=== PATIENT | male | born 1960 | race African-American/Black ===

== ENCOUNTER 2016-10-11 10:04 | Inpatient (IN) | payer OTHER ==
[2016-10-11 10:56] VITALS: BMI 22.9
--- NOTE | 2016-10-11 14:03 | HP ---
CIWA Score - CIWA Score Nausea/Vomitin-Int. Nausea w/Dry Heave (AND CONSTIPATION) Muscle Tremors: 4-Moderate,w/Arms Extend Anxiety: 4-Mod. Anxious/Guarded Agitation: 4-Moderately Restless Paroxysmal Sweats: 1-Minimal Palms Moist Orientation: 0-Oriented Tacttile Disturbances: 1-Very Mild Itch/Numbness Auditory Disturbances: 0-None Visual Disturbances: 0-None Headache: 2-Mild CIWA-Ar Total Score: 20 Admission ROS S - HPI Chief Complaint: DETOX TX FOR ALCOHOL DEPENDENCE Allergies/Adverse Reactions: Allergies Allergy/AdvReac Type Severity Reaction Status Date / Time Fish Containing Products Allergy Hives Verified 10/11/16 12:27 Penicillins Allergy Hives Verified 10/11/16 12:27 History of Present Illness: 56 Y/O AA/MALE WITH A HX OF ALCOHOL DEPENDENCE SEEKING DETOX TX. PT WAS DISCHARGED FROM [facility] THIS MORNING AND REFERRED HERE FOR DETOX. PT STATES WENT TO THE ER FOR C/O CHEST PAIN AND ALCOHOL INTOXICATION. PT WAS HYDRATED WITH 0.9%NACL AND GIVEN DOSE OF LIBRIUM WELL LAB WORKUP PER D /C PAPERS. ALET O X 3. DENIES C/O CHEST PAIN AT THIS MOMENT. NAD. Exam Limitations: No Limitations - Ebola screening Have you traveled outside of the country in the last 21 days: No Have you had contact with anyone from an Ebola affected area: No Have you been sick,other than usual withdrawal symptoms: No - Review of Systems Constitutional: Chills, Night Sweats, Changes in sleep (TRAZODONE FOR INSOMNIA IN THE PAST), Unintentional Wgt. Loss EENT: reports: Blurred Vision (USES GLASSES), Dental Problems (MISSING TOOTH) Respiratory: reports: No Symptoms reported Cardiac: reports: Lightheadedness GI: reports: Constipated, Nausea, Poor Fluid Intake : reports: Frequency Musculoskeletal: reports: No Symptoms Reported Integumentary: reports: No Symptoms Reported Neuro: reports: Headache, Numbness (TOES), Tremors, Unsteady Gait, Dizziness Endocrine: reports: No Symptoms Reported Hematology: reports: Anemia (ON FEOSOL) Psychiatric: reports: Orientated x3, Anxious Other Systems: Reviewed and Negative Patient History - Patient Medical History Hx Anemia: No Hx Asthma: No Hx Chronic Obstructive Pulmonary Disease (COPD): No Hx Cancer: No Hx Cardiac Disorders: No Hx Congestive Heart Failure: No Hx Hypertension: Yes (ON MED) Hx Hypercholesterolemia: No Hx Pacemaker: No HX Cerebrovascular Accident: No Hx Seizures: No Hx Dementia: No Hx Diabetes: No Hx Gastrointestinal Disorders: No Hx Liver Disease: No Hx Genitourinary Disorders: No Hx Sexually Transmitted Disorders: No Hx Renal Disease (ESRD): No Hx Thyroid Disease: No Hx Human Immunodeficiency Virus (HIV): No (negative hx) Hx Hepatitis C: No Hx Depression: No Hx Suicide Attempt: No (DENIES) Hx Bipolar Disorder: No Hx Schizophrenia: No - Patient Surgical History Past Surgical History: Yes Hx Neurologic Surgery: No Hx Cataract Extraction: No Hx Cardiac Surgery: No Hx Lung Surgery: No Hx Breast Surgery: No Hx Breast Biopsy: No Hx Abdominal Surgery: No Hx Appendectomy: No Hx Cholecystectomy: No Hx Genitourinary Surgery: No Hx Section: No Hx Orthopedic Surgery: Yes (RT.KNEE ARTHROSCOPIC) Anesthesia Reaction: No - PPD History Previous Implant?: Yes Documented Results: Negative w/o proof Implanted On Prior [facility] Admission?: Yes Date: 07/30/13 PPD to be Administered?: Yes - Reproductive History Patient is a Female of Child Bearing Age (11 -55 yrs old): No (MALE) - Smoking Cessation Smoking history: Current some day smoker Have you smoked in the past 12 months: Yes Aproximately how many cigarettes per day: 5 Hx Chewing Tobacco Use: No Initiated information on smoking cessation: Yes 'Breaking Loose' booklet given: 10/11/16 - Substance & Tx. History Hx Alcohol Use: Yes (VODKA) Hx Substance Use: Yes (COCAINE) Substance Use Type: Alcohol, Cocaine Hx Substance Use Treatment: Yes ([facility]-DETOX) - Substances Abused Crack Route: Smoking Frequency: 1-2 times per week Amount used: $400-500 Age of first use: 30 Date of Last Use: 10/10/16 Alcohol-vodka Route: Oral Frequency: Daily Amount used: 3 pts. Age of first use: 14 Date of Last Use: 10/11/16 Family Disease History - Family Disease History Family History: Denies Admission Physical Exam BHS - Vital Signs Vital Signs: Vital Signs - 24 hr 10/11/16 10:53 Temperature 97 F L Pulse Rate 88 Respiratory 20 Rate Blood Pressure 140/106 - Physical General Appearance: Yes: Moderate Distress, Irritable, Anxious HEENTM: Yes: EOMI, Normocephalic, CLAUDINE, Pharynx Normal Respiratory: Yes: Chest Non-Tender, Lungs Clear, Normal Breath Sounds, No Respiratory Distress Neck: Yes: Supple, Trachea in good position Breast: Yes: Breast Exam Deferred Cardiology: Yes: Regular Rhythm, Regular Rate, S1, S2 Abdominal: Yes: Normal Bowel Sounds, Non Tender, Flat, Soft Genitourinary: Yes: Within Normal Limits, Other (N/C) Back: Yes: Within Normal Limits Musculoskeletal: Yes: full range of Motion, Gait Steady Extremities: Yes: Normal Range of Motion, Non-Tender Neurological: Yes: electrotyper II-XII NML intact, Fully Oriented, Alert Integumentary: Yes: Dry, Warm Lymphatic: Yes: Within Normal Limits - Diagnostic (1) Hypertension Current Visit: Yes Status: Chronic Qualifiers: Hypertension type: essential hypertension Qualified Code(s): I10 - Essential (primary) hypertension (2) Nicotine dependence Current Visit: Yes Status: Acute Qualifiers: Nicotine product type: cigarettes Substance use status: in withdrawal Qualified Code(s): F17.213 - Nicotine dependence, cigarettes, with withdrawal (3) Alcohol dependence with uncomplicated withdrawal Current Visit: Yes Status: Acute (4) Cocaine dependence, uncomplicated Current Visit: Yes Status: Acute (5) History of insomnia Current Visit: Yes Status: Chronic Cleared for Admission [facility] - Detox or Rehab [facility] Level of Care: Medically Managed Detox Regimen/Protocol: Librium [facility] Breath Alcohol Content Breath Alcohol Content: 0 Urine Drug Screen - Results Drug Screen Negative: No Urine Drug Screen Results: MACARIO-Cocaine
[2016-10-11] MEDS ORDERED: NICOTINE POLACRILEX 2 MG GUM BUC PRN (14:22)
[2016-10-11] MEDS ORDERED: guaiFENesin/D-METHORPHAN HB 10 ML UNIT-DOSE CUPS PO PRN (14:22)
[2016-10-11] MEDS ORDERED: ACETAMINOPHEN 325 MG TABLET (FP) PO PRN (14:22)
[2016-10-11] MEDS ORDERED: chlordiazePOXIDE HCL 25 MG CAPSULE PO PRN (14:22)
[2016-10-11] MEDS ORDERED: MAG HYDROX/AL HYDROX/SIMETH 30 ML UNIT-DOSE CUP PO PRN (14:22)
[2016-10-11] MEDS ORDERED: MAGNESIUM CITRATE 300 ML BOTTLE PO PRN (14:22)
[2016-10-11] MEDS ORDERED: MENTHOL/PHENOL 1 EACH UD MM PRN (14:22)
[2016-10-11] MEDS ORDERED: P-EPHED 60MG/TRIPROLIDI 2.5MG TABLET PO PRN (14:22)
[2016-10-11] MEDS ORDERED: IBUPROFEN 400 MG TABLET (FP) PO PRN (14:22)
[2016-10-11] MEDS ORDERED: MAGNESIUM HYDROX 2400MG/30ML ORAL SUSPENSION 30 ML CUP PO PRN (14:22)
[2016-10-11] MEDS ORDERED: LOPERAMIDE HCL 2 MG CAPSULE PO PRN (14:22)
[2016-10-11] MEDS ORDERED: chlordiazePOXIDE HCL 25 MG CAPSULE PO ONE (14:44)
[2016-10-11] MEDS: NICOTINE 14 MG/24 HOURS TOPICAL PATCH TD SCH (15:08)
[2016-10-11] MEDS: chlordiazePOXIDE HCL 25 MG CAPSULE PO SCH ×2 (17:13→22:21)
[2016-10-11] MEDS: hydrOXYzine PAMOATE 25 MG CAPSULE (FP) PO PRN (18:36)
[2016-10-11 18:42] LABS: URINE APPEARANCE CLEAR; URINE BILIRUBIN NEGATIVE (NEGATIVE); URINE BLOOD NEGATIVE (NEGATIVE); URINE COLOR AMBER; URINE GLUCOSE (UA) NEGATIVE (NEGATIVE); URINE KETONE TRACE (NEGATIVE); URINE LEUK ESTERASE NEGATIVE (NEGATIVE); URINE NITRITE NEGATIVE (NEGATIVE); URINE UROBILINOGEN 4.0 E.U/dl E.U./dl (0.2-1.0)
[2016-10-11 18:43] LABS: URINE PROTEIN 1+ (NEGATIVE)
[2016-10-11 19:28] LABS: CALCIUM OXALATE CRYSTALS FEW /hpf (NONE SEEN); URINE MUCUS MANY; URINE RBC 8 /hpf (0-3); URINE WBC 2 /hpf (3-5)
[2016-10-11 21:55] LABS: HIV 1 & 2 AB NEGATIVE; HIV 1 AGp24 NEGATIVE
[2016-10-11] MEDS: THIAMINE HCL 100 MG TABLET (FP) PO SCH (22:21)
[2016-10-11] MEDS: diphenhydrAMINE HCL 50 MG CAPSULE PO PRN (22:21)
[2016-10-12] MEDS: diphenhydrAMINE HCL 50 MG CAPSULE PO PRN (01:02)
[2016-10-12] MEDS: chlordiazePOXIDE HCL 25 MG CAPSULE PO SCH ×4 (06:01→22:16)
[2016-10-12 10:21] LABS: MCH 32.1 pg (25.7-33.7); MCHC 33.5 g/dl (32.0-35.9); MEAN CELL VOLUME 95.8 fl (80-96); MEAN PLT VOLUME 8.5 fl (7.5-11.1); PLATELET COUNT 269 K/MM3 (134-434); RDW 15.3 % (11.9-15.9); WHITE BLOOD COUNT 2.9 K/mm3 (4.0-10.0)
[2016-10-12 10:23] LABS: ALBUMIN 4.1 g/dl (3.4-5.0); ALK PHOS 63 U/L (45-117); ANION GAP 6 (8-16); BILIRUBIN,TOTAL 1.4 mg/dL (0.2-1.0); CALCIUM 9.4 mg/dL (8.5-10.1); CO2 32 mmol/L (21-32); COCKROFT - GAULT 70.55; CREATININE 1.2 mg/dL (0.7-1.3); GLUCOSE,RANDOM 89 mg/dL (74-106); SGOT/AST 54 U/L (15-37); SGPT/ALT 35 U/L (12-78); TOT PROT 7.4 g/dl (6.4-8.2)
[2016-10-12] MEDS: PRENATAL VITAMINS W/ FOLIC ACID TABLET (FP) PO SCH (10:29)
[2016-10-12] MEDS: NICOTINE 14 MG/24 HOURS TOPICAL PATCH TD SCH (10:31)
--- NOTE | 2016-10-12 11:59 | EKG ---
Test Reason : Blood Pressure : / mmHG Vent. Rate : 072 BPM Atrial Rate : 072 BPM P-R Int : 182 ms QRS Dur : 090 ms QT Int : 394 ms P-R-T Axes : 014 069 054 degrees QTc Int : 431 ms NORMAL SINUS RHYTHM MINIMAL VOLTAGE CRITERIA FOR LVH, MAY BE NORMAL VARIANT BORDERLINE ECG NO PREVIOUS ECGS AVAILABLE Confirmed by ROSMERY BIRTO MD ([id number]) on 10/12/2016 11:58:55 AM Referred By: Confirmed By:ROSMERY BRITO MD
--- NOTE | 2016-10-12 13:10 | CONSULT ---
[facility] Psychiatric Consult - Data Date of interview: 10/12/16 Admission source: [facility] Identifying data: Readmission to [facility] for this 56 y/o AA male seeking detox treatment for alcohol and cocaine dependence.Patient is ,a father for two,domiciled,unemployed and supported on Public Assistance. Substance Abuse History: - Smoking Cessation. Smoking history: Current some day smoker. Have you smoked in the past 12 months: Yes. Aproximately how many cigarettes per day: 5. Hx Chewing Tobacco Use: No. Initiated information on smoking cessation: Yes. 'Breaking Loose' booklet given: 10/11/16. - Substance & Tx. History. Hx Alcohol Use: Yes (VODKA). Hx Substance Use: Yes (COCAINE). Substance Use Type: Alcohol, Cocaine. Hx Substance Use Treatment: Yes ([facility]- DETOX). - Substances Abused. Crack. Route: Smoking. Frequency: 1-2 times per week. Amount used: $400-500. Age of first use: 30. Date of Last Use: . Alcohol-vodka. Route: Oral. Frequency: Daily. Amount used: 3 pts. Age of first use: 14. Date of Last Use: 10/11/16. Confirmed by patient. Medical History: Hypertension,hypercholesterolemia,anemia and a history of arthroscopic surgery (right knee). Psychiatric History: Patient admits to history of psychiatric hospitalizations.Discharged for [place] last month (August 2016).Diagmnosed with Bipolar Disorder and maintained on a regimen of risperdal 1 mg po bid + trazodone 50 mg/hs.Confirmed by review of recent pharmacy claims of 09/01/16 @ Darryl Iraheta from provider Angel Steiner.Mr Stallworth gets his outpatient psychiatric services at the [facility] program located in [facility].No reported history of suicide attempts. Physical/Sexual Abuse/Trauma History: Patient denies. Additional Comment: Urine Drug Screen Results: MACARIO-Cocaine.Noted. Mental Status Exam - Mental Status Exam Alert and Oriented to: Time, Place, Person Cognitive Function: Good Patient Appearance: Well Groomed Mood: Hopeful, Euthymic Affect: Appropriate, Normal Range Patient Behavior: Fatigued, Appropriate, Cooperative Speech Pattern: Clear, Appropriate Voice Loudness: Normal Thought Process: Goal Oriented Thought Disorder: Not Present Hallucinations: Denies Suicidal Ideation: Denies Homicidal Ideation: Denies Insight/Judgement: Poor Sleep: Poorly, Difficulty falling asleep Appetite: Good Muscle strength/Tone: Normal Gait/Station: Normal Psychiatric Findings - Problem List ([place] 1, 2,3) (1) Alcohol dependence with uncomplicated withdrawal Current Visit: Yes Status: Acute (2) Cocaine dependence, uncomplicated Current Visit: Yes Status: Acute (3) Nicotine dependence Current Visit: Yes Status: Acute Qualifiers: Nicotine product type: cigarettes Substance use status: in withdrawal Qualified Code(s): F17.213 - Nicotine dependence, cigarettes, with withdrawal (4) Substance induced mood disorder Current Visit: Yes Status: Acute (5) Bipolar disorder Current Visit: Yes Status: Chronic (6) History of insomnia Current Visit: Yes Status: Chronic (7) Hypertension Current Visit: Yes Status: Chronic Qualifiers: Hypertension type: essential hypertension Qualified Code(s): I10 - Essential (primary) hypertension - Initial Treatment Plan Initial Treatment Plan: Psychoeducation.Detoxification.Medications : risperdal 1 mg po bid + trazodone 50 mg po hs.Side effects/benefits discussed with the patient.Made aware,in particular,of potential for dystonias,dyskinesias, akathisia,akinesia,endocrine complications (sexual impotence,galactorrhea, gynecomastia),cardiac adverse events that can occur with the use of risperdal / priapism from use of trazodone.Patient endorses a history of good tolerability/ efficacious response to this combination.He agrees with this plan of care.Observation.
[2016-10-12] MEDS: risperiDONE 1 MG TABLET (FP) PO SCH ×2 (14:24→22:16)
--- NOTE | 2016-10-12 14:46 | PN ---
[facility] CIWA - CIWA Score Nausea/Vomitin-No Nausea/No Vomiting Muscle Tremors: 4-Moderate,w/Arms Extend Anxiety: 3 Agitation: 3 Paroxysmal Sweats: 3 Orientation: 0-Oriented Tacttile Disturbances: 0-None Auditory Disturbances: 0-None Visual Disturbances: 0-None Headache: 0-None Present CIWA-Ar Total Score: 13 S Progress Note (SOAP) Subjective: Anxiety,tremors,sweating,interrupted sleep,restless Objective: 10/12/16 14:46 Vital Signs - 8 hr 10/12/16 10/12/16 09:33 13:24 Temperature 98.0 F Pulse Rate 85 94 H Respiratory 18 20 Rate Blood Pressure 125/88 125/88 Laboratory Tests 10/11/16 10/11/16 10/12/16 10:00 14:00 06:00 WBC 2.9 L RBC 4.17 Hgb 13.4 Hct 39.9 MCV 95.8 MCHC 33.5 RDW 15.3 D Plt Count 269 MPV 8.5 Sodium Potassium Chloride Carbon Dioxide Anion Gap BUN Creatinine Creat Clearance w eGFR Random Glucose Calcium Total Bilirubin AST ALT Alkaline Phosphatase Total Protein Albumin Urine Color Ade Urine Appearance Clear Urine pH 5.0 Ur Specific [place] 1.020 Urine Protein 1+ H Urine Glucose (UA) Negative Urine Ketones Trace H Urine Blood Negative Urine Nitrite Negative Urine Bilirubin Negative Urine Urobilinogen 4.0 e.u/dl Ur Leukocyte Esterase Negative Urine RBC 8 Urine WBC 2 Ur Epithelial Cells Rare Calcium Oxalate Crystal Few Urine Mucus Many RPR Titer HIV 1&2 Antibody Screen Negative HIV P24 Antigen Negative 10/12/16 10/12/16 06:00 06:00 WBC RBC Hgb Hct MCV MCHC RDW Plt Count MPV Sodium 139 Potassium 4.2 Chloride 101 Carbon Dioxide 32 Anion Gap 6 L BUN 18 D Creatinine 1.2 Creat Clearance w eGFR > 60 Random Glucose 89 Calcium 9.4 Total Bilirubin 1.4 H D AST 54 H ALT 35 Alkaline Phosphatase 63 D Total Protein 7.4 Albumin 4.1 Urine Color Urine Appearance Urine pH Ur Specific [place] Urine Protein Urine Glucose (UA) Urine Ketones Urine Blood Urine Nitrite Urine Bilirubin Urine Urobilinogen Ur Leukocyte Esterase Urine RBC Urine WBC Ur Epithelial Cells Calcium Oxalate Crystal Urine Mucus RPR Titer Nonreactive HIV 1&2 Antibody Screen HIV P24 Antigen labs noted Assessment: 10/12/16 14:47 Withdrawal sx. Plan: Continue detox
[2016-10-12] MEDS: hydrOXYzine PAMOATE 25 MG CAPSULE (FP) PO PRN (17:43)
[2016-10-12] MEDS: THIAMINE HCL 100 MG TABLET (FP) PO SCH (22:16)
[2016-10-12] MEDS: traZODone HCL 50 MG TABLET (FP) PO SCH (22:16)
[2016-10-13] MEDS: chlordiazePOXIDE HCL 25 MG CAPSULE PO SCH ×2 (07:19→10:12)
[2016-10-13] MEDS: hydrOXYzine PAMOATE 25 MG CAPSULE (FP) PO PRN ×2 (09:12→17:29)
[2016-10-13] MEDS: PRENATAL VITAMINS W/ FOLIC ACID TABLET (FP) PO SCH (10:11)
[2016-10-13] MEDS: NICOTINE 14 MG/24 HOURS TOPICAL PATCH TD SCH (10:12)
[2016-10-13] MEDS: risperiDONE 1 MG TABLET (FP) PO SCH ×2 (10:12→21:47)
--- NOTE | 2016-10-13 11:02 | PN ---
[facility] CIWA - CIWA Score Nausea/Vomitin-No Nausea/No Vomiting Muscle Tremors: 3 Anxiety: 2 Agitation: 2 Paroxysmal Sweats: 3 Orientation: 0-Oriented Tacttile Disturbances: 0-None Auditory Disturbances: 0-None Visual Disturbances: 0-None Headache: 0-None Present CIWA-Ar Total Score: 10 S Progress Note (SOAP) Subjective: Sweating,anxiety,tremors,interrupted sleep,restless. Objective: 10/13/16 11:01 Vital Signs - 8 hr 10/13/16 10/13/16 03:54 09:14 Pulse Rate 92 H Respiratory 18 20 Rate Blood Pressure 120/83 Laboratory Last Values WBC 2.9 K/mm3 (4.0-10.0) L 10/12/16 06:00 RBC 4.17 M/mm3 (4.00-5.60) 10/12/16 06:00 Hgb 13.4 GM/dL (11.7-16.9) 10/12/16 06:00 Hct 39.9 % (35.4-49) 10/12/16 06:00 MCV 95.8 fl (80-96) 10/12/16 06:00 MCHC 33.5 g/dl (32.0-35.9) 10/12/16 06:00 RDW 15.3 % (11.9-15.9) D 10/12/16 06:00 Plt Count 269 K/MM3 (134-434) 10/12/16 06:00 MPV 8.5 fl (7.5-11.1) 10/12/16 06:00 Sodium 139 mmol/L (136-145) 10/12/16 06:00 Potassium 4.2 mmol/L (3.5-5.1) 10/12/16 06:00 Chloride 101 mmol/L (98-107) 10/12/16 06:00 Carbon Dioxide 32 mmol/L (21-32) 10/12/16 06:00 Anion Gap 6 (8-16) L 10/12/16 06:00 BUN 18 mg/dL (7-18) D 10/12/16 06:00 Creatinine 1.2 mg/dL (0.7-1.3) 10/12/16 06:00 Creat Clearance w eGFR > 60 (>60) 10/12/16 06:00 Random Glucose 89 mg/dL (74-106) 10/12/16 06:00 Calcium 9.4 mg/dL (8.5-10.1) 10/12/16 06:00 Total Bilirubin 1.4 mg/dL (0.2-1.0) H D 10/12/16 06:00 AST 54 U/L (15-37) H 10/12/16 06:00 ALT 35 U/L (12-78) 10/12/16 06:00 Alkaline Phosphatase 63 U/L (45-117) D 10/12/16 06:00 Total Protein 7.4 g/dl (6.4-8.2) 10/12/16 06:00 Albumin 4.1 g/dl (3.4-5.0) 10/12/16 06:00 Urine Color Ade 10/11/16 14:00 Urine Appearance Clear 10/11/16 14:00 Urine pH 5.0 (5.0-8.0) 10/11/16 14:00 Ur Specific [place] 1.020 (1.005-1.025) 10/11/16 14:00 Urine Protein 1+ (NEGATIVE) H 10/11/16 14:00 Urine Glucose (UA) Negative (NEGATIVE) 10/11/16 14:00 Urine Ketones Trace (NEGATIVE) H 10/11/16 14:00 Urine Blood Negative (NEGATIVE) 10/11/16 14:00 Urine Nitrite Negative (NEGATIVE) 10/11/16 14:00 Urine Bilirubin Negative (NEGATIVE) 10/11/16 14:00 Urine Urobilinogen 4.0 e.u/dl E.U./dl (0.2-1.0) 10/11/16 14:00 Ur Leukocyte Esterase Negative (NEGATIVE) 10/11/16 14:00 Urine RBC 8 /hpf (0-3) 10/11/16 14:00 Urine WBC 2 /hpf (3-5) 10/11/16 14:00 Ur Epithelial Cells Rare /hpf (FEW) 10/11/16 14:00 Calcium Oxalate Crystal Few /hpf (NONE SEEN) 10/11/16 14:00 Urine Mucus Many 10/11/16 14:00 RPR Titer Nonreactive (NONREACTIVE) 10/12/16 06:00 HIV 1&2 Antibody Screen Negative 10/11/16 10:00 HIV P24 Antigen Negative 10/11/16 10:00 labs noted Assessment: 10/13/16 11:01 Withdrawal sx. Plan: Continue detox
[2016-10-13] MEDS: chlordiazePOXIDE 5 MG CAPSULE PO SCH ×3 (17:26→22:00)
[2016-10-13] MEDS: traZODone HCL 50 MG TABLET (FP) PO SCH (21:47)
[2016-10-13] MEDS: THIAMINE HCL 100 MG TABLET (FP) PO SCH (21:47)
[2016-10-14] MEDS: chlordiazePOXIDE 5 MG CAPSULE PO SCH (06:06)
[2016-10-14 06:39] VITALS: BP 120/84; PULSE 95; TEMP 97.3
--- NOTE | 2016-10-14 11:42 | DS ---
[facility] Detox Discharge Summary Admission Date: 10/11/16 Discharge Date: 10/14/16 - History Present History: Alcohol Dependence, Cocaine Dependence Additional Comments: ADVISED PATIENT TO FOLLOW-UP WITH [facility] FOR GENERAL MEDICAL ASSESSMENT. Pertinent Past History: HTN, Bipolar Disorder, Insomnia. - Physical Exam Results Vital Signs: Vital Signs Temperature 97.3 F L 10/14/16 06:38 Pulse Rate 95 H 10/14/16 06:38 Respiratory Rate 18 10/14/16 06:38 Blood Pressure 120/84 10/14/16 06:38 O2 Sat by Pulse Oximetry (%) Pertinent Admission Physical Exam Findings: WITHDRAWAL SYMPTOMS. Laboratory Tests 10/11/16 10/11/16 10/12/16 10:00 14:00 06:00 WBC 2.9 L RBC 4.17 Hgb 13.4 Hct 39.9 MCV 95.8 MCHC 33.5 RDW 15.3 D Plt Count 269 MPV 8.5 Sodium Potassium Chloride Carbon Dioxide Anion Gap BUN Creatinine Creat Clearance w eGFR Random Glucose Calcium Total Bilirubin AST ALT Alkaline Phosphatase Total Protein Albumin Urine Color Ade Urine Appearance Clear Urine pH 5.0 Ur Specific [place] 1.020 Urine Protein 1+ H Urine Glucose (UA) Negative Urine Ketones Trace H Urine Blood Negative Urine Nitrite Negative Urine Bilirubin Negative Urine Urobilinogen 4.0 e.u/dl Ur Leukocyte Esterase Negative Urine RBC 8 Urine WBC 2 Ur Epithelial Cells Rare Calcium Oxalate Crystal Few Urine Mucus Many RPR Titer HIV 1&2 Antibody Screen Negative HIV P24 Antigen Negative 10/12/16 10/12/16 06:00 06:00 WBC RBC Hgb Hct MCV MCHC RDW Plt Count MPV Sodium 139 Potassium 4.2 Chloride 101 Carbon Dioxide 32 Anion Gap 6 L BUN 18 D Creatinine 1.2 Creat Clearance w eGFR > 60 Random Glucose 89 Calcium 9.4 Total Bilirubin 1.4 H D AST 54 H ALT 35 Alkaline Phosphatase 63 D Total Protein 7.4 Albumin 4.1 Urine Color Urine Appearance Urine pH Ur Specific [place] Urine Protein Urine Glucose (UA) Urine Ketones Urine Blood Urine Nitrite Urine Bilirubin Urine Urobilinogen Ur Leukocyte Esterase Urine RBC Urine WBC Ur Epithelial Cells Calcium Oxalate Crystal Urine Mucus RPR Titer Nonreactive HIV 1&2 Antibody Screen HIV P24 Antigen LABS NOTED. - Treatment Hospital Course: Detoxed Safely - Medication Discharge Medications: Ambulatory Orders Trazodone HCl [Desyrel -] 50 mg PO HS 10/11/16 Risperidone [Risperdal] 1 mg PO BID #60 ml 10/12/16 Trazodone HCl [Desyrel -] 50 mg PO HS #30 tablet 10/12/16 - Diagnosis (1) Alcohol dependence with uncomplicated withdrawal Current Visit: Yes Status: Acute (2) Cocaine dependence, uncomplicated Current Visit: Yes Status: Acute (3) Nicotine dependence Current Visit: Yes Status: Chronic Qualifiers: Nicotine product type: cigarettes Substance use status: in withdrawal Qualified Code(s): F17.213 - Nicotine dependence, cigarettes, with withdrawal (4) Substance induced mood disorder Current Visit: Yes Status: Acute (5) Bipolar disorder Current Visit: Yes Status: Chronic Qualifiers: Active/Remission status: remission status unspecified Qualified Code (s): F31.9 - Bipolar disorder, unspecified (6) History of insomnia Current Visit: Yes Status: Chronic (7) Hypertension Current Visit: Yes Status: Chronic Qualifiers: Hypertension type: essential hypertension Qualified Code(s): I10 - Essential (primary) hypertension - AMA Did Patient Leave Against Medical Advice: Yes (PT HAD MEDICAL APPOINTMENT ELSEWHERE AND WAS UNABLE TO RE-SCHEDULE.)
[2016-10-14] MEDS ORDERED: chlordiazePOXIDE HCL 10 MG CAPSULE PO SCH (17:00)
== END 2016-10-14 09:29 | disposition left against medical advice (07) | DRG 770 ==
LOC: YASAS 10:04 → Y3N 13:18
PROVIDERS: ADMIT Internal Medicine; ATTEND Internal Medicine
PROC: HZ2ZZZZ Detoxification Services for Substance Abuse Treatment (ICD-10-PCS; principal; 2016-10-14)
DX: F10.230 Alcohol dependence with withdrawal, uncomplicated (principal); F14.20 Cocaine dependence, uncomplicated; F17.213 Nicotine dependence, cigarettes, with withdrawal; F19.24 Other psychoactive substance dependence with psychoactive substance-induced mood disorder; F31.9 Bipolar disorder, unspecified; G47.00 Insomnia, unspecified; I10 Essential (primary) hypertension
CPT/HCPCS: 36415; 80053; 81003; 81015; 85027; 86593; 87389; 93005; 93010; J2794

== ENCOUNTER 2018-03-21 10:51 | Inpatient (IN) | payer OTHER ==
[2018-03-21 13:11] VITALS: BMI 25.8
--- NOTE | 2018-03-21 14:37 | HP ---
CIWA Score - Admission Criteria OASAS Guidelines: Admission for Medically Managed Detox: Requires at least one of the followin. CIWA greater than 12 2. Seizures within the past 24 hours 3. Delirium tremens within the past 24 hours 4. Hallucinations within the past 24 hours 5. Acute intervention needed for co occurring medical disorder 6. Acute intervention needed for co occurring psychiatric disorder 7. Severe withdrawal that cannot be handled at a lower level of care (continued vomiting, continued diarrhea, abnormal vital signs) requiring intravenous medication and/or fluids 8. Admission ROS BHS - HPI Chief Complaint: i need help to come to rehab from alcohol and cocaine Allergies/Adverse Reactions: Allergies Allergy/AdvReac Type Severity Reaction Status Date / Time Fish Containing Products Allergy Hives Verified 03/21/18 13:59 Penicillins Allergy Hives Verified 03/21/18 13:59 History of Present Illness: this 57 years old male iwth alcohol and cocaine dependence,completed detox in [facility] from 03/17/18 to 03/21/18 history of hypertension ,no med anxiety and depression on trazadone 100 mgs at night nicotine dependence longest period of sobriety 6 months Exam Limitations: No Limitations - Ebola screening Have you traveled outside of the country in the last 21 days: No Have you had contact with anyone from an Ebola affected area: No Have you been sick,other than usual withdrawal symptoms: No Do you have a fever: No - Review of Systems Constitutional: No Symptoms Reported EENT: reports: No Symptoms Reported Respiratory: reports: No Symptoms reported Cardiac: reports: No Symptoms Reported GI: reports: No Symptoms Reported : reports: No Symptoms Reported Musculoskeletal: reports: No Symptoms Reported Integumentary: reports: No Symptoms Reported Neuro: reports: No Symptoms reported Endocrine: reports: No Symptoms Reported Hematology: reports: No Symptoms Reported Psychiatric: reports: No Sypmtoms Reported, Judgement Intact, Mood/Affect Appropiate, Anxious, Depressed (insomnia) Other Systems: Reviewed and Negative Patient History - Patient Medical History Hx Anemia: No Hx Asthma: No Hx Chronic Obstructive Pulmonary Disease (COPD): No Hx Cancer: No Hx Cardiac Disorders: No Hx Congestive Heart Failure: No Hx Hypertension: Yes (no medication) Hx Hypercholesterolemia: No Hx Pacemaker: No HX Cerebrovascular Accident: No Hx Seizures: No Hx Dementia: No Hx Diabetes: No Hx Gastrointestinal Disorders: No Hx Liver Disease: No Hx Genitourinary Disorders: No Hx Sexually Transmitted Disorders: No Hx Renal Disease (ESRD): No Hx Thyroid Disease: No Hx Human Immunodeficiency Virus (HIV): No (negative hx 12/30 negative) Hx Hepatitis C: No Hx Depression: Yes (anxiety) Hx Suicide Attempt: No Hx Bipolar Disorder: No Hx Schizophrenia: Yes (schizoaffective disorder) Other Medical History: no suicidal,no homicidal - Patient Surgical History Past Surgical History: Yes Hx Neurologic Surgery: No Hx Cataract Extraction: No Hx Cardiac Surgery: No Hx Lung Surgery: No Hx Breast Surgery: No Hx Breast Biopsy: No Hx Abdominal Surgery: No Hx Appendectomy: No Hx Cholecystectomy: No Hx Genitourinary Surgery: No Hx Section: No Hx Orthopedic Surgery: Yes (torn ligament, right knee in 1985) Anesthesia Reaction: No - PPD History Previous Implant?: Yes Documented Results: Negative w/o proof Implanted On Prior R Admission?: Yes Date: 10/13/16 Results: 0 mm PPD to be Administered?: Yes - Smoking Cessation Smoking history: Current some day smoker Have you smoked in the past 12 months: Yes Aproximately how many cigarettes per day: 5 Hx Chewing Tobacco Use: No Initiated information on smoking cessation: Yes 'Breaking Loose' booklet given: 03/21/18 - Substance & Tx. History Hx Alcohol Use: Yes Hx Substance Use: No Substance Use Type: Alcohol Hx Substance Use Treatment: Yes ([facility] 03/17/18 to 03/21/18) - Substances Abused Alcohol-vodka Route: Oral Frequency: Daily Amount used: 3 pts. Age of first use: 14 Date of Last Use: 03/21/18 Family Disease History - Family Disease History Family History: Denies Admission Physical Exam S - Vital Signs Vital Signs: Vital Signs - 24 hr 03/21/18 13:09 Temperature 96.1 F L Pulse Rate 97 H Respiratory 18 Rate Blood Pressure 140/85 - Physical General Appearance: Yes: Within Normal Limits HEENTM: Yes: Within Normal Limits, Normal ENT Inspection, CLAUDINE, Pharynx Normal Respiratory: Yes: Within Normal Limits, Lungs Clear, Normal Breath Sounds Neck: Yes: Within Normal Limits, Trachea in good position, Thyroid enlarged Breast: Yes: Within Normal Limits Cardiology: Yes: Within Normal Limits, Regular Rhythm, Regular Rate, S1, S2 Abdominal: Yes: Within Normal Limits, Normal Bowel Sounds, Non Tender, Flat, Soft Genitourinary: Yes: Within Normal Limits Back: Yes: Within Normal Limits Musculoskeletal: Yes: Within Normal Limits Extremities: Yes: Within Normal Limits, Normal Range of Motion, Other (s/p surgery of right knee) Neurological: Yes: ob gyn II-XII NML intact, Fully Oriented, Alert, Motor Strength 5/5 Integumentary: Yes: Within Normal Limits Lymphatic: Yes: Within Normal Limits - Diagnostic (1) Alcohol dependence Current Visit: Yes Status: Chronic (2) Bipolar disorder Current Visit: No Status: Chronic Qualifiers: Active/Remission status: remission status unspecified Qualified Code(s): F31.9 - Bipolar disorder, unspecified (3) History of insomnia Current Visit: Yes Status: Acute (4) Hypertension Current Visit: No Status: Chronic Qualifiers: Hypertension type: essential hypertension Qualified Code(s): I10 - Essential (primary) hypertension (5) Nicotine dependence Current Visit: Yes Status: Chronic Qualifiers: Nicotine product type: cigarettes Substance use status: in withdrawal Qualified Code(s): F17.213 - Nicotine dependence, cigarettes, with withdrawal Cleared for Admission [facility] - Detox or Rehab Claeared for Rehab Admission: Yes [facility] Breath Alcohol Content Breath Alcohol Content: 0.008 Urine Drug Screen - Results Drug Screen Negative: No Urine Drug Screen Results: BZO-Benzodiazepines Inpatient Rehab Admission - Initial Determination Are CD services needed?: Yes Free of communicable disease: Yes Not in need of hospitalization: Yes - Rehab Admission Criteria Previous failed treatment: Yes Poor recovery environment: Yes Comorbidities: Yes Lacks judgement: No Patient is meeting Inpatient Rehab admission criteria:: Yes
[2018-03-21] MEDS ORDERED: MENTHOL/PHENOL 1 EACH UD MM PRN (14:43)
[2018-03-21] MEDS ORDERED: guaiFENesin/D-METHORPHAN HB 10 ML UNIT-DOSE CUPS PO PRN (14:43)
[2018-03-21] MEDS ORDERED: MAG HYDROX/AL HYDROX/SIMETH 30 ML UNIT-DOSE CUP PO PRN (14:43)
[2018-03-21] MEDS ORDERED: MAGNESIUM CITRATE 300 ML BOTTLE PO PRN (14:43)
[2018-03-21] MEDS ORDERED: P-EPHED 60MG/TRIPROLIDI 2.5MG TABLET PO PRN (14:43)
[2018-03-21] MEDS ORDERED: LOPERAMIDE HCL 2 MG CAPSULE PO PRN (14:43)
[2018-03-21] MEDS ORDERED: MAGNESIUM HYDROX 2400MG/30ML ORAL SUSPENSION 30 ML CUP PO PRN (14:43)
[2018-03-21] MEDS ORDERED: ACETAMINOPHEN 325 MG TABLET (FP) PO PRN (14:43)
[2018-03-21 17:03] LABS: URINE APPEARANCE CLEAR; URINE BILIRUBIN NEGATIVE (<2.0 mg/dL); URINE COLOR YELLOW; URINE GLUCOSE (UA) NEGATIVE (NEGATIVE); URINE KETONE NEGATIVE (NEGATIVE); URINE LEUK ESTERASE NEGATIVE (NEGATIVE); URINE NITRITE NEGATIVE (NEGATIVE); URINE PROTEIN NEGATIVE (NEGATIVE)
--- NOTE | 2018-03-21 17:34 | CONSULT ---
[facility] Psychiatric Consult - Data Date of interview: 03/21/18 Admission source: [facility]
[2018-03-21] MEDS: hydrOXYzine PAMOATE 50 MG CAPSULE (FP) PO PRN (17:50)
--- NOTE | 2018-03-21 17:51 | HP ---
Psychiatrist Admission - Data Date of interview: 03/21/18 Admission source: [facility]. Referred by [facility] program. Identifying data: Readmission to [facility] for this 57 y/o AA male, referred by [facility] where he had completed detoxification, entering rehabilitation treatment at [address] to address alcohol and cocaine dependence co-morbid with Schizoaffective Disorder. Patient is , a father of one, domiciled, unemployed and supported on welfare. Medical History: Consistent with hypertension,hypercholesterolemia,anemia and a history of arthroscopic surgery (right knee). Psychiatric History: Patient admits to history of multiple psychiatric hospitalizations (mostly at [facility]). Diagnosed with Schizoaffective Disorder. Patient has been followed for the past three years at the [facility] mental health clinic in [facility] (missed his appointment with therapist last week). Maintenance medications consist of risperdal 1 mg po bid + trazodone 50 mg/hs + depakote 500 mg/day + cogentin 1 mg/day (confirmed by pharmacy claims of 03/08/18 at [facility]). Mr Stallworth denies history of suicide attempts. Physical/Sexual Abuse/Trauma History: Patient denies. Additional Comment: Discussed with the patient in this interview. Mr Stallworth confirms current [facility] report on his addictions. See details : Smoking history: Current some day smoker. Have you smoked in the past 12 months: Yes. Aproximately how many cigarettes per day: 5. Hx Chewing Tobacco Use: No. Initiated information on smoking cessation: Yes. 'Breaking Loose' booklet given : 03/21/18. - Substance & Tx. History. Hx Alcohol Use: Yes. Hx Substance Use : No. Substance Use Type: Alcohol. Hx Substance Use Treatment: Yes ([facility] to 03/21/18). - Substances Abused. Alcohol-vodka. Route: Oral. Frequency: Daily. Amount used: 3 pts. Age of first use: 14. Date of Last Use : 03/21/18. Urine Drug Screen Results: BZO-Benzodiazepines. Noted. Vital Signs: Vital Signs - 24 hr 03/21/18 13:09 Temperature 96.1 F L Pulse Rate 97 H Respiratory 18 Rate Blood Pressure 140/85 Allergies/Adverse Reactions: Allergies Allergy/AdvReac Type Severity Reaction Status Date / Time Fish Containing Products Allergy Hives Verified 03/21/18 13:59 Penicillins Allergy Hives Verified 03/21/18 13:59 - Substance Abuse/Tx History Hx Alcohol Use: Yes Hx Substance Use: Yes (alcohol + cocaine + nicotine) Substance Use Type: Alcohol (consumes 3 pints of vodka daily ; onset of ETOH abuse : age 14. Longest period of abstinence : eight months. Recent relapse. ), Cocaine (started using cocaine at age 35. Spends around 200 dollars a day.) Hx Substance Use Treatment: Yes Mental Status Exam - Mental Status Exam Alert and Oriented to: Time, Place, Person Cognitive Function: Good Patient Appearance: Well Groomed Mood: Hopeful, Euthymic Affect: Appropriate, Normal Range Patient Behavior: Appropriate, Cooperative Speech Pattern: Clear Voice Loudness: Normal Thought Process: Intact, Goal Oriented Thought Disorder: Not Present Hallucinations: Denies Suicidal Ideation: Denies Homicidal Ideation: Denies Insight/Judgement: Fair Sleep: Poorly, Difficulty falling asleep Appetite: Good Muscle strength/Tone: Normal Gait/Station: Normal Psychiatric Findings - Problem List ([place] 1, 2,3) (1) Schizoaffective disorder Current Visit: Yes Status: Chronic (2) Alcohol dependence Current Visit: Yes Status: Chronic (3) Cocaine dependence, uncomplicated Current Visit: Yes Status: Chronic (4) Nicotine dependence Current Visit: Yes Status: Chronic Qualifiers: Nicotine product type: cigarettes Substance use status: in withdrawal Qualified Code(s): F17.213 - Nicotine dependence, cigarettes, with withdrawal (5) Insomnia Current Visit: Yes Status: Acute - Initial Treatment Plan Initial Treatment Plan: Psychoeducation. Sleep hygiene. Psychotherapy ( supportive, cognitive, group). AA meetings recommended. Patient is made aware of the FDA-approved formulations for relapse prevention and he is strongly encouraged to consider naltrexone or acamprosate in his recovery. Made aware of the benefits of keeping a therapeutic alliance with his O[facility] care providers ( [facility]). Medications are verified and resumed as follows : risperdal 1 mg po bid + cogentin 0.5 mg po bid + trazodone 50 mg po hs + depakote 250 mg po bid. Side effects/benefits of EACH drug of this regimen are reviewed with the patient. This includes the risk of AIMS (abnormal involuntary movements), dystonias, akathisia, tardive dyskinesia, neuroleptic malignant syndrome, anticholinergic effects, endocrine issues (galactorrhea, gynecomastia, sexual impotence), liver dysfunction, blood dyscrasias and priapism. Mr Stallworth insists on getting back on these medications, endorsing good tolerability + syndromic control. Agrees to follow this plan of care. Observation. Valproic acid level will be monitored periodically during hospital course. Observation.
[2018-03-21] MEDS: traZODone HCL 50 MG TABLET (FP) PO SCH (22:04)
[2018-03-21] MEDS: risperiDONE 1 MG TABLET (FP) PO SCH (22:04)
[2018-03-21] MEDS: THIAMINE HCL 100 MG TABLET (FP) PO SCH (22:04)
[2018-03-21] MEDS: DIVALPROEX SODIUM 250 MG TABLET E.C. PO SCH (22:04)
[2018-03-21] MEDS: BENZTROPINE MESYLATE 1 MG TABLET (FP) PO SCH (22:05)
[2018-03-22] MEDS: hydrOXYzine PAMOATE 50 MG CAPSULE (FP) PO PRN ×4 (06:19→21:47)
[2018-03-22] MEDS: DIVALPROEX SODIUM 250 MG TABLET E.C. PO SCH ×2 (10:12→21:47)
[2018-03-22] MEDS: risperiDONE 1 MG TABLET (FP) PO SCH ×2 (10:12→21:47)
[2018-03-22] MEDS: PRENATAL VITAMINS W/ FOLIC ACID TABLET (FP) PO SCH (10:12)
[2018-03-22] MEDS: BENZTROPINE MESYLATE 1 MG TABLET (FP) PO SCH ×2 (10:12→21:48)
--- NOTE | 2018-03-22 11:13 | EKG ---
Test Reason : Blood Pressure : / mmHG Vent. Rate : 077 BPM Atrial Rate : 077 BPM P-R Int : 192 ms QRS Dur : 090 ms QT Int : 374 ms P-R-T Axes : 016 050 036 degrees QTc Int : 423 ms NORMAL SINUS RHYTHM NORMAL ECG WHEN COMPARED WITH ECG OF 11-OCT-2016 14:11, NO SIGNIFICANT CHANGE WAS FOUND Confirmed by CARLOS WONG MD ([id number]) on 03/22/2018 11:13:17 AM Referred By: Confirmed By:CARLOS WONG MD
[2018-03-22 14:31] LABS: HEMATOCRIT 33.8 % (35.4-49); HEMOGLOBIN 11.5 GM/dL (11.7-16.9); MCH 33.3 pg (25.7-33.7); MCHC 34.1 g/dl (32.0-35.9); MEAN CELL VOLUME 97.8 fl (80-96); MEAN PLT VOLUME 8.6 fl (7.5-11.1); PLATELET COUNT 243 K/MM3 (134-434); RBC 3.46 M/mm3 (4.00-5.60); RDW 14.8 % (11.9-15.9); WHITE BLOOD COUNT 3.2 K/mm3 (4.0-10.0)
[2018-03-22 15:06] LABS: ALBUMIN 3.6 g/dl (3.4-5.0); ALK PHOS 44 U/L (45-117); ANION GAP 9 MMOL/L (8-16); BILIRUBIN,TOTAL 0.6 mg/dL (0.2-1); BLOOD UREA NITROGEN 12 mg/dL (7-18); CALCIUM 8.8 mg/dL (8.5-10.1); CHLORIDE 104 mmol/L (98-107); CO2 27 mmol/L (21-32); GLUCOSE,RANDOM 111 mg/dL (74-106); POTASSIUM 4.1 mmol/L (3.5-5.1); SGOT/AST 62 U/L (15-37); SGPT/ALT 67 U/L (13-61); SODIUM 140 mmol/L (136-145); TOT PROT 6.4 g/dl (6.4-8.2)
[2018-03-22] MEDS: IBUPROFEN 400 MG TABLET (FP) PO PRN (19:21)
[2018-03-22] MEDS: traZODone HCL 50 MG TABLET (FP) PO SCH (21:47)
[2018-03-22] MEDS: THIAMINE HCL 100 MG TABLET (FP) PO SCH (21:47)
[2018-03-23] MEDS: PRENATAL VITAMINS W/ FOLIC ACID TABLET (FP) PO SCH (09:57)
[2018-03-23] MEDS: risperiDONE 1 MG TABLET (FP) PO SCH ×2 (09:58→21:56)
[2018-03-23] MEDS: hydrOXYzine PAMOATE 50 MG CAPSULE (FP) PO PRN ×3 (09:58→18:08)
[2018-03-23] MEDS: DIVALPROEX SODIUM 250 MG TABLET E.C. PO SCH ×2 (09:58→21:56)
[2018-03-23] MEDS: BENZTROPINE MESYLATE 1 MG TABLET (FP) PO SCH ×2 (10:44→21:57)
[2018-03-23] MEDS: THIAMINE HCL 100 MG TABLET (FP) PO SCH (21:56)
[2018-03-23] MEDS: traZODone HCL 50 MG TABLET (FP) PO SCH (21:56)
[2018-03-24] MEDS: hydrOXYzine PAMOATE 50 MG CAPSULE (FP) PO PRN ×4 (04:26→21:56)
[2018-03-24] MEDS: BENZTROPINE MESYLATE 1 MG TABLET (FP) PO SCH ×2 (10:17→21:57)
[2018-03-24] MEDS: PRENATAL VITAMINS W/ FOLIC ACID TABLET (FP) PO SCH (10:17)
[2018-03-24] MEDS: risperiDONE 1 MG TABLET (FP) PO SCH ×2 (10:17→21:56)
[2018-03-24] MEDS: DIVALPROEX SODIUM 250 MG TABLET E.C. PO SCH ×2 (10:17→21:56)
[2018-03-24] MEDS: traZODone HCL 50 MG TABLET (FP) PO SCH (21:56)
[2018-03-24] MEDS: THIAMINE HCL 100 MG TABLET (FP) PO SCH (21:56)
[2018-03-24] MEDS: METHYL SALICYLATE/MENTHOL OINT 30 GM TUBE TP SCH (23:47)
[2018-03-25] MEDS ORDERED: METHYL SALICYLATE/MENTHOL OINT 30 GM TUBE TP SCH (10:00)
[2018-03-25] MEDS: risperiDONE 1 MG TABLET (FP) PO SCH ×2 (10:01→22:01)
[2018-03-25] MEDS: PRENATAL VITAMINS W/ FOLIC ACID TABLET (FP) PO SCH (10:02)
[2018-03-25] MEDS ORDERED: PT OWN MED DRAWER 7, Y5N ONE ×2 (10:04→22:01)
[2018-03-25] MEDS: BENZTROPINE MESYLATE 1 MG TABLET (FP) PO SCH ×2 (10:07→22:02)
[2018-03-25] MEDS: METHYL SALICYLATE/MENTHOL OINT 30 GM TUBE TP SCH ×2 (10:07→22:01)
[2018-03-25] MEDS: DIVALPROEX SODIUM 250 MG TABLET E.C. PO SCH ×2 (10:07→22:02)
[2018-03-25] MEDS: IBUPROFEN 400 MG TABLET (FP) PO PRN (10:58)
[2018-03-25] MEDS: hydrOXYzine PAMOATE 50 MG CAPSULE (FP) PO PRN (19:04)
[2018-03-25] MEDS: THIAMINE HCL 100 MG TABLET (FP) PO SCH (22:01)
[2018-03-25] MEDS: traZODone HCL 50 MG TABLET (FP) PO SCH (22:01)
[2018-03-26] MEDS: hydrOXYzine PAMOATE 50 MG CAPSULE (FP) PO PRN ×4 (06:32→21:19)
[2018-03-26] MEDS: PRENATAL VITAMINS W/ FOLIC ACID TABLET (FP) PO SCH (10:17)
[2018-03-26] MEDS: risperiDONE 1 MG TABLET (FP) PO SCH ×2 (10:17→21:19)
[2018-03-26] MEDS: BENZTROPINE MESYLATE 1 MG TABLET (FP) PO SCH ×2 (10:18→21:19)
[2018-03-26] MEDS: METHYL SALICYLATE/MENTHOL OINT 30 GM TUBE TP SCH ×2 (10:19→21:20)
[2018-03-26] MEDS: DIVALPROEX SODIUM 250 MG TABLET E.C. PO SCH ×2 (11:08→21:19)
[2018-03-26] MEDS: traZODone HCL 50 MG TABLET (FP) PO SCH (21:18)
[2018-03-26] MEDS: THIAMINE HCL 100 MG TABLET (FP) PO SCH (21:18)
[2018-03-27] MEDS: DIVALPROEX SODIUM 250 MG TABLET E.C. PO SCH ×2 (09:52→21:51)
[2018-03-27] MEDS: METHYL SALICYLATE/MENTHOL OINT 30 GM TUBE TP SCH ×2 (09:52→21:50)
[2018-03-27] MEDS: BENZTROPINE MESYLATE 1 MG TABLET (FP) PO SCH ×2 (09:52→21:53)
[2018-03-27] MEDS: risperiDONE 1 MG TABLET (FP) PO SCH ×2 (09:52→21:51)
[2018-03-27] MEDS: PRENATAL VITAMINS W/ FOLIC ACID TABLET (FP) PO SCH (09:52)
[2018-03-27] MEDS: hydrOXYzine PAMOATE 50 MG CAPSULE (FP) PO PRN ×3 (09:54→21:51)
[2018-03-27] MEDS: traZODone HCL 50 MG TABLET (FP) PO SCH (21:51)
[2018-03-27] MEDS: MELATONIN 5 MG TABLETS PO PRN (21:52)
[2018-03-27] MEDS: THIAMINE HCL 100 MG TABLET (FP) PO SCH (21:53)
[2018-03-28] MEDS: hydrOXYzine PAMOATE 50 MG CAPSULE (FP) PO PRN ×3 (06:27→14:18)
[2018-03-28] MEDS: risperiDONE 1 MG TABLET (FP) PO SCH ×2 (09:49→21:49)
[2018-03-28] MEDS: PRENATAL VITAMINS W/ FOLIC ACID TABLET (FP) PO SCH (09:49)
[2018-03-28] MEDS: BENZTROPINE MESYLATE 1 MG TABLET (FP) PO SCH ×2 (09:49→21:49)
[2018-03-28] MEDS: DIVALPROEX SODIUM 250 MG TABLET E.C. PO SCH ×2 (09:49→21:49)
[2018-03-28] MEDS: METHYL SALICYLATE/MENTHOL OINT 30 GM TUBE TP SCH ×2 (10:34→22:21)
[2018-03-28] MEDS: traZODone HCL 50 MG TABLET (FP) PO SCH (21:49)
[2018-03-28] MEDS: THIAMINE HCL 100 MG TABLET (FP) PO SCH (21:49)
[2018-03-28] MEDS: MELATONIN 5 MG TABLETS PO PRN (21:50)
[2018-03-29] MEDS: hydrOXYzine PAMOATE 50 MG CAPSULE (FP) PO PRN ×5 (05:59→22:45)
[2018-03-29] MEDS: risperiDONE 1 MG TABLET (FP) PO SCH ×2 (10:25→21:33)
[2018-03-29] MEDS: BENZTROPINE MESYLATE 1 MG TABLET (FP) PO SCH ×2 (10:25→21:33)
[2018-03-29] MEDS: DIVALPROEX SODIUM 250 MG TABLET E.C. PO SCH ×2 (10:25→21:33)
[2018-03-29] MEDS: PRENATAL VITAMINS W/ FOLIC ACID TABLET (FP) PO SCH (10:25)
[2018-03-29] MEDS: METHYL SALICYLATE/MENTHOL OINT 30 GM TUBE TP SCH ×2 (10:26→21:33)
[2018-03-29] MEDS: THIAMINE HCL 100 MG TABLET (FP) PO SCH (21:33)
[2018-03-29] MEDS: traZODone HCL 50 MG TABLET (FP) PO SCH (21:33)
[2018-03-29] MEDS: MELATONIN 5 MG TABLETS PO PRN (21:34)
[2018-03-30] MEDS: hydrOXYzine PAMOATE 50 MG CAPSULE (FP) PO PRN ×3 (07:34→20:36)
[2018-03-30] MEDS: DIVALPROEX SODIUM 250 MG TABLET E.C. PO SCH ×2 (09:51→22:11)
[2018-03-30] MEDS: risperiDONE 1 MG TABLET (FP) PO SCH ×2 (09:51→22:11)
[2018-03-30] MEDS: PRENATAL VITAMINS W/ FOLIC ACID TABLET (FP) PO SCH (09:52)
[2018-03-30] MEDS: BENZTROPINE MESYLATE 1 MG TABLET (FP) PO SCH ×2 (09:52→22:11)
[2018-03-30] MEDS: METHYL SALICYLATE/MENTHOL OINT 30 GM TUBE TP SCH ×2 (10:30→22:12)
--- NOTE | 2018-03-30 13:00 | PN ---
[facility] Progress Note Note: Patient requests to resume Naltrexone 50 mg po daily as he was prescribed by his treating psychiatrist. According to pharmacy claim, script for Naltrxone 50 mg #30 filled on 03/08/18 at [facility] pharmacy. Medication will be ordered for patient
[2018-03-30] MEDS: NALTREXONE HCL 50 MG TABLET PO SCH (13:45)
[2018-03-30] MEDS: traZODone HCL 50 MG TABLET (FP) PO SCH (22:10)
[2018-03-30] MEDS: THIAMINE HCL 100 MG TABLET (FP) PO SCH (22:10)
[2018-03-30] MEDS: MELATONIN 5 MG TABLETS PO PRN (22:10)
[2018-03-31] MEDS: hydrOXYzine PAMOATE 50 MG CAPSULE (FP) PO PRN ×4 (02:36→22:31)
[2018-03-31] MEDS: NALTREXONE HCL 50 MG TABLET PO SCH (09:54)
[2018-03-31] MEDS: DIVALPROEX SODIUM 250 MG TABLET E.C. PO SCH ×2 (09:54→23:30)
[2018-03-31] MEDS: PRENATAL VITAMINS W/ FOLIC ACID TABLET (FP) PO SCH (09:54)
[2018-03-31] MEDS: BENZTROPINE MESYLATE 1 MG TABLET (FP) PO SCH ×2 (09:54→22:29)
[2018-03-31] MEDS: risperiDONE 1 MG TABLET (FP) PO SCH ×2 (09:54→22:29)
[2018-03-31] MEDS: METHYL SALICYLATE/MENTHOL OINT 30 GM TUBE TP SCH ×2 (09:54→22:27)
[2018-03-31] MEDS: MELATONIN 5 MG TABLETS PO PRN (22:29)
[2018-03-31] MEDS: THIAMINE HCL 100 MG TABLET (FP) PO SCH (22:29)
[2018-03-31] MEDS: traZODone HCL 50 MG TABLET (FP) PO SCH (22:29)
[2018-04-01] MEDS: hydrOXYzine PAMOATE 50 MG CAPSULE (FP) PO PRN ×4 (07:02→21:20)
[2018-04-01] MEDS: BENZTROPINE MESYLATE 1 MG TABLET (FP) PO SCH ×2 (09:50→21:17)
[2018-04-01] MEDS: NALTREXONE HCL 50 MG TABLET PO SCH (09:50)
[2018-04-01] MEDS: DIVALPROEX SODIUM 250 MG TABLET E.C. PO SCH ×2 (09:50→21:20)
[2018-04-01] MEDS: risperiDONE 1 MG TABLET (FP) PO SCH ×2 (09:50→21:17)
[2018-04-01] MEDS: PRENATAL VITAMINS W/ FOLIC ACID TABLET (FP) PO SCH (09:50)
[2018-04-01] MEDS: METHYL SALICYLATE/MENTHOL OINT 30 GM TUBE TP SCH ×2 (09:51→22:26)
[2018-04-01] MEDS: THIAMINE HCL 100 MG TABLET (FP) PO SCH (21:17)
[2018-04-01] MEDS: MELATONIN 5 MG TABLETS PO PRN (21:17)
[2018-04-01] MEDS: traZODone HCL 50 MG TABLET (FP) PO SCH (21:17)
[2018-04-02] MEDS: hydrOXYzine PAMOATE 50 MG CAPSULE (FP) PO PRN ×3 (03:29→14:07)
[2018-04-02 06:46] VITALS: TEMP 97.5
--- NOTE | 2018-04-02 08:33 | PN ---
S Progress Note Note: Patient complains of difficulty to sleep despite taking Trazadone 50 mg at bedtime. He requests that Trazadone dosage be increased to 100 mg. Trazadone 100 mg po HS is ordered
[2018-04-02] MEDS ORDERED: PT OWN MED DRAWER 7, Y5N ONE (08:47)
[2018-04-02] MEDS: PRENATAL VITAMINS W/ FOLIC ACID TABLET (FP) PO SCH (10:00)
[2018-04-02] MEDS: risperiDONE 1 MG TABLET (FP) PO SCH ×2 (10:00→22:34)
[2018-04-02] MEDS: NALTREXONE HCL 50 MG TABLET PO SCH (10:00)
[2018-04-02] MEDS: METHYL SALICYLATE/MENTHOL OINT 30 GM TUBE TP SCH ×2 (10:01→22:32)
[2018-04-02] MEDS: DIVALPROEX SODIUM 250 MG TABLET E.C. PO SCH ×2 (10:01→22:32)
[2018-04-02] MEDS: BENZTROPINE MESYLATE 1 MG TABLET (FP) PO SCH ×2 (10:01→22:32)
--- NOTE | 2018-04-02 14:48 | PN ---
Psychiatric Progress Note Vital Signs: Vital Signs Period Temp Pulse Resp BP Sys/Qureshi Pulse Ox Last 24 Hr 97.5 F 70 18-20 121/86 Date of Session: 04/02/18 Chief Complaint:: DischargeNote HPI: Patient addressing Alcohol and Cocaine Dependence comorbid with Nicotine Dependence , Schizoaffective Disorder and Substance-Induce Sleep Disoder Current Medications: Active Medications Generic Name Dose Route Start Last Admin Trade Name Freq PRN Reason Stop Dose Admin Acetaminophen 650 mg 03/21/18 14:43 04/02/18 07:03 Tylenol - PO 650 mg Q4H PRN Administration FEVER Al Hydroxide/Mg Hydroxide 30 ml 03/21/18 14:43 Mylanta Oral Suspension - PO Q6H PRN DYSPEPSIA Benztropine Mesylate 0.5 mg 03/21/18 22:00 04/02/18 10:01 Cogentin - PO Not Given BID CHRISTIAN Divalproex Sodium 250 mg 03/21/18 22:00 04/02/18 10:01 Depakote - PO 250 mg BID CHRISTIAN Administration Eucalyptus/Menthol/Phenol/Sorbitol 1 each 03/21/18 14:43 Cepastat Lozenge - MM Q4H PRN SORE THROAT Guaifenesin 10 ml 03/21/18 14:43 Robitussin Dm - PO Q6H PRN COUGH Hydroxyzine Pamoate 50 mg 03/21/18 14:43 04/02/18 14:07 Vistaril - PO 50 mg Q4H PRN Administration AGITATION Ibuprofen 400 mg 03/21/18 14:43 03/25/18 10:58 Motrin - PO 400 mg Q6H PRN Administration Pain level 4-6 Influenza Virus Vaccine Quadrival 60 mcg 04/02/18 15:00 Flulaval Quad [id number] IM 04/02/18 15:01 .ONCE ONE Loperamide HCl 4 mg 03/21/18 14:43 Imodium - PO Q6H PRN DIARRHEA Magnesium Citrate 300 ml 03/21/18 14:43 Citroma - PO Q48H PRN CONSTIPATION Magnesium Hydroxide 30 ml 03/21/18 14:43 Milk Of Magnesia - PO DAILY PRN CONSTIPATION Melatonin 5 mg 03/21/18 22:00 04/01/18 21:17 Melatonin PO 5 mg HS PRN Administration INSOMNIA Methyl Salicylate 1 applic 03/24/18 23:00 04/02/18 10:01 Jorge-Mendez - TP Not Given BID CHRISTIAN Naltrexone HCl 50 mg 03/30/18 13:00 04/02/18 10:00 Revia - PO 50 mg DAILY CHRISTIAN Administration Multivit/Folic Acid/Iron 1 tab 03/22/18 10:00 04/02/18 10:00 Vitamins (Sjr) - PO 1 tab DAILY CHRISTIAN Administration Pseudoephedrine/Triprolidine 1 combo 03/21/18 14:43 Actifed - PO TID PRN NASAL CONGESTION Risperidone 1 mg 03/21/18 22:00 04/02/18 10:00 Risperdal - PO 1 mg BID CHRISTIAN Administration Thiamine HCl 100 mg 03/21/18 22:00 04/01/18 21:17 Vitamin B1 - PO 100 mg HS CHRISTIAN Administration Trazodone HCl 100 mg 04/02/18 22:00 Desyrel - PO HS CHRISTIAN Current Side Effect: No Lab tests ordered: Yes Lab tests reviewed: Yes Provider note:: Patient will complete this program on 04/03/18. Felecia met his treatment goals and will continue to address his issues in outpatient at [facility] at [address] [place] [address]. Told residential mortgage underwriter nayeli from his psrticipation in this program, he has learned self cofidence. He responded well to Cogentin 0.5 mg po BID, Depakote 250 mg po BID and Trazadone 100 mg po HS. Scrits for 30 days supply of medications will be electronically transmitted to [facility] at [address] [place] [address]. He is stable for discharge on 04/03/18 Total face to face time:: 35 Mental Status Exam - Mental Status Exam Alert and Oriented to: Time, Place, Person Cognitive Function: Fair Patient Appearance: Well Groomed Mood: Hopeful, Euthymic Affect: Appropriate Patient Behavior: Cooperative Speech Pattern: Clear Voice Loudness: Normal Thought Process: Intact, Goal Oriented Thought Disorder: Not Present Hallucinations: Denies Suicidal Ideation: Denies Homicidal Ideation: Denies Insight/Judgement: Fair Sleep: Fair Appetite: Good Muscle strength/Tone: Normal Gait/Station: Normal Psychiatric Treatment Plan - Problem List (1) Alcohol dependence Current Visit: Yes (2) Cocaine dependence Current Visit: Yes (3) Nicotine dependence Current Visit: Yes Qualifiers: Nicotine product type: cigarettes Substance use status: in withdrawal Qualified Code(s): F17.213 - Nicotine dependence, cigarettes, with withdrawal (4) Schizoaffective disorder Current Visit: Yes (5) Substance induced mood disorder Current Visit: No Initial treatment plan: Patient will be discharged tomorrow and referred to [facility] for outpatient treatment
[2018-04-02] MEDS ORDERED: FLU VACCINE QUAD 60 MCG/0.5 ML (MDV 18-19) IM ONE (20:30)
[2018-04-02] MEDS ORDERED: traZODone HCL 100 MG TABLET (FP) PO SCH (22:00)
[2018-04-02] MEDS: THIAMINE HCL 100 MG TABLET (FP) PO SCH (22:33)
[2018-04-03 06:59] VITALS: BP 119/77; PULSE 77
[2018-04-03] MEDS ORDERED: PT OWN MED DRAWER 7, Y5N ONE (09:02)
[2018-04-03] MEDS: NALTREXONE HCL 50 MG TABLET PO SCH (09:03)
[2018-04-03] MEDS: risperiDONE 1 MG TABLET (FP) PO SCH (09:03)
[2018-04-03] MEDS: PRENATAL VITAMINS W/ FOLIC ACID TABLET (FP) PO SCH (09:03)
[2018-04-03] MEDS: BENZTROPINE MESYLATE 1 MG TABLET (FP) PO SCH (09:03)
[2018-04-03] MEDS: METHYL SALICYLATE/MENTHOL OINT 30 GM TUBE TP SCH (09:03)
[2018-04-03] MEDS: DIVALPROEX SODIUM 250 MG TABLET E.C. PO SCH (09:03)
== END 2018-04-03 09:00 | disposition home or self-care (01) | DRG 772 ==
LOC: YASAS 10:51 → Y3W 14:59
PROVIDERS: ADMIT Psychiatry & Neurology Psychiatry; ATTEND Psychiatry & Neurology Psychiatry
PROC: HZ42ZZZ Group Counseling for Substance Abuse Treatment, Cognitive-Behavioral (ICD-10-PCS; principal; 2018-03-21)
DX: F10.20 Alcohol dependence, uncomplicated (principal); F14.20 Cocaine dependence, uncomplicated; F17.213 Nicotine dependence, cigarettes, with withdrawal; F25.9 Schizoaffective disorder, unspecified; F31.9 Bipolar disorder, unspecified; F19.24 Other psychoactive substance dependence with psychoactive substance-induced mood disorder; G47.00 Insomnia, unspecified; I10 Essential (primary) hypertension; Z86.2 Personal history of diseases of the blood and blood-forming organs and certain disorders involving the immune mechanism; E78.00 Pure hypercholesterolemia, unspecified; Z88.0 Allergy status to penicillin; Z91.013 Allergy to seafood
CPT/HCPCS: 36415; 80053; 80164; 81003; 85027; 86593; 90688; 93005; 93010; G0008; J2794

== ENCOUNTER 2018-07-05 08:32 | Inpatient (IN) | payer OTHER ==
[2018-07-05 09:20] VITALS: BMI 23.2
--- NOTE | 2018-07-05 09:39 | HP ---
CIWA Score Nausea/Vomitin Muscle Tremors: 3 Anxiety: 2 Agitation: 2 Paroxysmal Sweats: 1-Minimal Palms Moist Orientation: 0-Oriented Tacttile Disturbances: 1-Very Mild Itch/Numbness Auditory Disturbances: 1-Very Mild Visual Disturbances: 0-None Headache: 2-Mild CIWA-Ar Total Score: 14 - Admission Criteria OASAS Guidelines: Admission for Medically Managed Detox: Requires at least one of the followin. CIWA greater than 12 2. Seizures within the past 24 hours 3. Delirium tremens within the past 24 hours 4. Hallucinations within the past 24 hours 5. Acute intervention needed for co occurring medical disorder 6. Acute intervention needed for co occurring psychiatric disorder 7. Severe withdrawal that cannot be handled at a lower level of care (continued vomiting, continued diarrhea, abnormal vital signs) requiring intravenous medication and/or fluids 8. Patient presents the following: CIWA greater than 12 Admission Criteria Met: Admission criteria met Admission ROS S - HPI Chief Complaint: i need help to stop drinking alcohol and cocaine Allergies/Adverse Reactions: Allergies Allergy/AdvReac Type Severity Reaction Status Date / Time Fish Containing Products Allergy Hives Verified 07/05/18 09:58 Penicillins Allergy Hives Verified 07/05/18 09:58 History of Present Illness: this 58 years old male with alcohol and cocaine dependence,seeking detox, withdrawal symptom,multiple admissions in the past but keep relapsing,last treatment [facility] 03/21/18 to 04/03/18 nicotine dependence 5 cigarette/day weight loss syncope alcohol related anxiety,depression,insomnia seen by psychiatrist before,on trazadone running out of medication plan for rehab after detox Exam Limitations: No Limitations - Ebola screening Have you traveled outside of the country in the last 21 days: No Have you had contact with anyone from an Ebola affected area: No Have you been sick,other than usual withdrawal symptoms: No Do you have a fever: No - Review of Systems Constitutional: Loss of Appetite, Malaise, Night Sweats, Changes in sleep, Weakness, Unintentional Wgt. Loss EENT: reports: Nose Congestion Cardiac: reports: No Symptoms Reported GI: reports: Diarrhea, Nausea, Vomiting, Abdominal cramping : reports: No Symptoms Reported Musculoskeletal: reports: Back Pain, Joint Pain, Muscle Pain Neuro: reports: Headache, Tremors Endocrine: reports: No Symptoms Reported Hematology: reports: No Symptoms Reported Psychiatric: reports: No Sypmtoms Reported, Judgement Intact, Mood/Affect Appropiate, Orientated x3, Anxious, Depressed, other (insomnia) Other Systems: Reviewed and Negative Patient History - Patient Medical History Hx Anemia: No Hx Asthma: No Hx Chronic Obstructive Pulmonary Disease (COPD): No Hx Cancer: No Hx Cardiac Disorders: No Hx Congestive Heart Failure: No Hx Hypertension: No Hx Hypercholesterolemia: No Hx Pacemaker: No HX Cerebrovascular Accident: No Hx Seizures: No Hx Dementia: No Hx Diabetes: No Hx Gastrointestinal Disorders: No Hx Liver Disease: No Hx Genitourinary Disorders: No Hx Sexually Transmitted Disorders: No Hx Renal Disease (ESRD): No Hx Thyroid Disease: No Hx Human Immunodeficiency Virus (HIV): No (negative hx 12/30 negative) Hx Hepatitis C: No Hx Depression: Yes (anxiety) Hx Suicide Attempt: No Hx Bipolar Disorder: No Hx Schizophrenia: Yes (schizoaffective disorder) Other Medical History: no suicidal,no homicidal - Patient Surgical History Past Surgical History: Yes Hx Neurologic Surgery: No Hx Cataract Extraction: No Hx Cardiac Surgery: No Hx Lung Surgery: No Hx Breast Surgery: No Hx Breast Biopsy: No Hx Abdominal Surgery: No Hx Appendectomy: No Hx Cholecystectomy: No Hx Genitourinary Surgery: No Hx Section: No Hx Orthopedic Surgery: Yes (torn ligament, right knee in 1985) Anesthesia Reaction: No - PPD History Previous Implant?: Yes Documented Results: Negative w/proof Implanted On Prior [facility] Admission?: Yes Date: 03/23/18 Results: 0 mm PPD to be Administered?: No - Smoking Cessation Smoking history: Current some day smoker Have you smoked in the past 12 months: Yes Aproximately how many cigarettes per day: 5 Hx Chewing Tobacco Use: No Initiated information on smoking cessation: Yes 'Breaking Loose' booklet given: 07/05/18 - Substance & Tx. History Hx Alcohol Use: Yes Hx Substance Use: Yes Substance Use Type: Alcohol, Cocaine Hx Substance Use Treatment: Yes ([facility] 03/21/18 to 04/03/18) - Substances Abused Alcohol Route: Oral Frequency: Daily Amount used: 3pints of vodka/6 of 16 ozs of beer Age of first use: 14 Date of Last Use: 07/05/18 Cocaine Route: Smoking Frequency: 3-6 times per week Amount used: 300$ Age of first use: 26 Date of Last Use: 07/05/18 Family Disease History - Family Disease History Family History: Denies Admission Physical Exam [facility] - Vital Signs Vital Signs: Vital Signs - 24 hr 07/05/18 09:17 Temperature 96.8 F L Pulse Rate 84 Respiratory 20 Rate Blood Pressure 109/56 L - Physical General Appearance: Yes: Moderate Distress, Tremorous, Irritable, Sweating, Anxious HEENTM: Yes: Normal ENT Inspection, CLAUDINE, Pharynx Normal Respiratory: Yes: Lungs Clear, Normal Breath Sounds, No Respiratory Distress Neck: Yes: Within Normal Limits, Supple, Trachea in good position Breast: Yes: Within Normal Limits Cardiology: Yes: Within Normal Limits, Regular Rhythm, Regular Rate, S1, S2 Abdominal: Yes: Within Normal Limits, Normal Bowel Sounds, Non Tender, Soft, Organomegaly Genitourinary: Yes: Within Normal Limits Back: Yes: Muscle Spasm Extremities: Yes: Normal Range of Motion, Tremors Neurological: Yes: Within Normal Limits, drill sergeant II-XII NML intact, Fully Oriented, Alert, Motor Strength 5/5 Integumentary: Yes: Dry Lymphatic: Yes: Within Normal Limits - Diagnostic (1) Alcohol dependence with uncomplicated withdrawal Current Visit: Yes Status: Acute (2) Cocaine dependence Current Visit: Yes Status: Chronic (3) Nicotine dependence Current Visit: No Status: Chronic Qualifiers: Nicotine product type: cigarettes Substance use status: in withdrawal Qualified Code(s): F17.213 - Nicotine dependence, cigarettes, with withdrawal (4) Schizoaffective disorder Current Visit: Yes Status: Chronic (5) Syncope Current Visit: Yes Status: Acute (6) Dehydration Current Visit: Yes Status: Acute (7) Weight loss Current Visit: Yes Status: Acute Cleared for Admission [facility] - Detox or Rehab [facility] Level of Care: Medically Managed Detox Regimen/Protocol: Librium [facility] Breath Alcohol Content Breath Alcohol Content: 0.088 Urine Drug Screen - Results Drug Screen Negative: No Urine Drug Screen Results: MACARIO-Cocaine, BZO-Benzodiazepines Inpatient Rehab Admission - Rehab Decision to Admit Inpatient rehab admission?: No
[2018-07-05] MEDS ORDERED: MAG HYDROX/AL HYDROX/SIMETH 30 ML UNIT-DOSE CUP PO PRN (09:47)
[2018-07-05] MEDS ORDERED: chlordiazePOXIDE HCL 25 MG CAPSULE PO PRN (09:47)
[2018-07-05] MEDS ORDERED: MAGNESIUM CITRATE 300 ML BOTTLE PO PRN (09:47)
[2018-07-05] MEDS ORDERED: MAGNESIUM HYDROX 2400MG/30ML ORAL SUSPENSION 30 ML CUP PO PRN (09:47)
[2018-07-05] MEDS ORDERED: IBUPROFEN 400 MG TABLET (FP) PO PRN (09:47)
[2018-07-05] MEDS ORDERED: guaiFENesin/D-METHORPHAN HB 10 ML UNIT-DOSE CUPS PO PRN (09:47)
[2018-07-05] MEDS ORDERED: P-EPHED 60MG/TRIPROLIDI 2.5MG TABLET PO PRN (09:47)
[2018-07-05] MEDS ORDERED: MENTHOL/PHENOL 1 EACH UD MM PRN (09:47)
[2018-07-05] MEDS: ACETAMINOPHEN 325 MG TABLET (FP) PO PRN (11:32)
[2018-07-05] MEDS: chlordiazePOXIDE HCL 25 MG CAPSULE PO SCH ×3 (11:33→22:10)
[2018-07-05] MEDS: PRENATAL VITAMINS W/ FOLIC ACID TABLET (FP) PO SCH (11:33)
--- NOTE | 2018-07-05 12:12 | CONSULT ---
[facility] Psychiatric Consult - Data Date of interview: 07/05/18 Admission source: [facility] Identifying data: Patient is a 58 year old single male, father of one, unemployed (denies receiving financial assistance), and is currently homeless. This is one of multiple admissions for patient. Patient admitted to for alcohol and cocaine dependence co-morbid schizoaffective disorder. Substance Abuse History: Smoking Cessation. Smoking history: Current some day smoker. Have you smoked in the past 12 months: Yes. Aproximately how many cigarettes per day: 5. Hx Chewing Tobacco Use: No. Initiated information on smoking cessation: Yes. 'Breaking Loose' booklet given: 07/05/18. - Substance & Tx. History. Hx Alcohol Use: Yes. Hx Substance Use: Yes. Substance Use Type : Alcohol, Cocaine. Hx Substance [facility]: [facility] - Substances Abused. Alcohol. Route: Oral. Frequency: Daily. Amount used: 3pints of vodka/6 of 16 ozs of beer. Age of first use: 14. Date of Last Use: 07/05/18. Cocaine. Route: Smoking. Frequency: 3-6 times per week. Amount used: 300$. Age of first use: 26. Date of Last Use: 07/05/18 Medical History: torn ligament, right knee in 1985 Psychiatric History: Patient reports h/o multiple psychiatric hospitalizations, most recently at [facility] in 2018. He reports additional psychiatric hospitalizations at [facility]. Diagnosis of schizoaffective disorder. Outpatient psychiatric care is provided at [facility]. States he is prescribed trazodone 100mg and depakote 500mg. Patient reports suboptimal adherence to medications. Previous notes reviewed and noted that patient was seen by Dr. Mantilla in 2017. While in rehab, patient was prescribed Risperdal 1mg BID + Cogentin 0.5mg + Depakote 250mg BID+ Trazodone 100mg HS. Patient denies psychotic symptoms. As per pharmacy claims a prescription of seroquel 100mg was electronically sent to patient's pharmacy one month ago. Patient prefers trazodone instead of seroquel Patient agreeable in restarting medications received in rehab in March 2018. At present, patient reports feeling lethargic. Physical/Sexual Abuse/Trauma History: denies. Mental Status Exam - Mental Status Exam Alert and Oriented to: Time, Place, Person Cognitive Function: Fair Patient Appearance: Disheveled Mood: Withdrawn Affect: Mood Congruent Patient Behavior: Fatigued Speech Pattern: Delayed Voice Loudness: Moderately Soft/Quiet Thought Process: Goal Oriented Thought Disorder: Not Present Hallucinations: Denies Suicidal Ideation: Denies Homicidal Ideation: Denies Insight/Judgement: Poor Sleep: Poorly Appetite: Fair Muscle strength/Tone: Normal Gait/Station: Normal Psychiatric Findings - Problem List ([place] 1, 2,3) (1) Alcohol dependence with uncomplicated withdrawal Current Visit: Yes Status: Acute (2) Cocaine dependence Current Visit: Yes Status: Chronic (3) Schizoaffective disorder Current Visit: Yes Status: Chronic (4) Nicotine dependence Current Visit: No Status: Chronic Qualifiers: Nicotine product type: cigarettes Substance use status: in withdrawal Qualified Code(s): F17.213 - Nicotine dependence, cigarettes, with withdrawal - Initial Treatment Plan Initial Treatment Plan: Psychoeducation provided. Detoxification in progress. Will order Risperdal 1mg BID + Cogentin 0.5mg BID + Trazodone 50mg HS. Depakote will not be ordered as patient reports noncompliance to depakote. Benefits and side effects discussed. Verbal consent given.
[2018-07-05] MEDS: hydrOXYzine PAMOATE 50 MG CAPSULE (FP) PO PRN (15:51)
[2018-07-05 17:21] LABS: URINE APPEARANCE CLEAR; URINE BILIRUBIN NEGATIVE (<2.0 mg/dL); URINE COLOR LTYELLOW; URINE GLUCOSE (UA) NEGATIVE (NEGATIVE); URINE KETONE NEGATIVE (NEGATIVE); URINE LEUK ESTERASE NEGATIVE (NEGATIVE); URINE NITRITE NEGATIVE (NEGATIVE); URINE PROTEIN NEGATIVE (NEGATIVE); URINE UROBILINOGEN NEGATIVE mg/dL (0.2-1.0)
[2018-07-05] MEDS ORDERED: MELATONIN 5 MG TABLETS PO PRN (22:00)
[2018-07-05] MEDS: THIAMINE HCL 100 MG TABLET (FP) PO SCH (22:09)
[2018-07-05] MEDS: traZODone HCL 100 MG TABLET (FP) PO SCH (22:09)
[2018-07-05] MEDS: BENZTROPINE MESYLATE 1 MG TABLET (FP) PO SCH (22:09)
[2018-07-05] MEDS: risperiDONE 1 MG TABLET (FP) PO SCH (22:10)
[2018-07-06] MEDS: chlordiazePOXIDE HCL 25 MG CAPSULE PO SCH ×4 (05:26→22:29)
[2018-07-06 10:22] LABS: ALBUMIN 3.3 g/dl (3.4-5.0); ALK PHOS 46 U/L (45-117); ANION GAP 5 MMOL/L (8-16); BILIRUBIN,TOTAL 0.5 mg/dL (0.2-1); BLOOD UREA NITROGEN 26 mg/dL (7-18); CALCIUM 8.6 mg/dL (8.5-10.1); CHLORIDE 107 mmol/L (98-107); CO2 27 mmol/L (21-32); GLUCOSE,RANDOM 91 mg/dL (74-106); POTASSIUM 4.3 mmol/L (3.5-5.1); SGOT/AST 20 U/L (15-37); SGPT/ALT 20 U/L (13-61); SODIUM 139 mmol/L (136-145)
[2018-07-06] MEDS: risperiDONE 1 MG TABLET (FP) PO SCH ×2 (10:25→21:22)
[2018-07-06] MEDS: PRENATAL VITAMINS W/ FOLIC ACID TABLET (FP) PO SCH (10:25)
[2018-07-06] MEDS: BENZTROPINE MESYLATE 1 MG TABLET (FP) PO SCH ×2 (10:25→21:22)
[2018-07-06 11:07] LABS: HEMATOCRIT 34.9 % (35.4-49); HEMOGLOBIN 12.1 GM/dL (11.7-16.9); MCHC 34.7 g/dl (32.0-35.9); MEAN CELL VOLUME 97.9 fl (80-96); MEAN PLT VOLUME 8.3 fl (7.5-11.1); PLATELET COUNT 261 K/MM3 (134-434); RBC 3.56 M/mm3 (4.00-5.60); RDW 14.2 % (11.9-15.9)
[2018-07-06 11:12] LABS: WHITE BLOOD COUNT 1.8 K/mm3 (4.0-10.0)
[2018-07-06] MEDS: hydrOXYzine PAMOATE 50 MG CAPSULE (FP) PO PRN (13:59)
--- NOTE | 2018-07-06 17:35 | PN ---
[facility] CIWA - CIWA Score Nausea/Vomitin-No Nausea/No Vomiting Muscle Tremors: 2 Anxiety: 2 Agitation: 0-Normal Activity Paroxysmal Sweats: 3 Orientation: 0-Oriented Tacttile Disturbances: 1-Very Mild Itch/Numbness Auditory Disturbances: 0-None Visual Disturbances: 2-Mild Sensitivity Headache: 0-None Present CIWA-Ar Total Score: 10 BHS Progress Note (SOAP) Subjective: Tremors, Anxious, Sweating. Objective: PATIENT A & O X 3, OBSERVED AMBULATING ON UNIT. IN NO ACUTE DISTRESS. 07/06/18 17:32 Vital Signs Temperature 97.4 F L 07/06/18 14:28 Pulse Rate 70 07/06/18 14:28 Respiratory Rate 18 07/06/18 14:28 Blood Pressure 115/70 07/06/18 14:28 O2 Sat by Pulse Oximetry (%) Laboratory Tests 07/05/18 07/05/18 07/06/18 06:30 13:30 06:00 WBC 1.8 L* RBC 3.56 L Hgb 12.1 Hct 34.9 L MCV 97.9 H MCH 34.0 H MCHC 34.7 RDW 14.2 Plt Count 261 MPV 8.3 Sodium Potassium Chloride Carbon Dioxide Anion Gap BUN Creatinine Creat Clearance w eGFR Random Glucose Calcium Total Bilirubin AST ALT Alkaline Phosphatase Total Protein Albumin Urine Color Ltyellow Urine Appearance Clear Urine pH 5.0 Ur Specific [place] 1.010 Urine Protein Negative Urine Glucose (UA) Negative Urine Ketones Negative Urine Blood Negative Urine Nitrite Negative Urine Bilirubin Negative Urine Urobilinogen Negative Ur Leukocyte Esterase Negative RPR Titer HIV 1&2 Antibody Screen Negative HIV P24 Antigen Negative 07/06/18 07/06/18 06:30 06:30 WBC RBC Hgb Hct MCV MCH MCHC RDW Plt Count MPV Sodium 139 Potassium 4.3 Chloride 107 Carbon Dioxide 27 Anion Gap 5 L BUN 26 H Creatinine 1.0 Creat Clearance w eGFR > 60 Random Glucose 91 Calcium 8.6 Total Bilirubin 0.5 AST 20 ALT 20 Alkaline Phosphatase 46 Total Protein 6.0 L Albumin 3.3 L Urine Color Urine Appearance Urine pH Ur Specific [place] Urine Protein Urine Glucose (UA) Urine Ketones Urine Blood Urine Nitrite Urine Bilirubin Urine Urobilinogen Ur Leukocyte Esterase RPR Titer Nonreactive HIV 1&2 Antibody Screen HIV P24 Antigen LABS NOTED. PATIENT HAS HAD LOW WBC LEVELS ON PREVIOUS ADMISSIONS. PATIENT REPORTS HISTORY OF LOW WBC COUNT. PATIENT DENIES ANY KNOWN HISTORY OF HEMATOLOGIC OR IMMUNOLOGICAL DISORDER. 07/06/18 17:33 Assessment: 07/06/18 17:33 WITHDRAWAL SYMPTOMS. ANEMIA. LEUKOPENIA. 07/06/18 17:33 Plan: CONTINUE DETOX. INCREASE DAILY PO FLUID INTAKE.
[2018-07-06] MEDS: traZODone HCL 100 MG TABLET (FP) PO SCH (21:22)
[2018-07-06] MEDS: THIAMINE HCL 100 MG TABLET (FP) PO SCH (21:22)
[2018-07-07] MEDS: chlordiazePOXIDE HCL 25 MG CAPSULE PO SCH (04:07)
[2018-07-07] MEDS: hydrOXYzine PAMOATE 50 MG CAPSULE (FP) PO PRN ×2 (07:31→16:21)
[2018-07-07] MEDS: risperiDONE 1 MG TABLET (FP) PO SCH ×2 (09:09→22:01)
[2018-07-07] MEDS: PRENATAL VITAMINS W/ FOLIC ACID TABLET (FP) PO SCH (09:10)
[2018-07-07] MEDS: BENZTROPINE MESYLATE 1 MG TABLET (FP) PO SCH ×2 (09:10→22:01)
[2018-07-07] MEDS: chlordiazePOXIDE 5 MG CAPSULE PO SCH ×3 (10:01→22:01)
--- NOTE | 2018-07-07 17:55 | PN ---
[facility] CIWA - CIWA Score Nausea/Vomitin-No Nausea/No Vomiting Muscle Tremors: 2 Anxiety: 4-Mod. Anxious/Guarded Agitation: 5 Paroxysmal Sweats: 2 Orientation: 0-Oriented Tacttile Disturbances: 0-None Auditory Disturbances: 0-None Visual Disturbances: 0-None Headache: 0-None Present CIWA-Ar Total Score: 13 S Progress Note (SOAP) Subjective: anxious sweats Objective: 07/07/18 17:55 A & O x 3 Ambulating steadily on unit Restless Vital Signs Temperature 97.5 F L 07/07/18 17:21 Pulse Rate 92 H 07/07/18 17:21 Respiratory Rate 18 07/07/18 17:21 Blood Pressure 126/88 07/07/18 17:21 O2 Sat by Pulse Oximetry (%) Laboratory Last Values WBC 1.8 K/mm3 (4.0-10.0) L* 07/06/18 06:00 RBC 3.56 M/mm3 (4.00-5.60) L 07/06/18 06:00 Hgb 12.1 GM/dL (11.7-16.9) 07/06/18 06:00 Hct 34.9 % (35.4-49) L 07/06/18 06:00 MCV 97.9 fl (80-96) H 07/06/18 06:00 MCH 34.0 pg (25.7-33.7) H 07/06/18 06:00 MCHC 34.7 g/dl (32.0-35.9) 07/06/18 06:00 RDW 14.2 % (11.9-15.9) 07/06/18 06:00 Plt Count 261 K/MM3 (134-434) 07/06/18 06:00 MPV 8.3 fl (7.5-11.1) 07/06/18 06:00 Sodium 139 mmol/L (136-145) 07/06/18 06:30 Potassium 4.3 mmol/L (3.5-5.1) 07/06/18 06:30 Chloride 107 mmol/L (98-107) 07/06/18 06:30 Carbon Dioxide 27 mmol/L (21-32) 07/06/18 06:30 Anion Gap 5 MMOL/L (8-16) L 07/06/18 06:30 BUN 26 mg/dL (7-18) H 07/06/18 06:30 Creatinine 1.0 mg/dL (0.55-1.3) 07/06/18 06:30 Creat Clearance w eGFR > 60 (>60) 07/06/18 06:30 Random Glucose 91 mg/dL (74-106) 07/06/18 06:30 Calcium 8.6 mg/dL (8.5-10.1) 07/06/18 06:30 Total Bilirubin 0.5 mg/dL (0.2-1) 07/06/18 06:30 AST 20 U/L (15-37) 07/06/18 06:30 ALT 20 U/L (13-61) 07/06/18 06:30 Alkaline Phosphatase 46 U/L (45-117) 07/06/18 06:30 Total Protein 6.0 g/dl (6.4-8.2) L 07/06/18 06:30 Albumin 3.3 g/dl (3.4-5.0) L 07/06/18 06:30 Urine Color Ltyellow 07/05/18 13:30 Urine Appearance Clear 07/05/18 13:30 Urine pH 5.0 (5.0-8.0) 07/05/18 13:30 Ur Specific [place] 1.010 (1.010-1.035) 07/05/18 13:30 Urine Protein Negative (NEGATIVE) 07/05/18 13:30 Urine Glucose (UA) Negative (NEGATIVE) 07/05/18 13:30 Urine Ketones Negative (NEGATIVE) 07/05/18 13:30 Urine Blood Negative (NEGATIVE) 07/05/18 13:30 Urine Nitrite Negative (NEGATIVE) 07/05/18 13:30 Urine Bilirubin Negative (<2.0 mg/dL) 07/05/18 13:30 Urine Urobilinogen Negative mg/dL (0.2-1.0) 07/05/18 13:30 Ur Leukocyte Esterase Negative (NEGATIVE) 07/05/18 13:30 RPR Titer Nonreactive (NONREACTIVE) 07/06/18 06:30 HIV 1&2 Antibody Screen Negative 07/05/18 06:30 HIV P24 Antigen Negative 07/05/18 06:30 states he has always had a low WBC count from being "half black, half [place]. Nothing is wrong with me, I have no infection anywhere" Assessment: 07/07/18 17:57 withdrawal sx Plan: continue detox
[2018-07-07] MEDS: THIAMINE HCL 100 MG TABLET (FP) PO SCH (22:01)
[2018-07-07] MEDS: traZODone HCL 100 MG TABLET (FP) PO SCH (22:01)
[2018-07-08] MEDS: chlordiazePOXIDE 5 MG CAPSULE PO SCH (05:33)
[2018-07-08] MEDS: LOPERAMIDE HCL 2 MG CAPSULE PO PRN (05:41)
[2018-07-08] MEDS ORDERED: INSULIN SLIDING SCALE (NOVOLOG) 1 VIAL SQ ONE (07:14)
[2018-07-08] MEDS: hydrOXYzine PAMOATE 50 MG CAPSULE (FP) PO PRN ×2 (08:39→20:37)
[2018-07-08] MEDS: PRENATAL VITAMINS W/ FOLIC ACID TABLET (FP) PO SCH (10:26)
[2018-07-08] MEDS: BENZTROPINE MESYLATE 1 MG TABLET (FP) PO SCH ×2 (10:26→22:18)
[2018-07-08] MEDS: risperiDONE 1 MG TABLET (FP) PO SCH ×2 (10:26→22:19)
[2018-07-08] MEDS: chlordiazePOXIDE HCL 10 MG CAPSULE PO SCH ×3 (10:28→22:19)
--- NOTE | 2018-07-08 11:14 | PN ---
[facility] CIWA - CIWA Score Nausea/Vomitin-No Nausea/No Vomiting Muscle Tremors: 2 Anxiety: 1-Mildly Anxious Agitation: 1-Slight > Activity Paroxysmal Sweats: 1-Minimal Palms Moist Orientation: 1-Uncertain about Date Tacttile Disturbances: 0-None Auditory Disturbances: 0-None Visual Disturbances: 0-None Headache: 1-Very Mild CIWA-Ar Total Score: 7 S Progress Note (SOAP) Subjective: feeling better less tremor mild sweating Objective: 07/08/18 11:19 Vital Signs Temperature 98.4 F 07/08/18 09:22 Pulse Rate 97 H 07/08/18 09:22 Respiratory Rate 16 07/08/18 09:22 Blood Pressure 103/67 07/08/18 09:22 O2 Sat by Pulse Oximetry (%) Laboratory Last Values WBC 1.8 K/mm3 (4.0-10.0) L* 07/06/18 06:00 RBC 3.56 M/mm3 (4.00-5.60) L 07/06/18 06:00 Hgb 12.1 GM/dL (11.7-16.9) 07/06/18 06:00 Hct 34.9 % (35.4-49) L 07/06/18 06:00 MCV 97.9 fl (80-96) H 07/06/18 06:00 MCH 34.0 pg (25.7-33.7) H 07/06/18 06:00 MCHC 34.7 g/dl (32.0-35.9) 07/06/18 06:00 RDW 14.2 % (11.9-15.9) 07/06/18 06:00 Plt Count 261 K/MM3 (134-434) 07/06/18 06:00 MPV 8.3 fl (7.5-11.1) 07/06/18 06:00 Sodium 139 mmol/L (136-145) 07/06/18 06:30 Potassium 4.3 mmol/L (3.5-5.1) 07/06/18 06:30 Chloride 107 mmol/L (98-107) 07/06/18 06:30 Carbon Dioxide 27 mmol/L (21-32) 07/06/18 06:30 Anion Gap 5 MMOL/L (8-16) L 07/06/18 06:30 BUN 26 mg/dL (7-18) H 07/06/18 06:30 Creatinine 1.0 mg/dL (0.55-1.3) 07/06/18 06:30 Creat Clearance w eGFR > 60 (>60) 07/06/18 06:30 Random Glucose 91 mg/dL (74-106) 07/06/18 06:30 Calcium 8.6 mg/dL (8.5-10.1) 07/06/18 06:30 Total Bilirubin 0.5 mg/dL (0.2-1) 07/06/18 06:30 AST 20 U/L (15-37) 07/06/18 06:30 ALT 20 U/L (13-61) 07/06/18 06:30 Alkaline Phosphatase 46 U/L (45-117) 07/06/18 06:30 Total Protein 6.0 g/dl (6.4-8.2) L 07/06/18 06:30 Albumin 3.3 g/dl (3.4-5.0) L 07/06/18 06:30 Urine Color Ltyellow 07/05/18 13:30 Urine Appearance Clear 07/05/18 13:30 Urine pH 5.0 (5.0-8.0) 07/05/18 13:30 Ur Specific [place] 1.010 (1.010-1.035) 07/05/18 13:30 Urine Protein Negative (NEGATIVE) 07/05/18 13:30 Urine Glucose (UA) Negative (NEGATIVE) 07/05/18 13:30 Urine Ketones Negative (NEGATIVE) 07/05/18 13:30 Urine Blood Negative (NEGATIVE) 07/05/18 13:30 Urine Nitrite Negative (NEGATIVE) 07/05/18 13:30 Urine Bilirubin Negative (<2.0 mg/dL) 07/05/18 13:30 Urine Urobilinogen Negative mg/dL (0.2-1.0) 07/05/18 13:30 Ur Leukocyte Esterase Negative (NEGATIVE) 07/05/18 13:30 RPR Titer Nonreactive (NONREACTIVE) 07/06/18 06:30 HIV 1&2 Antibody Screen Negative 07/05/18 06:30 HIV P24 Antigen Negative 07/05/18 06:30 lab noted 07/08/18 11:21 patient has long history of low wbc patient agrees to follow up with his primary care provider discuss alcohol related biophysiological insults Assessment: 07/08/18 11:20 mild alcohol withdrawal sx 07/08/18 11:22 Plan: continue detox
[2018-07-08] MEDS: THIAMINE HCL 100 MG TABLET (FP) PO SCH (22:19)
[2018-07-08] MEDS: traZODone HCL 100 MG TABLET (FP) PO SCH (22:19)
[2018-07-09] MEDS: hydrOXYzine PAMOATE 50 MG CAPSULE (FP) PO PRN ×3 (00:18→10:31)
[2018-07-09] MEDS: LOPERAMIDE HCL 2 MG CAPSULE PO PRN (01:59)
[2018-07-09] MEDS: ACETAMINOPHEN 325 MG TABLET (FP) PO PRN ×2 (03:31→10:32)
[2018-07-09] MEDS ORDERED: DIPHENOXYLATE 2.5/ATROPINE.025 1 COMBO TABLET PO ONE (04:07)
[2018-07-09] MEDS: chlordiazePOXIDE HCL 10 MG CAPSULE PO SCH (06:58)
--- NOTE | 2018-07-09 08:30 | DS ---
[facility] Detox Discharge Summary Admission Date: 07/05/18 Discharge Date: 07/09/18 - History Present History: Alcohol Dependence Additional Comments: 58 years old male admitted on 07/05/18 for alcohol withdrawal stabilization completed detox regimen aftercare [facility] Pertinent Past History: patient agrees to bring in lab report to primary care provider for low wbc as well as hypertension list of medication in wallet bring-in bottles of medication and medication list to aftercare appointments update medication list when change of medication important of medication adherence - Physical Exam Results Vital Signs: Vital Signs Temperature 98.3 F 07/09/18 06:27 Pulse Rate 86 07/09/18 06:27 Respiratory Rate 18 07/09/18 06:27 Blood Pressure 112/68 07/09/18 06:27 O2 Sat by Pulse Oximetry (%) Pertinent Admission Physical Exam Findings: alcohol withdrawal sx Laboratory Last Values WBC 1.8 K/mm3 (4.0-10.0) L* 07/06/18 06:00 RBC 3.56 M/mm3 (4.00-5.60) L 07/06/18 06:00 Hgb 12.1 GM/dL (11.7-16.9) 07/06/18 06:00 Hct 34.9 % (35.4-49) L 07/06/18 06:00 MCV 97.9 fl (80-96) H 07/06/18 06:00 MCH 34.0 pg (25.7-33.7) H 07/06/18 06:00 MCHC 34.7 g/dl (32.0-35.9) 07/06/18 06:00 RDW 14.2 % (11.9-15.9) 07/06/18 06:00 Plt Count 261 K/MM3 (134-434) 07/06/18 06:00 MPV 8.3 fl (7.5-11.1) 07/06/18 06:00 Sodium 139 mmol/L (136-145) 07/06/18 06:30 Potassium 4.3 mmol/L (3.5-5.1) 07/06/18 06:30 Chloride 107 mmol/L (98-107) 07/06/18 06:30 Carbon Dioxide 27 mmol/L (21-32) 07/06/18 06:30 Anion Gap 5 MMOL/L (8-16) L 07/06/18 06:30 BUN 26 mg/dL (7-18) H 07/06/18 06:30 Creatinine 1.0 mg/dL (0.55-1.3) 07/06/18 06:30 Creat Clearance w eGFR > 60 (>60) 07/06/18 06:30 Random Glucose 91 mg/dL (74-106) 07/06/18 06:30 Calcium 8.6 mg/dL (8.5-10.1) 07/06/18 06:30 Total Bilirubin 0.5 mg/dL (0.2-1) 07/06/18 06:30 AST 20 U/L (15-37) 07/06/18 06:30 ALT 20 U/L (13-61) 07/06/18 06:30 Alkaline Phosphatase 46 U/L (45-117) 07/06/18 06:30 Total Protein 6.0 g/dl (6.4-8.2) L 07/06/18 06:30 Albumin 3.3 g/dl (3.4-5.0) L 07/06/18 06:30 Urine Color Ltyellow 07/05/18 13:30 Urine Appearance Clear 07/05/18 13:30 Urine pH 5.0 (5.0-8.0) 07/05/18 13:30 Ur Specific [place] 1.010 (1.010-1.035) 07/05/18 13:30 Urine Protein Negative (NEGATIVE) 07/05/18 13:30 Urine Glucose (UA) Negative (NEGATIVE) 07/05/18 13:30 Urine Ketones Negative (NEGATIVE) 07/05/18 13:30 Urine Blood Negative (NEGATIVE) 07/05/18 13:30 Urine Nitrite Negative (NEGATIVE) 07/05/18 13:30 Urine Bilirubin Negative (<2.0 mg/dL) 07/05/18 13:30 Urine Urobilinogen Negative mg/dL (0.2-1.0) 07/05/18 13:30 Ur Leukocyte Esterase Negative (NEGATIVE) 07/05/18 13:30 RPR Titer Nonreactive (NONREACTIVE) 07/06/18 06:30 HIV 1&2 Antibody Screen Negative 07/05/18 06:30 HIV P24 Antigen Negative 07/05/18 06:30 lab noted - Treatment Hospital Course: Detox Protocol Followed, Detoxed Safely, Responded well, Discharged Condition Good, Rehab Referral Accepted Patient has Accepted a Rehab Referral to: [facility] - Medication Discharge Medications: Ambulatory Orders Benztropine Mesylate [Cogentin -] 0.5 mg PO BID #60 tablet 04/02/18 Divalproex [Depakote -] 250 mg PO BID #60 tablet.ec 04/02/18 traZODone HCL [Desyrel -] 100 mg PO HS #30 tablet 04/02/18 - Diagnosis (1) Leukopenia Current Visit: Yes Status: Chronic Qualifiers: Leukopenia type: unspecified Qualified Code(s): D72.819 - Decreased white blood cell count, unspecified (2) Nicotine dependence Current Visit: Yes Status: Acute Qualifiers: Nicotine product type: cigarettes Substance use status: in withdrawal Qualified Code(s): F17.213 - Nicotine dependence, cigarettes, with withdrawal (3) Hypertension Current Visit: Yes Status: Chronic Qualifiers: Hypertension type: essential hypertension Qualified Code(s): I10 - Essential (primary) hypertension (4) Alcohol dependence with uncomplicated withdrawal Current Visit: Yes Status: Acute (5) Substance induced mood disorder Current Visit: Yes Status: Suspected (6) Weight loss Current Visit: Yes Status: Acute - AMA Did Patient Leave Against Medical Advice: No
[2018-07-09] MEDS: risperiDONE 1 MG TABLET (FP) PO SCH (10:29)
[2018-07-09] MEDS: BENZTROPINE MESYLATE 1 MG TABLET (FP) PO SCH (10:29)
[2018-07-09] MEDS: PRENATAL VITAMINS W/ FOLIC ACID TABLET (FP) PO SCH (10:29)
[2018-07-09 13:18] VITALS: BP 87/50; PULSE 59; TEMP 97.8
== END 2018-07-09 14:02 | disposition other institution (70) | DRG 774 ==
LOC: YASAS 08:32 → Y3N 10:01
PROVIDERS: ADMIT Surgery; ATTEND Surgery
PROC: HZ2ZZZZ Detoxification Services for Substance Abuse Treatment (ICD-10-PCS; principal; 2018-07-05)
DX: F10.230 Alcohol dependence with withdrawal, uncomplicated (principal); F14.20 Cocaine dependence, uncomplicated; F17.213 Nicotine dependence, cigarettes, with withdrawal; F25.9 Schizoaffective disorder, unspecified; F19.24 Other psychoactive substance dependence with psychoactive substance-induced mood disorder; E86.0 Dehydration; R55 Syncope and collapse; R63.4 Abnormal weight loss; Z68.23 Body mass index [BMI] 23.0-23.9, adult; Z88.0 Allergy status to penicillin; Z91.013 Allergy to seafood
CPT/HCPCS: 36415; 80053; 81003; 85027; 86593; 87389; J2794

== ENCOUNTER 2018-07-09 14:41 | Inpatient (IN) | payer OTHER ==
--- NOTE | 2018-07-09 13:09 | HP ---
[facility] Re[facility] Assess/Revision - Admission History Admitted to Rehab from: [facility] Date of Admission to Rehab: 07/09/18 - Findings Detox History & Physical reviewed: Yes Concur with findings: Yes Comments/Additional Findings: transferred from detox to rehab admission as per protocol Inpatient Rehab Admission - Rehab Decision to Admit Inpatient rehab admission?: Yes - Initial Determination Are CD services needed?: Yes Free of communicable disease: Yes Not in need of hospitalization: Yes - Rehab Admission Criteria Previous failed treatment: Yes Poor recovery environment: Yes Comorbidities: Yes Lacks judgement: No Patient is meeting Inpatient Rehab admission criteria:: Yes
[~2018-07-09 14:41] MED LIST: ACETAMINOPHEN 325 MG TABLET (FP) PO PRN; MAGNESIUM CITRATE 300 ML BOTTLE PO PRN; MAGNESIUM HYDROX 2400MG/30ML ORAL SUSPENSION 30 ML CUP PO PRN; MENTHOL/PHENOL 1 EACH UD MM PRN; NICOTINE 14 MG/24 HOURS TOPICAL PATCH TD PRN; NICOTINE POLACRILEX 2 MG GUM BUC PRN; guaiFENesin/D-METHORPHAN HB 10 ML UNIT-DOSE CUPS PO PRN
--- NOTE | 2018-07-09 16:07 | CONSULT ---
[facility] Psychiatric Consult - Data Date of interview: 07/09/18 Admission source: [address] [place] [address] detox Identifying data: this is one of the multiple admissions to [address] [place] [address] inpatient rehabilitation for this 58 yeqrs old AA male ,father of of 19 yo son, resides alone,supported by PA. Substance Abuse History: reports drinking since [age] years old,heavy drinker since served [place]uzooka time since 2007,cocaine/cracj since 22 years old,spending $ 300 daily. Longest abstinence about 11 months,relapsed in Feb 2018. Medical History: Significant for HTN,Chronic atrhritis,anemia. Psychiatric History: Long and extensive psychiatric history with multiple psychiatric hospitalizations .he was dxd with bipolar disorder,then with Schizoaffective disorder.Reports one suicidal attempt at 14 years old(cut his stomach).patient reports poor compliance with psychiatric OPD care. stopped to see his psychiatrist at [facility] about 2-3 months ago.Patient restarted his medications ( risperdal 1 mg po bid,Cogentin 0,5 mg po bid and Trazodone 50 mg po hs)while bieng in detox on [address] [place] [address] last week and is willing to continue it in rehabilitation treatment.Patient is also reports that Sinequan was helping him with depression,insomnia. Physical/Sexual Abuse/Trauma History: patient denies. Mental Status Exam - Mental Status Exam Alert and Oriented to: Time, Place, Person Cognitive Function: Grossly Intact Patient Appearance: Well Groomed Mood: Sad, Anxious Affect: Mood Congruent, Labile Patient Behavior: Cooperative Speech Pattern: Clear Voice Loudness: Normal Thought Process: Goal Oriented Thought Disorder: Being Controlled Hallucinations: Denies Suicidal Ideation: Denies Homicidal Ideation: Denies Insight/Judgement: Fair Sleep: Difficulty falling asleep Appetite: Good Muscle strength/Tone: Normal Gait/Station: Normal Psychiatric Findings - Problem List ([place] 1, 2,3) (1) Alcohol dependence with uncomplicated withdrawal Current Visit: Yes Status: Chronic (2) Anemia Current Visit: Yes Status: Chronic (3) Nicotine dependence Current Visit: Yes Status: Chronic Qualifiers: (4) Chronic arthritis Current Visit: Yes Status: Chronic (5) Cocaine dependence Current Visit: Yes Status: Chronic (6) Hypertension Current Visit: Yes Status: Resolved Qualifiers: (7) Leukopenia Current Visit: Yes Status: Chronic Qualifiers: (8) Schizoaffective disorder Current Visit: Yes Status: Chronic - Initial Treatment Plan Initial Treatment Plan: Continue Risperdal 1 MG PO BID,COGENTIN 0,5 MG PO DAILY AND tRAZODONE 50 MG PO HS.sTART Sinequan 50 mg po hs.
[2018-07-09] MEDS: hydrOXYzine PAMOATE 50 MG CAPSULE (FP) PO PRN (16:30)
[2018-07-09] MEDS: DOXEPIN HCL 50 MG CAPSULE PO SCH (21:54)
[2018-07-09] MEDS: risperiDONE 1 MG TABLET (FP) PO SCH (21:54)
[2018-07-09] MEDS: THIAMINE HCL 100 MG TABLET (FP) PO SCH (21:54)
[2018-07-09] MEDS: traZODone HCL 50 MG TABLET (FP) PO SCH (21:55)
[2018-07-09] MEDS ORDERED: MELATONIN 5 MG TABLETS PO PRN (22:00)
[2018-07-10] MEDS: hydrOXYzine PAMOATE 50 MG CAPSULE (FP) PO PRN ×3 (03:19→21:32)
[2018-07-10] MEDS: LOPERAMIDE HCL 2 MG CAPSULE PO PRN ×3 (06:40→21:46)
[2018-07-10] MEDS: PRENATAL VITAMINS W/ FOLIC ACID TABLET (FP) PO SCH (10:19)
[2018-07-10] MEDS: risperiDONE 1 MG TABLET (FP) PO SCH ×2 (10:20→21:31)
[2018-07-10] MEDS: BENZTROPINE MESYLATE 0.5 MG TABLET (FP) PO SCH (10:20)
--- NOTE | 2018-07-10 12:11 | PN ---
[facility] Progress Note Note: PT IS AN ADMIT TO REHAB FROM [address] [place] [address] WHO REPORTS FREQUENT BM(ABOUT MORE THAN 10 TIMES WHILE DETOXING PER PT)"DIARRHEA". PT RECEIVED IMODIUM THIS MORNING BUT STATES HE HAS NOT HAD ANY SINCE IMODIUM AT CLOSE TO 7:00 A.M. REPORTS HIS REGULAR TREND IS ONCE A DAY. PT HAS BEEN INSTRUCTED TO INFORM STAFF IF HE CONTINUES TO HAVE FREQUENT LOOSE BM. PT ALSO REQUESTING FOR HIV SCREENING. Vital Signs - 24 hr 07/10/18 07/10/18 07/10/18 00:30 03:30 06:47 Temperature 97.5 F L Pulse Rate 96 H Respiratory 18 18 18 Rate Blood Pressure 99/59 L NAD PLAN:FOLLOW UP WITH PT'S SYMPTOMS GIVE LOMOTIL IF NOT GETTING BETTER WITH IMODIUM. INCREASE PO FLUIDS/TEA WITH NO MILK. ORDER HIV SCREENING FOR A.M BLOOD DRAW.
[2018-07-10] MEDS: THIAMINE HCL 100 MG TABLET (FP) PO SCH (21:31)
[2018-07-10] MEDS: traZODone HCL 50 MG TABLET (FP) PO SCH (21:31)
[2018-07-10] MEDS: DOXEPIN HCL 50 MG CAPSULE PO SCH (21:33)
[2018-07-11] MEDS: hydrOXYzine PAMOATE 50 MG CAPSULE (FP) PO PRN ×2 (03:07→08:45)
[2018-07-11] MEDS: MAG HYDROX/AL HYDROX/SIMETH 30 ML UNIT-DOSE CUP PO PRN ×2 (03:08→08:44)
[2018-07-11] MEDS: PRENATAL VITAMINS W/ FOLIC ACID TABLET (FP) PO SCH (10:06)
[2018-07-11] MEDS: risperiDONE 1 MG TABLET (FP) PO SCH ×2 (10:06→21:32)
[2018-07-11] MEDS: BENZTROPINE MESYLATE 0.5 MG TABLET (FP) PO SCH (10:07)
--- NOTE | 2018-07-11 10:14 | PN ---
[facility] Progress Note Note: NURSE REPORTS PT C/O "STOMACH UPSET" NOT RELIEVED WITH MYLANTA LAST NIGHT. SAW PT THIS MORNING WHO REPORTS THE MYLANTA IS EFFECTIVE AND DENIES HX ACID REFLUX OR PPI. REPORTS DIARRHEA RESOLVING. PT ALSO C/O NASAL CONGESTION AND LEFT WRIST PAIN FROM "TORN LIGAMENT A COUPLE YEARS AGO" . DENIES COUGHING. Vital Signs - 24 hr 07/11/18 07/11/18 07/11/18 00:30 03:30 06:49 Temperature 97.3 F L Pulse Rate 77 Respiratory 18 18 17 Rate Blood Pressure 116/85 ABDOMEN SOFT, NT LEFT WRIST LIMITED ROM NO SWELLING OR REDNESS DYSPEPSIA NASAL CONGESTION HX LEFT WRIST TRUAMA PLAN:CONTINUE MYLANTA DIRECTED. ANALGESIC BALM APPLY BID TO AFFECT WRIST ACTIFED PRN FAREED BANDAGE APPLY TO LEFT WRIST.
[2018-07-11] MEDS: P-EPHED 60MG/TRIPROLIDI 2.5MG TABLET PO PRN (10:27)
[2018-07-11] MEDS: METHYL SALICYLATE/MENTHOL OINT 30 GM TUBE TP SCH ×2 (14:15→21:32)
[2018-07-11] MEDS: DOXEPIN HCL 50 MG CAPSULE PO SCH (21:32)
[2018-07-11] MEDS: traZODone HCL 50 MG TABLET (FP) PO SCH (21:32)
[2018-07-11] MEDS: THIAMINE HCL 100 MG TABLET (FP) PO SCH (21:32)
[2018-07-12] MEDS: hydrOXYzine PAMOATE 50 MG CAPSULE (FP) PO PRN ×5 (04:19→21:30)
[2018-07-12] MEDS: METHYL SALICYLATE/MENTHOL OINT 30 GM TUBE TP SCH ×2 (09:40→21:30)
[2018-07-12] MEDS: PRENATAL VITAMINS W/ FOLIC ACID TABLET (FP) PO SCH (09:41)
[2018-07-12] MEDS: BENZTROPINE MESYLATE 0.5 MG TABLET (FP) PO SCH (09:41)
[2018-07-12] MEDS: risperiDONE 1 MG TABLET (FP) PO SCH ×2 (09:41→21:29)
[2018-07-12] MEDS: MAG HYDROX/AL HYDROX/SIMETH 30 ML UNIT-DOSE CUP PO PRN (17:58)
[2018-07-12] MEDS: DOXEPIN HCL 50 MG CAPSULE PO SCH (21:29)
[2018-07-12] MEDS: THIAMINE HCL 100 MG TABLET (FP) PO SCH (21:29)
[2018-07-12] MEDS: traZODone HCL 50 MG TABLET (FP) PO SCH (21:29)
[2018-07-13] MEDS: hydrOXYzine PAMOATE 50 MG CAPSULE (FP) PO PRN ×3 (04:02→18:52)
[2018-07-13] MEDS: P-EPHED 60MG/TRIPROLIDI 2.5MG TABLET PO PRN (06:49)
[2018-07-13] MEDS: PRENATAL VITAMINS W/ FOLIC ACID TABLET (FP) PO SCH (09:44)
[2018-07-13] MEDS: risperiDONE 1 MG TABLET (FP) PO SCH ×2 (09:44→21:39)
[2018-07-13] MEDS ORDERED: COLLOIDAL OATMEAL 1 BAR EACH TP PRN (10:26)
[2018-07-13] MEDS: BENZTROPINE MESYLATE 0.5 MG TABLET (FP) PO SCH (10:47)
[2018-07-13] MEDS: METHYL SALICYLATE/MENTHOL OINT 30 GM TUBE TP SCH ×2 (10:47→21:39)
[2018-07-13] MEDS: DOXEPIN HCL 50 MG CAPSULE PO SCH (21:39)
[2018-07-13] MEDS: THIAMINE HCL 100 MG TABLET (FP) PO SCH (21:39)
[2018-07-13] MEDS: traZODone HCL 50 MG TABLET (FP) PO SCH (21:39)
[2018-07-14] MEDS: MAG HYDROX/AL HYDROX/SIMETH 30 ML UNIT-DOSE CUP PO PRN (03:21)
[2018-07-14] MEDS: hydrOXYzine PAMOATE 50 MG CAPSULE (FP) PO PRN ×4 (03:21→21:28)
[2018-07-14] MEDS: IBUPROFEN 400 MG TABLET (FP) PO PRN ×2 (06:25→17:38)
[2018-07-14] MEDS: METHYL SALICYLATE/MENTHOL OINT 30 GM TUBE TP SCH ×2 (10:06→21:28)
[2018-07-14] MEDS: PRENATAL VITAMINS W/ FOLIC ACID TABLET (FP) PO SCH (10:06)
[2018-07-14] MEDS: risperiDONE 1 MG TABLET (FP) PO SCH ×2 (10:07→21:28)
[2018-07-14] MEDS: P-EPHED 60MG/TRIPROLIDI 2.5MG TABLET PO PRN (10:08)
[2018-07-14] MEDS: BENZTROPINE MESYLATE 0.5 MG TABLET (FP) PO SCH (11:59)
--- NOTE | 2018-07-14 16:01 | PN ---
[facility] Progress Note Note: Psychiatry Attending's on-call note :
[2018-07-14] MEDS: traZODone HCL 100 MG TABLET (FP) PO SCH (21:28)
[2018-07-14] MEDS: THIAMINE HCL 100 MG TABLET (FP) PO SCH (21:28)
[2018-07-15 06:53] VITALS: TEMP 98
[2018-07-15] MEDS: BENZTROPINE MESYLATE 0.5 MG TABLET (FP) PO SCH (09:48)
[2018-07-15] MEDS: risperiDONE 1 MG TABLET (FP) PO SCH ×2 (09:48→21:26)
[2018-07-15] MEDS: PRENATAL VITAMINS W/ FOLIC ACID TABLET (FP) PO SCH (09:48)
[2018-07-15] MEDS: hydrOXYzine PAMOATE 50 MG CAPSULE (FP) PO PRN ×3 (09:49→21:26)
[2018-07-15] MEDS: METHYL SALICYLATE/MENTHOL OINT 30 GM TUBE TP SCH ×2 (09:50→21:27)
[2018-07-15] MEDS: traZODone HCL 100 MG TABLET (FP) PO SCH (21:26)
[2018-07-15] MEDS: THIAMINE HCL 100 MG TABLET (FP) PO SCH (21:26)
[2018-07-16] MEDS: hydrOXYzine PAMOATE 50 MG CAPSULE (FP) PO PRN ×2 (01:51→06:33)
[2018-07-16 07:07] VITALS: BP 107/74; PULSE 87
[2018-07-16] MEDS: PRENATAL VITAMINS W/ FOLIC ACID TABLET (FP) PO SCH (09:13)
[2018-07-16] MEDS: risperiDONE 1 MG TABLET (FP) PO SCH (09:13)
[2018-07-16] MEDS: METHYL SALICYLATE/MENTHOL OINT 30 GM TUBE TP SCH (09:14)
[2018-07-16] MEDS: BENZTROPINE MESYLATE 0.5 MG TABLET (FP) PO SCH (09:14)
--- NOTE | 2018-07-16 09:37 | PN ---
[facility] Progress Note Note: Patient is discharged today. Script for 30 days supply of medications(Risperdal , Cogentin, Trazadone) are electronically transmitted to [facility] at [address] [place] [id number]
--- NOTE | 2018-07-16 10:57 | PN ---
[facility] Progress Note Note: PT COMPLETED REHAB AND DISCHARGED TODAY. PT MET WITH HIS COUNSELOR AND WAS REFERRED TO [facility] FOR [facility]ITIVE [facility]ANGE ON [address] [place] [address]. PT STATES HE HAS PRIMARY CARE/PCP WITH [place], [place] FOR MEDICAL MANAGEMENT(DOES NOT REMEMBER 'S NAME). ALERT O X 3. PT DENIES S/H/I. Home Medications Medication Instructions Recorded Benztropine Mesylate [Cogentin -] 0.5 mg PO BID #60 tablet 04/02/18 Divalproex [Depakote -] 250 mg PO BID #60 tablet.ec 04/02/18 traZODone HCL [Desyrel -] 100 mg PO HS #30 tablet 04/02/18 Benztropine Mesylate [Cogentin -] 0.5 mg PO DAILY #30 tablet 07/16/18 Risperidone [Risperdal -] 1 mg PO BID #60 tablet 07/16/18 traZODone HCL [Desyrel -] 100 mg PO HS #30 tablet 07/16/18 Vital Signs (72 hours) 07/14/18 07/14/18 07/14/18 00:30 03:30 06:49 Temperature 97.8 F Pulse Rate 89 Respiratory 18 18 18 Rate Blood Pressure 140/96 07/15/18 07/15/18 07/15/18 00:30 03:30 06:52 Temperature 98.0 F Pulse Rate 84 Respiratory 18 18 18 Rate Blood Pressure 122/91 07/16/18 07/16/18 00:30 07:06 Temperature 98.0 F Pulse Rate 87 Respiratory 18 18 Rate Blood Pressure 107/74 NAD MEDICALLY STABLE PLAN:DISCUSSED WITH PT TO FOLLOW UP WITH PCP ABOVE WITHIN 1-2 WEEKS AFTER DISCHARGE FOR MEDICAL MANAGEMENT. FOLLOW UP FOR CD AFTERCARE RECOMMENDED ABOVE ON 07/23/18 @09:00 A.M.
== END 2018-07-16 09:15 | disposition home or self-care (01) | DRG 772 ==
LOC: YASAS 14:41 → Y5N 14:42
PROVIDERS: ADMIT Neuromusculoskeletal Medicine & OMM; ATTEND Neuromusculoskeletal Medicine & OMM
PROC: HZ42ZZZ Group Counseling for Substance Abuse Treatment, Cognitive-Behavioral (ICD-10-PCS; principal; 2018-07-09)
DX: F10.20 Alcohol dependence, uncomplicated (principal); F14.20 Cocaine dependence, uncomplicated; F17.210 Nicotine dependence, cigarettes, uncomplicated; F25.9 Schizoaffective disorder, unspecified; I10 Essential (primary) hypertension; D64.9 Anemia, unspecified; D72.819 Decreased white blood cell count, unspecified; Z91.5 Personal history of self-harm
CPT/HCPCS: J2794

== ENCOUNTER 2018-09-29 10:27 | Inpatient (IN) | payer OTHER ==
--- NOTE | 2018-09-29 12:21 | HP ---
CIWA Score Nausea/Vomitin Muscle Tremors: 3 Anxiety: 3 Agitation: 3 Paroxysmal Sweats: 3 Orientation: 0-Oriented Tacttile Disturbances: 0-None Auditory Disturbances: 0-None Visual Disturbances: 0-None Headache: 1-Very Mild CIWA-Ar Total Score: 16 - Admission Criteria OAS Guidelines: Admission for Medically Managed Detox: Requires at least one of the followin. CIWA greater than 12 2. Seizures within the past 24 hours 3. Delirium tremens within the past 24 hours 4. Hallucinations within the past 24 hours 5. Acute intervention needed for co occurring medical disorder 6. Acute intervention needed for co occurring psychiatric disorder 7. Severe withdrawal that cannot be handled at a lower level of care (continued vomiting, continued diarrhea, abnormal vital signs) requiring intravenous medication and/or fluids 8. Patient presents the following: CIWA greater than 12 Admission Criteria Met: Admission criteria met Admission ROS [facility] Chief Complaint: "I need detox" Allergies/Adverse Reactions: Allergies Allergy/AdvReac Type Severity Reaction Status Date / Time Fish Containing Products Allergy Hives Verified 07/09/18 15:09 Penicillins Allergy Hives Verified 07/09/18 15:09 History of Present Illness: 58 y/o male requesting alcohol detox. He was last here in June. Denies alcohol induced seizures or blackouts. Denies S.I/H.I now or in the past. Denies any medical nor psychiatric hx. - Ebola screening Have you traveled outside of the country in the last 21 days: No (N) Have you had contact with anyone from an Ebola affected area: No Do you have a fever: No - Review of Systems Constitutional: Loss of Appetite, Changes in sleep EENT: reports: No Symptoms Reported Respiratory: reports: No Symptoms reported Cardiac: reports: No Symptoms Reported GI: reports: Nausea : reports: No Symptoms Reported Musculoskeletal: reports: No Symptoms Reported Integumentary: reports: No Symptoms Reported Neuro: reports: No Symptoms reported Endocrine: reports: No Symptoms Reported Hematology: reports: No Symptoms Reported Psychiatric: reports: No Sypmtoms Reported Other Systems: Reviewed and Negative Patient History - Patient Medical History Hx Anemia: No Hx Asthma: No Hx Chronic Obstructive Pulmonary Disease (COPD): No Hx Cancer: No Hx Cardiac Disorders: No Hx Congestive Heart Failure: No Hx Hypertension: No Hx Hypercholesterolemia: No Hx Pacemaker: No HX Cerebrovascular Accident: No Hx Seizures: No Hx Dementia: No Hx Diabetes: No Hx Gastrointestinal Disorders: No Hx Liver Disease: No Hx Genitourinary Disorders: No Hx Sexually Transmitted Disorders: No Hx Renal Disease (ESRD): No Hx Thyroid Disease: No Hx Human Immunodeficiency Virus (HIV): No (negative hx 12/30 negative) Hx Hepatitis C: No Hx Depression: No Hx Suicide Attempt: No Hx Bipolar Disorder: No Hx Schizophrenia: Yes - Patient Surgical History Past Surgical History: Yes Hx Neurologic Surgery: No Hx Cataract Extraction: No Hx Cardiac Surgery: No Hx Lung Surgery: No Hx Breast Surgery: No Hx Breast Biopsy: No Hx Abdominal Surgery: No Hx Appendectomy: No Hx Cholecystectomy: No Hx Genitourinary Surgery: No Hx Section: No Hx Orthopedic Surgery: Yes (torn ligament, right knee in 1985) Anesthesia Reaction: No - PPD History Previous Implant?: Yes Documented Results: Negative w/proof Implanted On Prior [facility] Admission?: Yes Date: 03/23/18 Results: 0 mm PPD to be Administered?: No - Reproductive History Patient is a Female of Child Bearing Age (11 -55 yrs old): No - Smoking Cessation Smoking history: Current some day smoker Have you smoked in the past 12 months: Yes Aproximately how many cigarettes per day: 5 Hx Chewing Tobacco Use: No Initiated information on smoking cessation: Yes 'Breaking Loose' booklet given: 09/29/18 - Substance & Tx. History Hx Alcohol Use: Yes Hx Substance Use: Yes Substance Use Type: Alcohol, Cocaine Hx Substance Use Treatment: Yes - Substances abused Alcohol Substance route: Oral Frequency: Daily Amount used: 3 pints /daily Age of first use: 15 Date of last use: 09/29/18 Cocaine Substance route: Smoking Frequency: 3-6 times per week Amount used: 350$ worth weekly Age of first use: 26 Date of last use: 09/29/18 Family Disease History - Family Disease History Family History: Unremarkable Admission Physical Exam [facility] - Vital Signs Vital Signs: Vital Signs - 24 hr 09/29/18 11:24 Temperature 97.7 F Pulse Rate 98 H Respiratory 18 Rate Blood Pressure 111/65 - Physical General Appearance: Yes: Mild Distress HEENTM: Yes: Within Normal Limits Respiratory: Yes: Chest Non-Tender, Lungs Clear, Normal Breath Sounds Neck: Yes: No masses,lesions,Nodules, Trachea in good position Breast: Yes: Breast Exam Deferred Cardiology: Yes: Regular Rhythm, Regular Rate, S1, S2 Abdominal: Yes: Normal Bowel Sounds, Non Tender, Soft Genitourinary: Yes: Within Normal Limits Back: Yes: Normal Inspection Musculoskeletal: Yes: full range of Motion, Gait Steady Extremities: Yes: Normal Capillary Refill, Normal Inspection, Normal Range of Motion Neurological: Yes: Within Normal Limits, Fully Oriented, Alert, Motor Strength 5 /5 Integumentary: Yes: Within Normal Limits, Dry Lymphatic: Yes: Within Normal Limits - Diagnostic (1) Alcohol dependence with uncomplicated withdrawal Current Visit: Yes Status: Acute (2) Nicotine dependence Current Visit: Yes Status: Chronic Qualifiers: (3) Cocaine dependence, uncomplicated Current Visit: Yes Status: Chronic (4) History of insomnia Current Visit: No Status: Acute Cleared for Admission [facility] - Detox or Rehab [facility] Level of Care: Medically Managed Detox Regimen/Protocol: Librium Breathalyzer - Breathalyzer Breathalyzer: 0.066 Urine Drug Screen - Test Device Lot number: [id number] Expiration date: 06/14/20 - Control Is test valid?: Yes - Results Drug screen NEGATIVE: No Urine drug screen results: MACARIO-Cocaine Inpatient Rehab Admission - Rehab Decision to Admit Inpatient rehab admission?: No
[2018-09-29] MEDS ORDERED: MAGNESIUM CITRATE 300 ML BOTTLE PO PRN (12:29)
[2018-09-29] MEDS ORDERED: MAGNESIUM HYDROX 2400MG/30ML ORAL SUSPENSION 30 ML CUP PO PRN (12:29)
[2018-09-29] MEDS ORDERED: BISMUTH SUBSALICYLATE 524 MG/30 ML UD PO PRN (12:29)
[2018-09-29] MEDS ORDERED: MENTHOL/PHENOL 1 EACH UD MM PRN (12:29)
[2018-09-29] MEDS ORDERED: METHOCARBAMOL 500 MG TABLET PO PRN (12:29)
[2018-09-29] MEDS ORDERED: MELATONIN 5 MG TABLETS PO PRN (12:29)
[2018-09-29] MEDS ORDERED: ACETAMINOPHEN 325 MG TABLET (FP) PO PRN ×2 (12:29)
[2018-09-29] MEDS: chlordiazePOXIDE HCL 25 MG CAPSULE PO SCH ×2 (13:21→22:53)
[2018-09-29] MEDS: chlordiazePOXIDE HCL 10 MG CAPSULE PO PRN (17:40)
[2018-09-29] MEDS: hydrOXYzine PAMOATE 25 MG CAPSULE (FP) PO PRN (17:40)
[2018-09-29] MEDS: THIAMINE HCL 100 MG TABLET (FP) PO SCH (22:53)
[2018-09-29] MEDS: traZODone HCL 50 MG TABLET (FP) PO PRN (22:54)
[2018-09-30] MEDS: chlordiazePOXIDE HCL 25 MG CAPSULE PO SCH (06:38)
[2018-09-30] MEDS: PRENATAL VITAMINS W/ FOLIC ACID TABLET (FP) PO SCH (10:08)
[2018-09-30] MEDS: hydrOXYzine PAMOATE 25 MG CAPSULE (FP) PO PRN ×2 (10:08→19:33)
--- NOTE | 2018-09-30 10:22 | PN ---
[facility] CIWA - CIWA Score Nausea/Vomitin-Mild Nausea/No Vomiting Muscle Tremors: 3 Anxiety: 2 Agitation: 1-Slight > Activity Paroxysmal Sweats: 1-Minimal Palms Moist Orientation: 2-Disoriented Date<2 days Tacttile Disturbances: 1-Very Mild Itch/Numbness (left hand) Auditory Disturbances: 0-None Visual Disturbances: 0-None Headache: 1-Very Mild CIWA-Ar Total Score: 12 [facility] Progress Note (SOAP) Subjective: left hand numbness x "years" due to trauma right knee surgery 1996 joints pain from old trauma encourage trail of tylenal or motrin Objective: 09/30/18 10:21 Vital Signs Temperature 96.9 F L 09/30/18 09:16 Pulse Rate 75 09/30/18 09:16 Respiratory Rate 18 09/30/18 09:16 Blood Pressure 103/59 L 09/30/18 09:16 O2 Sat by Pulse Oximetry (%) 09/30/18 10:21 lab pending Assessment: 09/30/18 10:22 alcohol withdrawal sx Plan: continue detox
[2018-09-30 10:23] LABS: HEMATOCRIT 36.8 % (35.4-49); HEMOGLOBIN 12.3 GM/dL (11.7-16.9); MCH 32.2 pg (25.7-33.7); MCHC 33.3 g/dl (32.0-35.9); MEAN CELL VOLUME 96.6 fl (80-96); PLATELET COUNT 307 K/MM3 (134-434); RBC 3.81 M/mm3 (4.00-5.60); RDW 14.2 % (11.9-15.9); WHITE BLOOD COUNT 2.6 K/mm3 (4.0-10.0)
[2018-09-30] MEDS: IBUPROFEN 400 MG TABLET (FP) PO PRN (10:23)
[2018-09-30 10:29] LABS: ALBUMIN 3.4 g/dl (3.4-5.0); BILIRUBIN,TOTAL 0.7 mg/dL (0.2-1); CALCIUM 8.8 mg/dL (8.5-10.1); TOT PROT 6.3 g/dl (6.4-8.2)
[2018-09-30] MEDS: METHYL SALICYLATE/MENTHOL OINT 30 GM TUBE TP SCH ×2 (11:12→22:49)
[2018-09-30] MEDS: chlordiazePOXIDE 5 MG CAPSULE PO SCH ×2 (13:25→22:20)
[2018-09-30] MEDS: chlordiazePOXIDE HCL 10 MG CAPSULE PO PRN (19:33)
[2018-09-30] MEDS: THIAMINE HCL 100 MG TABLET (FP) PO SCH (22:20)
[2018-09-30] MEDS: traZODone HCL 50 MG TABLET (FP) PO PRN (22:21)
[2018-10-01] MEDS ORDERED: guaiFENesin 200 MG/10 ML 10 ML UNIT-DOSE CUPS PO PRN (00:57)
[2018-10-01] MEDS: chlordiazePOXIDE 5 MG CAPSULE PO SCH (05:26)
[2018-10-01] MEDS: PRENATAL VITAMINS W/ FOLIC ACID TABLET (FP) PO SCH (10:18)
[2018-10-01] MEDS: METHYL SALICYLATE/MENTHOL OINT 30 GM TUBE TP SCH ×2 (10:18→22:33)
[2018-10-01] MEDS: IBUPROFEN 400 MG TABLET (FP) PO PRN (10:19)
--- NOTE | 2018-10-01 11:03 | PN ---
[facility] CIWA - CIWA Score Nausea/Vomitin-Mild Nausea/No Vomiting Muscle Tremors: 3 Anxiety: 2 Agitation: 2 Paroxysmal Sweats: 1-Minimal Palms Moist Orientation: 1-Uncertain about Date Tacttile Disturbances: 0-None Auditory Disturbances: 0-None Visual Disturbances: 0-None Headache: 1-Very Mild CIWA-Ar Total Score: 11 [facility] Progress Note (SOAP) Subjective: tremor tired hesitate talking about aftercare with staff Objective: 10/01/18 11:02 Vital Signs Temperature 97.0 F L 10/01/18 09:11 Pulse Rate 81 10/01/18 09:11 Respiratory Rate 18 10/01/18 09:11 Blood Pressure 125/80 10/01/18 09:11 O2 Sat by Pulse Oximetry (%) Laboratory Last Values WBC 2.6 K/mm3 (4.0-10.0) L 09/30/18 07:50 RBC 3.81 M/mm3 (4.00-5.60) L 09/30/18 07:50 Hgb 12.3 GM/dL (11.7-16.9) 09/30/18 07:50 Hct 36.8 % (35.4-49) 09/30/18 07:50 MCV 96.6 fl (80-96) H 09/30/18 07:50 MCH 32.2 pg (25.7-33.7) 09/30/18 07:50 MCHC 33.3 g/dl (32.0-35.9) 09/30/18 07:50 RDW 14.2 % (11.9-15.9) 09/30/18 07:50 Plt Count 307 K/MM3 (134-434) 09/30/18 07:50 MPV 8.0 fl (7.5-11.1) 09/30/18 07:50 Sodium 138 mmol/L (136-145) 09/30/18 07:50 Potassium 4.0 mmol/L (3.5-5.1) 09/30/18 07:50 Chloride 104 mmol/L (98-107) 09/30/18 07:50 Carbon Dioxide 28 mmol/L (21-32) 09/30/18 07:50 Anion Gap 5 MMOL/L (8-16) L 09/30/18 07:50 BUN 24 mg/dL (7-18) H 09/30/18 07:50 Creatinine 1.0 mg/dL (0.55-1.3) 09/30/18 07:50 Est GFR (CKD-EPI)AfAm 95.73 09/30/18 07:50 Est GFR (CKD-EPI)NonAf 82.60 09/30/18 07:50 Random Glucose 123 mg/dL (74-106) H 09/30/18 07:50 Calcium 8.8 mg/dL (8.5-10.1) 09/30/18 07:50 Total Bilirubin 0.7 mg/dL (0.2-1) 09/30/18 07:50 AST 30 U/L (15-37) 09/30/18 07:50 ALT 28 U/L (13-61) 09/30/18 07:50 Alkaline Phosphatase 58 U/L (45-117) 09/30/18 07:50 Total Protein 6.3 g/dl (6.4-8.2) L 09/30/18 07:50 Albumin 3.4 g/dl (3.4-5.0) 09/30/18 07:50 RPR Titer Nonreactive (NONREACTIVE) 09/30/18 07:50 lab noted patient has long history of low wbc follow up with hemotologist in the community encourage the patient bring in lab report to follow up appointmebt 10/01/18 11:04 Assessment: 10/01/18 11:05 alcohol withdrawal sx Plan: continue detox
[2018-10-01] MEDS: chlordiazePOXIDE HCL 10 MG CAPSULE PO SCH ×2 (12:20→22:33)
[2018-10-01] MEDS: hydrOXYzine PAMOATE 25 MG CAPSULE (FP) PO PRN (12:21)
[2018-10-01] MEDS ORDERED: chlordiazePOXIDE HCL 10 MG CAPSULE PO PRN (13:00)
[2018-10-01] MEDS: THIAMINE HCL 100 MG TABLET (FP) PO SCH (21:45)
[2018-10-01] MEDS: traZODone HCL 50 MG TABLET (FP) PO PRN (21:46)
[2018-10-02] MEDS: MAG HYDROX/AL HYDROX/SIMETH 30 ML UNIT-DOSE CUP PO PRN ×2 (03:26→16:21)
--- NOTE | 2018-10-02 04:21 | PN ---
S Progress Note Note: Patient vomited x 1 Vital Signs Temperature 98.9 F 10/01/18 22:06 Pulse Rate 90 10/01/18 22:06 Respiratory Rate 18 10/02/18 00:30 Blood Pressure 148/95 10/01/18 22:06 O2 Sat by Pulse Oximetry (%) Action: Tigan 300mg IM ordered
[2018-10-02] MEDS ORDERED: TRIMETHOBENZAMIDE HCL 300 MG CAPSULE PO ONE ×2 (05:28→05:45)
[2018-10-02] MEDS: chlordiazePOXIDE HCL 10 MG CAPSULE PO SCH ×2 (06:23→13:56)
[2018-10-02] MEDS ORDERED: LOPERAMIDE HCL 2 MG CAPSULE PO PRN (09:51)
[2018-10-02] MEDS: PRENATAL VITAMINS W/ FOLIC ACID TABLET (FP) PO SCH (10:32)
[2018-10-02] MEDS: METHYL SALICYLATE/MENTHOL OINT 30 GM TUBE TP SCH ×2 (10:33→22:38)
--- NOTE | 2018-10-02 14:01 | PN ---
S CIWA - CIWA Score Nausea/Vomitin-Mild Nausea/No Vomiting Muscle Tremors: 2 Anxiety: 2 Agitation: 2 Paroxysmal Sweats: 1-Minimal Palms Moist Orientation: 0-Oriented Tacttile Disturbances: 0-None Auditory Disturbances: 0-None Visual Disturbances: 0-None Headache: 0-None Present CIWA-Ar Total Score: 8 [facility] Progress Note (SOAP) Subjective: no vomiting today tolerate food and fluid well today mild tremor discuss alcohol related gi insult Objective: 10/02/18 14:03 Vital Signs Temperature 99.3 F 10/02/18 09:23 Pulse Rate 20 L 10/02/18 09:23 Respiratory Rate 102 H 10/02/18 09:23 Blood Pressure 111/77 10/02/18 09:23 O2 Sat by Pulse Oximetry (%) Laboratory Last Values WBC 2.6 K/mm3 (4.0-10.0) L 09/30/18 07:50 RBC 3.81 M/mm3 (4.00-5.60) L 09/30/18 07:50 Hgb 12.3 GM/dL (11.7-16.9) 09/30/18 07:50 Hct 36.8 % (35.4-49) 09/30/18 07:50 MCV 96.6 fl (80-96) H 09/30/18 07:50 MCH 32.2 pg (25.7-33.7) 09/30/18 07:50 MCHC 33.3 g/dl (32.0-35.9) 09/30/18 07:50 RDW 14.2 % (11.9-15.9) 09/30/18 07:50 Plt Count 307 K/MM3 (134-434) 09/30/18 07:50 MPV 8.0 fl (7.5-11.1) 09/30/18 07:50 Sodium 138 mmol/L (136-145) 09/30/18 07:50 Potassium 4.0 mmol/L (3.5-5.1) 09/30/18 07:50 Chloride 104 mmol/L (98-107) 09/30/18 07:50 Carbon Dioxide 28 mmol/L (21-32) 09/30/18 07:50 Anion Gap 5 MMOL/L (8-16) L 09/30/18 07:50 BUN 24 mg/dL (7-18) H 09/30/18 07:50 Creatinine 1.0 mg/dL (0.55-1.3) 09/30/18 07:50 Est GFR (CKD-EPI)AfAm 95.73 09/30/18 07:50 Est GFR (CKD-EPI)NonAf 82.60 09/30/18 07:50 Random Glucose 123 mg/dL (74-106) H 09/30/18 07:50 Calcium 8.8 mg/dL (8.5-10.1) 09/30/18 07:50 Total Bilirubin 0.7 mg/dL (0.2-1) 09/30/18 07:50 AST 30 U/L (15-37) 09/30/18 07:50 ALT 28 U/L (13-61) 09/30/18 07:50 Alkaline Phosphatase 58 U/L (45-117) 09/30/18 07:50 Total Protein 6.3 g/dl (6.4-8.2) L 09/30/18 07:50 Albumin 3.4 g/dl (3.4-5.0) 09/30/18 07:50 RPR Titer Nonreactive (NONREACTIVE) 09/30/18 07:50 lab noted low wbc patient will follow up with primary care provider in the [facility] service 10/02/18 14:04 Assessment: 10/02/18 14:04 alcohol withdrawal sx Plan: continue detox
[2018-10-02] MEDS ORDERED: BISMUTH SUBSALICYLATE 262 MG/15 ML BTL PO PRN (14:54)
[2018-10-02] MEDS: THIAMINE HCL 100 MG TABLET (FP) PO SCH (22:38)
[2018-10-02] MEDS: traZODone HCL 50 MG TABLET (FP) PO PRN (23:18)
[2018-10-03] MEDS: chlordiazePOXIDE HCL 10 MG CAPSULE PO SCH ×2 (07:29→10:02)
[2018-10-03 09:21] VITALS: BP 101/62; PULSE 92; TEMP 97.7
[2018-10-03] MEDS: PRENATAL VITAMINS W/ FOLIC ACID TABLET (FP) PO SCH (10:00)
[2018-10-03] MEDS: METHYL SALICYLATE/MENTHOL OINT 30 GM TUBE TP SCH (10:02)
--- NOTE | 2018-10-03 13:17 | DS ---
[facility] Detox Discharge Summary Admission Date: 09/29/18 Discharge Date: 10/03/18 - History Present History: Alcohol Dependence Additional Comments: 58 years old male admitted on 09/29/18 for alcohol withdrawal stabilization completed detox regimen aftercare community self help support meeting Pertinent Past History: bring in medication list and lab report to follow up appointment - Physical Exam Results Vital Signs: Vital Signs Temperature 97.7 F 10/03/18 09:20 Pulse Rate 92 H 10/03/18 09:20 Respiratory Rate 20 10/03/18 09:20 Blood Pressure 101/62 10/03/18 09:20 O2 Sat by Pulse Oximetry (%) Pertinent Admission Physical Exam Findings: alcohol withdrawal sx Laboratory Last Values WBC 2.6 K/mm3 (4.0-10.0) L 09/30/18 07:50 RBC 3.81 M/mm3 (4.00-5.60) L 09/30/18 07:50 Hgb 12.3 GM/dL (11.7-16.9) 09/30/18 07:50 Hct 36.8 % (35.4-49) 09/30/18 07:50 MCV 96.6 fl (80-96) H 09/30/18 07:50 MCH 32.2 pg (25.7-33.7) 09/30/18 07:50 MCHC 33.3 g/dl (32.0-35.9) 09/30/18 07:50 RDW 14.2 % (11.9-15.9) 09/30/18 07:50 Plt Count 307 K/MM3 (134-434) 09/30/18 07:50 MPV 8.0 fl (7.5-11.1) 09/30/18 07:50 Sodium 138 mmol/L (136-145) 09/30/18 07:50 Potassium 4.0 mmol/L (3.5-5.1) 09/30/18 07:50 Chloride 104 mmol/L (98-107) 09/30/18 07:50 Carbon Dioxide 28 mmol/L (21-32) 09/30/18 07:50 Anion Gap 5 MMOL/L (8-16) L 09/30/18 07:50 BUN 24 mg/dL (7-18) H 09/30/18 07:50 Creatinine 1.0 mg/dL (0.55-1.3) 09/30/18 07:50 Est GFR (CKD-EPI)AfAm 95.73 09/30/18 07:50 Est GFR (CKD-EPI)NonAf 82.60 09/30/18 07:50 Random Glucose 123 mg/dL (74-106) H 09/30/18 07:50 Calcium 8.8 mg/dL (8.5-10.1) 09/30/18 07:50 Total Bilirubin 0.7 mg/dL (0.2-1) 09/30/18 07:50 AST 30 U/L (15-37) 09/30/18 07:50 ALT 28 U/L (13-61) 09/30/18 07:50 Alkaline Phosphatase 58 U/L (45-117) 09/30/18 07:50 Total Protein 6.3 g/dl (6.4-8.2) L 09/30/18 07:50 Albumin 3.4 g/dl (3.4-5.0) 09/30/18 07:50 RPR Titer Nonreactive (NONREACTIVE) 09/30/18 07:50 lab noted low wbc - Treatment Hospital Course: Detox Protocol Followed, Detoxed Safely, Responded well, Discharged Condition Good, Rehab Referral Accepted Patient has Accepted a Rehab Referral to: community self help support - Medication Discharge Medications: Ambulatory Orders Divalproex [Depakote -] 250 mg PO BID #60 tablet.ec 04/02/18 Benztropine Mesylate [Cogentin -] 0.5 mg PO DAILY #30 tablet 07/16/18 traZODone HCL [Desyrel -] 100 mg PO HS #30 tablet 07/16/18 Risperidone [Risperdal -] 1 mg PO DAILY 09/29/18 - Diagnosis (1) Leukopenia Status: Chronic Qualifiers: Leukopenia type: unspecified (2) Nicotine dependence Status: Acute Qualifiers: Nicotine product type: cigarettes Substance use status: in withdrawal Qualified Code(s): F17.213 - Nicotine dependence, cigarettes, with withdrawal (3) Hypertension Status: Chronic Qualifiers: Hypertension type: essential hypertension (4) Alcohol dependence with uncomplicated withdrawal Status: Acute (5) Substance induced mood disorder Status: Suspected (6) Weight loss Status: Acute - AMA Did Patient Leave Against Medical Advice: No
== END 2018-10-03 12:00 | disposition home or self-care (01) | DRG 774 ==
LOC: YASAS 10:27 → Y3N 12:16
PROVIDERS: ADMIT Surgery; ATTEND Surgery
PROC: HZ2ZZZZ Detoxification Services for Substance Abuse Treatment (ICD-10-PCS; principal; 2018-09-29)
DX: F10.230 Alcohol dependence with withdrawal, uncomplicated (principal); F14.20 Cocaine dependence, uncomplicated; F17.213 Nicotine dependence, cigarettes, with withdrawal; F19.24 Other psychoactive substance dependence with psychoactive substance-induced mood disorder; G47.00 Insomnia, unspecified; I10 Essential (primary) hypertension; D72.819 Decreased white blood cell count, unspecified; R63.4 Abnormal weight loss; Z68.23 Body mass index [BMI] 23.0-23.9, adult; Z88.0 Allergy status to penicillin; Z91.013 Allergy to seafood
CPT/HCPCS: 36415; 80053; 85027; 86593

== ENCOUNTER 2018-11-01 12:30 | Inpatient (IN) | payer OTHER ==
[2018-11-01 16:49] VITALS: BMI 22.4
--- NOTE | 2018-11-01 20:32 | HP ---
CIWA Score Nausea/Vomitin Muscle Tremors: 1-None Visible, but [place] Anxiety: 4-Mod. Anxious/Guarded Agitation: 4-Moderately Restless Paroxysmal Sweats: 3 Orientation: 2-Disoriented Date<2 days Tacttile Disturbances: 0-None Auditory Disturbances: 2-Mild Harshness/Frighten Visual Disturbances: 0-None Headache: 3-Moderate CIWA-Ar Total Score: 21 - Admission Criteria OASAS Guidelines: Admission for Medically Managed Detox: Requires at least one of the followin. CIWA greater than 12 2. Seizures within the past 24 hours 3. Delirium tremens within the past 24 hours 4. Hallucinations within the past 24 hours 5. Acute intervention needed for co occurring medical disorder 6. Acute intervention needed for co occurring psychiatric disorder 7. Severe withdrawal that cannot be handled at a lower level of care (continued vomiting, continued diarrhea, abnormal vital signs) requiring intravenous medication and/or fluids 8. Patient presents the following: CIWA greater than 12 Admission Criteria Met: Admission criteria met Admission ROS [facility] - [facility] Chief Complaint: C/O WITHDRAWAL SX'S Allergies/Adverse Reactions: Allergies Allergy/AdvReac Type Severity Reaction Status Date / Time Fish Containing Products Allergy Hives Verified 11/01/18 16:43 Penicillins Allergy Hives Verified 11/01/18 16:43 History of Present Illness: 58 Y.O. MALE WITH ALCOHOLISM AND COCAINE DEPENDENCE HERE FOR DETOX. CLIENT IS SELF REFERRED HE IS KNOWN TO THIS PROGRAM. LAST ADMIT 1 MONTH AGO. CLIENT REPORTS RELAPSING IMMEDIATELY AFTER DC. HE REPORTS DRINKING DAILY. LAST DRINK THIS MORNING DUE TO WITHDRAWAL SX'. PRESNET NOW WITH C/O WITHDRAWAL. CIWA 21. REPORTS LONGEST CLEAN TIME 8 MONTHS. RELAPSING 01/2018. DENIES HX/O SZ D/O + BLACKOUTS. DENIES SI/HI/AVH, DT'S. DOMICILED, UNEMPLOYED, DENIES LEGALS. Exam Limitations: No Limitations - Ebola screening Have you traveled outside of the country in the last 21 days: No (N) Have you had contact with anyone from an Ebola affected area: No Do you have a fever: No - Review of Systems Constitutional: Chills, Loss of Appetite, Malaise, Night Sweats, Changes in sleep, Unintentional Wgt. Loss EENT: reports: No Symptoms Reported Respiratory: reports: No Symptoms reported Cardiac: reports: No Symptoms Reported GI: reports: Nausea, Poor Fluid Intake, Vomiting : reports: No Symptoms Reported Musculoskeletal: reports: Back Pain Integumentary: reports: No Symptoms Reported Neuro: reports: Headache, Tremors Endocrine: reports: No Symptoms Reported Hematology: reports: No Symptoms Reported Psychiatric: reports: Orientated x3, Agitated, Anxious Other Systems: Reviewed and Negative Patient History - Patient Medical History Hx Anemia: No Hx Asthma: No Hx Chronic Obstructive Pulmonary Disease (COPD): No Hx Cancer: No Hx Cardiac Disorders: No Hx Congestive Heart Failure: No Hx Hypertension: No Hx Hypercholesterolemia: No Hx Pacemaker: No HX Cerebrovascular Accident: No Hx Seizures: No Hx Dementia: No Hx Diabetes: No Hx Gastrointestinal Disorders: No Hx Liver Disease: No Hx Genitourinary Disorders: No Hx Sexually Transmitted Disorders: No Hx Renal Disease (ESRD): No Hx Thyroid Disease: No Hx Human Immunodeficiency Virus (HIV): No Hx Hepatitis C: No Hx Depression: No Hx Suicide Attempt: No Hx Bipolar Disorder: No Hx Schizophrenia: Yes (ON MEDS) - Patient Surgical History Past Surgical History: Yes Hx Neurologic Surgery: No Hx Cataract Extraction: No Hx Cardiac Surgery: No Hx Lung Surgery: No Hx Breast Surgery: No Hx Breast Biopsy: No Hx Abdominal Surgery: No Hx Appendectomy: No Hx Cholecystectomy: No Hx Genitourinary Surgery: No Hx Section: No Hx Orthopedic Surgery: Yes (torn ligament, right knee in 1985) Anesthesia Reaction: No - PPD History Previous Implant?: Yes Documented Results: Positive w/o proof Implanted On Prior [facility] Admission?: Yes Date: 03/23/18 Results: 0 mm PPD to be Administered?: No - Smoking Cessation Smoking history: Current some day smoker Have you smoked in the past 12 months: Yes Aproximately how many cigarettes per day: 2 Cigars Per Day: 0 Hx Chewing Tobacco Use: No Initiated information on smoking cessation: Yes 'Breaking Loose' booklet given: 11/01/18 - Substance & Tx. History Hx Alcohol Use: Yes Hx Substance Use: Yes Substance Use Type: Alcohol, Cocaine Hx Substance Use Treatment: Yes ([facility]) - Substances abused Alcohol Substance route: Oral Frequency: Daily Amount used: 3 pints /daily Age of first use: 15 Date of last use: 11/01/18 Cocaine Substance route: Smoking Frequency: 3-6 times per week Amount used: 350$ weekly Age of first use: 26 Date of last use: 11/01/18 Family Disease History - Family Disease History Family History: Denies Admission Physical Exam [facility] - Vital Signs Vital Signs: Vital Signs - 24 hr 11/01/18 16:45 Temperature 97.8 F Pulse Rate 76 Respiratory 18 Rate Blood Pressure 127/87 - Physical General Appearance: Yes: Moderate Distress, Tremorous (FELT), Irritable, Anxious HEENTM: Yes: EOMI, Normocephalic, CLAUDINE, Pharynx Normal, Other (MISSING TEETH) Respiratory: Yes: Chest Non-Tender, Lungs Clear, Normal Breath Sounds, No Respiratory Distress, No Accessory Muscle Use Neck: Yes: No masses,lesions,Nodules, Supple, Trachea in good position Breast: Yes: Breast Exam Deferred Cardiology: Yes: Regular Rhythm, Regular Rate, S1, S2 Abdominal: Yes: Non Tender, Flat, Soft, Increased Bowel Sounds Genitourinary: Yes: Within Normal Limits Back: Yes: Normal Inspection Musculoskeletal: Yes: full range of Motion, Gait Steady Extremities: Yes: Normal Capillary Refill, Non-Tender, Tremors Neurological: Yes: Fully Oriented, Alert, Motor Strength 5/5 Integumentary: Yes: Dry, Warm Lymphatic: Yes: Within Normal Limits - Diagnostic (1) At risk for dehydration due to poor fluid intake Current Visit: Yes Status: Acute (2) Alcohol dependence with uncomplicated withdrawal Current Visit: Yes Status: Acute (3) Nicotine dependence Current Visit: Yes Status: Chronic Qualifiers: Nicotine product type: cigarettes Substance use status: uncomplicated Qualified Code(s): F17.210 - Nicotine dependence, cigarettes, uncomplicated (4) Cocaine dependence, uncomplicated Current Visit: Yes Status: Acute (5) Substance induced mood disorder Current Visit: Yes Status: Suspected Cleared for Admission [facility] - Detox or Rehab [facility] Level of Care: Medically Managed Detox Regimen/Protocol: Librium Claeared for Rehab Admission: No Breathalyzer - Breathalyzer Breathalyzer: 0 Urine Drug Screen - Test Device Lot number: [id number] Expiration date: 01/13/20 - Control Is test valid?: Yes - Results Drug screen NEGATIVE: No Urine drug screen results: MACARIO-Cocaine, BZO-Benzodiazepines Inpatient Rehab Admission - Rehab Decision to Admit Inpatient rehab admission?: No
[2018-11-01] MEDS ORDERED: guaiFENesin 200 MG/10 ML 10 ML UNIT-DOSE CUPS PO PRN (20:36)
[2018-11-01] MEDS ORDERED: ACETAMINOPHEN 325 MG TABLET (FP) PO PRN ×2 (20:36)
[2018-11-01] MEDS ORDERED: ONDANSETRON *ODT* 4 MG TABLET SL PRN (20:36)
[2018-11-01] MEDS ORDERED: P-EPHED 60MG/TRIPROLIDI 2.5MG TABLET PO PRN (20:36)
[2018-11-01] MEDS ORDERED: MELATONIN 5 MG TABLETS PO PRN (20:36)
[2018-11-01] MEDS ORDERED: MENTHOL/PHENOL 1 EACH UD MM PRN (20:36)
[2018-11-01] MEDS ORDERED: METHOCARBAMOL 500 MG TABLET PO PRN (20:36)
[2018-11-01] MEDS ORDERED: MAG HYDROX/AL HYDROX/SIMETH 30 ML UNIT-DOSE CUP PO PRN (20:36)
[2018-11-01] MEDS ORDERED: DICYCLOMINE HCL 10 MG CAPSULE PO PRN (20:36)
[2018-11-01] MEDS ORDERED: NICOTINE POLACRILEX 2 MG GUM BUC PRN (20:36)
[2018-11-01] MEDS ORDERED: BISMUTH SUBSALICYLATE 524 MG/30 ML UD PO PRN (20:36)
[2018-11-01] MEDS ORDERED: MAGNESIUM CITRATE 300 ML BOTTLE PO PRN (20:36)
[2018-11-01] MEDS ORDERED: MAGNESIUM HYDROX 2400MG/30ML ORAL SUSPENSION 30 ML CUP PO PRN (20:36)
[2018-11-01] MEDS ORDERED: chlordiazePOXIDE HCL 25 MG CAPSULE PO PRN (20:36)
[2018-11-01] MEDS: chlordiazePOXIDE HCL 25 MG CAPSULE PO SCH (22:03)
[2018-11-01] MEDS: THIAMINE HCL 100 MG TABLET (FP) PO SCH (22:03)
[2018-11-02 05:50] LABS: EPI CELLS 1.5 /HPF (0-5/HPF); HYALINE CASTS 5 /lpf (0-8); PH,URINE 5.5 (5.0-8.0); URINE APPEARANCE TURBID; URINE BACTERIA 4.1 /hpf (NEGATIVE); URINE BILIRUBIN 1+ (NEGATIVE); URINE COLOR DK YELLOW; URINE GLUCOSE (UA) NEGATIVE (NEGATIVE); URINE KETONE TRACE (NEGATIVE); URINE LEUK ESTERASE TRACE (NEGATIVE); URINE NITRITE NEGATIVE (NEGATIVE); URINE PROTEIN NEGATIVE (NEGATIVE); URINE RBC 4 /hpf (0-4); URINE WBC 2 /hpf (0-5)
[2018-11-02] MEDS: chlordiazePOXIDE HCL 25 MG CAPSULE PO SCH ×4 (05:52→22:01)
--- NOTE | 2018-11-02 10:49 | CONSULT ---
[facility] Psychiatric Consult - Data Date of interview: 11/02/18 Admission source: [facility] Identifying data: This is one of multiple admissions to [facility] for this 58 y/ o AA male, self-referred for detoxification (alcohol, cocaine). Patient is , a father of one, domiciled, unemployed and supported on welfare. Substance Abuse History: Confirmed by patient in this interview. Details in current [facility] report as follows : Smoking history: Current some day smoker. Have you smoked in the past 12 months: Yes. Aproximately how many cigarettes per day : 2. Cigars Per Day: 0. Hx Chewing Tobacco Use: No. Initiated information on smoking cessation: Yes. 'Breaking Loose' booklet given: 11/01/18. - Substance & Tx. History. Hx Alcohol Use: Yes. Hx Substance Use: Yes. Substance Use Type : Alcohol, Cocaine. Hx Substance Use Treatment: Yes ([facility]). - Substances abused. Alcohol. Substance route: Oral. Frequency: Daily. Amount used: 3 pints /daily. Age of first use: 15. Date of last use: 11/01/18. Cocaine. Substance route: Smoking. Frequency: 3-6 times per week. Amount used: 350$ weekly. Age of first use: 26. Date of last use: 11/01/18 Medical History: Consistent with hypertension, hypercholesterolemia, anemia and a history of arthroscopic surgery (right knee). Psychiatric History: Patient admits to history of multiple psychiatric hospitalizations ([facility], [facility], [facility]). Diagnosed with Schizoaffective Disorder. Mr Stallworth is currently followed at [facility] in [facility]. Patient is prescribed risperdal 1 mg/daily + trazodone 100 mg/hs + depakote 500 mg/day + cogentin 1 mg/day (confirmed by pharmacy claims of 08/17/18 + 09/21/18 at [facility]). Patient denies history of suicide attempts. Physical/Sexual Abuse/Trauma History: Patient denies. Additional Comment: Urine drug screen results: MACARIO-Cocaine, BZO- Benzodiazepines. Noted. Mental Status Exam - Mental Status Exam Alert and Oriented to: Time, Place, Person Cognitive Function: Good Patient Appearance: Well Groomed Mood: Withdrawn Affect: Appropriate, Normal Range Patient Behavior: Fatigued, Appropriate, Cooperative Speech Pattern: Clear, Appropriate Voice Loudness: Normal Thought Process: Intact, Goal Oriented Thought Disorder: Not Present Hallucinations: Denies Suicidal Ideation: Denies Homicidal Ideation: Denies Insight/Judgement: Poor Sleep: Poorly, Difficulty falling asleep Appetite: Good Muscle strength/Tone: Normal Gait/Station: Normal Psychiatric Findings - Problem List ([place] 1, 2,3) (1) Alcohol dependence with uncomplicated withdrawal Status: Acute (2) Cocaine dependence, uncomplicated Status: Chronic (3) Nicotine dependence Status: Chronic Qualifiers: Nicotine product type: cigarettes Substance use status: uncomplicated Qualified Code(s): F17.210 - Nicotine dependence, cigarettes, uncomplicated (4) Substance induced mood disorder Status: Chronic (5) Schizoaffective disorder Status: Chronic (6) Insomnia Status: Chronic - Initial Treatment Plan Initial Treatment Plan: Psychoeducation. Detoxification. Sleep hygiene. Groups. AA meetings. Medications resumed as : risperdal 1 mg po daily + trazodone 100 mg po hs + cogentin 0.5 mg po daily. Side effects/benefits of each drug are discussed with patient. Made aware of risk of dystonias, dyskinesias, akathisia , sexual impotence, galactorrhea, gynecomastia, , priapism, anticholinergic issues (dry mouth, constipation, blurred vision, urinary hesitancy), blood dyscrasias, liver dysfunction and cardiovascular adverse events. Patient verbalizes his understanding of information. Mr Stallworth wants to get back on this regimen. Verbal consent given to MD. Valproic acid level requested. Observation.
[2018-11-02] MEDS: NICOTINE 14 MG/24 HOURS TOPICAL PATCH TD SCH (11:00)
[2018-11-02] MEDS: PRENATAL VITAMINS W/ FOLIC ACID TABLET (FP) PO SCH (11:00)
[2018-11-02 11:41] LABS: HEMATOCRIT 36.3 % (35.4-49); HEMOGLOBIN 12.2 GM/dL (11.7-16.9); MCH 32.3 pg (25.7-33.7); MCHC 33.6 g/dl (32.0-35.9); MEAN CELL VOLUME 96.3 fl (80-96); MEAN PLT VOLUME 8.4 fl (7.5-11.1); PLATELET COUNT 298 K/MM3 (134-434); RBC 3.77 M/mm3 (4.00-5.60); RDW 14.6 % (11.9-15.9); WHITE BLOOD COUNT 2.7 K/mm3 (4.0-10.0)
[2018-11-02 12:20] LABS: ALBUMIN 3.2 g/dl (3.4-5.0); BILIRUBIN,TOTAL 0.5 mg/dL (0.2-1); BLOOD UREA NITROGEN 16.6 mg/dL (7-18); CALCIUM 8.2 mg/dL (8.5-10.1); CREATININE 0.9 mg/dL (0.55-1.3); POTASSIUM 4.2 mmol/L (3.5-5.1); TOT PROT 5.9 g/dl (6.4-8.2)
--- NOTE | 2018-11-02 12:20 | PN ---
S CIWA - CIWA Score Nausea/Vomitin Muscle Tremors: None Anxiety: 3 Agitation: 0-Normal Activity Paroxysmal Sweats: 3 Orientation: 0-Oriented Tacttile Disturbances: 2-Mild Itch/Numbness/Burn Auditory Disturbances: 0-None Visual Disturbances: 3-Moderate Sensitivity Headache: 0-None Present CIWA-Ar Total Score: 13 BHS Progress Note (SOAP) Subjective: Anxious, Nausea, Sweating, Interrupted Sleep. Objective: PATIENT A & O X 3. IN NO ACUTE DISTRESS. 11/02/18 12:19 Vital Signs Temperature 97.8 F 11/02/18 11:03 Pulse Rate 83 11/02/18 11:03 Respiratory Rate 18 11/02/18 11:03 Blood Pressure 129/96 11/02/18 11:03 O2 Sat by Pulse Oximetry (%) Laboratory Tests 11/02/18 11/02/18 04:00 07:00 WBC 2.7 L RBC 3.77 L Hgb 12.2 Hct 36.3 MCV 96.3 H MCH 32.3 MCHC 33.6 RDW 14.6 Plt Count 298 MPV 8.4 Urine Color Dk yellow Urine Appearance Turbid Urine pH 5.5 Ur Specific [place] 1.026 Urine Protein Negative Urine Glucose (UA) Negative Urine Ketones Trace H Urine Blood Negative Urine Nitrite Negative Urine Bilirubin 1+ H Urine Urobilinogen 1.0 Ur Leukocyte Esterase Trace Urine WBC (Auto) 2 Urine RBC (Auto) 4 Urine Casts (Auto) 5 U Epithel Cells (Auto) 1.5 Urine Bacteria (Auto) 4.1 LABS NOTED. PATIENT HAS HAD LOW WBC LEVELS ON PREVIOUS ADMISSIONS. ADMISSION CMP AND RPR RESULTS PENDING. 11/02/18 12:20 Assessment: 11/02/18 12:19 WITHDRAWAL SYMPTOMS. Plan: CONTINUE DETOX.
[2018-11-02] MEDS: METHYL SALICYLATE/MENTHOL OINT 30 GM TUBE TP SCH ×2 (14:49→21:07)
[2018-11-02] MEDS: hydrOXYzine PAMOATE 25 MG CAPSULE (FP) PO PRN (18:31)
[2018-11-02] MEDS: DIVALPROEX SODIUM 250 MG TABLET E.C. PO SCH (21:06)
[2018-11-02] MEDS: traZODone HCL 100 MG TABLET (FP) PO SCH (21:06)
[2018-11-02] MEDS: THIAMINE HCL 100 MG TABLET (FP) PO SCH (21:06)
[2018-11-03] MEDS: chlordiazePOXIDE HCL 25 MG CAPSULE PO SCH ×3 (06:40→17:24)
[2018-11-03] MEDS: METHYL SALICYLATE/MENTHOL OINT 30 GM TUBE TP SCH ×2 (10:11→22:59)
[2018-11-03] MEDS: BENZTROPINE MESYLATE 1 MG TABLET (FP) PO SCH (10:12)
[2018-11-03] MEDS: PRENATAL VITAMINS W/ FOLIC ACID TABLET (FP) PO SCH (10:12)
[2018-11-03] MEDS: DIVALPROEX SODIUM 250 MG TABLET E.C. PO SCH ×2 (10:12→23:00)
[2018-11-03] MEDS: risperiDONE 1 MG TABLET (FP) PO SCH (10:13)
[2018-11-03] MEDS: NICOTINE 14 MG/24 HOURS TOPICAL PATCH TD SCH (10:13)
--- NOTE | 2018-11-03 10:53 | PN ---
S CIWA - CIWA Score Nausea/Vomitin-No Nausea/No Vomiting Muscle Tremors: None Anxiety: 2 Agitation: 2 Paroxysmal Sweats: 3 Orientation: 0-Oriented Tacttile Disturbances: 0-None Auditory Disturbances: 0-None Visual Disturbances: 0-None Headache: 2-Mild CIWA-Ar Total Score: 9 S Progress Note (SOAP) Subjective: c/o anxiety, headache, and sweats. Objective: 11/03/18 10:52 Vital Signs 11/03/18 11/03/18 11/03/18 03:30 06:43 09:55 Temperature 98 F 98.5 F Pulse Rate 85 77 Respiratory 18 18 20 Rate Blood Pressure 121/76 116/83 Lab Results WBC 2.7 K/mm3 (4.0-10.0) L 11/02/18 07:00 RBC 3.77 M/mm3 (4.00-5.60) L 11/02/18 07:00 Hgb 12.2 GM/dL (11.7-16.9) 11/02/18 07:00 Hct 36.3 % (35.4-49) 11/02/18 07:00 MCV 96.3 fl (80-96) H 11/02/18 07:00 MCHC 33.6 g/dl (32.0-35.9) 11/02/18 07:00 RDW 14.6 % (11.9-15.9) 11/02/18 07:00 Plt Count 298 K/MM3 (134-434) 11/02/18 07:00 Sodium 143 mmol/L (136-145) 11/02/18 07:00 Potassium 4.2 mmol/L (3.5-5.1) 11/02/18 07:00 Chloride 110 mmol/L (98-107) H 11/02/18 07:00 Carbon Dioxide 27 mmol/L (21-32) 11/02/18 07:00 Anion Gap 6 MMOL/L (8-16) L 11/02/18 07:00 BUN 16.6 mg/dL (7-18) 11/02/18 07:00 Creatinine 0.9 mg/dL (0.55-1.3) 11/02/18 07:00 Random Glucose 93 mg/dL (74-106) 11/02/18 07:00 Calcium 8.2 mg/dL (8.5-10.1) L 11/02/18 07:00 Labs noted. Assessment: 11/03/18 10:52 AOX3, in no acute distress. Full rom, ambulates in the unit. withdrawal signs Plan: continue detox.
[2018-11-03] MEDS: IBUPROFEN 400 MG TABLET (FP) PO PRN (11:27)
[2018-11-03] MEDS: hydrOXYzine PAMOATE 25 MG CAPSULE (FP) PO PRN (11:27)
[2018-11-03] MEDS ORDERED: chlordiazePOXIDE HCL 10 MG CAPSULE PO PRN (23:00)
[2018-11-03] MEDS: THIAMINE HCL 100 MG TABLET (FP) PO SCH (23:00)
[2018-11-03] MEDS: chlordiazePOXIDE HCL 10 MG CAPSULE PO SCH (23:00)
[2018-11-03] MEDS: traZODone HCL 100 MG TABLET (FP) PO SCH (23:00)
[2018-11-04] MEDS: chlordiazePOXIDE HCL 10 MG CAPSULE PO SCH ×4 (06:05→22:48)
[2018-11-04] MEDS: PRENATAL VITAMINS W/ FOLIC ACID TABLET (FP) PO SCH (10:29)
[2018-11-04] MEDS: risperiDONE 1 MG TABLET (FP) PO SCH (10:30)
[2018-11-04] MEDS: DIVALPROEX SODIUM 250 MG TABLET E.C. PO SCH ×2 (10:30→22:48)
[2018-11-04] MEDS: METHYL SALICYLATE/MENTHOL OINT 30 GM TUBE TP SCH ×2 (10:30→22:49)
[2018-11-04] MEDS: BENZTROPINE MESYLATE 1 MG TABLET (FP) PO SCH (10:30)
[2018-11-04] MEDS: NICOTINE 14 MG/24 HOURS TOPICAL PATCH TD SCH (10:30)
--- NOTE | 2018-11-04 14:35 | PN ---
S CIWA - CIWA Score Nausea/Vomitin Muscle Tremors: 3 Anxiety: 2 Agitation: 0-Normal Activity Paroxysmal Sweats: No Perspiration Orientation: 1-Uncertain about Date Tacttile Disturbances: 0-None Auditory Disturbances: 0-None Visual Disturbances: 1-Very Mild Sensitivity Headache: 0-None Present CIWA-Ar Total Score: 9 BHS Progress Note (SOAP) Subjective: MALAISE, POOR SLEEP,SWEATING Objective: 11/04/18 14:36 Vital Signs - 24 hr 11/03/18 11/03/18 11/04/18 18:00 22:32 00:30 Temperature 97.3 F L 97.1 F L Pulse Rate 92 H 98 H Respiratory 18 18 18 Rate Blood Pressure 124/91 128/90 11/04/18 11/04/18 11/04/18 03:30 06:41 09:28 Temperature 97 F L 96.4 F L Pulse Rate 73 81 Respiratory 18 20 18 Rate Blood Pressure 141/84 137/96 11/04/18 13:41 Temperature 97.5 F L Pulse Rate 92 H Respiratory 18 Rate Blood Pressure 132/90 Laboratory Tests 11/02/18 11/02/18 11/02/18 04:00 07:00 07:00 WBC 2.7 L RBC 3.77 L Hgb 12.2 Hct 36.3 MCV 96.3 H MCH 32.3 MCHC 33.6 RDW 14.6 Plt Count 298 MPV 8.4 Sodium 143 Potassium 4.2 Chloride 110 H Carbon Dioxide 27 Anion Gap 6 L BUN 16.6 Creatinine 0.9 Est GFR (CKD-EPI)AfAm 108.73 Est GFR (CKD-EPI)NonAf 93.82 Random Glucose 93 Calcium 8.2 L Total Bilirubin 0.5 AST 23 ALT 21 Alkaline Phosphatase 53 Total Protein 5.9 L Albumin 3.2 L Urine Color Dk yellow Urine Appearance Turbid Urine pH 5.5 Ur Specific [place] 1.026 Urine Protein Negative Urine Glucose (UA) Negative Urine Ketones Trace H Urine Blood Negative Urine Nitrite Negative Urine Bilirubin 1+ H Urine Urobilinogen 1.0 Ur Leukocyte Esterase Trace Urine WBC (Auto) 2 Urine RBC (Auto) 4 Urine Casts (Auto) 5 U Epithel Cells (Auto) 1.5 Urine Bacteria (Auto) 4.1 RPR Titer 11/02/18 07:00 WBC RBC Hgb Hct MCV MCH MCHC RDW Plt Count MPV Sodium Potassium Chloride Carbon Dioxide Anion Gap BUN Creatinine Est GFR (CKD-EPI)AfAm Est GFR (CKD-EPI)NonAf Random Glucose Calcium Total Bilirubin AST ALT Alkaline Phosphatase Total Protein Albumin Urine Color Urine Appearance Urine pH Ur Specific [place] Urine Protein Urine Glucose (UA) Urine Ketones Urine Blood Urine Nitrite Urine Bilirubin Urine Urobilinogen Ur Leukocyte Esterase Urine WBC (Auto) Urine RBC (Auto) Urine Casts (Auto) U Epithel Cells (Auto) Urine Bacteria (Auto) RPR Titer Nonreactive ALERT AMBULATING ORIENTED Assessment: 11/04/18 14:38 ONGOING WITHDRAWAL Plan: CONTINUE DETOX PROTOCOL
[2018-11-04] MEDS: hydrOXYzine PAMOATE 25 MG CAPSULE (FP) PO PRN (17:41)
[2018-11-04 22:45] VITALS: TEMP 97
[2018-11-04] MEDS: THIAMINE HCL 100 MG TABLET (FP) PO SCH (22:48)
[2018-11-04] MEDS: traZODone HCL 100 MG TABLET (FP) PO SCH (22:48)
[2018-11-05] MEDS: IBUPROFEN 400 MG TABLET (FP) PO PRN (04:44)
[2018-11-05 09:21] VITALS: BP 119/85; PULSE 76
[2018-11-05] MEDS: risperiDONE 1 MG TABLET (FP) PO SCH (10:46)
[2018-11-05] MEDS: chlordiazePOXIDE HCL 10 MG CAPSULE PO SCH (10:46)
[2018-11-05] MEDS: BENZTROPINE MESYLATE 1 MG TABLET (FP) PO SCH (10:46)
[2018-11-05] MEDS: DIVALPROEX SODIUM 250 MG TABLET E.C. PO SCH (10:47)
[2018-11-05] MEDS: PRENATAL VITAMINS W/ FOLIC ACID TABLET (FP) PO SCH (10:47)
[2018-11-05] MEDS: NICOTINE 14 MG/24 HOURS TOPICAL PATCH TD SCH (10:48)
[2018-11-05] MEDS: METHYL SALICYLATE/MENTHOL OINT 30 GM TUBE TP SCH (10:48)
[2018-11-05] MEDS: hydrOXYzine PAMOATE 25 MG CAPSULE (FP) PO PRN (10:49)
--- NOTE | 2018-11-05 13:30 | PN ---
[facility] Progress Note Note: Psychiatry A Attending,s note : Scripts sent electronically to [facility]. For : risperdal 1 mg po daily tab # 30 cogentin 0.5 mg po daily tab # 30 trazodone 100 mg po hs tab # 30 Mr Stallworth is discharged today to [facility].
--- NOTE | 2018-11-05 23:26 | DS ---
[facility] Detox Discharge Summary Admission Date: 11/01/18 Discharge Date: 11/05/18 - History Present History: Alcohol Dependence, Cocaine Dependence Additional Comments: PATIENT GOING TO [facility] ([place], [place]) FOR AFTERCARE. PATIENT WAS DISCHARGED FROM DETOX UNIT IN STABLE MEDICAL CONDITION. Pertinent Past History: History Of Schizoaffective Disorder, Nicotine Dependence, Insomnia, Leukopenia. - Physical Exam Results Vital Signs: Vital Signs Temperature 97.0 F L 11/04/18 22:00 Pulse Rate 76 11/05/18 09:20 Respiratory Rate 18 11/05/18 09:20 Blood Pressure 119/85 11/05/18 09:20 O2 Sat by Pulse Oximetry (%) Pertinent Admission Physical Exam Findings: WITHDRAWAL SYMPTOMS. Laboratory Tests 11/02/18 11/02/18 11/02/18 04:00 07:00 07:00 WBC 2.7 L RBC 3.77 L Hgb 12.2 Hct 36.3 MCV 96.3 H MCH 32.3 MCHC 33.6 RDW 14.6 Plt Count 298 MPV 8.4 Sodium 143 Potassium 4.2 Chloride 110 H Carbon Dioxide 27 Anion Gap 6 L BUN 16.6 Creatinine 0.9 Est GFR (CKD-EPI)AfAm 108.73 Est GFR (CKD-EPI)NonAf 93.82 Random Glucose 93 Calcium 8.2 L Total Bilirubin 0.5 AST 23 ALT 21 Alkaline Phosphatase 53 Total Protein 5.9 L Albumin 3.2 L Urine Color Dk yellow Urine Appearance Turbid Urine pH 5.5 Ur Specific [place] 1.026 Urine Protein Negative Urine Glucose (UA) Negative Urine Ketones Trace H Urine Blood Negative Urine Nitrite Negative Urine Bilirubin 1+ H Urine Urobilinogen 1.0 Ur Leukocyte Esterase Trace Urine WBC (Auto) 2 Urine RBC (Auto) 4 Urine Casts (Auto) 5 U Epithel Cells (Auto) 1.5 Urine Bacteria (Auto) 4.1 RPR Titer 11/02/18 07:00 WBC RBC Hgb Hct MCV MCH MCHC RDW Plt Count MPV Sodium Potassium Chloride Carbon Dioxide Anion Gap BUN Creatinine Est GFR (CKD-EPI)AfAm Est GFR (CKD-EPI)NonAf Random Glucose Calcium Total Bilirubin AST ALT Alkaline Phosphatase Total Protein Albumin Urine Color Urine Appearance Urine pH Ur Specific [place] Urine Protein Urine Glucose (UA) Urine Ketones Urine Blood Urine Nitrite Urine Bilirubin Urine Urobilinogen Ur Leukocyte Esterase Urine WBC (Auto) Urine RBC (Auto) Urine Casts (Auto) U Epithel Cells (Auto) Urine Bacteria (Auto) RPR Titer Nonreactive LABS NOTED. - Treatment Hospital Course: Detox Protocol Followed, Detoxed Safely, Responded well, Discharged Condition Good, Rehab Referral Accepted Patient has Accepted a Rehab Referral to: [facility] ([place], [place]). - Medication Discharge Medications: Ambulatory Orders Divalproex [Depakote -] 250 mg PO BID #60 tablet.ec 04/02/18 Benztropine Mesylate [Cogentin -] 0.5 mg PO DAILY #30 tablet 07/16/18 traZODone HCL [Desyrel -] 100 mg PO HS #30 tablet 07/16/18 Risperidone [Risperdal -] 1 mg PO DAILY 09/29/18 Benztropine Mesylate [Cogentin -] 0.5 mg PO DAILY #30 tablet 11/05/18 Risperidone [Risperdal] 1 mg PO DAILY #30 tablet 11/05/18 traZODone HCL [Trazodone HCl] 100 mg PO HS #30 tablet 11/05/18 - Diagnosis (1) Alcohol dependence with uncomplicated withdrawal Status: Acute (2) At risk for dehydration due to poor fluid intake Status: Acute (3) Cocaine dependence, uncomplicated Status: Chronic (4) Nicotine dependence Status: Chronic Qualifiers: Nicotine product type: cigarettes Substance use status: uncomplicated Qualified Code(s): F17.210 - Nicotine dependence, cigarettes, uncomplicated (5) Substance induced mood disorder Status: Chronic (6) Insomnia Status: Chronic Qualifiers: Insomnia type: unspecified Qualified Code(s): G47.00 - Insomnia, unspecified (7) Schizoaffective disorder Status: Chronic Qualifiers: Schizoaffective disorder type: unspecified Qualified Code(s): F25.9 - Schizoaffective disorder, unspecified (8) Leukopenia Status: Chronic Qualifiers: Leukopenia type: unspecified Qualified Code(s): D72.819 - Decreased white blood cell count, unspecified - AMA Did Patient Leave Against Medical Advice: No
== END 2018-11-05 12:51 | disposition other institution (70) | DRG 774 ==
LOC: YASAS 12:30 → Y3N 21:22
PROVIDERS: ADMIT Surgery; ATTEND Surgery
PROC: HZ2ZZZZ Detoxification Services for Substance Abuse Treatment (ICD-10-PCS; principal; 2018-11-01)
DX: F10.230 Alcohol dependence with withdrawal, uncomplicated (principal); F14.20 Cocaine dependence, uncomplicated; F17.210 Nicotine dependence, cigarettes, uncomplicated; F19.24 Other psychoactive substance dependence with psychoactive substance-induced mood disorder; F25.9 Schizoaffective disorder, unspecified; D72.819 Decreased white blood cell count, unspecified; G47.00 Insomnia, unspecified; Z91.89 Other specified personal risk factors, not elsewhere classified; Z88.0 Allergy status to penicillin; Z91.013 Allergy to seafood
CPT/HCPCS: 36415; 80053; 81003; 85027; 86593; J2794

== ENCOUNTER 2019-02-17 18:15 | Inpatient (IN) | payer OTHER ==
[2019-02-17] MEDS ORDERED: SODIUM CHLORIDE 1,905 ML IV ONE (19:12)
[2019-02-17] MEDS ORDERED: ACETAMINOPHEN 1000 MG/100 ML VIAL (NON FORMULARY) IVPB ONE (19:14)
--- NOTE | 2019-02-17 19:14 | PDOC ---
History of Present Illness - General Chief Complaint: SIRS, Suspected/Possible Stated Complaint: FEVER Time Seen by Provider: 02/17/19 19:11 History Source: Patient Exam Limitations: No Limitations - History of Present Illness Initial Comments: Pt is a 58 yo M, with PMH of polysubstance abuse (alcohol, nicotine, cocaine), HTN, leukopenia, pneumonia (hospitalized but not intubated), and schizoaffective disorder, who is presenting via EMS from [facility] detox ( admitted for detox) with complaints of productive cough, dry nasal congestion, SOB, and fever x1 week. Pt states the cough is productive of green/yellow sputum. Pt states last drink and cocaine use was earlier today. Pt denies any headache, neck stiffness, vision changes, syncope, chest pain, palpitations, nausea/vomiting, abdominal pain, urinary symptoms, diarrhea/constipation, or leg swelling. Allergies: NKDA PCP: unknown to pt ("someone in the city") Social: Pt smokes 1/4 ppd. 4-5 pints/alcohol per day, "dabbles in cocaine". Pt denies any recent travel or sick contacts. Pt lives by himself in an apartment Surgical: R knee surgeries Family: no relevant history. 02/17/19 19:39 02/17/19 19:52 Past History - Travel Traveled outside of the country in the last 30 days: No Close contact w/someone who was outside of country & ill: No - Past Medical History Allergies/Adverse Reactions: Allergies Allergy/AdvReac Type Severity Reaction Status Date / Time Fish Containing Products Allergy Hives Verified 11/01/18 16:43 Penicillins Allergy Hives Verified 11/01/18 16:43 Home Medications: Ambulatory Orders Risperidone [Risperdal -] 1 mg PO DAILY 09/29/18 Benztropine Mesylate [Cogentin -] 0.5 mg PO DAILY #30 tablet 11/05/18 traZODone HCL [Trazodone HCl] 100 mg PO HS #30 tablet 11/05/18 Anemia: No Asthma: No Cancer: No Cardiac Disorders: No CVA: No COPD: No CHF: No Dementia: No Diabetes: No GI Disorders: No Disorders: No HTN: No Hypercholesterolemia: No Kidney Stones: No Liver Disease: No Seizures: No Thyroid Disease: No - Surgical History Abdominal Surgery: No Appendectomy: No Cardiac Surgery: No Cholecystectomy: No Lung Surgery: No Neurologic Surgery: No Orthopedic Surgery: Yes (torn ligament, right knee in 1985) - Reproductive History Testicular Surgery: No - Psycho Social/Smoking Cessation Hx Smoking History: Never smoked Have you smoked in the past 12 months: No Number of Cigarettes Smoked Daily: 2 Cigars Per Day: 0 Information on smoking cessation initiated: No 'Breaking Loose' booklet given: 02/17/19 Hx Alcohol Use: No Drug/Substance Use Hx: No Substance Use Type: Alcohol, Cocaine Hx Substance Use Treatment: Yes (detox, rehab) Respiratory Specific PMHX - Complaint Specific PMHX Angina: No Bronchitis: No Pneumonia: Yes Pulmonary Embolus: No TB (Tuberculosis): No Review of Systems - Review of Systems Able to Perform ROS?: Yes Is the patient limited Urdu proficient: No Constitutional: Yes: Fever, Weight Stable. No: Chills, Diaphoresis, Loss of Appetite, Malaise, Night Sweats, Weakness HEENTM: Yes: See HPI, Nose Congestion. No: Recent change in vision, Ear Pain, Throat Pain, Throat Swelling, Difficulty Swallowing Respiratory: Yes: Cough, Shortness of Breath, SOB with Exertion, SOB at Rest, Productive cough. No: Orthopnea, Wheezing, Hemoptysis Cardiac (ROS): No: Chest Pain, Edema, Irregular Heart Rate, Lightheadedness, Palpitations, Syncope, Chest Tightness ABD/GI: No: Constipated, Diarrhea, Nausea, Poor Appetite, Poor Fluid Intake, Vomiting : No: Burning, Dysuria, Frequency, Flank Pain, Hematuria, Pain, Urgency Musculoskeletal: No: Back Pain, Joint Pain, Muscle Weakness, Neck Pain Integumentary: No: Rash Neurological: No: Headache, Numbness, Weakness, Unsteady Gait, Dizziness Psychiatric: No: Sleep Pattern Change, Change in Appetite Endocrine: No: Increased Urine, Change in Weight Hematologic/Lymphatic: Yes: See HPI (leukopenia). No: Anemia, Blood Clots, Easy Bleeding All Other Systems: Reviewed and Negative *Physical Exam - Vital Signs Last Vital Signs Temp Pulse Resp BP Pulse Ox 101.6 F H 99 H 18 124/81 92 L 02/17/19 18:15 02/17/19 18:15 02/17/19 18:15 02/17/19 18:15 02/17/19 18:39 - Physical Exam Comments: Febrile, tachycardic, hypoxic (improved to 97-98% on RA). Pt in NAD, but appears ill. Normal body habitus. Pt alert and oriented x3. 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 No midline spinal tenderness, step-offs, or crepitus. No neck stiffness or withdrawal from light source. Head normocephalic, atraumatic. Eyes PERRLA, EOMI. Oropharynx without erythema or exudates, no LAD b/l. Dry nasal congestion b/l with no sinus TTP. Hearing intact. Clear heart sounds, S1/S2, no JVD, b/l pedal edema, or heart murmur. Coarse breath sounds b/l bases, with no wheezes or accessory muscle use. No abdominal or CVA tenderness to palpation, no rebound, no guarding. Abdomen soft, non-distended, and with normoactive bowel sounds. Skin without jaundice or rash. 02/17/19 19:57 02/17/19 20:00 ED Treatment Course - LABORATORY CBC & Chemistry Diagram: 02/17/19 19:34 02/17/19 19:34 - RADIOLOGY Radiology Studies Ordered: Category Date Time Status CHEST X-RAY PORTABLE* [RAD] Stat Radiology 02/17/19 19:12 Ordered Medical Decision Making - Medical Decision Making Pt was seen at bedside, also will be seen by attending Dr. Simpson. Pt presenting with complaints of fever, cough, SOB x1 week. Pt with b/l coarse breath sounds at bases, hypoxia improved with NC O2. Likely infectious, will evaluate for pneumonia (aspiration vs atypical), vs effusion. Pt with no surgery, travel, hemoptysis, and improved with NC O2; less likely PE. Pt with no tremors or fasciculation at this time, will evaluate for withdrawal symptoms. Will evaluate with septic w/u, chest x-ray, cardiac profile. Provided 1 g ceftriaxone and 500 mg IV azithromycin, sepsis fluids, IV tylenol for improvement of fever, hydration and abx coverage. Will continue to reassess pt and monitor for symptomatic improvement. WBC: 7.6 (greatly increased from baseline of 1-2) Lactic 2.0, Trop <.02 Pt states nausea occurring -- provided 25 mg IV benadryl 02/17/19 21:36 ECG: NSR, prolonged QT (HR 98, MN 184, QRS 88, QTc 485). No TWIs or significant ST segment changes. No prior ECG for comparison. Will avoid additional QT prolonging medications. CMP WNL Influenza negative Pt has not provided urine for UA sample yet, urinal at bedside. Chest x-ray showed infiltrate at b/l bases, concern for b/l pneumonia. Pt admitted to hospitalist team (Dr Guerrero) for IV abx as pneumonia appears multi-lobar. Pt complains of withdrawal symptoms, providing 25 mg librium. Pt hemodynamically stable and has tolerated PO intake in ED. Discharge - Discharge Information Problems reviewed: Yes Clinical Impression/Diagnosis: Pneumonia Qualifiers: Pneumonia type: due to unspecified organism Laterality: bilateral Lung location : lower lobe of lung Qualified Code(s): J18.1 - Lobar pneumonia, unspecified organism Leukopenia Qualifiers: Leukopenia type: unspecified Qualified Code(s): D72.819 - Decreased white blood cell count, unspecified Fever Qualifiers: Fever type: unspecified Qualified Code(s): R50.9 - Fever, unspecified Condition: Stable - Admission Yes - Follow up/Referral - Patient Discharge Instructions - Post Discharge Activity
[2019-02-17] MEDS ORDERED: ACETAMINOPHEN INJECTION 100 ML IVPB ONE (19:19)
[2019-02-17 19:42] LABS: BASO % 0.7 % (0-2.0); EOS % 0.4 % (0-4.5); HEMATOCRIT 35.6 % (35.4-49); HEMOGLOBIN 11.9 GM/dL (11.7-16.9); LYMPH % 10.6 % (8-40); MCH 31.7 pg (25.7-33.7); MCHC 33.5 g/dl (32.0-35.9); MEAN CELL VOLUME 94.7 fl (80-96); MEAN PLT VOLUME 7.1 fl (7.5-11.1); NEUT % 78.3 % (42.8-82.8); PLATELET COUNT 357 K/MM3 (134-434); RBC 3.76 M/mm3 (4.00-5.60); WHITE BLOOD COUNT 7.6 K/mm3 (4.0-10.0)
[2019-02-17 19:43] LABS: VENOUS PC02 37.5 mmHg (38-52); VENOUS PH 7.45 (7.31-7.41); VENOUS PO2 62.7 mmHg (28-48)
[2019-02-17] MEDS ORDERED: CEFTRIAXONE 1,000 MG in DEXTROSE 5%-WATER - 50 ML IVPB ONE (19:48)
[2019-02-17] MEDS ORDERED: AZITHROMYCIN IVPB 500 MG in DEXTROSE 5%-WATER - 250 ML IVPB ONE (19:49)
[2019-02-17 19:50] LABS: INR 1.08 (0.83-1.09); PROTHROMBIN TIME (PATIENT) 12.8 SEC (9.7-13.0)
[2019-02-17] MEDS ORDERED: CEFTRIAXONE 1 GM/50 ML BAG ONE (19:58)
[2019-02-17] MEDS ORDERED: AZITHROMYCIN IVPB 500 MG/250 ML BAG IVPB ONE ×2 (19:58→19:59)
--- NOTE | 2019-02-17 20:40 | PDOC ---
Attending Attestation - Resident Resident Name: MiaChela - ED Attending Attestation I have performed the following: I have examined & evaluated the patient, The case was reviewed & discussed with the resident, I agree w/resident's findings & plan - HPI HPI: 02/17/19 20:38 Pt comes with fever; he has had neutropenia in the past; unclear whu. He is currently a resident at [facility] detox - Physicial Exam PE: 02/17/19 20:39 coarse breaths bilat fever O2 sat 92% Abd soft NT ND - Medical Decision Making 02/17/19 20:39 bilat pneumonia He will be admitted ID consult and hematology consult requested. 02/17/19 20:52 Pt is febrile; we will treat with toradol as well. He is also nauseous Heart Score/ECG Review - ECG Intrepretation Rhythm: Regular Rhythm - Clarkrange Clarkrange: Normal - P and NC Delta Wave(s) Present: No WPW: No - QRS Increased Voltage: Precordial Leads - ST and T Early Repolarization: No Non Specific ST-T Wave changes: No Comment:: 02/17/19 21:01 rate 98 - ECG Impressions Normal ECG: Yes Non-specific ST Elevation: No Ischemic Changes: No Bradycardia: No
[2019-02-17] MEDS ORDERED: KETOROLAC TROMETHAMINE 30 MG/1 ML VIAL IVPUSH ONE (20:47)
[2019-02-17] MEDS ORDERED: KETOROLAC TROMETHAMINE 30 MG/1 ML VIAL ONE (21:00)
[2019-02-17 21:19] LABS: ALBUMIN 3.5 g/dl (3.4-5.0); ALK PHOS 69 U/L (45-117); ANION GAP 10 MMOL/L (8-16); BILIRUBIN,TOTAL 0.5 mg/dL (0.2-1); BLOOD UREA NITROGEN 8.2 mg/dL (7-18); CALCIUM 8.1 mg/dL (8.5-10.1); CHLORIDE 101 mmol/L (98-107); CO2 26 mmol/L (21-32); CREATININE 0.9 mg/dL (0.55-1.3); GLUCOSE,RANDOM 98 mg/dL (74-106); POTASSIUM 3.5 mmol/L (3.5-5.1); SGOT/AST 42 U/L (15-37); SGPT/ALT 27 U/L (13-61); SODIUM 137 mmol/L (136-145); TOT PROT 6.6 g/dl (6.4-8.2)
[2019-02-17] MEDS ORDERED: chlordiazePOXIDE HCL 25 MG CAPSULE PO ONE (21:36)
[2019-02-17] MEDS ORDERED: chlordiazePOXIDE HCL 25 MG CAPSULE ONE (21:40)
--- NOTE | 2019-02-17 21:45 | HP ---
CHIEF COMPLAINT: PCP: unknown HISTORY OF PRESENT ILLNESS: 58 y/o/m with PMHx of HTN, schizoaffective disorder, bipolar disorder, polysubstance abuse (cocaine, alcohol, tobacco) sent here from [facility] for elevated temp. Patient states he has had a productive cough for the last 2 days with green sputum, no blood. He complains of a mild headache and nausea. He states he has been sweating more than usual for him. He denies any fevers at home. He denies any chest pain, SOB, abd pain, vomiting, diarrhea, changes in vision. Patient was a poor historian as he did not want to answer questions again after already speaking with ED providers. As per ED patient stated that he has a history of leukopenia that has never been worked up and past pneumonias with no prior intubations. ER course was notable for: (1) Patient given ceftriaxone and azithromycin (2) EKG with prolonged QT at 485 (3) CXR with b/l infiltrates at bases - ED read Recent Travel: none PAST MEDICAL HISTORY: HTN, schizoaffective disorder, bipolar disorder, leukopenia, pneumonia PAST SURGICAL HISTORY: R knee surgery Social History: Smokin/4 pack of cigarettes daily Alcohol: 4-5 pints daily Drugs: cocaine - about 4 times a week, uses it by inhaling. denies IV use ever Allergies Fish Containing Products Allergy (Verified 11/01/18 16:43) Hives Penicillins Allergy (Verified 11/01/18 16:43) Hives HOME MEDICATIONS: Home Medications Medication Instructions Recorded Risperidone [Risperdal -] 1 mg PO DAILY 09/29/18 Benztropine Mesylate [Cogentin -] 0.5 mg PO DAILY #30 tablet 11/05/18 traZODone HCL [Trazodone HCl] 100 mg PO HS #30 tablet 11/05/18 REVIEW OF SYSTEMS Constitutional: denies weakness, fever HEENT: denies sore throat, vision changes Cardio: denies chest pain, lightheadedness, palpitations Resp: productive cough. denies SOB, wheezing GI: nausea. denies abd pain, vomiting, diarrhea, constipation MSK: denies back pain, joint pain SKIN: denies rashes Neuro: denies seizures, incontinence, loss of consciousness, numbness, tingling Psych: agitated PHYSICAL EXAMINATION Vital Signs - 24 hr 02/17/19 02/17/19 02/17/19 18:15 18:39 19:16 Temperature 101.6 F H 101.9 F H Pulse Rate 99 H Pulse Rate [ Apical] Respiratory 18 Rate Blood Pressure 124/81 Blood Pressure [Right Arm] O2 Sat by Pulse 100 92 L Oximetry (%) 02/17/19 20:57 Temperature 101.8 F H Pulse Rate Pulse Rate [ 98 H Apical] Respiratory 20 Rate Blood Pressure Blood Pressure 126/71 [Right Arm] O2 Sat by Pulse 100 Oximetry (%) CIWA score 4 - mild agitation, nausea, tremor only felt, no seen GENERAL: Awake, alert, and fully oriented, in no acute distress. HEAD: NC/AT EYES: EOMI, normal conjunctiva EARS, NOSE, THROAT: dry mucous membranes, dry congested nasal mucosa NECK: supple, no cervical lymphadenopathy, no pain with flexion of neck LUNGS: Breath sounds equal, clear to auscultation bilaterally. No wheezes, and no crackles. No accessory muscle use. HEART: systolic murmur located by tricuspid valve. regular rate and rhythm, S1 S2 normal ABDOMEN: increased bowel sounds. Soft, nontender, not distended, no guarding, no rebound, no masses. MUSCULOSKELETAL: Normal range of motion at all joints. No bony deformities or tenderness. No CVA tenderness. UPPER EXTREMITIES: 2+ pulses, warm, well-perfused. No cyanosis. No clubbing. No peripheral edema. LOWER EXTREMITIES: 2+ pulses, warm, well-perfused. No peripheral edema. NEUROLOGICAL: Normal speech. 5/5 strength upper and lower extremities PSYCHIATRIC: Agitated, uncooperative SKIN: Warm, dry, normal turgor, no rashes or lesions noted, normal capillary refill. Laboratory Results - last 24 hr 02/17/19 02/17/19 02/17/19 19:31 19:34 19:34 WBC 7.6 RBC 3.76 L Hgb 11.9 Hct 35.6 MCV 94.7 MCH 31.7 MCHC 33.5 RDW 14.0 Plt Count 357 MPV 7.1 L D Absolute Neuts (auto) 5.9 Neutrophils % 78.3 Lymphocytes % 10.6 Monocytes % 10.0 Eosinophils % 0.4 Basophils % 0.7 Nucleated RBC % 0 PT with INR INR VBG pH POC VBG pCO2 POC VBG pO2 VBG HCO3 VBG O2 Sat (Gucci) VBG Base Excess Sodium 137 Potassium 3.5 Chloride 101 Carbon Dioxide 26 Anion Gap 10 BUN 8.2 Creatinine 0.9 Est GFR (CKD-EPI)AfAm 108.73 Est GFR (CKD-EPI)NonAf 93.82 Random Glucose 98 Lactic Acid 2.0 Calcium 8.1 L Total Bilirubin 0.5 AST 42 H ALT 27 Alkaline Phosphatase 69 Troponin I < 0.02 Total Protein 6.6 Albumin 3.5 Influenza A (Rapid) Influenza B (Rapid) 02/17/19 02/17/19 02/17/19 19:34 19:34 19:40 WBC RBC Hgb Hct MCV MCH MCHC RDW Plt Count MPV Absolute Neuts (auto) Neutrophils % Lymphocytes % Monocytes % Eosinophils % Basophils % Nucleated RBC % PT with INR 12.80 INR 1.08 VBG pH 7.45 H POC VBG pCO2 37.5 L POC VBG pO2 62.7 H VBG HCO3 25.9 VBG O2 Sat (Gucci) 91.0 H VBG Base Excess 2.5 H Sodium Potassium Chloride Carbon Dioxide Anion Gap BUN Creatinine Est GFR (CKD-EPI)AfAm Est GFR (CKD-EPI)NonAf Random Glucose Lactic Acid Calcium Total Bilirubin AST ALT Alkaline Phosphatase Troponin I Total Protein Albumin Influenza A (Rapid) Negative Influenza B (Rapid) Negative ASSESSMENT/PLAN: 58 y/o/m with PMHx of HTN, schizoaffective disorder, bipolar disorder, polysubstance abuse (cocaine, alcohol, tobacco) sent here from [facility] for elevated temp. 1)Community acquired pneumonia - patient with elevated temperature, ED CXR wet read - infiltrate at b/l bases -Patient given ceftriaxone and azithromycin in the ED -Patient has prolonged QT at 485, consider alternate medication for azithromycin for next dose -Will treat patient with Levaquin 750mg daily -Flu swab negative -Follow blood and sputum cultures 2)Alcohol Intoxication - patient drinks 4-5 pints of vodka daily, states last drink was during the daytime -initial CIWA -4, repeat CIWA - 5 -started on Librium protocol in anticipation of withdrawal -Fall, seizure, aspiration precautions -Banana bag, thiamine, folate -NPO -Alcohol level 21.7 -Utox positive for cocaine 3)Leukopenia - patient has a history of leukopenia, now with WBC of 7.6 -HIV test ordered - verbal consent obtained from patient -Hep Panel 4)Prolonged QT - QT @ 485, no prior EKG for comparison -avoid QT prolonging drugs 5)FEN -Banana bag -NPO - start diet when appropriate 6)Prophylaxis -Lovenox 7)Dispo -Admitted to med surg Visit type - Emergency Visit Emergency Visit: Yes ED Registration Date: 02/17/19 Care time: The patient presented to the Emergency Department on the above date and was hospitalized for further evaluation of their emergent condition. - New Patient This patient is new to me today: Yes Date on this admission: 02/18/19 - Critical Care Critical Care patient: No ATTENDING PHYSICIAN STATEMENT I saw and evaluated the patient. I reviewed the resident's note and discussed the case with the resident. I agree with the resident's findings and plan as documented. SUBJECTIVE: OBJECTIVE: ASSESSMENT AND PLAN:
[2019-02-17 21:56] LABS: URINE APPEARANCE Clear; URINE BILIRUBIN Negative (NEGATIVE); URINE COLOR Yellow; URINE GLUCOSE (UA) Negative (NEGATIVE); URINE KETONE Trace (NEGATIVE); URINE LEUK ESTERASE Negative (NEGATIVE); URINE NITRITE Negative (NEGATIVE); URINE PROTEIN Negative (NEGATIVE)
[2019-02-17] MEDS ORDERED: FOLIC ACID INJECTION - 1 MG, THIAMINE HCL 100 MG, MULTIVIT INJECTION ADULT 10 ML in SOD... IVPB ONE (22:03)
[2019-02-17] MEDS ORDERED: THIAMINE HCL 100 MG TABLET (FP) ONE (22:32)
[2019-02-17] MEDS: THIAMINE HCL 100 MG TABLET (FP) PO SCH (22:33)
[2019-02-17] MEDS ORDERED: FOLIC ACID 1 MG TABLET (FP) ONE (22:33)
[2019-02-17] MEDS: FOLIC ACID 1 MG TABLET (FP) PO SCH (22:33)
[2019-02-17 22:35] LABS: METHADONE, UR NEGATIVE ng/ml (CUTOFF=300); OPIATES, URI NEGATIVE ng/ml (CUTOFF=300); PHENCYCLIDINE,URINE NEGATIVE ng/ml (CUTOFF=25); URINE AMPHETAMINES NEGATIVE ng/ml (CUTOFF=500); URINE BACTERIA FEW /hpf (NEGATIVE); URINE BARBITURATES NEGATIVE ng/ml (CUTOFF=200); URINE BENZODIAZEPINES NEGATIVE ng/ml (CUTOFF=200); URINE RBC 0-3 /hpf (0-4); URINE WBC 0-3 /hpf (0-5)
[2019-02-17 22:44] LABS: COCAINE, UR POSITIVE ng/ml (CUTOFF=300)
[2019-02-18 00:17] VITALS: BMI 21.8
--- NOTE | 2019-02-18 01:34 | PN ---
Teaching Attending Note Name of Resident: Liz Love ATTENDING PHYSICIAN STATEMENT I saw and evaluated the patient. I reviewed the resident's note and discussed the case with the resident. I agree with the resident's findings and plan as documented. SUBJECTIVE: 58 yo man w/ HTN, schizoaffective disorder, bipolar disorder, polysubstance abuse (cocaine, alcohol, tobacco) sent from [facility] for elevated temp. Patient was not cooperative with interview when I saw him. He reported productive cough, Denied any significant shortness of breath. Refused to answer any more questions and stated that he wants a sandwich. OBJECTIVE: Last Vital Signs Temp Pulse Resp BP Pulse Ox 98.6 F 85 20 134/80 100 02/18/19 00:10 02/18/19 00:10 02/18/19 00:38 02/18/19 00:10 02/18/19 00:38 gen - nontoxic, diaphoretic, agitated heent- atrauamtic, moist oral mucosa neck supple cv-s1+s2+rrr chest clear anteriorly b/l abdomen -soft, nt, bs+ ext no edema Abnormal Lab Results 02/17/19 02/17/19 02/17/19 19:34 19:34 19:34 RBC 3.76 L MPV 7.1 L D VBG pH 7.45 H POC VBG pCO2 37.5 L POC VBG pO2 62.7 H VBG O2 Sat (Gucci) 91.0 H VBG Base Excess 2.5 H Calcium 8.1 L AST 42 H Cocaine Screen Alcohol, Quantitative 02/17/19 02/17/19 21:48 22:28 RBC MPV VBG pH POC VBG pCO2 POC VBG pO2 VBG O2 Sat (Gucci) VBG Base Excess Calcium AST Cocaine Screen Positive A* Alcohol, Quantitative 21.7 H imaging reviewed ASSESSMENT AND PLAN: #COmmunity acquired pneumonia- fevers, cough, cxr, not too impressive for infiltrates but does not rule out completely as lacks sensitivity. Flu swab noted to be negative. -med/surg -sputum culture -blood cultures x2 -levofloxacin -penicillin allergy -azithromycin -supplemental o2 #Polysubstance abuse - etoh, cocaine. FOund to be quite diaphoretic , might be from withdrawal -ciwa protocol -librium protocol -thiamine -folate -mv -banana bag -detox referral upon d/c #Chronic leukopenia- may be from etoh abuse, should r/o viral hepatitis/ hiv -hiv, hep b,c serologies #DVT ppx - heparin sc
[2019-02-18] MEDS: chlordiazePOXIDE HCL 25 MG CAPSULE PO SCH ×3 (05:58→20:34)
[2019-02-18 08:40] LABS: BASO % 1.2 % (0-2.0); EOS % 1.3 % (0-4.5); HEMATOCRIT 38.2 % (35.4-49); HEMOGLOBIN 12.9 GM/dL (11.7-16.9); LYMPH % 15.7 % (8-40); MCH 32.4 pg (25.7-33.7); MCHC 33.9 g/dl (32.0-35.9); MEAN CELL VOLUME 95.7 fl (80-96); MEAN PLT VOLUME 7.9 fl (7.5-11.1); MONO % 11.4 % (3.8-10.2); NEUT % 70.4 % (42.8-82.8); PLATELET COUNT 378 K/MM3 (134-434); RBC 3.99 M/mm3 (4.00-5.60); RDW 14.1 % (11.9-15.9); WHITE BLOOD COUNT 6.4 K/mm3 (4.0-10.0)
[2019-02-18 09:12] LABS: BLOOD UREA NITROGEN 15.8 mg/dL (7-18); CALCIUM 8.8 mg/dL (8.5-10.1); POTASSIUM 4.1 mmol/L (3.5-5.1)
[2019-02-18] MEDS ORDERED: DOXYCYCLINE INJECTION 100 MG in DEXTROSE 5%-WATER - 100 ML IVPB SCH (10:00)
--- NOTE | 2019-02-18 10:05 | PN ---
Progress Note (short form) - Note Progress Note: HPI: Pt's only complaint is that he is hungry and wants food. Less than cooperative. Denies fever/chills, shortness of breath, chest pain. Vital Signs Temperature 98.6 F 02/18/19 05:05 Pulse Rate 84 02/18/19 05:05 Respiratory Rate 20 02/18/19 05:05 Blood Pressure 127/90 02/18/19 05:05 O2 Sat by Pulse Oximetry (%) 100 02/18/19 00:38 PE: GEN: NAD, awake, alert, uncooperative HEENT: NC/AT, [place] sclera anicteric, MMM LUNG: CTA b/l no wheezes CARD: RRR, no murmurs Abd: did not let me examine Neuro: Did not let me examine ExT: No edema CBC, BMP 02/18/19 08:04 02/18/19 08:04 Active Medications Chlordiazepoxide HCl (Librium -) 10 mg PO Q12H PRN PRN Reason: Signs/symptoms of Withdrawal Stop: 02/20/19 23:59 Chlordiazepoxide HCl (Librium -) 10 mg PO Q8H PRN PRN Reason: Signs/symptoms of Withdrawal Stop: 02/19/19 23:59 Chlordiazepoxide HCl (Librium -) 25 mg PO Q8H ON LICENSE OF [facility] Stop: 02/18/19 21:01 Last Admin: 02/18/19 05:58 Dose: 25 mg Chlordiazepoxide HCl (Librium -) 15 mg PO Q8H ON LICENSE OF [facility] Stop: 02/19/19 21:01 Chlordiazepoxide HCl (Librium -) 10 mg PO Q8H ON LICENSE OF [facility] Stop: 02/20/19 21:01 Chlordiazepoxide HCl (Librium -) 10 mg PO ONCE ONE Stop: 02/21/19 05:01 Doxycycline Hyclate (Vibramycin -) 100 mg PO BID@1000,1800 ON LICENSE OF [facility] Enoxaparin Sodium (Lovenox -) 40 mg SQ DAILY ON LICENSE OF [facility] Folic Acid (Folic Acid -) 1 mg PO DAILY ON LICENSE OF [facility] Last Admin: 02/17/19 22:33 Dose: 1 mg Thiamine HCl (Vitamin B1 -) 100 mg PO DAILY ON LICENSE OF [facility] Last Admin: 02/17/19 22:33 Dose: 100 mg A/P Febrile illness Polysubstance abuse requiring detox HTN Bipolar disorder Prolonged Qtc --CIWA 3 due to irritability --HIV negative, CXR without impressive infiltrates, UA negative --No risk factors for TB --Given clinical symptoms suggestive of URI will give Doxycycline 100mg BID PO --Pt to continue on Librium protocol --Await culture reports --Folic acid and Thiamine to continue PO --Holding Seroquel and Trazodone 2/2 to prolonged Qtc FEN: Fluids: PO only Electrolyte abnormalities: None Nutrition: Advance to regular diet PPX: DVT - Lovenox SQ Dispo: Needs to be afebrile for 24h and prelim cultures returned; then can d/c back to [facility] for finishing detox Case discussed with Dr. Bentley Kerns, DO - IM PGY-3
--- NOTE | 2019-02-18 10:20 | EKG ---
Test Reason : Blood Pressure : / mmHG Vent. Rate : 098 BPM Atrial Rate : 098 BPM P-R Int : 184 ms QRS Dur : 088 ms QT Int : 380 ms P-R-T Axes : 051 068 065 degrees QTc Int : 485 ms NORMAL SINUS RHYTHM PROLONGED QT ABNORMAL ECG WHEN COMPARED WITH ECG OF 21-MAR-2018 16:41, QT HAS LENGTHENED Confirmed by ELIA ISABEL MD ([id number]) on 02/18/2019 10:19:38 AM Referred By: Confirmed By:ELIA ISABEL MD
[2019-02-18] MEDS: THIAMINE HCL 100 MG TABLET (FP) PO SCH (10:22)
[2019-02-18] MEDS: DOXYCYCLINE HYCLATE 100 MG CAPSULE PO SCH ×2 (10:22→17:30)
[2019-02-18] MEDS: ENOXAPARIN NA (PORCINE) 40 MG/0.4 ML DISP.SYRIN SQ SCH (10:22)
[2019-02-18] MEDS: FOLIC ACID 1 MG TABLET (FP) PO SCH (10:22)
--- NOTE | 2019-02-18 12:51 | PN ---
Teaching Attending Note Name of Resident: Elio Kerns ATTENDING PHYSICIAN STATEMENT I saw and evaluated the patient. I reviewed the resident's note and discussed the case with the resident. I agree with the resident's findings and plan as documented. SUBJECTIVE: Patient says he feels anxious and congested. OBJECTIVE: Vital Signs Period Temp Pulse Resp BP Sys/Qureshi Pulse Ox Last 24 Hr 98.4 F-101.9 F 79-99 18-20 122-153/68-90 92-100 HEART: S1S2, RRR LUNGS: Clear ABDOMEN: Soft, non-tender, non-distended, normal BS EXTREMITIES: No edema Laboratory Results - last 24 hr 02/17/19 02/17/19 02/17/19 19:31 19:34 19:34 WBC 7.6 RBC 3.76 L Hgb 11.9 Hct 35.6 MCV 94.7 MCH 31.7 MCHC 33.5 RDW 14.0 Plt Count 357 MPV 7.1 L D Absolute Neuts (auto) 5.9 Neutrophils % 78.3 Lymphocytes % 10.6 Monocytes % 10.0 Eosinophils % 0.4 Basophils % 0.7 Nucleated RBC % 0 PT with INR INR VBG pH POC VBG pCO2 POC VBG pO2 VBG HCO3 VBG O2 Sat (Gucci) VBG Base Excess Sodium 137 Potassium 3.5 Chloride 101 Carbon Dioxide 26 Anion Gap 10 BUN 8.2 Creatinine 0.9 Est GFR (CKD-EPI)AfAm 108.73 Est GFR (CKD-EPI)NonAf 93.82 Random Glucose 98 Lactic Acid 2.0 Calcium 8.1 L Total Bilirubin 0.5 AST 42 H ALT 27 Alkaline Phosphatase 69 Troponin I < 0.02 Total Protein 6.6 Albumin 3.5 Urine Color Urine Appearance Urine pH Ur Specific [place] Urine Protein Urine Glucose (UA) Urine Ketones Urine Blood Urine Nitrite Urine Bilirubin Urine Urobilinogen Ur Leukocyte Esterase Urine WBC (Auto) Urine RBC (Auto) Urine Bacteria (Auto) Opiates Screen Methadone Screen Barbiturate Screen Phencyclidine Screen Ur Amphetamines Screen MDMA (Ecstasy) Screen Benzodiazepines Screen Cocaine Screen U Marijuana (THC) Screen Alcohol, Quantitative HIV 1&2 Antibody Screen HIV P24 Antigen Influenza A (Rapid) Influenza B (Rapid) 02/17/19 02/17/19 02/17/19 19:34 19:34 19:40 WBC RBC Hgb Hct MCV MCH MCHC RDW Plt Count MPV Absolute Neuts (auto) Neutrophils % Lymphocytes % Monocytes % Eosinophils % Basophils % Nucleated RBC % PT with INR 12.80 INR 1.08 VBG pH 7.45 H POC VBG pCO2 37.5 L POC VBG pO2 62.7 H VBG HCO3 25.9 VBG O2 Sat (Gucci) 91.0 H VBG Base Excess 2.5 H Sodium Potassium Chloride Carbon Dioxide Anion Gap BUN Creatinine Est GFR (CKD-EPI)AfAm Est GFR (CKD-EPI)NonAf Random Glucose Lactic Acid Calcium Total Bilirubin AST ALT Alkaline Phosphatase Troponin I Total Protein Albumin Urine Color Urine Appearance Urine pH Ur Specific [place] Urine Protein Urine Glucose (UA) Urine Ketones Urine Blood Urine Nitrite Urine Bilirubin Urine Urobilinogen Ur Leukocyte Esterase Urine WBC (Auto) Urine RBC (Auto) Urine Bacteria (Auto) Opiates Screen Methadone Screen Barbiturate Screen Phencyclidine Screen Ur Amphetamines Screen MDMA (Ecstasy) Screen Benzodiazepines Screen Cocaine Screen U Marijuana (THC) Screen Alcohol, Quantitative HIV 1&2 Antibody Screen HIV P24 Antigen Influenza A (Rapid) Negative Influenza B (Rapid) Negative 02/17/19 02/17/19 02/17/19 21:48 21:48 22:28 WBC RBC Hgb Hct MCV MCH MCHC RDW Plt Count MPV Absolute Neuts (auto) Neutrophils % Lymphocytes % Monocytes % Eosinophils % Basophils % Nucleated RBC % PT with INR INR VBG pH POC VBG pCO2 POC VBG pO2 VBG HCO3 VBG O2 Sat (Gucci) VBG Base Excess Sodium Potassium Chloride Carbon Dioxide Anion Gap BUN Creatinine Est GFR (CKD-EPI)AfAm Est GFR (CKD-EPI)NonAf Random Glucose Lactic Acid Calcium Total Bilirubin AST ALT Alkaline Phosphatase Troponin I Total Protein Albumin Urine Color Yellow Urine Appearance Clear Urine pH 6.0 Ur Specific [place] 1.020 Urine Protein Negative Urine Glucose (UA) Negative Urine Ketones Trace Urine Blood Trace-intact Urine Nitrite Negative Urine Bilirubin Negative Urine Urobilinogen 1.0 Ur Leukocyte Esterase Negative Urine WBC (Auto) 0-3 Urine RBC (Auto) 0-3 Urine Bacteria (Auto) Few Opiates Screen Negative Methadone Screen Negative Barbiturate Screen Negative Phencyclidine Screen Negative Ur Amphetamines Screen Negative MDMA (Ecstasy) Screen Negative Benzodiazepines Screen Negative Cocaine Screen Positive A* U Marijuana (THC) Screen Negative Alcohol, Quantitative 21.7 H HIV 1&2 Antibody Screen HIV P24 Antigen Influenza A (Rapid) Influenza B (Rapid) 02/17/19 02/18/19 02/18/19 22:28 08:04 08:04 WBC 6.4 RBC 3.99 L Hgb 12.9 Hct 38.2 MCV 95.7 MCH 32.4 MCHC 33.9 RDW 14.1 Plt Count 378 MPV 7.9 D Absolute Neuts (auto) 4.5 Neutrophils % 70.4 Lymphocytes % 15.7 D Monocytes % 11.4 H Eosinophils % 1.3 D Basophils % 1.2 Nucleated RBC % 0 PT with INR INR VBG pH POC VBG pCO2 POC VBG pO2 VBG HCO3 VBG O2 Sat (Gucci) VBG Base Excess Sodium 139 Potassium 4.1 Chloride 105 Carbon Dioxide 29 Anion Gap 5 L BUN 15.8 Creatinine 1.0 Est GFR (CKD-EPI)AfAm 95.73 Est GFR (CKD-EPI)NonAf 82.60 Random Glucose 88 Lactic Acid Calcium 8.8 Total Bilirubin AST ALT Alkaline Phosphatase Troponin I Total Protein Albumin Urine Color Urine Appearance Urine pH Ur Specific [place] Urine Protein Urine Glucose (UA) Urine Ketones Urine Blood Urine Nitrite Urine Bilirubin Urine Urobilinogen Ur Leukocyte Esterase Urine WBC (Auto) Urine RBC (Auto) Urine Bacteria (Auto) Opiates Screen Methadone Screen Barbiturate Screen Phencyclidine Screen Ur Amphetamines Screen MDMA (Ecstasy) Screen Benzodiazepines Screen Cocaine Screen U Marijuana (THC) Screen Alcohol, Quantitative HIV 1&2 Antibody Screen Negative HIV P24 Antigen Negative Influenza A (Rapid) Influenza B (Rapid) Current Medications Generic Name Dose Route Start Last Admin Trade Name Freq PRN Reason Stop Dose Admin Chlordiazepoxide HCl 10 mg 02/20/19 00:00 Librium - PO 02/20/19 23:59 Q12H PRN Signs/symptoms of Withdrawal Chlordiazepoxide HCl 10 mg 02/18/19 05:29 Librium - PO 02/19/19 23:59 Q8H PRN Signs/symptoms of Withdrawal Chlordiazepoxide HCl 25 mg 02/18/19 05:00 02/18/19 05:58 Librium - PO 02/18/19 21:01 25 mg Q8H CHRISTIAN Administration Chlordiazepoxide HCl 15 mg 02/19/19 05:00 Librium - PO 02/19/19 21:01 Q8H CHRISTIAN Chlordiazepoxide HCl 10 mg 02/20/19 05:00 Librium - PO 02/20/19 21:01 Q8H CHRISTIAN Chlordiazepoxide HCl 10 mg 02/21/19 05:00 Librium - PO 02/21/19 05:01 ONCE ONE Doxycycline Hyclate 100 mg 02/18/19 10:00 02/18/19 10:22 Vibramycin - PO 100 mg BID@1000,1800 CHRISTIAN Administration Enoxaparin Sodium 40 mg 02/18/19 10:00 02/18/19 10:22 Lovenox - SQ 40 mg DAILY CHRISTIAN Administration Folic Acid 1 mg 02/17/19 22:15 02/18/19 10:22 Folic Acid - PO 1 mg DAILY CHRISTIAN Administration Thiamine HCl 100 mg 02/17/19 22:03 02/18/19 10:22 Vitamin B1 - PO 100 mg DAILY CHRISTIAN Administration ASSESSMENT AND PLAN: This is a 58 year old man with a history of HTN, schizoaffective disorder, bipolar disorder, polysubstance abuse who presented to the ED from [facility] for evaluation of fever. 1. Viral URI/acute bronchitis - Doubt pneumonia given clear lungs on exam and normal CXR - Levaquin discontinued secondary to prolonged QTc - Doxycycline started - If afebrile x 24 hours and blood cultures negative, can return to [facility] and complete course of PO Doxycycline 2. Alcohol intoxication 3. Continuous alcohol dependence - Continue Librium detox - Continue thiamine, folic acid - Plan to return to [facility] to complete detox was medically stable 4. Prolonged QTc 5. HTN 6. Bipolar disorder/schizoaffective disorder - Seroquel, Trazodone held secondary to prolonged QTc
[2019-02-18] MEDS: chlordiazePOXIDE 5 MG CAPSULE PO PRN (17:33)
[2019-02-18 20:30] VITALS: PULSE 83
[2019-02-18] MEDS ORDERED: MELATONIN 5 MG TABLETS PO ONE (23:05)
[2019-02-19 03:02] VITALS: BP 151/95; TEMP 98.8
[2019-02-19] MEDS: chlordiazePOXIDE 5 MG CAPSULE PO PRN (03:33)
[2019-02-19] MEDS: chlordiazePOXIDE 5 MG CAPSULE PO SCH ×2 (06:48→12:39)
--- NOTE | 2019-02-19 08:32 | DS ---
Physical Exam: SUBJECTIVE: Pt wants to go back to [facility]. He "feels fine." OBJECTIVE: Vital Signs Period Temp Pulse Resp BP Sys/Qureshi Pulse Ox Last 24 Hr 98.3 F-98.9 F 79-83 18-20 131-153/89-108 PHYSICAL EXAM *uncooperative with exam* GENERAL: NAD, awake, alert, and fully oriented, in no acute distress. HEENT: [place], MMM LUNGS: Breath sounds equal, clear to auscultation bilaterally, no wheezes, no crackles, no accessory muscle use. HEART: RRR, S1, S2 without murmur PSYCH: Normal mood, normal affect. Irritable SKIN: Warm, dry, no rashes LABS Laboratory Results - last 24 hr 02/18/19 02/18/19 08:04 08:04 WBC 6.4 RBC 3.99 L Hgb 12.9 Hct 38.2 MCV 95.7 MCH 32.4 MCHC 33.9 RDW 14.1 Plt Count 378 MPV 7.9 D Absolute Neuts (auto) 4.5 Neutrophils % 70.4 Lymphocytes % 15.7 D Monocytes % 11.4 H Eosinophils % 1.3 D Basophils % 1.2 Nucleated RBC % 0 Sodium 139 Potassium 4.1 Chloride 105 Carbon Dioxide 29 Anion Gap 5 L BUN 15.8 Creatinine 1.0 Est GFR (CKD-EPI)AfAm 95.73 Est GFR (CKD-EPI)NonAf 82.60 Random Glucose 88 Calcium 8.8 Microbiology 02/17/19 21:48 Urine - Urine Clean Catch Urine Culture - Final NO GROWTH OBTAINED 02/17/19 19:34 Blood - Peripheral Venous Blood Culture - Preliminary NO GROWTH OBTAINED AFTER 24 HOURS, INCUBATION TO CONTINUE FOR 4 DAYS. 02/17/19 19:34 Blood - Peripheral Venous Blood Culture - Preliminary NO GROWTH OBTAINED AFTER 24 HOURS, INCUBATION TO CONTINUE FOR 4 DAYS. Active Medications Chlordiazepoxide HCl (Librium -) 10 mg PO Q12H PRN PRN Reason: Signs/symptoms of Withdrawal Stop: 02/20/19 23:59 Chlordiazepoxide HCl (Librium -) 10 mg PO Q8H PRN PRN Reason: Signs/symptoms of Withdrawal Stop: 02/19/19 23:59 Last Admin: 02/19/19 03:33 Dose: 10 mg Chlordiazepoxide HCl (Librium -) 15 mg PO Q8H [facility] Stop: 02/19/19 21:01 Last Admin: 02/19/19 06:48 Dose: Not Given Chlordiazepoxide HCl (Librium -) 10 mg PO Q8H [facility] Stop: 02/20/19 21:01 Chlordiazepoxide HCl (Librium -) 10 mg PO ONCE ONE Stop: 02/21/19 05:01 Doxycycline Hyclate (Vibramycin -) 100 mg PO BID@1000,1800 [facility] Last Admin: 02/19/19 09:50 Dose: 100 mg Enoxaparin Sodium (Lovenox -) 40 mg SQ DAILY [facility] Last Admin: 02/19/19 09:50 Dose: Not Given Folic Acid (Folic Acid -) 1 mg PO DAILY [facility] Last Admin: 02/19/19 09:50 Dose: 1 mg Thiamine HCl (Vitamin B1 -) 100 mg PO DAILY [facility] Last Admin: 02/19/19 09:50 Dose: 100 mg IMAGING: CXR: There are no prior studies for comparison. There are clear lungs, prominent aortic knob, normal jose and normal heart. The angles are sharp. The bones and soft tissues are intact. Impression: No acute chest pathology. HOSPITAL COURSE: Date of Admission:02/17/19 Date of Discharge: 02/19/19 Pt was admitted here due to high fevers recorded at this facility of 101.8 F max. Pt was worked up for infectious etiology which yielded negative CXR, negative laboratory abnormalities, negative influenza A+B, negative HIV tests, and no other sources. Given pt's clinical symptoms of increased sputum production and negative workup it was reasoned that patient had a viral URI. In addition, pt was maintained on his Librium protocol for detoxifcation off of alcohol and cocaine. During his stay patient remained afebrile for 24hrs and can be discharged back to [facility] to finish his detox program. Minutes to complete discharge: 30 Discharge Summary Problems reviewed: Yes Reason For Visit: ALCOHOL DEPENDENCE, LEUKOPENIA,PNEUMONIE Current Active Problems Alcohol dependence with uncomplicated withdrawal (Acute) Cough (Acute) Fever (Acute) Pneumonia (Acute) At risk for dehydration due to poor fluid intake (Chronic) Cocaine dependence, uncomplicated (Chronic) Elevated blood pressure reading without diagnosis of hypertension (Chronic) History of insomnia (Chronic) Leukopenia (Chronic) Condition: Stable - Instructions Diet, Activity, Other Instructions: You were seen here due to your detox process and having a high fever. We did not see any pneumonia or other reason for your fever and likely you have a virus. You have been without any fevers for 24 hours and you were given some antibiotics as well. You will be going back to [facility] to finish your detox process MEDICATIONS: Please take Doxycycline 100mg TWICE daily for another 2 days Please continue your detox process as [facility] dictates It is very important to not drink or use cocaine as these can negatively affect your liver and your heart especially later on in life. Follow-up Please follow-up with Dr. Chen in the detox center Please follow-up with a primary care doctor. If you do not have one, Dr. Dutton' information has been provided for you. Referrals: Yvette Chen DO [Staff Physician] - Bertha Dutton MD [Staff Physician] - Disposition: TRANSFER ACUTE CARE/OTHER HOSP - Home Medications Comprehensive Discharge Medication List: Ambulatory Orders Benztropine Mesylate [Cogentin -] 0.5 mg PO DAILY #30 tablet 11/05/18 traZODone HCL [Trazodone HCl] 100 mg PO HS #30 tablet 11/05/18 Chlordiazepoxide [Librium -] 10 mg PO Q8H capsule MDD 30mg 02/19/19 Chlordiazepoxide [Librium -] 10 mg PO Q8H PRN capsule MDD 30mg 02/19/19 Chlordiazepoxide [Librium -] 15 mg PO Q8H capsule MDD 45mg 02/19/19 Doxycycline Hyclate [Vibramycin -] 100 mg PO BID@1000,1800 2 Days #4 capsule 12/31 Thiamine HCl [Vitamin B1 -] 100 mg PO DAILY tablet 02/19/19 This patient is new to me today: No Emergency Visit: Yes ED Registration Date: 02/17/19 Care time: The patient presented to the Emergency Department on the above date and was hospitalized for further evaluation of their emergent condition. Critical Care patient: No - Discharge Referral Referred to [facility] Med P.C.: No
--- NOTE | 2019-02-19 09:26 | PN ---
Teaching Attending Note Name of Resident: Elio Kerns ATTENDING PHYSICIAN STATEMENT I saw and evaluated the patient. I reviewed the resident's note and discussed the case with the resident. I agree with the resident's findings and plan as documented. SUBJECTIVE: No complaints. OBJECTIVE: Vital Signs Period Temp Pulse Resp BP Sys/Qureshi Pulse Ox Last 24 Hr 98.3 F-98.9 F 79-83 18-20 131-153/89-108 HEART: S1S2, RRR LUNGS: Clear ABDOMEN: Soft, non-tender, non-distended, normal BS EXTREMITIES: No edema Current Medications Generic Name Dose Route Start Last Admin Trade Name Freq PRN Reason Stop Dose Admin Chlordiazepoxide HCl 10 mg 02/20/19 00:00 Librium - PO 02/20/19 23:59 Q12H PRN Signs/symptoms of Withdrawal Chlordiazepoxide HCl 10 mg 02/18/19 05:29 02/19/19 03:33 Librium - PO 02/19/19 23:59 10 mg Q8H PRN Administration Signs/symptoms of Withdrawal Chlordiazepoxide HCl 15 mg 02/19/19 05:00 02/19/19 06:48 Librium - PO 02/19/19 21:01 Not Given Q8H [facility] Chlordiazepoxide HCl 10 mg 02/20/19 05:00 Librium - PO 02/20/19 21:01 Q8H [facility] Chlordiazepoxide HCl 10 mg 02/21/19 05:00 Librium - PO 02/21/19 05:01 ONCE ONE Doxycycline Hyclate 100 mg 02/18/19 10:00 02/18/19 17:30 Vibramycin - PO 100 mg BID@1000,1800 [facility] Administration Enoxaparin Sodium 40 mg 02/18/19 10:00 02/18/19 10:22 Lovenox - SQ 40 mg DAILY [facility] Administration Folic Acid 1 mg 02/17/19 22:15 02/18/19 10:22 Folic Acid - PO 1 mg DAILY [facility] Administration Thiamine HCl 100 mg 02/17/19 22:03 02/18/19 10:22 Vitamin B1 - PO 100 mg DAILY [facility] Administration ASSESSMENT AND PLAN: This is a 58 year old man with a history of HTN, schizoaffective disorder, bipolar disorder, polysubstance abuse who presented to the ED from [facility] for evaluation of fever. 1. Viral URI/acute bronchitis - Doubt pneumonia given clear lungs on exam and normal CXR - Afebrile >24 hours - Levaquin discontinued secondary to prolonged QTc - Continue Doxycycline 2. Alcohol intoxication 3. Continuous alcohol dependence - Continue Librium detox - Continue thiamine, folic acid - Ok to return to [facility] today to complete detox 4. Prolonged QTc 5. HTN 6. Bipolar disorder/schizoaffective disorder - Seroquel, Trazodone held secondary to prolonged QTc
[2019-02-19] MEDS: DOXYCYCLINE HYCLATE 100 MG CAPSULE PO SCH (09:50)
[2019-02-19] MEDS: FOLIC ACID 1 MG TABLET (FP) PO SCH (09:50)
[2019-02-19] MEDS: ENOXAPARIN NA (PORCINE) 40 MG/0.4 ML DISP.SYRIN SQ SCH (09:50)
[2019-02-19] MEDS: THIAMINE HCL 100 MG TABLET (FP) PO SCH (09:50)
--- NOTE | 2019-02-19 16:34 | PN ---
Progress Note (short form) - Note Progress Note: Before having transport to [facility] to finish detox procedure, pt opted to leave against medical advice due to him wanting to get his "stuff" including his jacket. Pt understands risks of further withdrawal, seizure, and possibly deterioration in health including . Pt of sound mind and remains oriented x3. He voluntarily sought detoxification and reserves the right to autonomy. Pt signed against medical advice. All IVs have been discontinued.
[2019-02-20] MEDS ORDERED: chlordiazePOXIDE 5 MG CAPSULE PO PRN
[2019-02-20] MEDS ORDERED: chlordiazePOXIDE 5 MG CAPSULE PO SCH (05:00)
[2019-02-21] MEDS ORDERED: chlordiazePOXIDE 5 MG CAPSULE PO ONE (05:00)
== END 2019-02-19 17:16 | disposition left against medical advice (07) | DRG 144 ==
LOC: JER 18:15 → JERBED 20:23 → J6S 23:31
PROVIDERS: ADMIT Internal Medicine; ATTEND Internal Medicine
PROC: HZ2ZZZZ Detoxification Services for Substance Abuse Treatment (ICD-10-PCS; principal; 2019-02-17)
DX: J20.9 Acute bronchitis, unspecified (principal); I10 Essential (primary) hypertension; F14.20 Cocaine dependence, uncomplicated; J06.9 Acute upper respiratory infection, unspecified; D72.819 Decreased white blood cell count, unspecified; R50.9 Fever, unspecified; F25.9 Schizoaffective disorder, unspecified; F10.229 Alcohol dependence with intoxication, unspecified; R94.31 Abnormal electrocardiogram [ECG] [EKG]; F10.20 Alcohol dependence, uncomplicated; F31.9 Bipolar disorder, unspecified; F19.10 Other psychoactive substance abuse, uncomplicated
CPT/HCPCS: 36415; 71045-TC-FY; 80048; 80053; 80307; 81003; 82803; 83605; 84484; 85025; 85610; 87040; 87086; 87389; 87804; 93005; 93010; 99285-25; J0131; J7030

== ENCOUNTER 2019-03-01 08:14 | Inpatient (IN) | payer OTHER ==
[2019-03-01 08:55] VITALS: BMI 24.3
--- NOTE | 2019-03-01 09:36 | HP ---
CIWA Score Nausea/Vomitin-Mild Nausea/No Vomiting Muscle Tremors: 1-None Visible, but [place] Anxiety: 4-Mod. Anxious/Guarded Agitation: 4-Moderately Restless Paroxysmal Sweats: No Perspiration Orientation: 3-Disoriented Date>2 days Tacttile Disturbances: 0-None Auditory Disturbances: 0-None Visual Disturbances: 0-None Headache: 0-None Present CIWA-Ar Total Score: 13 - Admission Criteria OASAS Guidelines: Admission for Medically Managed Detox: Requires at least one of the followin. CIWA greater than 12 2. Seizures within the past 24 hours 3. Delirium tremens within the past 24 hours 4. Hallucinations within the past 24 hours 5. Acute intervention needed for co occurring medical disorder 6. Acute intervention needed for co occurring psychiatric disorder 7. Severe withdrawal that cannot be handled at a lower level of care (continued vomiting, continued diarrhea, abnormal vital signs) requiring intravenous medication and/or fluids 8. Admitting History and Physical - Smoking History Smoking history: Never smoked Have you smoked in the past 12 months: No Aproximately how many cigarettes per day: 2 - Alcohol/Substance Use Hx Alcohol Use: No Admission ROS S - HPI Allergies/Adverse Reactions: Allergies Allergy/AdvReac Type Severity Reaction Status Date / Time Fish Containing Products Allergy Hives Verified 03/01/19 08:44 Penicillins Allergy Hives Verified 03/01/19 08:44 History of Present Illness: pt here requesting detox from etoh use , reports 4 pints /day since d/c from hospital 02/19/19 left AMA , current symptoms as above , latset use this morning , denies seizures, blackouts , + tremors , starts drinking in the mornings . cocaine : 200-300 $/ day via inhalation , denies IVDU current KAELA 0.051 ./ Exam Limitations: Clinical Condition, Intoxication - Ebola screening Have you traveled outside of the country in the last 21 days: No Have you had contact with anyone from an Ebola affected area: No - Review of Systems Constitutional: No Symptoms Reported EENT: reports: No Symptoms Reported Respiratory: reports: No Symptoms reported Cardiac: reports: No Symptoms Reported GI: reports: Constipated, Nausea : reports: No Symptoms Reported Musculoskeletal: reports: No Symptoms Reported Integumentary: reports: No Symptoms Reported Neuro: reports: See HPI Endocrine: reports: No Symptoms Reported Psychiatric: reports: Agitated, Anxious, Disorientated Patient History - Patient Medical History Hx Anemia: No Hx Asthma: No Hx Chronic Obstructive Pulmonary Disease (COPD): No Hx Cancer: No Hx Cardiac Disorders: No Hx Congestive Heart Failure: No Hx Hypertension: No Hx Hypercholesterolemia: No Hx Pacemaker: No HX Cerebrovascular Accident: No Hx Seizures: No Hx Dementia: No Hx Diabetes: No Hx Gastrointestinal Disorders: No Hx Liver Disease: No Hx Genitourinary Disorders: No Hx Sexually Transmitted Disorders: No Hx Renal Disease (ESRD): No Hx Thyroid Disease: No Hx Human Immunodeficiency Virus (HIV): No Hx Hepatitis C: No Hx Depression: No Hx Suicide Attempt: No Hx Bipolar Disorder: No Hx Schizophrenia: No - Patient Surgical History Past Surgical History: Yes Hx Neurologic Surgery: No Hx Cataract Extraction: No Hx Cardiac Surgery: No Hx Lung Surgery: No Hx Breast Surgery: No Hx Breast Biopsy: No Hx Abdominal Surgery: No Hx Appendectomy: No Hx Cholecystectomy: No Hx Genitourinary Surgery: No Hx Section: No Hx Orthopedic Surgery: Yes (torn ligament, right knee in 1985) Anesthesia Reaction: No - PPD History Date: 03/23/18 Results: 0 mm - Smoking Cessation Smoking history: Never smoked Have you smoked in the past 12 months: No Aproximately how many cigarettes per day: 2 Cigars Per Day: 0 Hx Chewing Tobacco Use: No - Substances abused Alcohol Substance route: Oral Frequency: Daily Amount used: 6 pints /daily VODKA Age of first use: 15 Date of last use: 03/01/19 Cocaine Substance route: Smoking Frequency: Daily Amount used: 4 OUNCE Age of first use: 14 Date of last use: 02/28/19 Admission Physical Exam S - Vital Signs Vital Signs: Vital Signs - 24 hr 03/01/19 08:43 Temperature 98.0 F Pulse Rate 94 H Respiratory 20 Rate Blood Pressure 108/86 - Physical General Appearance: Yes: Disheveled, Moderate Distress, Intoxicated, Irritable, Anxious HEENTM: Yes: EOMI, Hearing grossly Normal, Normocephalic, Normal Voice Respiratory: Yes: Chest Non-Tender, Lungs Clear, Normal Breath Sounds, No Respiratory Distress, No Accessory Muscle Use Neck: Yes: No masses,lesions,Nodules, Trachea in good position Cardiology: Yes: Regular Rhythm, Regular Rate, S1, S2 Abdominal: Yes: Non Tender, Soft Musculoskeletal: Yes: Gait Steady Extremities: Yes: Normal Range of Motion, Non-Tender, Tremors Neurological: Yes: Alert, Motor Strength 5/5, Disoriented, Depressed Affect Integumentary: Yes: Warm - Diagnostic (1) Alcohol dependence with uncomplicated withdrawal Current Visit: Yes Status: Chronic (2) Cocaine dependence Current Visit: Yes Status: Chronic Qualifiers: Substance use status: uncomplicated Qualified Code(s): F14.20 - Cocaine dependence, uncomplicated (3) Nicotine dependence Current Visit: Yes Status: Chronic Qualifiers: Nicotine product type: cigarettes Breathalyzer - Breathalyzer Breathalyzer: 0.172 Urine Drug Screen - Test Device Lot number: [id number] Expiration date: 10/12/20 - Control Is test valid?: Yes - Results Drug screen NEGATIVE: No Urine drug screen results: [facility]ARIO-Cocaine Inpatient Rehab Admission - Rehab Decision to Admit Inpatient rehab admission?: No
[2019-03-01] MEDS ORDERED: MAGNESIUM CITRATE 300 ML BOTTLE PO PRN (09:51)
[2019-03-01] MEDS ORDERED: MAGNESIUM HYDROX 2400MG/30ML ORAL SUSPENSION 30 ML CUP PO PRN (09:51)
[2019-03-01] MEDS ORDERED: MENTHOL/PHENOL 1 EACH UD MM PRN (09:51)
[2019-03-01] MEDS ORDERED: MAG HYDROX/AL HYDROX/SIMETH 30 ML UNIT-DOSE CUP PO PRN (09:51)
[2019-03-01] MEDS ORDERED: ACETAMINOPHEN 325 MG TABLET (FP) PO PRN ×2 (09:51)
[2019-03-01] MEDS ORDERED: hydrOXYzine PAMOATE 25 MG CAPSULE (FP) PO PRN (09:51)
[2019-03-01] MEDS ORDERED: BISMUTH SUBSALICYLATE 262 MG/15 ML BTL PO PRN (09:51)
[2019-03-01] MEDS ORDERED: MELATONIN 5 MG TABLETS PO PRN (09:51)
[2019-03-01] MEDS ORDERED: guaiFENesin 200 MG/10 ML 10 ML UNIT-DOSE CUPS PO PRN (09:58)
[2019-03-01] MEDS ORDERED: chlordiazePOXIDE HCL 10 MG CAPSULE PO PRN (09:59)
[2019-03-01] MEDS: PRENATAL VITAMINS W/ FOLIC ACID TABLET (FP) PO SCH (11:45)
[2019-03-01] MEDS: chlordiazePOXIDE HCL 25 MG CAPSULE PO SCH ×2 (13:16→22:02)
[2019-03-01 15:40] LABS: BASO % 1.1 % (0-2.0); HEMATOCRIT 38.5 % (35.4-49); HEMOGLOBIN 12.8 GM/dL (11.7-16.9); LYMPH % 24.3 % (8-40); MCH 31.8 pg (25.7-33.7); MCHC 33.4 g/dl (32.0-35.9); MEAN CELL VOLUME 95.4 fl (80-96); MONO % 9.7 % (3.8-10.2); NEUT % 62.9 % (42.8-82.8); PLATELET COUNT 378 K/MM3 (134-434); RBC 4.04 M/mm3 (4.00-5.60); RDW 14.3 % (11.9-15.9); WHITE BLOOD COUNT 4.7 K/mm3 (4.0-10.0)
[2019-03-01 16:40] LABS: ALBUMIN 3.9 g/dl (3.4-5.0); BILIRUBIN,TOTAL 0.6 mg/dL (0.2-1); BLOOD UREA NITROGEN 11.8 mg/dL (7-18); CALCIUM 8.7 mg/dL (8.5-10.1); POTASSIUM 3.9 mmol/L (3.5-5.1); TOT PROT 7.2 g/dl (6.4-8.2)
[2019-03-01] MEDS: THIAMINE HCL 100 MG TABLET (FP) PO SCH (22:02)
[2019-03-02] MEDS: IBUPROFEN 400 MG TABLET (FP) PO PRN (04:09)
[2019-03-02] MEDS: chlordiazePOXIDE HCL 25 MG CAPSULE PO SCH ×3 (05:32→22:31)
[2019-03-02] MEDS: PRENATAL VITAMINS W/ FOLIC ACID TABLET (FP) PO SCH (10:20)
--- NOTE | 2019-03-02 11:52 | PN ---
S CIWA - CIWA Score Nausea/Vomitin-Mild Nausea/No Vomiting Muscle Tremors: 2 Anxiety: 1-Mildly Anxious Agitation: 2 Paroxysmal Sweats: 2 Orientation: 0-Oriented Tacttile Disturbances: 0-None Auditory Disturbances: 0-None Visual Disturbances: 0-None Headache: 1-Very Mild CIWA-Ar Total Score: 9 [facility] Progress Note (SOAP) Subjective: Pt came in yesterday for alcohol detox. would like something for a cold. Also wants renewal of trazodone- depression and sleep. c/o congested chest, cough O: lungs clear wrist unable to extend wrist back, o/w FROM Vital Signs - 24 hr 03/01/19 03/01/19 03/01/19 13:56 18:01 22:09 Temperature 98 F 97.3 F L 98 F Pulse Rate 92 H 90 94 H Respiratory 18 18 16 Rate Blood Pressure 119/83 131/80 119/83 03/02/19 03/02/19 03/02/19 00:36 03:30 06:16 Temperature Pulse Rate Respiratory 18 18 18 Rate Blood Pressure 03/02/19 09:27 Temperature 97.6 F Pulse Rate 74 Respiratory 18 Rate Blood Pressure 123/81 Laboratory Tests 03/01/19 03/01/19 13:40 13:40 WBC 4.7 RBC 4.04 Hgb 12.8 Hct 38.5 MCV 95.4 MCH 31.8 MCHC 33.4 RDW 14.3 Plt Count 378 MPV 8.0 Absolute Neuts (auto) 2.9 Neutrophils % 62.9 Lymphocytes % 24.3 D Monocytes % 9.7 Eosinophils % 2.0 Basophils % 1.1 Nucleated RBC % 0 Sodium 140 Potassium 3.9 Chloride 104 Carbon Dioxide 25 Anion Gap 11 BUN 11.8 Creatinine 1.0 Est GFR (CKD-EPI)AfAm 95.73 Est GFR (CKD-EPI)NonAf 82.60 Random Glucose 106 Calcium 8.7 Total Bilirubin 0.6 AST 55 H ALT 34 Alkaline Phosphatase 67 Total Protein 7.2 Albumin 3.9 a/p: Continue alcohol detox URI Sx- nl lung exam, robitussin L wrist pain- wants lázaro lou
[2019-03-02] MEDS ORDERED: METHYL SALICYLATE/MENTHOL OINT 30 GM TUBE TP PRN (11:56)
[2019-03-02 18:40] LABS: URINE APPEARANCE CLEAR; URINE BILIRUBIN NEGATIVE (NEGATIVE); URINE COLOR YELLOW; URINE GLUCOSE (UA) NEGATIVE (NEGATIVE); URINE KETONE NEGATIVE (NEGATIVE); URINE LEUK ESTERASE NEGATIVE (NEGATIVE); URINE NITRITE NEGATIVE (NEGATIVE); URINE PROTEIN NEGATIVE (NEGATIVE)
[2019-03-02] MEDS ORDERED: traZODone HCL 50 MG TABLET (FP) PO ONE (22:00)
[2019-03-02] MEDS: THIAMINE HCL 100 MG TABLET (FP) PO SCH (22:31)
[2019-03-03] MEDS: chlordiazePOXIDE HCL 10 MG CAPSULE PO SCH ×3 (05:27→22:27)
[2019-03-03] MEDS: PRENATAL VITAMINS W/ FOLIC ACID TABLET (FP) PO SCH (10:43)
[2019-03-03] MEDS: guaiFENesin/D-M SUGAR-FREE/ACLHOL-FREE 118 ML BOTTLE PO PRN ×2 (10:43→22:28)
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
--- NOTE | 2019-03-03 11:05 | PN ---
S CIWA - CIWA Score Nausea/Vomitin-No Nausea/No Vomiting Muscle Tremors: 2 Anxiety: 1-Mildly Anxious Agitation: 1-Slight > Activity Paroxysmal Sweats: No Perspiration Orientation: 0-Oriented Tacttile Disturbances: 0-None Auditory Disturbances: 0-None Visual Disturbances: 0-None Headache: 0-None Present CIWA-Ar Total Score: 4 BHS Progress Note (SOAP) Subjective: doing well with librium detox regimen sleep better at night less tremor prefers to go to [facility] for aftercare Objective: 03/03/19 11:05 Vital Signs Temperature 96.3 F L 03/03/19 09:51 Pulse Rate 92 H 03/03/19 09:51 Respiratory Rate 18 03/03/19 09:51 Blood Pressure 111/73 03/03/19 09:51 O2 Sat by Pulse Oximetry (%) Laboratory Last Values WBC 4.7 K/mm3 (4.0-10.0) 03/01/19 13:40 RBC 4.04 M/mm3 (4.00-5.60) 03/01/19 13:40 Hgb 12.8 GM/dL (11.7-16.9) 03/01/19 13:40 Hct 38.5 % (35.4-49) 03/01/19 13:40 MCV 95.4 fl (80-96) 03/01/19 13:40 MCH 31.8 pg (25.7-33.7) 03/01/19 13:40 MCHC 33.4 g/dl (32.0-35.9) 03/01/19 13:40 RDW 14.3 % (11.9-15.9) 03/01/19 13:40 Plt Count 378 K/MM3 (134-434) 03/01/19 13:40 MPV 8.0 fl (7.5-11.1) 03/01/19 13:40 Absolute Neuts (auto) 2.9 K/mm3 (1.5-8.0) 03/01/19 13:40 Neutrophils % 62.9 % (42.8-82.8) 03/01/19 13:40 Lymphocytes % 24.3 % (8-40) D 03/01/19 13:40 Monocytes % 9.7 % (3.8-10.2) 03/01/19 13:40 Eosinophils % 2.0 % (0-4.5) 03/01/19 13:40 Basophils % 1.1 % (0-2.0) 03/01/19 13:40 Nucleated RBC % 0 % (0-0) 03/01/19 13:40 Sodium 140 mmol/L (136-145) 03/01/19 13:40 Potassium 3.9 mmol/L (3.5-5.1) 03/01/19 13:40 Chloride 104 mmol/L (98-107) 03/01/19 13:40 Carbon Dioxide 25 mmol/L (21-32) 03/01/19 13:40 Anion Gap 11 MMOL/L (8-16) 03/01/19 13:40 BUN 11.8 mg/dL (7-18) 03/01/19 13:40 Creatinine 1.0 mg/dL (0.55-1.3) 03/01/19 13:40 Est GFR (CKD-EPI)AfAm 95.73 03/01/19 13:40 Est GFR (CKD-EPI)NonAf 82.60 03/01/19 13:40 Random Glucose 106 mg/dL (74-106) 03/01/19 13:40 Calcium 8.7 mg/dL (8.5-10.1) 03/01/19 13:40 Total Bilirubin 0.6 mg/dL (0.2-1) 03/01/19 13:40 AST 55 U/L (15-37) H 03/01/19 13:40 ALT 34 U/L (13-61) 03/01/19 13:40 Alkaline Phosphatase 67 U/L (45-117) 03/01/19 13:40 Total Protein 7.2 g/dl (6.4-8.2) 03/01/19 13:40 Albumin 3.9 g/dl (3.4-5.0) 03/01/19 13:40 Urine Color Yellow 03/02/19 16:30 Urine Appearance Clear 03/02/19 16:30 Urine pH 7.0 (5.0-8.0) 03/02/19 16:30 Ur Specific [place] 1.030 (1.010-1.035) 03/02/19 16:30 Urine Protein Negative (NEGATIVE) 03/02/19 16:30 Urine Glucose (UA) Negative (NEGATIVE) 03/02/19 16:30 Urine Ketones Negative (NEGATIVE) 03/02/19 16:30 Urine Blood Negative (NEGATIVE) 03/02/19 16:30 Urine Nitrite Negative (NEGATIVE) 03/02/19 16:30 Urine Bilirubin Negative (NEGATIVE) 03/02/19 16:30 Urine Urobilinogen 1.0 mg/dL (0.2-1.0) 03/02/19 16:30 Ur Leukocyte Esterase Negative (NEGATIVE) 03/02/19 16:30 lab noted Assessment: 03/03/19 11:06 alcohol withdrawal sx Plan: continue librium detox regimen
[2019-03-03] MEDS ORDERED: BENZTROPINE MESYLATE 0.5 MG TABLET (FP) PO SCH (11:45)
[2019-03-03] MEDS: BENZTROPINE MESYLATE 1 MG TABLET (FP) PO SCH (15:39)
[2019-03-03] MEDS: risperiDONE 1 MG TABLET (FP) PO SCH (15:39)
[2019-03-03] MEDS ORDERED: traZODone HCL 100 MG TABLET (FP) PO SCH (22:00)
[2019-03-03] MEDS: THIAMINE HCL 100 MG TABLET (FP) PO SCH (22:27)
[2019-03-04] MEDS ORDERED: chlordiazePOXIDE HCL 10 MG CAPSULE PO ONE (05:00)
[2019-03-04] MEDS: IBUPROFEN 400 MG TABLET (FP) PO PRN (06:29)
[2019-03-04] MEDS: guaiFENesin/D-M SUGAR-FREE/ACLHOL-FREE 118 ML BOTTLE PO PRN (06:31)
[2019-03-04 09:07] VITALS: BP 109/67; PULSE 76; TEMP 97.3
[2019-03-04] MEDS: PRENATAL VITAMINS W/ FOLIC ACID TABLET (FP) PO SCH (10:27)
[2019-03-04] MEDS: BENZTROPINE MESYLATE 1 MG TABLET (FP) PO SCH (10:27)
[2019-03-04] MEDS: risperiDONE 1 MG TABLET (FP) PO SCH (10:27)
--- NOTE | 2019-03-04 12:00 | DS ---
[facility] Detox Discharge Summary Admission Date: 03/01/19 Discharge Date: 03/04/19 - History Present History: Alcohol Dependence Additional Comments: did well with librium detox regimen no complication through out the detox stay alert oriented x 3 cardiac S1S2 regular rate rhythm respiratory clear lung bilaterally on auscultation abdomen soft no rebound tenderness - Physical Exam Results Vital Signs: Vital Signs Temperature 97.3 F L 03/04/19 09:06 Pulse Rate 76 03/04/19 09:06 Respiratory Rate 18 03/04/19 09:06 Blood Pressure 109/67 03/04/19 09:06 O2 Sat by Pulse Oximetry (%) Pertinent Admission Physical Exam Findings: alcohol withdrawal sx Laboratory Last Values WBC 4.7 K/mm3 (4.0-10.0) 03/01/19 13:40 RBC 4.04 M/mm3 (4.00-5.60) 03/01/19 13:40 Hgb 12.8 GM/dL (11.7-16.9) 03/01/19 13:40 Hct 38.5 % (35.4-49) 03/01/19 13:40 MCV 95.4 fl (80-96) 03/01/19 13:40 MCH 31.8 pg (25.7-33.7) 03/01/19 13:40 MCHC 33.4 g/dl (32.0-35.9) 03/01/19 13:40 RDW 14.3 % (11.9-15.9) 03/01/19 13:40 Plt Count 378 K/MM3 (134-434) 03/01/19 13:40 MPV 8.0 fl (7.5-11.1) 03/01/19 13:40 Absolute Neuts (auto) 2.9 K/mm3 (1.5-8.0) 03/01/19 13:40 Neutrophils % 62.9 % (42.8-82.8) 03/01/19 13:40 Lymphocytes % 24.3 % (8-40) D 03/01/19 13:40 Monocytes % 9.7 % (3.8-10.2) 03/01/19 13:40 Eosinophils % 2.0 % (0-4.5) 03/01/19 13:40 Basophils % 1.1 % (0-2.0) 03/01/19 13:40 Nucleated RBC % 0 % (0-0) 03/01/19 13:40 Sodium 140 mmol/L (136-145) 03/01/19 13:40 Potassium 3.9 mmol/L (3.5-5.1) 03/01/19 13:40 Chloride 104 mmol/L (98-107) 03/01/19 13:40 Carbon Dioxide 25 mmol/L (21-32) 03/01/19 13:40 Anion Gap 11 MMOL/L (8-16) 03/01/19 13:40 BUN 11.8 mg/dL (7-18) 03/01/19 13:40 Creatinine 1.0 mg/dL (0.55-1.3) 03/01/19 13:40 Est GFR (CKD-EPI)AfAm 95.73 03/01/19 13:40 Est GFR (CKD-EPI)NonAf 82.60 03/01/19 13:40 Random Glucose 106 mg/dL (74-106) 03/01/19 13:40 Calcium 8.7 mg/dL (8.5-10.1) 03/01/19 13:40 Total Bilirubin 0.6 mg/dL (0.2-1) 03/01/19 13:40 AST 55 U/L (15-37) H 03/01/19 13:40 ALT 34 U/L (13-61) 03/01/19 13:40 Alkaline Phosphatase 67 U/L (45-117) 03/01/19 13:40 Total Protein 7.2 g/dl (6.4-8.2) 03/01/19 13:40 Albumin 3.9 g/dl (3.4-5.0) 03/01/19 13:40 Urine Color Yellow 03/02/19 16:30 Urine Appearance Clear 03/02/19 16:30 Urine pH 7.0 (5.0-8.0) 03/02/19 16:30 Ur Specific Century 1.030 (1.010-1.035) 03/02/19 16:30 Urine Protein Negative (NEGATIVE) 03/02/19 16:30 Urine Glucose (UA) Negative (NEGATIVE) 03/02/19 16:30 Urine Ketones Negative (NEGATIVE) 03/02/19 16:30 Urine Blood Negative (NEGATIVE) 03/02/19 16:30 Urine Nitrite Negative (NEGATIVE) 03/02/19 16:30 Urine Bilirubin Negative (NEGATIVE) 03/02/19 16:30 Urine Urobilinogen 1.0 mg/dL (0.2-1.0) 03/02/19 16:30 Ur Leukocyte Esterase Negative (NEGATIVE) 03/02/19 16:30 lab noted - Treatment Hospital Course: Detox Protocol Followed, Detoxed Safely, Responded well, Discharged Condition Good, Rehab Referral Accepted Patient has Accepted a Rehab Referral to: [facility] - Medication Discharge Medications: Ambulatory Orders traZODone HCL [Trazodone HCl] 100 mg PO HS #30 tablet 11/05/18 - Diagnosis (1) Alcohol dependence with uncomplicated withdrawal Current Visit: Yes Status: Acute (2) Nicotine dependence Current Visit: Yes Status: Acute Qualifiers: Nicotine product type: cigarettes Substance use status: in withdrawal Qualified Code(s): F17.213 - Nicotine dependence, cigarettes, with withdrawal (3) Hypertension Current Visit: Yes Status: Chronic Qualifiers: Hypertension type: essential hypertension (4) Substance induced mood disorder Current Visit: Yes Status: Suspected - AMA Did Patient Leave Against Medical Advice: No CIWA Score - CIWA Score Nausea/Vomitin-No Nausea/No Vomiting Muscle Tremors: 1-None Visible, but [place] Anxiety: 1-Mildly Anxious Agitation: 0-Normal Activity Paroxysmal Sweats: No Perspiration Orientation: 0-Oriented Tacttile Disturbances: 0-None Auditory Disturbances: 0-None Visual Disturbances: 0-None Headache: 0-None Present CIWA-Ar Total Score: 2
== END 2019-03-04 10:39 | disposition home or self-care (01) | DRG 774 ==
LOC: YASAS 08:14 → Y3N 10:09
PROVIDERS: ADMIT Allergy & Immunology; ATTEND Allergy & Immunology
PROC: HZ2ZZZZ Detoxification Services for Substance Abuse Treatment (ICD-10-PCS; principal; 2019-03-01)
DX: F10.230 Alcohol dependence with withdrawal, uncomplicated (principal); F14.20 Cocaine dependence, uncomplicated; F17.213 Nicotine dependence, cigarettes, with withdrawal; F19.280 Other psychoactive substance dependence with psychoactive substance-induced anxiety disorder; F19.282 Other psychoactive substance dependence with psychoactive substance-induced sleep disorder; F19.24 Other psychoactive substance dependence with psychoactive substance-induced mood disorder; F25.9 Schizoaffective disorder, unspecified; M12.9 Arthropathy, unspecified; R05 Cough; E78.5 Hyperlipidemia, unspecified; E78.00 Pure hypercholesterolemia, unspecified; M25.532 Pain in left wrist; I10 Essential (primary) hypertension; Z86.2 Personal history of diseases of the blood and blood-forming organs and certain disorders involving the immune mechanism; Z88.0 Allergy status to penicillin; Z91.013 Allergy to seafood
CPT/HCPCS: 36415; 80053; 81003; 85025; J2794

== ENCOUNTER 2019-07-20 09:46 | Inpatient (IN) | payer OTHER ==
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
[2019-07-20] MEDS ORDERED: NICOTINE POLACRILEX 2 MG GUM BUC PRN (11:26)
[2019-07-20] MEDS ORDERED: BISMUTH SUBSALICYLATE 524 MG/30 ML UD PO PRN (11:26)
[2019-07-20] MEDS ORDERED: MAGNESIUM CITRATE 300 ML BOTTLE PO PRN (11:26)
[2019-07-20] MEDS ORDERED: MENTHOL/PHENOL 1 EACH UD MM PRN (11:26)
[2019-07-20] MEDS ORDERED: chlordiazePOXIDE HCL 25 MG CAPSULE PO ONE (11:26)
[2019-07-20] MEDS ORDERED: ACETAMINOPHEN 325 MG TABLET (FP) PO PRN ×2 (11:26)
[2019-07-20] MEDS ORDERED: chlordiazePOXIDE HCL 10 MG CAPSULE PO PRN (11:26)
[2019-07-20] MEDS ORDERED: MAGNESIUM HYDROX 2400MG/30ML ORAL SUSPENSION 30 ML CUP PO PRN (11:26)
[2019-07-20] MEDS ORDERED: MAG HYDROX/AL HYDROX/SIMETH 30 ML UNIT-DOSE CUP PO PRN (11:26)
[2019-07-20] MEDS ORDERED: ONDANSETRON *ODT* 4 MG TABLET SL ONE (11:26)
[2019-07-20] MEDS: METHYL SALICYLATE/MENTHOL OINT 30 GM TUBE TP SCH ×2 (12:54→23:23)
[2019-07-20] MEDS: chlordiazePOXIDE HCL 25 MG CAPSULE PO SCH ×2 (12:54→23:24)
[2019-07-20] MEDS: CALCIUM 500MG/VIT-D 200 UNITS COMBO TABLET (FP) PO SCH ×2 (12:54→23:24)
[2019-07-20] MEDS: PRENATAL VITAMINS W/ FOLIC ACID TABLET (FP) PO SCH (12:56)
[2019-07-20] MEDS: ASPIRIN 81 MG CHEWABLE TABLETS PO SCH ×2 (14:55→23:24)
[2019-07-20] MEDS: hydrOXYzine PAMOATE 25 MG CAPSULE (FP) PO SCH ×3 (14:55→23:24)
[2019-07-20 15:20] VITALS: BMI 22.9
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
[2019-07-20] MEDS ORDERED: cloNIDine HCL 0.1 MG TABLET PO ONE (17:46)
[2019-07-20] MEDS ORDERED: QUEtiapine FUMARATE 100 MG TABLET (FP) PO ONE (22:00)
[2019-07-20] MEDS ORDERED: MIRTAZAPINE 15 MG TABLET (FP) PO ONE (22:00)
[2019-07-20] MEDS ORDERED: QUEtiapine FUMARATE 300 MG TABLET PO ONE (22:00)
[2019-07-20] MEDS: MIRTAZAPINE 15 MG TABLET (FP) PO SCH (23:24)
[2019-07-20] MEDS: MELATONIN 5 MG TABLETS PO SCH (23:24)
[2019-07-20] MEDS: QUEtiapine FUMARATE 100 MG TABLET (FP) PO SCH (23:24)
[2019-07-20] MEDS: THIAMINE HCL 100 MG TABLET (FP) PO SCH (23:25)
[2019-07-21] MEDS: hydrOXYzine PAMOATE 25 MG CAPSULE (FP) PO SCH ×4 (05:16→18:37)
[2019-07-21] MEDS: chlordiazePOXIDE HCL 25 MG CAPSULE PO SCH ×3 (05:17→23:15)
--- NOTE | 2019-07-21 09:34 | PN ---
S CIWA - CIWA Score Nausea/Vomitin-No Nausea/No Vomiting Muscle Tremors: 3 Anxiety: 3 Agitation: 1-Slight > Activity Paroxysmal Sweats: 2 Orientation: 0-Oriented Tacttile Disturbances: 1-Very Mild Itch/Numbness Auditory Disturbances: 0-None Visual Disturbances: 1-Very Mild Sensitivity Headache: 1-Very Mild CIWA-Ar Total Score: 12 BHS Progress Note (SOAP) Subjective: 59 years old male admitted on 07/20/19 for alcohol withdrawal sx management treating with librium detox regiment reports nasal septum injury by history requests nasal spray mouth breathing at aid nasal congestion sinuses none tender ocean spray tid Objective: 07/21/19 09:32 Vital Signs Temperature 96.6 F L 07/21/19 06:21 Pulse Rate 72 07/21/19 06:21 Respiratory Rate 18 07/21/19 06:30 Blood Pressure 132/88 07/21/19 06:21 O2 Sat by Pulse Oximetry (%) 07/21/19 09:33 lab pending Assessment: 07/21/19 09:33 alcohol withdrawal Plan: librium regiment
[2019-07-21] MEDS: ASPIRIN 81 MG CHEWABLE TABLETS PO SCH ×2 (10:59→23:15)
[2019-07-21] MEDS: PRENATAL VITAMINS W/ FOLIC ACID TABLET (FP) PO SCH (10:59)
[2019-07-21] MEDS: METHYL SALICYLATE/MENTHOL OINT 30 GM TUBE TP SCH ×2 (11:00→23:16)
[2019-07-21] MEDS: CALCIUM 500MG/VIT-D 200 UNITS COMBO TABLET (FP) PO SCH ×2 (11:00→23:15)
[2019-07-21 11:36] LABS: HEMATOCRIT 34.6 % (35.4-49); HEMOGLOBIN 11.8 GM/dL (11.7-16.9); MCH 32.9 pg (25.7-33.7); MCHC 34.1 g/dl (32.0-35.9); MEAN CELL VOLUME 96.5 fl (80-96); MEAN PLT VOLUME 8.1 fl (7.5-11.1); PLATELET COUNT 250 K/MM3 (134-434); RBC 3.58 M/mm3 (4.00-5.60); RDW 13.6 % (11.9-15.9)
[2019-07-21 11:53] LABS: ALBUMIN 3.2 g/dl (3.4-5.0); BILIRUBIN,TOTAL 0.7 mg/dL (0.2-1); BLOOD UREA NITROGEN 18.3 mg/dL (7-18); CALCIUM 8.4 mg/dL (8.5-10.1); CREATININE 0.9 mg/dL (0.55-1.3); POTASSIUM 3.9 mmol/L (3.5-5.1); TOT PROT 6.1 g/dl (6.4-8.2)
[2019-07-21] MEDS: SODIUM CHLORIDE NASAL SPRAY 44 ML BOTTLE NS SCH ×2 (14:10→23:16)
[2019-07-21] MEDS: METHOCARBAMOL 500 MG TABLET PO PRN ×2 (15:05→23:14)
[2019-07-21] MEDS ORDERED: cloNIDine HCL 0.1 MG TABLET PO ONE (18:30)
--- NOTE | 2019-07-21 18:30 | PN ---
BHS Progress Note Note: Patient with elevated blood pressure. Has standing order for Vistaril Last EKG w/ prolonged QTc present. Vital Signs 07/21/19 07/21/19 13:50 17:22 Temperature 98.0 F 97.0 F L Pulse Rate 97 H 89 Respiratory 20 18 Rate Blood Pressure 151/92 144/100 Plan: Will order cloNidine 0.1 mg PO now for DBP > 98 Will d/c Vistaril r/t prolonged QTc.
[2019-07-21] MEDS: THIAMINE HCL 100 MG TABLET (FP) PO SCH (23:14)
[2019-07-21] MEDS: MIRTAZAPINE 15 MG TABLET (FP) PO SCH (23:14)
[2019-07-21] MEDS: MELATONIN 5 MG TABLETS PO SCH (23:15)
[2019-07-21] MEDS: QUEtiapine FUMARATE 100 MG TABLET (FP) PO SCH (23:15)
[2019-07-22] MEDS: chlordiazePOXIDE 5 MG CAPSULE PO SCH ×3 (06:42→22:15)
[2019-07-22] MEDS: SODIUM CHLORIDE NASAL SPRAY 44 ML BOTTLE NS SCH ×3 (06:43→22:57)
[2019-07-22] MEDS: ASPIRIN 81 MG CHEWABLE TABLETS PO SCH ×2 (10:32→22:14)
[2019-07-22] MEDS: CALCIUM 500MG/VIT-D 200 UNITS COMBO TABLET (FP) PO SCH ×2 (10:32→22:58)
[2019-07-22] MEDS: METHYL SALICYLATE/MENTHOL OINT 30 GM TUBE TP SCH ×2 (10:33→22:57)
[2019-07-22] MEDS: PRENATAL VITAMINS W/ FOLIC ACID TABLET (FP) PO SCH (10:33)
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
[2019-07-22] MEDS: amLODIPine BESYLATE 5 MG TABLET (FP) PO SCH (14:55)
[2019-07-22] MEDS: MIRTAZAPINE 15 MG TABLET (FP) PO SCH (22:14)
[2019-07-22] MEDS: MELATONIN 5 MG TABLETS PO SCH (22:14)
[2019-07-22] MEDS: THIAMINE HCL 100 MG TABLET (FP) PO SCH (22:14)
[2019-07-22] MEDS: QUEtiapine FUMARATE 100 MG TABLET (FP) PO SCH (22:15)
[2019-07-23] MEDS ORDERED: chlordiazePOXIDE HCL 10 MG CAPSULE PO PRN
[2019-07-23] MEDS: SODIUM CHLORIDE NASAL SPRAY 44 ML BOTTLE NS SCH ×3 (06:25→21:31)
[2019-07-23] MEDS: chlordiazePOXIDE HCL 10 MG CAPSULE PO SCH ×3 (06:26→21:30)
[2019-07-23] MEDS: ASPIRIN 81 MG CHEWABLE TABLETS PO SCH ×2 (10:03→21:30)
[2019-07-23] MEDS: PRENATAL VITAMINS W/ FOLIC ACID TABLET (FP) PO SCH (10:03)
[2019-07-23] MEDS: amLODIPine BESYLATE 5 MG TABLET (FP) PO SCH (10:03)
[2019-07-23] MEDS: METHYL SALICYLATE/MENTHOL OINT 30 GM TUBE TP SCH ×2 (10:04→21:32)
[2019-07-23] MEDS: CALCIUM 500MG/VIT-D 200 UNITS COMBO TABLET (FP) PO SCH ×2 (10:04→21:31)
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
[2019-07-23] MEDS: QUEtiapine FUMARATE 100 MG TABLET (FP) PO SCH (21:30)
[2019-07-23] MEDS: THIAMINE HCL 100 MG TABLET (FP) PO SCH (21:30)
[2019-07-23] MEDS: MIRTAZAPINE 15 MG TABLET (FP) PO SCH (21:30)
[2019-07-23] MEDS: MELATONIN 5 MG TABLETS PO SCH (21:32)
[2019-07-24] MEDS ORDERED: chlordiazePOXIDE HCL 10 MG CAPSULE PO ONE (05:00)
[2019-07-24] MEDS: SODIUM CHLORIDE NASAL SPRAY 44 ML BOTTLE NS SCH (06:37)
[2019-07-24 09:14] VITALS: BP 124/83; PULSE 95; TEMP 96.3
--- NOTE | 2019-07-24 10:36 | DS ---
[facility] Detox Discharge Summary Admission Date: 07/20/19 Discharge Date: 07/24/19 - History Present History: Alcohol Dependence Additional Comments: 59 years old male admitted on 07/20/19 for alcohol withdrawal sx management treated with librium detox regiment Mr Stallworth has completed the librium regiment and is tolerated well seen by psychiatrist resume seroquel and remeron alert oriented x 3 no acute distress ambulating with cane steady gait respiratory clear lung sounds bilaterally on auscultation abdomen soft no rebound tenderness skin warm and dry Pertinent Past History: time for discharge 38 minutes - Physical Exam Results Vital Signs: Vital Signs Temperature 96.3 F L 07/24/19 08:47 Pulse Rate 95 H 07/24/19 08:47 Respiratory Rate 20 07/24/19 08:47 Blood Pressure 124/83 07/24/19 08:47 O2 Sat by Pulse Oximetry (%) Pertinent Admission Physical Exam Findings: alcohol withdrawal Vital Signs Temperature 96.3 F L 07/24/19 08:47 Pulse Rate 95 H 07/24/19 08:47 Respiratory Rate 20 07/24/19 08:47 Blood Pressure 124/83 07/24/19 08:47 O2 Sat by Pulse Oximetry (%) Laboratory Last Values WBC 3.0 K/mm3 (4.0-10.0) L 07/21/19 07:50 RBC 3.58 M/mm3 (4.00-5.60) L 07/21/19 07:50 Hgb 11.8 GM/dL (11.7-16.9) 07/21/19 07:50 Hct 34.6 % (35.4-49) L 07/21/19 07:50 MCV 96.5 fl (80-96) H 07/21/19 07:50 MCH 32.9 pg (25.7-33.7) 07/21/19 07:50 MCHC 34.1 g/dl (32.0-35.9) 07/21/19 07:50 RDW 13.6 % (11.9-15.9) 07/21/19 07:50 Plt Count 250 K/MM3 (134-434) D 07/21/19 07:50 MPV 8.1 fl (7.5-11.1) 07/21/19 07:50 Sodium 140 mmol/L (136-145) 07/21/19 07:50 Potassium 3.9 mmol/L (3.5-5.1) 07/21/19 07:50 Chloride 103 mmol/L (98-107) 07/21/19 07:50 Carbon Dioxide 31 mmol/L (21-32) 07/21/19 07:50 Anion Gap 6 MMOL/L (8-16) L 07/21/19 07:50 BUN 18.3 mg/dL (7-18) H 07/21/19 07:50 Creatinine 0.9 mg/dL (0.55-1.3) 07/21/19 07:50 Est GFR (CKD-EPI)AfAm 107.97 07/21/19 07:50 Est GFR (CKD-EPI)NonAf 93.16 07/21/19 07:50 Random Glucose 89 mg/dL (74-106) 07/21/19 07:50 Calcium 8.4 mg/dL (8.5-10.1) L 07/21/19 07:50 Total Bilirubin 0.7 mg/dL (0.2-1) 07/21/19 07:50 AST 20 U/L (15-37) 07/21/19 07:50 ALT 17 U/L (13-61) 07/21/19 07:50 Alkaline Phosphatase 61 U/L (45-117) 07/21/19 07:50 Total Protein 6.1 g/dl (6.4-8.2) L 07/21/19 07:50 Albumin 3.2 g/dl (3.4-5.0) L 07/21/19 07:50 RPR Titer Nonreactive (NONREACTIVE) 07/21/19 07:50 T.pallidum Ab Interpret Cancelled 07/21/19 07:50 lab noted - Treatment Hospital Course: Detox Protocol Followed, Detoxed Safely, Responded well, Discharged Condition Good, Rehab Referral Accepted Patient has Accepted a Rehab Referral to: [facility] - Medication Discharge Medications: Ambulatory Orders Aspirin [ASA -] 81 mg PO BID 07/20/19 Calcium Carbonate/Vitamin D3 [Calcium 500-Vit D3 600 Tablet] 1 each PO DAILY 07/20/19 Mirtazapine [Remeron -] 15 mg PO HS 07/20/19 Quetiapine Fumarate [Seroquel] 100 mg PO HS 07/20/19 - Diagnosis (1) Alcohol dependence with uncomplicated withdrawal Status: Acute (2) Dyslipidemia Status: Chronic (3) Hypertension Status: Chronic Qualifiers: Hypertension type: essential hypertension Qualified Code(s): I10 - Essential (primary) hypertension (4) Nicotine dependence Status: Acute Qualifiers: Nicotine product type: cigarettes Substance use status: in withdrawal Qualified Code(s): F17.213 - Nicotine dependence, cigarettes, with withdrawal (5) Substance induced mood disorder Status: Suspected - AMA Did Patient Leave Against Medical Advice: No CIWA Score - CIWA Score Nausea/Vomitin-No Nausea/No Vomiting Muscle Tremors: 1-None Visible, but [place] Anxiety: 1-Mildly Anxious Agitation: 0-Normal Activity Paroxysmal Sweats: No Perspiration Orientation: 0-Oriented Tacttile Disturbances: 0-None Auditory Disturbances: 0-None Visual Disturbances: 0-None Headache: 0-None Present CIWA-Ar Total Score: 2
== END 2019-07-24 09:36 | disposition home or self-care (01) | DRG 774 ==
LOC: YASAS 09:46 → Y3N 10:49
PROVIDERS: ADMIT Allergy & Immunology; ATTEND Allergy & Immunology
PROC: HZ2ZZZZ Detoxification Services for Substance Abuse Treatment (ICD-10-PCS; principal; 2019-07-20)
DX: F10.230 Alcohol dependence with withdrawal, uncomplicated (principal); F14.20 Cocaine dependence, uncomplicated; F17.213 Nicotine dependence, cigarettes, with withdrawal; F19.24 Other psychoactive substance dependence with psychoactive substance-induced mood disorder; F25.9 Schizoaffective disorder, unspecified; I10 Essential (primary) hypertension; E78.5 Hyperlipidemia, unspecified; G47.00 Insomnia, unspecified; Z88.0 Allergy status to penicillin; Z91.013 Allergy to seafood
CPT/HCPCS: 36415; 73130-TC-LT-FY; 73560-TC-LT-FY; 80053; 85027; 86593; J0735; Q0162

== ENCOUNTER 2019-11-17 09:23 | Inpatient (IN) | payer OTHER ==
--- NOTE | 2019-11-17 09:34 | BHS.RME ---
Substance Use & Tx History - Substance Use History Alcohol Substance amount: 3pints of vodka/6 packs of of 16 ozs of beer Frequency of use: Daily Substance route: Oral Date of Last Use: 11/17/19 Cocaine-Crack Substance amount: 100$ Frequency of use: Daily Substance route: Smoking Date of Last Use: 11/17/19 - Last Treatment Date of last treatment: 10/16/2019 to 10/21/2019 Where was last treatment: Detox Physical/Psych/Mental Status - Behavior General Behavior: Increased activity (restlessness, agitation) - Cooperativeness Cooperativeness: Cooperative - Thinking Thought Processes: Logical Thought content: Future oriented - Physical Health Problems Is patient presently having any pain?: No Does patient presently have any injuries (include location): No Does patient currently have a fever: No CIWA Nausea/Vomitin Muscle Tremors: 3 Anxiety: 3 Agitation: 3 Paroxysmal Sweats: 1-Minimal Palms Moist Orientation: 0-Oriented Tacttile Disturbances: 1-Very Mild Itch/Numbness Auditory Disturbances: 0-None Visual Disturbances: 1-Very Mild Sensitivity Headache: 2-Mild CIWA-Ar Total Score: 16
--- NOTE | 2019-11-17 09:42 | HP ---
CIWA Score Nausea/Vomitin Muscle Tremors: 3 Anxiety: 3 Agitation: 3 Paroxysmal Sweats: 1-Minimal Palms Moist Orientation: 0-Oriented Tacttile Disturbances: 1-Very Mild Itch/Numbness Auditory Disturbances: 0-None Visual Disturbances: 1-Very Mild Sensitivity Headache: 2-Mild CIWA-Ar Total Score: 16 - Admission Criteria OASAS Guidelines: Admission for Medically Managed Detox: Requires at least one of the followin. CIWA greater than 12 2. Seizures within the past 24 hours 3. Delirium tremens within the past 24 hours 4. Hallucinations within the past 24 hours 5. Acute intervention needed for co occurring medical disorder 6. Acute intervention needed for co occurring psychiatric disorder 7. Severe withdrawal that cannot be handled at a lower level of care (continued vomiting, continued diarrhea, abnormal vital signs) requiring intravenous medication and/or fluids 8. 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 CONTINUITY: Yes: Syncope Cardiovascular: Yes: HTN Psych: Yes: Depression, Schizophrenia Musculoskeletal: Yes: Osteoarthritis, Other (left leg cast due to fracture left knee) - Past Surgical History Additional Past Surgical History: arthroscopic surgery of right knee in 1985 - Smoking History Smoking history: Current some day smoker Have you smoked in the past 12 months: Yes Aproximately how many cigarettes per day: 4 - Alcohol/Substance Use Hx Alcohol Use: Yes History of Substance Use: reports: Cocaine - Social History Usual Living Arrangement: Yes: Alone Do you think of yourself as: Straight/Heterosexual ADL: Support Services Occupation: unemployed History of Recent Travel: No Other Social History: unemployed ,no legal issue,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 Admission ROS BHS - HPI Chief Complaint: i need help to stop drinking alcohol and drug Allergies/Adverse Reactions: Allergies Allergy/AdvReac Type Severity Reaction Status Date / Time Fish Containing Products Allergy Hives Verified 11/17/19 10:32 Penicillins Allergy Hives Verified 11/17/19 10:32 History of Present Illness: this 59 years old male with alcohol and cocaine dependence seeking detox,withdrawal symptom,seeking detox, multiple admissions in detox last [facility] 10/16/19 to 10/21/19 relapsed 1 week after discharge syncope denied seizure history of hypertension no med history of arthroscopic surgery of right knee in 1985 ambulation with cane but loss the cane longest sobriety 8 months history of schizoaffective disorder ,non compliance with medication,did not take medication for 1 week unemployed,living alone,nicotine dependence,no legal issue,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 plan to go to rehab after detox Exam Limitations: No Limitations - Ebola screening Have you traveled outside of the country in the last 21 days: No Have you had contact with anyone from an Ebola affected area: No Have you been sick,other than usual withdrawal symptoms: No Do you have a fever: No - Review of Systems Constitutional: Loss of Appetite, Malaise, Night Sweats, Changes in sleep EENT: reports: Tearing, Nose Congestion Respiratory: reports: No Symptoms reported Cardiac: reports: No Symptoms Reported GI: reports: Nausea, Poor Appetite, Vomiting, Abdominal cramping : reports: No Symptoms Reported Musculoskeletal: reports: Joint Pain, Muscle Pain (pain in the right knee) Integumentary: reports: Dryness Neuro: reports: Tremors Endocrine: reports: No Symptoms Reported Hematology: reports: No Symptoms Reported Psychiatric: reports: No Sypmtoms Reported, Judgement Intact, Mood/Affect Appropiate, Orientated x3 (schizoaffective disorder) Patient History - Patient Medical History Hx Anemia: No Hx Asthma: No Hx Chronic Obstructive Pulmonary Disease (COPD): No Hx Cancer: No Hx Cardiac Disorders: No Hx Congestive Heart Failure: No Hx Hypertension: Yes (when drinking) Hx Hypercholesterolemia: No Hx Pacemaker: No HX Cerebrovascular Accident: No Hx Seizures: No Hx Dementia: No Hx Diabetes: No Hx Gastrointestinal Disorders: No Hx Liver Disease: No Hx Genitourinary Disorders: No Hx Sexually Transmitted Disorders: No Hx Renal Disease (ESRD): No Hx Thyroid Disease: No Hx Human Immunodeficiency Virus (HIV): No (last negative) Hx Hepatitis C: No Hx Depression: Yes (hospitalized 2 years ago) Hx Suicide Attempt: No (denies) Hx Bipolar Disorder: No Hx Schizophrenia: Yes (SCHIZOAFFECTIVE) Other Medical History: no suicidal,nohomicidal - Patient Surgical History Past Surgical History: Yes Hx Neurologic Surgery: No Hx Cataract Extraction: No Hx Cardiac Surgery: No Hx Lung Surgery: No Hx Breast Surgery: No Hx Breast Biopsy: No Hx Abdominal Surgery: No Hx Appendectomy: No Hx Cholecystectomy: No Hx Genitourinary Surgery: No Hx Section: No Hx Orthopedic Surgery: Yes (torn ligament, right knee in 1985) Anesthesia Reaction: No - PPD History Previous Implant?: Yes Documented Results: Negative w/o proof Implanted On Prior [facility] Admission?: No Date: 02/17/19 Results: 0 mm PPD to be Administered?: No - Smoking Cessation Smoking history: Current some day smoker Have you smoked in the past 12 months: Yes Aproximately how many cigarettes per day: 4 Cigars Per Day: 0 Hx Chewing Tobacco Use: No Initiated information on smoking cessation: Yes 'Breaking Loose' booklet given: 11/17/19 - Substance & Tx. History Hx Alcohol Use: Yes Hx Substance Use: Yes Substance Use Type: Alcohol, Cocaine Hx Substance Use Treatment: Yes ([facility] 10/16/19 to 10/21/19) - Substances abused Alcohol Substance route: Oral Frequency: Daily Amount used: 3 pints of vodka/6 packs of 16 ozs of beer Age of first use: 14 Date of last use: 11/17/19 Crack Substance route: Smoking Frequency: Daily Amount used: 100$ Age of first use: 37 Date of last use: 11/17/19 Admission Physical Exam BHS - Physical General Appearance: Yes: Moderate Distress, Tremorous, Irritable, Sweating, Anxious HEENTM: Yes: Normal ENT Inspection, CLAUDINE, Pharynx Normal Respiratory: Yes: Lungs Clear, Normal Breath Sounds, No Respiratory Distress Neck: Yes: Within Normal Limits, Supple, Trachea in good position Breast: Yes: Within Normal Limits Cardiology: Yes: Within Normal Limits, Regular Rhythm, Regular Rate, S1, S2 Abdominal: Yes: Within Normal Limits, Normal Bowel Sounds, Non Tender, Flat, Soft Genitourinary: Yes: Within Normal Limits Back: Yes: Muscle Spasm Musculoskeletal: Yes: Back pain (pain in the right knee), Muscle Pain Extremities: Yes: Tremors 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 NML intact, Fully Oriented, Alert, Motor Strength 5/5 Lymphatic: Yes: Within Normal Limits - Diagnostic (1) Alcohol dependence with uncomplicated withdrawal Current Visit: Yes Status: Acute (2) Syncope Current Visit: Yes Status: Acute (3) Cocaine dependence Current Visit: Yes Status: Acute Qualifiers: Substance use status: uncomplicated Qualified Code(s): F14.20 - Cocaine dependence, uncomplicated (4) Dehydration Current Visit: No Status: Acute (5) Schizoaffective disorder Current Visit: Yes Status: Chronic Qualifiers: Schizoaffective disorder type: unspecified Qualified Code(s): F25.9 - Sc hizoaffective disorder, unspecified Comment: By history. (6) Arthritis of right knee Current Visit: Yes Status: Acute (7) Ambulates with cane Current Visit: Yes Status: Acute (8) History of right knee surgery Current Visit: Yes Status: Acute Cleared for Admission [facility] - Detox or Rehab [facility] Level of Care: Medically Managed Detox Regimen/Protocol: Librium Breathalyzer - Breathalyzer Breathalyzer: 0.009 Urine Drug Screen - Test Device Lot number: [id number] Expiration date: 04/13/21 - Control Is test valid?: Yes - Results Drug screen NEGATIVE: No Urine drug screen results: [facility]-Cocaine Inpatient Rehab Admission - Rehab Decision to Admit Inpatient rehab admission?: No
[2019-11-17] MEDS ORDERED: MAG HYDROX/AL HYDROX/SIMETH 30 ML UNIT-DOSE CUP PO PRN (09:54)
[2019-11-17] MEDS ORDERED: ONDANSETRON *ODT* 4 MG TABLET SL ONE (09:54)
[2019-11-17] MEDS ORDERED: MAGNESIUM HYDROX 2400MG/30ML ORAL SUSPENSION 30 ML CUP PO PRN (09:54)
[2019-11-17] MEDS ORDERED: BISMUTH SUBSALICYLATE 524 MG/30 ML UD PO PRN (09:54)
[2019-11-17] MEDS ORDERED: MAGNESIUM CITRATE 300 ML BOTTLE PO PRN (09:54)
[2019-11-17] MEDS ORDERED: chlordiazePOXIDE HCL 25 MG CAPSULE PO PRN (09:54)
[2019-11-17] MEDS ORDERED: MENTHOL/PHENOL 1 EACH UD MM PRN (09:54)
[2019-11-17] MEDS ORDERED: NICOTINE POLACRILEX 2 MG GUM BUC PRN (09:54)
[2019-11-17] MEDS ORDERED: ACETAMINOPHEN 325 MG TABLET (FP) PO PRN ×2 (09:54)
[2019-11-17 10:46] VITALS: BMI 22.8
[2019-11-17] MEDS: chlordiazePOXIDE HCL 25 MG CAPSULE PO SCH ×3 (12:46→22:17)
[2019-11-17] MEDS: PRENATAL VITAMINS W/ FOLIC ACID TABLET (FP) PO SCH (12:46)
[2019-11-17] MEDS: hydrOXYzine PAMOATE 25 MG CAPSULE (FP) PO SCH ×4 (12:46→22:19)
[2019-11-17] MEDS: NICOTINE 7 MG/24 HOURS TOPICAL PATCH TD SCH (12:51)
--- NOTE | 2019-11-17 13:45 | CONSULT ---
[facility] Psychiatric Consult - Data Date of interview: 11/17/19 Admission source: [facility] Identifying data: Patient is a 59 year old Black male, father of 2 children, unemployed, domiciled in the [place], and is supported by public assistance. This is one of multiple admissions for patient. Patient admitted to for alcohol and cocaine dependence. Substance Abuse History: - Smoking Cessation. Smoking history: Current some day smoker. Have you smoked in the past 12 months: Yes. Aproximately how many cigarettes per day: 4. Cigars Per Day: 0. Hx Chewing Tobacco Use: No. Initiated information on smoking cessation: Yes. 'Breaking Loose' booklet given: 11/17/19. - Substance & Tx. History. Hx Alcohol Use: Yes. Hx Substance Use: Yes. Substance Use Type: Alcohol, Cocaine. Hx Substance Use Treatment: Yes ([facility] 10/16/19 to 10/21/19). - Substances abused. Alcohol. Substance route: Oral. Frequency: Daily. Amount used: 3 pints of vodka/6 packs of 16 ozs of beer. Age of first use: 14. Date of last use: 11/17/19. Crack. S ubstance route: Smoking. Frequency: Daily. Amount used: 100$. Age of first use: 37. Date of last use: 11/17/19 Medical History: Significant for hypertension (when intoxicated with ETOH), hypercholesterolemia, anemia, osteoarthritis, history of fracture left knee(casted) and arthroscopic surgery for torn ligament right knee in 1985) Psychiatric History: Patient reports h/o multiple psychiatric hospitalizations at various institutions including [facility] in [place], [place], [facility] in [place] and [facility]. Diagnosis of schizoaffective disorder. Stated to promotion writer that he no longer receives care from [facility]. Instead [facility] + Remeron 15mg HS. Mr. Stallworth past medications has consisted of Risperdal 1mg BID + Cogentin 0.5mg + Depakote 250mg BID+ Trazodone 100mg HS. At present patient presents as tired but is reporting difficulty sleeping. Patient denies auditory/visual hallucinations, suicidal/homicidal ideation. Psychiatric Findings - Problem List ([place] 1, 2,3) (1) Alcohol dependence with uncomplicated withdrawal Current Visit: Yes Status: Acute (2) Cocaine dependence Current Visit: Yes Status: Acute Qualifiers: Substance use status: uncomplicated Qualified Code(s): F14.20 - Cocaine dependence, uncomplicated (3) Substance-induced sleep disorder Current Visit: Yes Status: Acute (4) Schizoaffective disorder Current Visit: Yes Status: Chronic Qualifiers: Schizoaffective disorder type: unspecified Qualified Code(s): F25.9 - Schizoaffective disorder, unspecified Comment: By history. - Initial Treatment Plan Initial Treatment Plan: Psychoeducation provided. Detoxification in progress. Will order Seroquel 100mg HS + Remeron 15mg HS. Benefits and side effects discussed. Verbal consent given.
[2019-11-17] MEDS: QUEtiapine FUMARATE 100 MG TABLET (FP) PO SCH (22:18)
[2019-11-17] MEDS: MIRTAZAPINE 15 MG TABLET (FP) PO SCH (22:18)
[2019-11-17] MEDS: THIAMINE HCL 100 MG TABLET (FP) PO SCH (22:18)
[2019-11-17] MEDS: MELATONIN 5 MG TABLETS PO SCH (22:24)
[2019-11-18] MEDS: chlordiazePOXIDE HCL 25 MG CAPSULE PO SCH ×4 (05:50→22:34)
[2019-11-18] MEDS: hydrOXYzine PAMOATE 25 MG CAPSULE (FP) PO SCH ×5 (05:51→22:34)
[2019-11-18] MEDS: PRENATAL VITAMINS W/ FOLIC ACID TABLET (FP) PO SCH (10:20)
[2019-11-18] MEDS: NICOTINE 7 MG/24 HOURS TOPICAL PATCH TD SCH (10:21)
--- NOTE | 2019-11-18 10:35 | PN ---
S CIWA - CIWA Score Nausea/Vomitin-Mild Nausea/No Vomiting Muscle Tremors: 3 Anxiety: 3 Agitation: 2 Paroxysmal Sweats: 1-Minimal Palms Moist Orientation: 0-Oriented Tacttile Disturbances: 1-Very Mild Itch/Numbness Auditory Disturbances: 0-None Visual Disturbances: 1-Very Mild Sensitivity Headache: 1-Very Mild CIWA-Ar Total Score: 13 BHS Progress Note (SOAP) Subjective: 59 years old male admitted on 11/17/19 for alcohol withdrawal sx management treating with librium detox regiment ambulating with cane slow steady feeling tired limited conversation with staff ensure 120 ml po tid Objective: 11/18/19 10:36 Vital Signs - 24 hr 11/17/19 11/17/19 11/17/19 12:43 16:37 20:43 Temperature 97.3 F L 97.1 F L 98 F Pulse Rate 82 108 H 95 H Respiratory 18 20 18 Rate Blood Pressure 143/95 117/85 112/81 O2 Sat by Pulse 99 96 Oximetry (%) 11/18/19 11/18/19 11/18/19 06:09 06:30 08:41 Temperature 96.6 F L 96.9 F L Pulse Rate 79 93 H Respiratory 18 18 18 Rate Blood Pressure 122/83 112/68 O2 Sat by Pulse 97 Oximetry (%) 11/18/19 10:36 lab pending Assessment: 11/18/19 10:37 alcohol withdrawal Plan: librium regiment
[2019-11-18 11:15] LABS: POTASSIUM 3.7 mmol/L (3.5-5.1)
[2019-11-18 11:24] LABS: HEMATOCRIT 37.2 % (35.4-49); HEMOGLOBIN 12.4 GM/dL (11.7-16.9); MCH 33.1 pg (25.7-33.7); MCHC 33.4 g/dl (32.0-35.9); MEAN PLT VOLUME 8.4 fl (7.5-11.1); PLATELET COUNT 224 K/MM3 (134-434); RBC 3.76 M/mm3 (4.00-5.60); RDW 13.8 % (11.9-15.9); WHITE BLOOD COUNT 2.6 K/mm3 (4.0-10.0)
[2019-11-18 11:26] LABS: ALBUMIN 3.1 g/dl (3.4-5.0); BILIRUBIN,TOTAL 1.2 mg/dL (0.2-1); BLOOD UREA NITROGEN 15.2 mg/dL (7-18); CALCIUM 8.5 mg/dL (8.5-10.1); TOT PROT 5.6 g/dl (6.4-8.2)
[2019-11-18] MEDS: QUEtiapine FUMARATE 100 MG TABLET (FP) PO SCH (22:34)
[2019-11-18] MEDS: MELATONIN 5 MG TABLETS PO SCH (22:34)
[2019-11-18] MEDS: MIRTAZAPINE 15 MG TABLET (FP) PO SCH (22:34)
[2019-11-18] MEDS: THIAMINE HCL 100 MG TABLET (FP) PO SCH (22:34)
[2019-11-19] MEDS: chlordiazePOXIDE HCL 25 MG CAPSULE PO SCH ×4 (05:48→22:32)
[2019-11-19] MEDS: hydrOXYzine PAMOATE 25 MG CAPSULE (FP) PO SCH ×5 (05:48→22:32)
[2019-11-19] MEDS: PRENATAL VITAMINS W/ FOLIC ACID TABLET (FP) PO SCH (10:23)
[2019-11-19] MEDS: NICOTINE 7 MG/24 HOURS TOPICAL PATCH TD SCH (10:23)
--- NOTE | 2019-11-19 11:33 | PN ---
S CIWA - CIWA Score Nausea/Vomitin-Mild Nausea/No Vomiting Muscle Tremors: 3 Anxiety: 2 Agitation: 1-Slight > Activity Paroxysmal Sweats: 1-Minimal Palms Moist Orientation: 0-Oriented Tacttile Disturbances: 1-Very Mild Itch/Numbness Auditory Disturbances: 0-None Visual Disturbances: 1-Very Mild Sensitivity Headache: 1-Very Mild CIWA-Ar Total Score: 11 BHS Progress Note (SOAP) Subjective: 59 years old male admitted on 11/17/19 for alcohol withdrawal sx management treating with librium detox regiment ambulating with cane slow steady ate breakfast resting in bed alert limited conversation with staff Objective: 11/19/19 11:32 Vital Signs - 24 hr 11/18/19 11/18/19 11/18/19 12:42 16:49 20:40 Temperature 96.9 F L 97.3 F L 97.1 F L Pulse Rate 68 96 H 107 H Respiratory 18 16 16 Rate Blood Pressure 142/84 137/100 126/91 O2 Sat by Pulse 98 Oximetry (%) 11/18/19 11/19/19 11/19/19 21:28 00:30 03:30 Temperature Pulse Rate Respiratory 18 18 Rate Blood Pressure O2 Sat by Pulse 97 Oximetry (%) 11/19/19 11/19/19 06:12 08:43 Temperature 97.3 F L 97.8 F Pulse Rate 88 89 Respiratory 18 20 Rate Blood Pressure 134/87 140/99 O2 Sat by Pulse 98 Oximetry (%) 11/19/19 11:35 Laboratory Tests 11/17/19 11/18/19 11/18/19 11:00 07:00 07:00 WBC 2.6 L RBC 3.76 L Hgb 12.4 Hct 37.2 MCV 99.0 H MCH 33.1 MCHC 33.4 RDW 13.8 Plt Count 224 D MPV 8.4 Sodium Potassium Chloride Carbon Dioxide Anion Gap BUN Creatinine Est GFR (CKD-EPI)AfAm Est GFR (CKD-EPI)NonAf Random Glucose Calcium Total Bilirubin AST ALT Alkaline Phosphatase Total Protein Albumin Syphilis Serology Non-reactive COVID-19 ([facility]) Not detected 11/18/19 07:00 WBC RBC Hgb Hct MCV MCH MCHC RDW Plt Count MPV Sodium 138 Potassium 3.7 Chloride 102 Carbon Dioxide 30 Anion Gap 7 L BUN 15.2 Creatinine 1.0 Est GFR (CKD-EPI)AfAm 95.06 Est GFR (CKD-EPI)NonAf 82.02 Random Glucose 154 H Calcium 8.5 Total Bilirubin 1.2 H AST 87 H ALT 46 Alkaline Phosphatase 49 Total Protein 5.6 L Albumin 3.1 L Syphilis Serology COVID-19 ([facility]) chronic leukocytopenia random glucose elevation 11/19/19 11:37 fasting glucose in AM 11/19/19 11:39 discontinue ensure begin glucerna 1 can po tid Assessment: 11/19/19 11:39 alcohol withdrawal Plan: librium regiment
[2019-11-19] MEDS: IBUPROFEN 400 MG TABLET (FP) PO PRN (15:32)
[2019-11-19] MEDS: MIRTAZAPINE 15 MG TABLET (FP) PO SCH (22:32)
[2019-11-19] MEDS: QUEtiapine FUMARATE 100 MG TABLET (FP) PO SCH (22:32)
[2019-11-19] MEDS: MELATONIN 5 MG TABLETS PO SCH (22:32)
[2019-11-19] MEDS: THIAMINE HCL 100 MG TABLET (FP) PO SCH (22:32)
[2019-11-20] MEDS ORDERED: chlordiazePOXIDE HCL 10 MG CAPSULE PO PRN
[2019-11-20] MEDS: hydrOXYzine PAMOATE 25 MG CAPSULE (FP) PO SCH ×3 (05:28→14:24)
[2019-11-20] MEDS: chlordiazePOXIDE HCL 10 MG CAPSULE PO SCH ×4 (05:28→22:13)
[2019-11-20] MEDS: NICOTINE 7 MG/24 HOURS TOPICAL PATCH TD SCH (10:14)
[2019-11-20] MEDS: PRENATAL VITAMINS W/ FOLIC ACID TABLET (FP) PO SCH (10:14)
--- NOTE | 2019-11-20 11:07 | PN ---
S CIWA - CIWA Score Nausea/Vomitin-Mild Nausea/No Vomiting Muscle Tremors: 2 Anxiety: 2 Agitation: 0-Normal Activity Paroxysmal Sweats: 1-Minimal Palms Moist Orientation: 0-Oriented Tacttile Disturbances: 0-None Auditory Disturbances: 0-None Visual Disturbances: 2-Mild Sensitivity Headache: 0-None Present CIWA-Ar Total Score: 8 BHS Progress Note (SOAP) Subjective: 59 years old male admitted on 11/17/19 for alcohol withdrawal sx management treating with librium detox regiment ambulating with cane slow steady reports will return to orthopedic for right knee replacement surgery offer concha bandage "no use" Objective: 11/20/19 11:07 Vital Signs - 24 hr 11/19/19 11/19/19 11/20/19 12:41 16:45 06:08 Temperature 97.3 F L 97.8 F 97.3 F L Pulse Rate 83 89 82 Respiratory 18 16 18 Rate Blood Pressure 132/89 144/99 125/84 O2 Sat by Pulse 96 95 Oximetry (%) 11/20/19 08:32 Temperature 97.7 F Pulse Rate 80 Respiratory 18 Rate Blood Pressure 127/91 O2 Sat by Pulse Oximetry (%) Laboratory Tests 11/17/19 11/18/19 11/18/19 11:00 07:00 07:00 WBC 2.6 L RBC 3.76 L Hgb 12.4 Hct 37.2 MCV 99.0 H MCH 33.1 MCHC 33.4 RDW 13.8 Plt Count 224 D MPV 8.4 Sodium Potassium Chloride Carbon Dioxide Anion Gap BUN Creatinine Est GFR (CKD-EPI)AfAm Est GFR (CKD-EPI)NonAf Random Glucose Calcium Total Bilirubin AST ALT Alkaline Phosphatase Total Protein Albumin Syphilis Serology Non-reactive COVID-19 ([facility]) Not detected 11/18/19 07:00 WBC RBC Hgb Hct MCV MCH MCHC RDW Plt Count MPV Sodium 138 Potassium 3.7 Chloride 102 Carbon Dioxide 30 Anion Gap 7 L BUN 15.2 Creatinine 1.0 Est GFR (CKD-EPI)AfAm 95.06 Est GFR (CKD-EPI)NonAf 82.02 Random Glucose 154 H Calcium 8.5 Total Bilirubin 1.2 H AST 87 H ALT 46 Alkaline Phosphatase 49 Total Protein 5.6 L Albumin 3.1 L Syphilis Serology COVID-19 ([facility]) lab noted random glucose elevation fasting glucose pending 11/20/19 11:08 Assessment: 11/20/19 11:08 alcohol withdrawal Plan: librium regiment
[2019-11-20] MEDS: IBUPROFEN 400 MG TABLET (FP) PO PRN (14:28)
[2019-11-20] MEDS: METHOCARBAMOL 500 MG TABLET PO PRN (18:06)
[2019-11-20] MEDS: MIRTAZAPINE 15 MG TABLET (FP) PO SCH (22:13)
[2019-11-20] MEDS: QUEtiapine FUMARATE 100 MG TABLET (FP) PO SCH (22:13)
[2019-11-20] MEDS: MELATONIN 5 MG TABLETS PO SCH (22:13)
[2019-11-20] MEDS: THIAMINE HCL 100 MG TABLET (FP) PO SCH (22:13)
[2019-11-21] MEDS: chlordiazePOXIDE HCL 10 MG CAPSULE PO SCH ×2 (06:17→17:52)
[2019-11-21] MEDS ORDERED: METHYL SALICYLATE/MENTHOL OINT 30 GM TUBE TP ONE (10:23)
[2019-11-21] MEDS: PRENATAL VITAMINS W/ FOLIC ACID TABLET (FP) PO SCH (10:25)
[2019-11-21] MEDS: METHOCARBAMOL 500 MG TABLET PO PRN (10:25)
[2019-11-21] MEDS: NICOTINE 7 MG/24 HOURS TOPICAL PATCH TD SCH (10:26)
--- NOTE | 2019-11-21 11:44 | PN ---
S CIWA - CIWA Score Nausea/Vomitin-No Nausea/No Vomiting Muscle Tremors: 1-None Visible, but [place] Anxiety: 1-Mildly Anxious Agitation: 1-Slight > Activity Paroxysmal Sweats: No Perspiration Orientation: 0-Oriented Tacttile Disturbances: 0-None Auditory Disturbances: 0-None Visual Disturbances: 2-Mild Sensitivity Headache: 0-None Present CIWA-Ar Total Score: 5 BHS Progress Note (SOAP) Subjective: 59 years old male admitted on 11/17/19 for alcohol withdrawal sx management treating with libirum detox regiment feeling better today from alcohol withdrawal but right knee needed replacement that orthopedic at [facility] will be scheduled currently ambulating with cane slow steady Objective: 11/21/19 12:30 Vital Signs - 24 hr 11/20/19 11/20/19 11/20/19 15:50 16:54 20:22 Temperature 97.5 F L 97.1 F L 97.3 F L Pulse Rate 73 80 79 Respiratory 16 18 18 Rate Blood Pressure 124/73 142/99 145/99 O2 Sat by Pulse 96 99 Oximetry (%) 11/21/19 09:03 Temperature 97.3 F L Pulse Rate 92 H Respiratory 18 Rate Blood Pressure 140/98 O2 Sat by Pulse Oximetry (%) Laboratory Tests 11/17/19 11/18/19 11/18/19 11:00 07:00 07:00 WBC 2.6 L RBC 3.76 L Hgb 12.4 Hct 37.2 MCV 99.0 H MCH 33.1 MCHC 33.4 RDW 13.8 Plt Count 224 D MPV 8.4 Sodium Potassium Chloride Carbon Dioxide Anion Gap BUN Creatinine Est GFR (CKD-EPI)AfAm Est GFR (CKD-EPI)NonAf Random Glucose Calcium Total Bilirubin AST ALT Alkaline Phosphatase Total Protein Albumin Syphilis Serology Non-reactive COVID-19 ([facility]) Not detected 11/18/19 07:00 WBC RBC Hgb Hct MCV MCH MCHC RDW Plt Count MPV Sodium 138 Potassium 3.7 Chloride 102 Carbon Dioxide 30 Anion Gap 7 L BUN 15.2 Creatinine 1.0 Est GFR (CKD-EPI)AfAm 95.06 Est GFR (CKD-EPI)NonAf 82.02 Random Glucose 154 H Calcium 8.5 Total Bilirubin 1.2 H AST 87 H ALT 46 Alkaline Phosphatase 49 Total Protein 5.6 L Albumin 3.1 L Syphilis Serology COVID-19 ([facility]) 11/21/19 12:51 long history of leudocytopenia glucose elevation fasting glucose pending 11/21/19 12:51 Assessment: 11/21/19 12:52 alcohol withdrawal anxiety Plan: librium regiment vistaril 50 mg po x 1
[2019-11-21] MEDS ORDERED: hydrOXYzine PAMOATE 50 MG CAPSULE (FP) PO ONE (12:40)
[2019-11-21] MEDS ORDERED: METHYL SALICYLATE/MENTHOL OINT 30 GM TUBE TP SCH (14:00)
[2019-11-21] MEDS ORDERED: METOPROLOL TARTRATE 50 MG TABLET (FP) PO ONE (17:24)
--- NOTE | 2019-11-21 17:24 | PN ---
[facility] Note Note: Vital Signs (72 hours) 11/18/19 11/18/19 11/19/19 20:40 21:28 00:30 Temperature 97.1 F L Pulse Rate 107 H Respiratory 16 18 Rate Blood Pressure 126/91 O2 Sat by Pulse 97 Oximetry (%) 11/19/19 11/19/19 11/19/19 03:30 06:12 08:43 Temperature 97.3 F L 97.8 F Pulse Rate 88 89 Respiratory 18 18 20 Rate Blood Pressure 134/87 140/99 O2 Sat by Pulse 98 Oximetry (%) 11/19/19 11/19/19 11/19/19 08:52 12:41 16:45 Temperature 97.7 F 97.3 F L 97.8 F Pulse Rate 81 83 89 Respiratory 16 18 16 Rate Blood Pressure 144/99 132/89 144/99 O2 Sat by Pulse 98 96 Oximetry (%) 11/20/19 11/20/19 11/20/19 06:08 08:32 15:50 Temperature 97.3 F L 97.7 F 97.5 F L Pulse Rate 82 80 73 Respiratory 18 18 16 Rate Blood Pressure 125/84 127/91 124/73 O2 Sat by Pulse 95 96 Oximetry (%) 11/20/19 11/20/19 11/21/19 16:54 20:22 09:03 Temperature 97.1 F L 97.3 F L 97.3 F L Pulse Rate 80 79 92 H Respiratory 18 18 18 Rate Blood Pressure 142/99 145/99 140/98 O2 Sat by Pulse 99 Oximetry (%) 11/21/19 11/21/19 12:30 16:35 Temperature 97.7 F Pulse Rate 80 Respiratory 18 Rate Blood Pressure 146/97 140/100 O2 Sat by Pulse 97 Oximetry (%) called by nursing for pt w/ HTN , PMHX HTN not on meds . P : metoprolol 25 mg x once .
[2019-11-21 19:53] LABS: URINE APPEARANCE CLEAR; URINE BILIRUBIN NEGATIVE (NEGATIVE); URINE COLOR YELLOW; URINE GLUCOSE (UA) NEGATIVE (NEGATIVE); URINE KETONE NEGATIVE (NEGATIVE); URINE LEUK ESTERASE NEGATIVE (NEGATIVE); URINE NITRITE NEGATIVE (NEGATIVE); URINE PROTEIN NEGATIVE (NEGATIVE)
[2019-11-21] MEDS: MIRTAZAPINE 15 MG TABLET (FP) PO SCH (22:06)
[2019-11-21] MEDS: MELATONIN 5 MG TABLETS PO SCH (22:06)
[2019-11-21] MEDS: ASPIRIN 81 MG CHEWABLE TABLETS PO SCH (22:06)
[2019-11-21] MEDS: THIAMINE HCL 100 MG TABLET (FP) PO SCH (22:06)
[2019-11-21] MEDS: QUEtiapine FUMARATE 100 MG TABLET (FP) PO SCH (22:06)
[2019-11-22] MEDS ORDERED: chlordiazePOXIDE HCL 10 MG CAPSULE PO ONE (05:00)
--- NOTE | 2019-11-22 10:13 | DS ---
[facility] Detox Discharge Summary Admission Date: 11/17/19 Discharge Date: 11/22/19 - History Present History: Alcohol Dependence - Physical Exam Results Vital Signs: Vital Signs Temperature 97.3 F L 11/22/19 08:48 Pulse Rate 92 H 11/22/19 08:48 Respiratory Rate 11/22/19 08:48 Blood Pressure 133/98 11/22/19 08:48 O2 Sat by Pulse Oximetry (%) 97 11/22/19 05:23 Pertinent Admission Physical Exam Findings: PE Gnl: WDWN, in no distress MS: asleep, easily awoken, alert, follows commands Motor: intact Coordination: nl Laboratory Tests 11/17/19 11/18/19 11/18/19 11:00 07:00 07:00 WBC 2.6 L RBC 3.76 L Hgb 12.4 Hct 37.2 MCV 99.0 H MCH 33.1 MCHC 33.4 RDW 13.8 Plt Count 224 D MPV 8.4 Sodium Potassium Chloride Carbon Dioxide Anion Gap BUN Creatinine Est GFR (CKD-EPI)AfAm Est GFR (CKD-EPI)NonAf Random Glucose Fasting Glucose Calcium Total Bilirubin AST ALT Alkaline Phosphatase Total Protein Albumin Urine Color Urine Appearance Urine pH Ur Specific [place] Urine Protein Urine Glucose (UA) Urine Ketones Urine Blood Urine Nitrite Urine Bilirubin Urine Urobilinogen Ur Leukocyte Esterase Syphilis Serology Non-reactive COVID-19 (LAMAR) Not detected 11/18/19 11/21/19 11/21/19 07:00 09:45 18:14 WBC RBC Hgb Hct MCV MCH MCHC RDW Plt Count MPV Sodium 138 Potassium 3.7 Chloride 102 Carbon Dioxide 30 Anion Gap 7 L BUN 15.2 Creatinine 1.0 Est GFR (CKD-EPI)AfAm 95.06 Est GFR (CKD-EPI)NonAf 82.02 Random Glucose 154 H Fasting Glucose 91 Calcium 8.5 Total Bilirubin 1.2 H AST 87 H ALT 46 Alkaline Phosphatase 49 Total Protein 5.6 L Albumin 3.1 L Urine Color Yellow Urine Appearance Clear Urine pH 7.0 Ur Specific [place] 1.011 Urine Protein Negative Urine Glucose (UA) Negative Urine Ketones Negative Urine Blood Negative Urine Nitrite Negative Urine Bilirubin Negative Urine Urobilinogen 1.0 Ur Leukocyte Esterase Negative Syphilis Serology COVID-19 (LAMAR) Home Medication List Medication Instructions Recorded Confirmed Type Aspirin [ASA -] 81 mg PO BID 07/20/19 11/17/19 History Mirtazapine [Remeron -] 15 mg PO HS 07/20/19 11/17/19 History Quetiapine Fumarate [Seroquel] 100 mg PO HS 07/20/19 11/17/19 History Ibuprofen [Motrin -] 600 mg PO TID PRN 11/17/19 11/17/19 History Active Medications Generic Name Dose Route Start Last Admin Trade Name Freq PRN Reason Stop Dose Admin Acetaminophen 650 mg 11/17/19 09:54 11/19/19 18:00 Tylenol - PO 650 mg Q6H PRN Administration PAIN LEVEL 4 - 6 Acetaminophen 650 mg 11/17/19 09:54 Tylenol - PO Q6H PRN FEVER Al Hydroxide/Mg Hydroxide 30 ml 11/17/19 09:54 Mylanta Oral Suspension - PO Q6H PRN DYSPEPSIA Aspirin 81 mg 11/21/19 22:00 11/21/19 22:06 Asa - PO 81 mg BID CHRISTAIN Administration Bismuth Subsalicylate 524 mg 11/17/19 09:54 Pepto-Bismol - PO Q1H PRN DIARRHEA Eucalyptus/Menthol/Phenol/Sorbitol 1 each 11/17/19 09:54 Cepastat Lozenge - MM 11/23/19 09:55 Q4H PRN SORE THROAT Ibuprofen 400 mg 11/17/19 09:54 11/20/19 14:28 Motrin - PO 400 mg Q6H PRN Administration PAIN LEVEL 1 - 3 Magnesium Citrate 300 ml 11/17/19 09:54 Citroma - PO Q48H PRN CONSTIPATION Magnesium Hydroxide 30 ml 11/17/19 09:54 Milk Of Magnesia - PO PRN PRN CONSTIPATION Melatonin 5 mg 11/17/19 22:00 11/21/19 22:06 Melatonin PO 5 mg HS CHRISTIAN Administration Methocarbamol 500 mg 11/17/19 09:54 11/21/19 10:25 Robaxin - PO 11/23/19 09:55 500 mg Q6H PRN Administration MUSCLE SPASMS Mirtazapine 15 mg 11/17/19 22:00 11/21/19 22:06 Remeron - PO 15 mg HS CHRISTIAN Administration Nicotine 7 mg 11/17/19 10:00 11/21/19 10:26 Nicoderm Patch - TD Not Given DAILY CHRISTIAN Nicotine Polacrilex 2 mg 11/17/19 09:54 Nicorette Gum - BUC Q2H PRN NICOTINE REPLACEMENT RX Multivit/Folic Acid/Iron 1 tab 11/17/19 10:00 11/21/19 10:25 Vitamins (Sjr) - PO 1 tab DAILY CHRISTIAN Administration Quetiapine Fumarate 100 mg 11/17/19 22:00 11/21/19 22:06 Seroquel - PO 100 mg HS CHRISTIAN Administration Thiamine HCl 100 mg 11/17/19 22:00 11/21/19 22:06 Vitamin B1 - PO 100 mg HS CHRISTIAN Administration - Treatment Hospital Course: Detox Protocol Followed, Detoxed Safely, Responded well, Discharged Condition Good Patient has Accepted a Rehab Referral to: [facility] - Medication Discharge Medications: Ambulatory Orders Aspirin [ASA -] 81 mg PO BID 07/20/19 Mirtazapine [Remeron -] 15 mg PO HS 07/20/19 Quetiapine Fumarate [Seroquel] 100 mg PO HS 07/20/19 Ibuprofen [Motrin -] 600 mg PO TID PRN 11/17/19
[2019-11-22] MEDS: ASPIRIN 81 MG CHEWABLE TABLETS PO SCH (10:25)
[2019-11-22] MEDS: PRENATAL VITAMINS W/ FOLIC ACID TABLET (FP) PO SCH (10:25)
[2019-11-22] MEDS: NICOTINE 7 MG/24 HOURS TOPICAL PATCH TD SCH (10:26)
[2019-11-22] MEDS: IBUPROFEN 400 MG TABLET (FP) PO PRN ×2 (11:55→17:12)
[2019-11-22 12:43] VITALS: BP 141/98; PULSE 89; TEMP 97.7
[2019-11-22] MEDS: METHOCARBAMOL 500 MG TABLET PO PRN (17:11)
== END 2019-11-22 17:41 | disposition other institution (70) | DRG 774 ==
LOC: YASAS 09:23 → Y3N 10:35
PROVIDERS: ADMIT Allergy & Immunology; ATTEND Allergy & Immunology
PROC: HZ2ZZZZ Detoxification Services for Substance Abuse Treatment (ICD-10-PCS; principal; 2019-11-17)
DX: F10.230 Alcohol dependence with withdrawal, uncomplicated (principal); F14.20 Cocaine dependence, uncomplicated; F17.210 Nicotine dependence, cigarettes, uncomplicated; F25.9 Schizoaffective disorder, unspecified; F19.282 Other psychoactive substance dependence with psychoactive substance-induced sleep disorder; F41.9 Anxiety disorder, unspecified; D72.819 Decreased white blood cell count, unspecified; D64.9 Anemia, unspecified; I10 Essential (primary) hypertension; E78.00 Pure hypercholesterolemia, unspecified; E86.0 Dehydration; R73.9 Hyperglycemia, unspecified; M17.11 Unilateral primary osteoarthritis, right knee; Z87.81 Personal history of (healed) traumatic fracture; Z99.89 Dependence on other enabling machines and devices; Z88.0 Allergy status to penicillin; Z91.018 Allergy to other foods; Z56.0 Unemployment, unspecified
CPT/HCPCS: 36415; 80053; 81003; 82947; 85027; 86780; Q0162; U0003

== ENCOUNTER 2019-11-22 17:30 | Inpatient (IN) | payer OTHER ==
--- NOTE | 2019-11-22 18:19 | HP ---
[facility] Rehab Assess/Revision - Admission History Ad[facility] Rehab [facility] Date of Admission to Rehab: 11/22/2019 - Findings Detox History & Physical reviewed: Yes (Medical and Psych notes reviewed.) Concur with findings: Yes Comments/Additional Findings: Patient w/ early alcohol and benzo remission. EKG ordered and reviewed. QTc wnl. Will continue vistaril and Seroquel. Inpatient Rehab Admission - Rehab Decision to Admit Inpatient rehab admission?: Yes - Initial Determination Are CD services needed?: Yes Free of communicable disease: Yes Not in need of hospitalization: Yes - Rehab Admission Criteria Previous failed treatment: Yes Poor recovery environment: Yes Comorbidities: Yes Lacks judgement: No Patient is meeting Inpatient Rehab admission criteria:: Yes
[2019-11-22] MEDS ORDERED: NICOTINE POLACRILEX 2 MG GUM BUC PRN (18:22)
[2019-11-22] MEDS ORDERED: MAGNESIUM HYDROX 2400MG/30ML ORAL SUSPENSION 30 ML CUP PO PRN (18:22)
[2019-11-22] MEDS ORDERED: MENTHOL/PHENOL 1 EACH UD MM PRN (18:22)
[2019-11-22] MEDS ORDERED: MAG HYDROX/AL HYDROX/SIMETH 30 ML UNIT-DOSE CUP PO PRN (18:22)
[2019-11-22] MEDS ORDERED: LOPERAMIDE HCL 2 MG CAPSULE PO PRN (18:22)
[2019-11-22] MEDS ORDERED: MAGNESIUM CITRATE 300 ML BOTTLE PO PRN (18:22)
[2019-11-22] MEDS ORDERED: guaiFENesin 200 MG/10 ML 10 ML UNIT-DOSE CUPS PO PRN (18:22)
[2019-11-22] MEDS: THIAMINE HCL 100 MG TABLET (FP) PO SCH (21:35)
[2019-11-22] MEDS: ASPIRIN 81 MG CHEWABLE TABLETS PO SCH (21:35)
[2019-11-22] MEDS: hydrOXYzine PAMOATE 25 MG CAPSULE (FP) PO SCH (21:35)
[2019-11-22] MEDS: MELATONIN 5 MG TABLETS PO SCH (21:35)
[2019-11-22] MEDS: MIRTAZAPINE 15 MG TABLET (FP) PO SCH (21:35)
[2019-11-22] MEDS: QUEtiapine FUMARATE 100 MG TABLET (FP) PO SCH (21:35)
[2019-11-23] MEDS: hydrOXYzine PAMOATE 25 MG CAPSULE (FP) PO SCH ×5 (06:50→21:24)
[2019-11-23] MEDS: ASPIRIN 81 MG CHEWABLE TABLETS PO SCH ×2 (10:27→21:24)
[2019-11-23] MEDS: PRENATAL VITAMINS W/ FOLIC ACID TABLET (FP) PO SCH (10:27)
[2019-11-23] MEDS: IBUPROFEN 600 MG TABLET (FP) PO PRN (11:26)
--- NOTE | 2019-11-23 11:36 | EKG ---
Test Reason : Blood Pressure : / mmHG Vent. Rate : 091 BPM Atrial Rate : 091 BPM P-R Int : 214 ms QRS Dur : 088 ms QT Int : 364 ms P-R-T Axes : 043 052 039 degrees QTc Int : 447 ms SINUS RHYTHM WITH 1ST DEGREE A-V BLOCK MINIMAL VOLTAGE CRITERIA FOR LVH, MAY BE NORMAL VARIANT BORDERLINE ECG WHEN COMPARED WITH ECG OF 17-FEB-2019 20:46, [place] INTERVAL HAS INCREASED Confirmed by JUDITH ALTAMIRANO, CARLOS ([id number]) on 11/23/2019 11:36:19 AM Referred By: Confirmed By:CARLOS WONG MD
[2019-11-23] MEDS: QUEtiapine FUMARATE 100 MG TABLET (FP) PO SCH (21:24)
[2019-11-23] MEDS: MELATONIN 5 MG TABLETS PO SCH (21:24)
[2019-11-23] MEDS: MIRTAZAPINE 15 MG TABLET (FP) PO SCH (21:24)
[2019-11-23] MEDS: THIAMINE HCL 100 MG TABLET (FP) PO SCH (21:24)
[2019-11-23] MEDS: P-EPHED 60MG/TRIPROLIDI 2.5MG TABLET PO PRN (21:25)
[2019-11-24] MEDS: hydrOXYzine PAMOATE 25 MG CAPSULE (FP) PO SCH ×5 (07:01→21:15)
[2019-11-24] MEDS: IBUPROFEN 600 MG TABLET (FP) PO PRN ×2 (07:22→18:30)
[2019-11-24] MEDS: PRENATAL VITAMINS W/ FOLIC ACID TABLET (FP) PO SCH (10:16)
[2019-11-24] MEDS: ASPIRIN 81 MG CHEWABLE TABLETS PO SCH ×2 (10:16→21:15)
[2019-11-24] MEDS: P-EPHED 60MG/TRIPROLIDI 2.5MG TABLET PO PRN (14:04)
[2019-11-24] MEDS: THIAMINE HCL 100 MG TABLET (FP) PO SCH (21:15)
[2019-11-24] MEDS: MELATONIN 5 MG TABLETS PO SCH (21:15)
[2019-11-24] MEDS: QUEtiapine FUMARATE 100 MG TABLET (FP) PO SCH (21:16)
[2019-11-24] MEDS: MIRTAZAPINE 15 MG TABLET (FP) PO SCH (21:16)
[2019-11-25] MEDS: hydrOXYzine PAMOATE 25 MG CAPSULE (FP) PO SCH ×5 (06:24→21:42)
[2019-11-25] MEDS: IBUPROFEN 600 MG TABLET (FP) PO PRN ×2 (07:25→21:42)
[2019-11-25] MEDS: ASPIRIN 81 MG CHEWABLE TABLETS PO SCH ×2 (10:39→21:42)
[2019-11-25] MEDS: PRENATAL VITAMINS W/ FOLIC ACID TABLET (FP) PO SCH (10:39)
[2019-11-25] MEDS: METHYL SALICYLATE/MENTHOL OINT 30 GM TUBE TP SCH ×2 (14:00→23:11)
[2019-11-25] MEDS: THIAMINE HCL 100 MG TABLET (FP) PO SCH (21:42)
[2019-11-25] MEDS: MIRTAZAPINE 15 MG TABLET (FP) PO SCH (21:42)
[2019-11-25] MEDS: QUEtiapine FUMARATE 100 MG TABLET (FP) PO SCH (21:42)
[2019-11-25] MEDS: MELATONIN 5 MG TABLETS PO SCH (21:42)
[2019-11-26] MEDS: hydrOXYzine PAMOATE 25 MG CAPSULE (FP) PO SCH ×5 (06:14→21:12)
[2019-11-26] MEDS: IBUPROFEN 600 MG TABLET (FP) PO PRN ×3 (06:15→21:10)
--- NOTE | 2019-11-26 08:05 | PN ---
S Progress Note Note: Patient reports sleeping poorly despite taking Seroquel 100 mg/hs, Remeron 15 mg/hs and Melatonin 5 mg/hs. Will increase Remeron to 30 mg/hs and Melatonin 10 mg/hs prn for insomnia
[2019-11-26] MEDS: ASPIRIN 81 MG CHEWABLE TABLETS PO SCH ×2 (10:36→21:10)
[2019-11-26] MEDS: PRENATAL VITAMINS W/ FOLIC ACID TABLET (FP) PO SCH (10:36)
[2019-11-26] MEDS ORDERED: PT OWN MED DRAWER 7, Y5N ONE (10:40)
[2019-11-26] MEDS: METHYL SALICYLATE/MENTHOL OINT 30 GM TUBE TP SCH ×2 (10:40→21:59)
[2019-11-26] MEDS ORDERED: COLLOIDAL OATMEAL 1 BAR EACH TP PRN (11:54)
[2019-11-26] MEDS ORDERED: MASKS NR ONE (14:00)
[2019-11-26] MEDS: SODIUM CHLORIDE NASAL SPRAY 44 ML BOTTLE NS PRN (14:15)
[2019-11-26] MEDS: P-EPHED 60MG/TRIPROLIDI 2.5MG TABLET PO PRN (14:34)
[2019-11-26] MEDS: MELATONIN 5 MG TABLETS PO PRN (21:09)
[2019-11-26] MEDS: QUEtiapine FUMARATE 100 MG TABLET (FP) PO SCH (21:10)
[2019-11-26] MEDS: THIAMINE HCL 100 MG TABLET (FP) PO SCH (21:10)
[2019-11-26] MEDS: MIRTAZAPINE 30 MG TABLET PO SCH (21:11)
[2019-11-27] MEDS: hydrOXYzine PAMOATE 25 MG CAPSULE (FP) PO SCH ×5 (06:43→21:27)
[2019-11-27] MEDS: SODIUM CHLORIDE NASAL SPRAY 44 ML BOTTLE NS PRN ×2 (06:44→10:47)
[2019-11-27] MEDS: IBUPROFEN 600 MG TABLET (FP) PO PRN (06:44)
[2019-11-27] MEDS: METHYL SALICYLATE/MENTHOL OINT 30 GM TUBE TP SCH ×2 (10:46→21:27)
[2019-11-27] MEDS: ASPIRIN 81 MG CHEWABLE TABLETS PO SCH ×2 (10:46→21:26)
[2019-11-27] MEDS: PRENATAL VITAMINS W/ FOLIC ACID TABLET (FP) PO SCH (10:46)
[2019-11-27] MEDS: ACETAMINOPHEN 325 MG TABLET (FP) PO PRN (17:51)
[2019-11-27] MEDS: THIAMINE HCL 100 MG TABLET (FP) PO SCH (21:26)
[2019-11-27] MEDS: MIRTAZAPINE 30 MG TABLET PO SCH (21:26)
[2019-11-27] MEDS: QUEtiapine FUMARATE 100 MG TABLET (FP) PO SCH (21:26)
[2019-11-27] MEDS: MELATONIN 5 MG TABLETS PO PRN (21:27)
[2019-11-28] MEDS: hydrOXYzine PAMOATE 25 MG CAPSULE (FP) PO SCH ×6 (06:11→21:09)
[2019-11-28] MEDS: P-EPHED 60MG/TRIPROLIDI 2.5MG TABLET PO PRN ×2 (06:12→21:10)
[2019-11-28] MEDS: IBUPROFEN 600 MG TABLET (FP) PO PRN ×2 (06:12→13:49)
[2019-11-28] MEDS ORDERED: PT OWN MED DRAWER 7, Y5N ONE (08:38)
[2019-11-28] MEDS: ASPIRIN 81 MG CHEWABLE TABLETS PO SCH ×2 (09:17→21:09)
[2019-11-28] MEDS: METHYL SALICYLATE/MENTHOL OINT 30 GM TUBE TP SCH ×2 (09:18→21:10)
[2019-11-28] MEDS: PRENATAL VITAMINS W/ FOLIC ACID TABLET (FP) PO SCH (09:18)
[2019-11-28] MEDS: ACETAMINOPHEN 325 MG TABLET (FP) PO PRN ×2 (11:26→19:51)
--- NOTE | 2019-11-28 14:44 | PN ---
[facility] Progress Note Note: Patient is scheduled for discharge tomorrow. Scripts for 30 days supply of medications(Remeron 30 mg/hs, Seroquel 100 mg.hs) will be elecronically transmitted to [facility], [address] , [place] [address]
[2019-11-28] MEDS: QUEtiapine FUMARATE 100 MG TABLET (FP) PO SCH ×2 (21:09→21:11)
[2019-11-28] MEDS: MIRTAZAPINE 30 MG TABLET PO SCH (21:09)
[2019-11-28] MEDS: THIAMINE HCL 100 MG TABLET (FP) PO SCH (21:09)
[2019-11-29] MEDS: SODIUM CHLORIDE NASAL SPRAY 44 ML BOTTLE NS PRN (06:44)
[2019-11-29] MEDS: hydrOXYzine PAMOATE 25 MG CAPSULE (FP) PO SCH ×2 (06:45→09:30)
[2019-11-29] MEDS: P-EPHED 60MG/TRIPROLIDI 2.5MG TABLET PO PRN (06:45)
[2019-11-29] MEDS: IBUPROFEN 600 MG TABLET (FP) PO PRN (06:55)
[2019-11-29 07:02] VITALS: BP 135/101; PULSE 106; TEMP 97.3
[2019-11-29] MEDS: ACETAMINOPHEN 325 MG TABLET (FP) PO PRN (08:29)
--- NOTE | 2019-11-29 09:21 | DS ---
[facility] Rehab Discharge Summary - [facility] Rehab Discharge Summary Admission Date: 11/22/19 Discharge Date: 11/29/19 - History Present History: Alcohol dependence Pertinent Past History: HTN(no med) Osteoarthritis Anemia HLD(no med) Arthritis Right knee Ambulates with cane Schizoaffective Disorder - Discharge Physical Exam Vital Signs: Vital Signs Temperature 97.3 F L 11/29/19 06:45 Pulse Rate 106 H 11/29/19 06:45 Respiratory Rate 18 11/29/19 06:45 Blood Pressure 135/101 H 11/29/19 06:45 O2 Sat by Pulse Oximetry (%) 95 11/29/19 06:45 - Treatment Discharge Condition: Discharge condition good Hospital Course: CD aftercare referral accepted to [facility] Rehabilitated safely - Medication Discharge Medications: Ambulatory Orders Aspirin [ASA -] 81 mg PO BID 07/20/19 Mirtazapine [Remeron -] 15 mg PO HS 07/20/19 Aspirin [ASA -] 81 mg PO BID #30 tab.chew 11/28/19 Ibuprofen [Motrin -] 600 mg PO TID PRN #30 tablet 11/28/19 Mirtazapine [Remeron -] 30 mg PO HS #30 tablet 11/28/19 P-Ephed 60Mg/Triprolidi 2.5MG [Actifed -] 1 combo PO TID PRN #30 tablet 11/28/19 Quetiapine Fumarate [Seroquel -] 100 mg PO HS #30 tablet 11/28/19 Sodium Chloride Nasal [place] [[place] Nasal [place] -] 2 spray NS BID PRN #1 spray 11/28/19 - Medication-Assisted Treatment (MAT) Medication-Assisted Treatment (MAT): No - Discharge Instructions Diet, activity, other medical instructions: Diet:Regular Activity: oob ad mariza Other medical instructions:follow up with CD aftercare/PCP as recommended. - Follow-up Referral Minutes to complete discharge: 20 - AMA Did Patient Leave Against Medical Advice: No Additional Comments: Pt reports primary care with [facility] works-Dr Gilbert @ [address] [place] [address].
[2019-11-29] MEDS: ASPIRIN 81 MG CHEWABLE TABLETS PO SCH (09:30)
[2019-11-29] MEDS ORDERED: MASKS NR ONE (09:31)
[2019-11-29] MEDS: PRENATAL VITAMINS W/ FOLIC ACID TABLET (FP) PO SCH (09:31)
[2019-11-29] MEDS: METHYL SALICYLATE/MENTHOL OINT 30 GM TUBE TP SCH (09:31)
== END 2019-11-29 09:35 | disposition home or self-care (01) | DRG 772 ==
LOC: YASAS 17:30 → Y3W 17:31
PROVIDERS: ADMIT Allergy & Immunology; ATTEND Allergy & Immunology
PROC: HZ42ZZZ Group Counseling for Substance Abuse Treatment, Cognitive-Behavioral (ICD-10-PCS; principal; 2019-11-22)
DX: F10.20 Alcohol dependence, uncomplicated (principal); F13.20 Sedative, hypnotic or anxiolytic dependence, uncomplicated; F25.9 Schizoaffective disorder, unspecified; D64.9 Anemia, unspecified; I10 Essential (primary) hypertension; M19.90 Unspecified osteoarthritis, unspecified site; M17.11 Unilateral primary osteoarthritis, right knee; E78.5 Hyperlipidemia, unspecified; Z99.89 Dependence on other enabling machines and devices; Z88.0 Allergy status to penicillin; Z91.013 Allergy to seafood
CPT/HCPCS: 93005; 93010

== ENCOUNTER 2020-01-16 09:53 | Inpatient (IN) | payer OTHER ==
[2020-01-16 10:35] VITALS: BMI 23.3
--- NOTE | 2020-01-16 10:47 | HP ---
CIWA Score - Admission Criteria OASAS Guidelines: Admission for Medically Managed Detox: Requires at least one of the followin. CIWA greater than 12 2. Seizures within the past 24 hours 3. Delirium tremens within the past 24 hours 4. Hallucinations within the past 24 hours 5. Acute intervention needed for co occurring medical disorder 6. Acute intervention needed for co occurring psychiatric disorder 7. Severe withdrawal that cannot be handled at a lower level of care (continued vomiting, continued diarrhea, abnormal vital signs) requiring intravenous medication and/or fluids 8. 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 Cardiovascular: Yes: HTN Psych: Yes: Depression, Schizophrenia Musculoskeletal: Yes: Osteoarthritis, Other (left leg cast due to fracture left knee) - Smoking History Smoking history: Current some day smoker Have you smoked in the past 12 months: Yes Aproximately how many cigarettes per day: 4 - Alcohol/Substance Use Hx Alcohol Use: Yes History of Substance Use: reports: Cocaine - Social History ADL: Support Services Occupation: unemployed History of Recent Travel: No Admission ROS [facility] - [facility] Chief Complaint: " I want to do better and then go to rehab." Allergies/Adverse Reactions: Allergies Allergy/AdvReac Type Severity Reaction Status Date / Time Fish Containing Products Allergy Hives Verified 11/17/19 10:32 Penicillins Allergy Hives Verified 11/17/19 10:32 History of Present Illness: 59 year old male with history of alcohol dependence with withdrawal, cocaine use disorder, nicotine dependence seeking detox and rehab. He was last here on 11/21-11/29/19 and completed rehab but relapsed almost immediately. Substance Use History Alcohol Substance amount: 2- 2.5 pints vodka Frequency of use: Daily Substance route: Oral Date of Last Use: 01/16/20 Patient admits to multiple blackouts, last one just yesterday. Cocaine-Crack Substance amount: $300-400 Frequency of use: Daily Substance route: Smoking Date of Last Use: 01/16/20 Nicotine Substance amount: 1/2 pack Frequency of use: Daily Substance route: Smoking Date of Last Use: 01/16/20 PMH; Hyperthyroidism, Osteoporosis,Arthritis Psurg: Right knee arthroscopic surgery, Nasal Fx Psych: Depression, Schizoaffective Disorder Patient lives in HRA housing in the [place] but no legal issues pending; CIWA=22 KAELA=0.038 UrineTox: + MACARIO Patient meets criteria for detox due to continued use and poor recovery envi ronment and multiple medical and psychiatric co-morbidities. Patient History - Patient Medical History Hx Anemia: No Hx Asthma: No Hx Chronic Obstructive Pulmonary Disease (COPD): No Hx Cancer: No Hx Cardiac Disorders: No Hx Congestive Heart Failure: No Hx Hypertension: Yes (when drinking) Hx Hypercholesterolemia: No Hx Pacemaker: No HX Cerebrovascular Accident: No Hx Seizures: No Hx Dementia: No Hx Diabetes: No Hx Gastrointestinal Disorders: No Hx Liver Disease: No Hx Genitourinary Disorders: No Hx Sexually Transmitted Disorders: No Hx Renal Disease (ESRD): No Hx Thyroid Disease: No Hx Human Immunodeficiency Virus (HIV): No (last negative) Hx Hepatitis C: No Hx Depression: Yes (hospitalized 2 years ago) Hx Suicide Attempt: No (denies) Hx Bipolar Disorder: No Hx Schizophrenia: Yes (SCHIZOAFFECTIVE) - Patient Surgical History Past Surgical History: Yes Hx Neurologic Surgery: No Hx Cataract Extraction: No Hx Cardiac Surgery: No Hx Lung Surgery: No Hx Breast Surgery: No Hx Breast Biopsy: No Hx Abdominal Surgery: No Hx Appendectomy: No Hx Cholecystectomy: No Hx Genitourinary Surgery: No Hx Section: No Hx Orthopedic Surgery: Yes (torn ligament, right knee in 1985) Other Surgical History: Cast on left leg due to dislocated left knee Anesthesia Reaction: No - PPD History Date: 02/17/19 Results: 0 mm - Smoking Cessation Smoking history: Current some day smoker Have you smoked in the past 12 months: Yes Aproximately how many cigarettes per day: 6 Cigars Per Day: 0 Hx Chewing Tobacco Use: No Initiated information on smoking cessation: Yes 'Breaking Loose' booklet given: 01/16/20 - Substances abused Alcohol Substance route: Oral Frequency: Daily Amount used: 2-2.5 pints vodka Age of first use: 16 Date of last use: 01/16/20 (9am) Crack Substance route: Smoking Frequency: Daily Amount used: $300-400 Age of first use: 35 Date of last use: 01/16/20 Admission Physical Exam [facility] - Vital Signs Vital Signs: Vital Signs - 24 hr 01/16/20 10:29 Temperature 97.3 F L Pulse Rate 90 Respiratory 16 Rate Blood Pressure 140/91 - Physical General Appearance: Yes: Mild Distress, Tremorous, Irritable, Sweating, Anxious HEENTM: Yes: EOMI, Hearing grossly Normal, Normal ENT Inspection, Normocephalic, Normal Voice, CLAUDINE, Pharynx Normal, Tm's normal Respiratory: Yes: Chest Non-Tender, Lungs Clear, Normal Breath Sounds, No Respiratory Distress, No Accessory Muscle Use Neck: Yes: No masses,lesions,Nodules, Supple, Trachea in good position Breast: Yes: Within Normal Limits Cardiology: Yes: Regular Rhythm, S1, S2, Tachycardia Abdominal: Yes: Normal Bowel Sounds, Non Tender, Flat, Soft Back: Yes: Normal Inspection Musculoskeletal: Yes: full range of Motion, Gait Steady, Pelvis Stable Extremities: Yes: Normal Capillary Refill, Normal Inspection, Normal Range of Motion, Non-Tender Neurological: Yes: squeegee tender II-XII NML intact, Fully Oriented, Alert, Motor Strength 5/5, Normal Mood/Affect, Normal Response Integumentary: Yes: Normal Color, Dry, Warm Lymphatic: Yes: Within Normal Limits - Diagnostic (1) Hyperthyroidism Current Visit: Yes Status: Acute (2) Alcohol dependence with uncomplicated withdrawal Current Visit: Yes Status: Acute (3) Arthritis of right knee Current Visit: Yes Status: Acute (4) Cocaine dependence Current Visit: Yes Status: Acute Qualifiers: (5) History of right knee surgery Current Visit: Yes Status: Acute (6) Cocaine dependence, uncomplicated Current Visit: Yes Status: Chronic (7) Dyslipidemia Current Visit: Yes Status: Chronic (8) Nicotine dependence Current Visit: Yes Status: Chronic Qualifiers: (9) Osteoarthritis Current Visit: Yes Status: Chronic Cleared for Admission [facility] - Detox or Rehab [facility] Level of Care: Medically Managed Detox Regimen/Protocol: Librium Claeared for Rehab Admission: No Screened but not Admitted - Documentation of Visit Screened but not Admitted: No Breathalyzer - Breathalyzer Breathalyzer: 0.038 Vital Signs - Vital Signs Vital signs refused: No Temperature: 97.3 F Pulse Rate: 90 Respiratory Rate: 11 Blood Pressure: 140/91 BP Location: Left Arm Blood Pressure position: Sitting - Height Height: 5 ft 9 in - Weight Weight: 158 lb Weight measurement method: Standing scale - BMI Body Mass Index (BMI): 23.3 - Bowel Function Bowel Movement: No Urine Drug Screen - Test Device Lot number: [id number] Expiration date: 08/20/21 - Control Is test valid?: Yes - Results Drug screen NEGATIVE: No Urine drug screen results: MACARIO-Cocaine Inpatient Rehab Admission - Rehab Decision to Admit Inpatient rehab admission?: No
--- NOTE | 2020-01-16 10:52 | BHS.RME ---
Substance Use & Tx History - Substance Use History Alcohol Substance amount: 2- 2.5 pints vodka Frequency of use: Daily Substance route: Oral Date of Last Use: 01/16/20 Cocaine-Crack Substance amount: $300-400 Frequency of use: Daily Substance route: Smoking Date of Last Use: 01/16/20 Nicotine Substance amount: 1/2 pack Frequency of use: Daily Substance route: Smoking Date of Last Use: 01/16/20 Physical/Psych/Mental Status - Behavior General Behavior: Increased activity (restlessness, agitation) Eye Contact: Normal - Cooperativeness Cooperativeness: Cooperative - Thinking Thought Processes: Tight, Logical, Goal Directed Thought content: Future oriented - Physical Health Problems Is patient presently having any pain?: No Does patient presently have any injuries (include location): No Does patient currently have a fever: No Is patient : No CIWA Nausea/Vomitin-Mild Nausea/No Vomiting Muscle Tremors: 4-Moderate,w/Arms Extend Anxiety: 4-Mod. Anxious/Guarded Agitation: 4-Moderately Restless Paroxysmal Sweats: 4-Forehead w/Sweat Beads Orientation: 2-Disoriented Date<2 days Tacttile Disturbances: 0-None Auditory Disturbances: 0-None Visual Disturbances: 0-None Headache: 3-Moderate CIWA-Ar Total Score: 22
[2020-01-16] MEDS ORDERED: MAG HYDROX/AL HYDROX/SIMETH 30 ML UNIT-DOSE CUP PO PRN (10:58)
[2020-01-16] MEDS ORDERED: MAGNESIUM CITRATE 300 ML BOTTLE PO PRN (10:58)
[2020-01-16] MEDS ORDERED: MAGNESIUM HYDROX 2400MG/30ML ORAL SUSPENSION 30 ML CUP PO PRN (10:58)
[2020-01-16] MEDS ORDERED: MENTHOL/PHENOL 1 EACH UD MM PRN (10:58)
[2020-01-16] MEDS ORDERED: BISMUTH SUBSALICYLATE 524 MG/30 ML UD PO PRN (10:58)
[2020-01-16] MEDS ORDERED: ACETAMINOPHEN 325 MG TABLET (FP) PO PRN ×2 (10:58)
[2020-01-16] MEDS ORDERED: NICOTINE POLACRILEX 2 MG GUM BUC PRN (10:58)
[2020-01-16] MEDS ORDERED: chlordiazePOXIDE HCL 25 MG CAPSULE PO PRN (10:58)
[2020-01-16] MEDS ORDERED: SODIUM CHLORIDE NASAL SPRAY 44 ML BOTTLE NS PRN (11:01)
[2020-01-16] MEDS ORDERED: ONDANSETRON *ODT* 4 MG TABLET SL ONE (12:00)
[2020-01-16] MEDS: NICOTINE 7 MG/24 HOURS TOPICAL PATCH TD SCH (13:04)
[2020-01-16] MEDS: hydrOXYzine PAMOATE 25 MG CAPSULE (FP) PO SCH ×3 (13:04→22:35)
[2020-01-16] MEDS: chlordiazePOXIDE HCL 25 MG CAPSULE PO SCH ×3 (13:04→22:35)
[2020-01-16] MEDS: PRENATAL VITAMINS W/ FOLIC ACID TABLET (FP) PO SCH (13:04)
--- NOTE | 2020-01-16 14:04 | CONSULT ---
[facility] Psychiatric Consult - Data Date of interview: 01/16/20 Admission source: [facility] Identifying data: Patient is a 59 year old Black male, father of 2 children, unemployed, domiciled , and is supported by public assistance. This is one of multiple admissions for patient. Patient admitted to for alcohol and cocaine dependence. Substance Abuse History: Smoking Cessation. Smoking history: Current some day smoker. Have you smoked in the past 12 months: Yes. Aproximately how many cigarettes per day: 6. Cigars Per Day: 0. Hx Chewing Tobacco Use: No. Initiated information on smoking cessation: Yes. 'Breaking Loose' booklet given: 01/16/20. - Substances abused. Alcohol. Substance route: Oral. Frequency: Daily. Amount used: 2-2.5 pints vodka. Age of first use: 16. Date of last use: 01/16/20 (9am). Crack. Substance route: Smoking. Frequency: Daily. Amount used: $300-400. Age of first use: 35. Date of last use: 01/16/20 Medical History: Significant for hypertension (when intoxicated with ETOH), hypercholesterolemia, anemia, osteoarthritis, history of fracture left knee(casted) and arthroscopic surgery for torn ligament right knee in 1985) Psychiatric History: Patient presents as lethargic. States that he has a history of multiple psychatric hospitalizations at various institutions including [facility] in [place], [place], [facility] in [place], and [facility]. Diagnosis of schizoaffective disorder. 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 As per previous interaction with patient, Mr. Wells was receiving psychiatric care from "[facility]" and was prescribed seroquel 100mg + Remeron 15mg HS. Patient's history of medications consisted of Risperdal 1mg BID + Cogentin 0.5mg + Depakote 250mg BID+ Trazodone 100mg HS. At present, Mr. Stallworth presents as mildly sedated. Patient denies auditory/ visual hallucinations, suicidal/ homicidal ideation. Physical/Sexual Abuse/Trauma History: denies. Mental Status Exam - Mental Status Exam Alert and Oriented to: Time, Place, Person Cognitive Function: Good Patient Appearance: Unkempt Mood: Withdrawn Affect: Mood Congruent Patient Behavior: Fatigued Speech Pattern: Delayed Voice Loudness: Mildly Soft/Quiet Thought Process: Goal Oriented Thought Disorder: Not Present Hallucinations: Denies Suicidal Ideation: Denies Insight/Judgement: Poor Sleep: Poorly Appetite: Fair Muscle strength/Tone: Normal Gait/Station: Other (Gait not observed.) Psychiatric Findings - Problem List ([place] 1, 2,3) (1) Alcohol dependence with uncomplicated withdrawal Status: Acute (2) Cocaine dependence Status: Chronic Qualifiers: (3) Cocaine dependence, uncomplicated Status: Chronic (4) Nicotine dependence Status: Chronic Qualifiers: Nicotine product type: cigarettes Substance use status: in withdrawal Qualified Code(s): F17.213 - Nicotine dependence, cigarettes, with withdrawal (5) Schizoaffective disorder Status: Chronic Qualifiers: Schizoaffective disorder type: unspecified Qualified Code(s): F25.9 - Schizoaffective disorder, unspecified Comment: By history. - Initial Treatment Plan Initial Treatment Plan: Psychoeducation provided. Detoxification in progress. Will order Seroquel 100mg HS. Trazodone will not be ordered as patient is mildly sedated. Benefits and side effects discussed. Verbal consent given.
[2020-01-16 14:50] LABS: HEMOGLOBIN 12.9 GM/dL (11.7-16.9); MCH 33.1 pg (25.7-33.7); MCHC 33.9 g/dl (32.0-35.9); MEAN CELL VOLUME 97.6 fl (80-96); MEAN PLT VOLUME 8.2 fl (7.5-11.1); PLATELET COUNT 307 K/MM3 (134-434); RBC 3.89 M/mm3 (4.00-5.60); RDW 14.2 % (11.9-15.9); WHITE BLOOD COUNT 2.7 K/mm3 (4.0-10.0)
[2020-01-16 15:01] LABS: ALBUMIN 3.9 g/dl (3.4-5.0); BLOOD UREA NITROGEN 8.2 mg/dL (7-18); CALCIUM 8.3 mg/dL (8.5-10.1); CREATININE 0.9 mg/dL (0.55-1.3); POTASSIUM 3.5 mmol/L (3.5-5.1); TOT PROT 6.9 g/dl (6.4-8.2)
[2020-01-16 15:33] LABS: BILIRUBIN,TOTAL 0.9 mg/dL (0.2-1)
[2020-01-16] MEDS: METHOCARBAMOL 500 MG TABLET PO PRN (21:42)
[2020-01-16] MEDS: QUEtiapine FUMARATE 100 MG TABLET (FP) PO SCH (22:35)
[2020-01-16] MEDS: MELATONIN 5 MG TABLETS PO SCH (22:36)
[2020-01-16] MEDS: THIAMINE HCL 100 MG TABLET (FP) PO SCH (22:36)
[2020-01-17] MEDS: hydrOXYzine PAMOATE 25 MG CAPSULE (FP) PO SCH ×5 (06:41→22:54)
[2020-01-17] MEDS: chlordiazePOXIDE HCL 25 MG CAPSULE PO SCH ×4 (06:50→22:54)
--- NOTE | 2020-01-17 09:53 | PN ---
S CIWA - CIWA Score Nausea/Vomitin-No Nausea/No Vomiting Muscle Tremors: None Anxiety: 1-Mildly Anxious Agitation: 1-Slight > Activity Paroxysmal Sweats: No Perspiration Tacttile Disturbances: 0-None Auditory Disturbances: 0-None Visual Disturbances: 0-None Headache: 0-None Present S Progress Note (SOAP) Subjective: Patient was examined in the room. Patient eating well. Patient ambulates well and is in no acute distress. Patient had no further complaints. Objective: 01/17/20 09:51 General: Patient alert and in no acute distress, WNWD Mental status: Patient judgment intact, moderate agitation MSK/Neuro: Patient MS 5/5 Gait: Patient ambulates properly, gait steady Assessment: 01/17/20 09:52 1. Patient here for alcohol abuse currently on librium taper CBC, BMP 01/16/20 11:45 01/16/20 11:45 Last Vital Signs Temp Pulse Resp BP Pulse Ox 97.3 F L 101 H 18 109/72 96 01/17/20 08:45 01/17/20 08:45 01/17/20 08:45 01/17/20 08:45 01/16/20 20:57 Current Medications Generic Name Dose Route Start Last Admin Trade Name Freq PRN Reason Stop Dose Admin Acetaminophen 650 mg 01/16/20 10:58 Tylenol - PO Q6H PRN PAIN LEVEL 4 - 6 Acetaminophen 650 mg 01/16/20 10:58 Tylenol - PO Q6H PRN FEVER Al Hydroxide/Mg Hydroxide 30 ml 01/16/20 10:58 Mylanta Oral Suspension - PO Q6H PRN DYSPEPSIA Aspirin 81 mg 01/17/20 10:00 Asa - PO DAILY CHRISTIAN Bismuth Subsalicylate 524 mg 01/16/20 10:58 Pepto-Bismol - PO Q1H PRN DIARRHEA Calcium/Vitamin D 1 tab 01/17/20 12:00 Oscal 250 Mg+D - PO DAILY CHRISTIAN Chlordiazepoxide HCl 50 mg 01/16/20 12:00 01/17/20 06:50 Librium - PO 01/17/20 23:01 Not Given [id number] CHRISTIAN Chlordiazepoxide HCl 25 mg 01/18/20 05:00 Librium - PO 01/18/20 23:01 [id number] CHRISTIAN Chlordiazepoxide HCl 25 mg 01/16/20 10:58 Librium - PO 01/18/20 23:59 Q4H PRN WITHDRAWAL(CONT SUBST) Chlordiazepoxide HCl 10 mg 01/19/20 05:00 Librium - PO 01/19/20 23:01 [id number] CHRISTIAN Chlordiazepoxide HCl 10 mg 01/20/20 05:00 Librium - PO 01/20/20 17:01 Q12H CHRISTIAN Chlordiazepoxide HCl 10 mg 01/19/20 00:00 Librium - PO 01/20/20 00:00 Q4H PRN WITHDRAWAL(CONT SUBST) Chlordiazepoxide HCl 10 mg 01/21/20 05:00 Librium - PO 01/21/20 05:01 ONCE@0500 ONE Eucalyptus/Menthol/Phenol/Sorbitol 1 each 01/16/20 10:58 Cepastat Lozenge - MM 01/22/20 10:58 Q4H PRN SORE THROAT Hydroxyzine Pamoate 25 mg 01/16/20 14:00 01/17/20 06:41 Vistaril - PO 01/22/20 10:58 Not Given Q4HWA [facility] Ibuprofen 400 mg 01/16/20 10:58 Motrin - PO Q6H PRN PAIN LEVEL 1 - 3 Magnesium Citrate 300 ml 01/16/20 10:58 Citroma - PO Q48H PRN CONSTIPATION Magnesium Hydroxide 30 ml 01/16/20 10:58 Milk Of Magnesia - PO PRN PRN CONSTIPATION Melatonin 5 mg 01/16/20 22:00 01/16/20 22:36 Melatonin PO 5 mg HS CHRISTIAN Administration Methocarbamol 500 mg 01/16/20 10:58 01/16/20 21:42 Robaxin - PO 01/22/20 10:58 500 mg Q6H PRN Administration MUSCLE SPASMS Nicotine 7 mg 01/16/20 12:00 01/16/20 13:04 Nicoderm Patch - TD Not Given DAILY [facility] Nicotine Polacrilex 2 mg 01/16/20 10:58 Nicorette Gum - BUC Q2H PRN NICOTINE REPLACEMENT RX Multivit/Folic Acid/Iron 1 tab 01/16/20 11:00 01/16/20 13:04 Vitamins (Sjr) - PO 1 tab DAILY [facility] Administration Quetiapine Fumarate 100 mg 01/16/20 22:00 01/16/20 22:35 Seroquel - PO 100 mg HS CHRISTIAN Administration Sodium Chloride 2 spray 01/16/20 11:01 [place] Nasal [place] - NS BID PRN NASAL CONGESTION Thiamine HCl 100 mg 01/16/20 22:00 01/16/20 22:36 Vitamin B1 - PO 100 mg HS CHRISTIAN Administration Discontinued Medications Generic Name Dose Route Start Last Admin Trade Name Freq PRN Reason Stop Dose Admin Ondansetron HCl 4 mg 01/16/20 12:00 01/16/20 13:04 Zofran Odt - SL 01/16/20 12:01 4 mg ONCE ONE Administration Tuberculin PPD 5 units 01/16/20 12:00 01/16/20 13:07 Tubersol ([facility] Only) 5ml Vial ID 01/16/20 12:01 5 tu ONCE ONE Administration Plan: 1. Patient on librium taper for alcohol abuse 2. Patient psych medications have been continued.
[2020-01-17] MEDS: CALCIUM 250MG/VIT-D 125 UNITS 1 COMBO TABLET PO SCH (11:09)
[2020-01-17] MEDS: ASPIRIN 81 MG CHEWABLE TABLETS PO SCH (11:10)
[2020-01-17] MEDS: PRENATAL VITAMINS W/ FOLIC ACID TABLET (FP) PO SCH (11:10)
[2020-01-17] MEDS: NICOTINE 7 MG/24 HOURS TOPICAL PATCH TD SCH (11:10)
[2020-01-17] MEDS: IBUPROFEN 400 MG TABLET (FP) PO PRN (13:56)
[2020-01-17] MEDS: METHOCARBAMOL 500 MG TABLET PO PRN (18:28)
--- NOTE | 2020-01-17 19:45 | PN ---
[facility] Progress Note Note: Vital Signs Temperature 97.8 F 01/17/20 16:30 Pulse Rate 105 H 01/17/20 16:30 Respiratory Rate 18 01/17/20 16:30 Blood Pressure 125/96 01/17/20 16:30 O2 Sat by Pulse Oximetry (%) 96 01/16/20 20:57 c/o of knee pain, requested TP liza for relief bengay PRN fall precautions continue to monitor follow up with PCP
[2020-01-17] MEDS: QUEtiapine FUMARATE 100 MG TABLET (FP) PO SCH (22:53)
[2020-01-17] MEDS: MELATONIN 5 MG TABLETS PO SCH (22:54)
[2020-01-17] MEDS: THIAMINE HCL 100 MG TABLET (FP) PO SCH (22:54)
[2020-01-18] MEDS: hydrOXYzine PAMOATE 25 MG CAPSULE (FP) PO SCH ×5 (06:54→23:22)
[2020-01-18] MEDS: chlordiazePOXIDE HCL 25 MG CAPSULE PO SCH ×2 (06:54→10:33)
[2020-01-18] MEDS: CALCIUM 250MG/VIT-D 125 UNITS 1 COMBO TABLET PO SCH (10:32)
[2020-01-18] MEDS: ASPIRIN 81 MG CHEWABLE TABLETS PO SCH (10:32)
[2020-01-18] MEDS: NICOTINE 7 MG/24 HOURS TOPICAL PATCH TD SCH (10:32)
[2020-01-18] MEDS: PRENATAL VITAMINS W/ FOLIC ACID TABLET (FP) PO SCH (10:32)
--- NOTE | 2020-01-18 10:58 | PN ---
S CIWA - CIWA Score Nausea/Vomitin-No Nausea/No Vomiting Muscle Tremors: 2 Anxiety: 2 Agitation: 0-Normal Activity Paroxysmal Sweats: 2 Orientation: 0-Oriented Tacttile Disturbances: 0-None Auditory Disturbances: 0-None Visual Disturbances: 0-None Headache: 2-Mild CIWA-Ar Total Score: 8 [facility] Progress Note (SOAP) Subjective: c/o shakes, sweats, anxiety, and headache Objective: 01/18/20 10:57 Vital Signs 01/18/20 01/18/20 06:34 09:33 Temperature 97.1 F L 98.2 F Pulse Rate 90 78 Respiratory 18 18 Rate Blood Pressure 162/91 124/86 O2 Sat by Pulse 97 97 Oximetry (%) Laboratory Last Values WBC 2.7 K/mm3 (4.0-10.0) L 01/16/20 11:45 RBC 3.89 M/mm3 (4.00-5.60) L 01/16/20 11:45 Hgb 12.9 GM/dL (11.7-16.9) 01/16/20 11:45 Hct 38.0 % (35.4-49) 01/16/20 11:45 MCV 97.6 fl (80-96) H 01/16/20 11:45 MCH 33.1 pg (25.7-33.7) 01/16/20 11:45 MCHC 33.9 g/dl (32.0-35.9) 01/16/20 11:45 RDW 14.2 % (11.9-15.9) 01/16/20 11:45 Plt Count 307 K/MM3 (134-434) D 01/16/20 11:45 MPV 8.2 fl (7.5-11.1) 01/16/20 11:45 Sodium 140 mmol/L (136-145) 01/16/20 11:45 Potassium 3.5 mmol/L (3.5-5.1) 01/16/20 11:45 Chloride 103 mmol/L (98-107) 01/16/20 11:45 Carbon Dioxide 31 mmol/L (21-32) 01/16/20 11:45 Anion Gap 7 MMOL/L (8-16) L 01/16/20 11:45 BUN 8.2 mg/dL (7-18) 01/16/20 11:45 Creatinine 0.9 mg/dL (0.55-1.3) 01/16/20 11:45 Est GFR (CKD-EPI)AfAm 107.97 01/16/20 11:45 Est GFR (CKD-EPI)NonAf 93.16 01/16/20 11:45 Random Glucose 93 mg/dL (74-106) 01/16/20 11:45 Calcium 8.3 mg/dL (8.5-10.1) L 01/16/20 11:45 Total Bilirubin 0.9 mg/dL (0.2-1) 01/16/20 11:45 AST 163 U/L (15-37) H 01/16/20 11:45 ALT 59 U/L (13-61) 01/16/20 11:45 Alkaline Phosphatase 59 U/L (45-117) 01/16/20 11:45 Total Protein 6.9 g/dl (6.4-8.2) 01/16/20 11:45 Albumin 3.9 g/dl (3.4-5.0) 01/16/20 11:45 Syphilis Serology Non-reactive (NONREACTIVE) 01/16/20 11:45 COVID-19 (LAMAR) Not detected (Not Detected) 01/16/20 13:20 Labs noted with elevated AST 01/18/20 10:59 Assessment: 01/18/20 10:59 AOX3, in no acute respiratory distress. Full ROM, ambulating in the unit. Withdrawal symptoms. Elevated AST. Plan: change librium protocol to ativan protocol. Increase fluids.
[2020-01-18] MEDS ORDERED: LORazepam 0.5 MG TABLET PO PRN (12:00)
[2020-01-18] MEDS: METHYL SALICYLATE/MENTHOL OINT 30 GM TUBE TP PRN ×2 (12:10→19:34)
[2020-01-18] MEDS: METHOCARBAMOL 500 MG TABLET PO PRN (20:17)
[2020-01-18] MEDS: IBUPROFEN 400 MG TABLET (FP) PO PRN (20:17)
[2020-01-18] MEDS: QUEtiapine FUMARATE 100 MG TABLET (FP) PO SCH (23:22)
[2020-01-18] MEDS: THIAMINE HCL 100 MG TABLET (FP) PO SCH (23:22)
[2020-01-18] MEDS: MELATONIN 5 MG TABLETS PO SCH (23:22)
[2020-01-19] MEDS ORDERED: chlordiazePOXIDE HCL 10 MG CAPSULE PO PRN
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
[2020-01-19] MEDS ORDERED: chlordiazePOXIDE HCL 10 MG CAPSULE PO SCH (05:00)
[2020-01-19] MEDS: LORazepam 1 MG TABLET PO SCH ×4 (06:43→23:17)
[2020-01-19] MEDS: hydrOXYzine PAMOATE 25 MG CAPSULE (FP) PO SCH ×5 (06:43→23:16)
[2020-01-19] MEDS: ASPIRIN 81 MG CHEWABLE TABLETS PO SCH (10:42)
[2020-01-19] MEDS: CALCIUM 250MG/VIT-D 125 UNITS 1 COMBO TABLET PO SCH (10:42)
[2020-01-19] MEDS: PRENATAL VITAMINS W/ FOLIC ACID TABLET (FP) PO SCH (10:42)
[2020-01-19] MEDS: NICOTINE 7 MG/24 HOURS TOPICAL PATCH TD SCH (10:42)
[2020-01-19] MEDS ORDERED: COLLOIDAL OATMEAL 1 BAR EACH TP PRN (10:59)
--- NOTE | 2020-01-19 11:05 | PN ---
S CIWA - CIWA Score Nausea/Vomitin-Mild Nausea/No Vomiting Muscle Tremors: 1-None Visible, but [place] Anxiety: 1-Mildly Anxious Agitation: 1-Slight > Activity Paroxysmal Sweats: 1-Minimal Palms Moist Orientation: 0-Oriented Tacttile Disturbances: 1-Very Mild Itch/Numbness Auditory Disturbances: 0-None Visual Disturbances: 1-Very Mild Sensitivity Headache: 0-None Present CIWA-Ar Total Score: 7 [facility] Progress Note (SOAP) Subjective: 59 years old male was admitted on 01/16/20 for alcohol withdrawal sx management treating with ativan detox regiment s/p fall due to right knee "buckle" ate breakfast in room social with peers in day room ambulating from room to counselor office without cane strong recommend use cane at all time mr ramirez denies pain denies sequela from fall "that was yesterday" requests soap for shower feels better slept through the night requests a and d ointment for skin dryness a and d ointment q6h Objective: 01/19/20 11:04 Vital Signs - 24 hr 01/18/20 01/18/20 01/18/20 13:07 17:22 20:58 Temperature 98.3 F 97.8 F 98.4 F Pulse Rate 63 93 H 91 H Respiratory 18 18 18 Rate Blood Pressure 124/74 153/103 H 151/93 O2 Sat by Pulse 96 96 97 Oximetry (%) 01/18/20 01/19/20 01/19/20 22:39 02:40 09:17 Temperature 98.4 F 98.2 F 97.3 F L Pulse Rate 91 H 98 H 72 Respiratory 18 18 18 Rate Blood Pressure 151/93 144/89 136/80 O2 Sat by Pulse 97 Oximetry (%) Laboratory Tests 01/16/20 01/16/20 01/16/20 11:45 11:45 11:45 WBC 2.7 L RBC 3.89 L Hgb 12.9 Hct 38.0 MCV 97.6 H MCH 33.1 MCHC 33.9 RDW 14.2 Plt Count 307 D MPV 8.2 Sodium 140 Potassium 3.5 Chloride 103 Carbon Dioxide 31 Anion Gap 7 L BUN 8.2 Creatinine 0.9 Est GFR (CKD-EPI)AfAm 107.97 Est GFR (CKD-EPI)NonAf 93.16 Random Glucose 93 Calcium 8.3 L Total Bilirubin 0.9 AST 163 H ALT 59 Alkaline Phosphatase 59 Total Protein 6.9 Albumin 3.9 Syphilis Serology Non-reactive COVID-19 (LAMAR) 01/16/20 13:20 WBC RBC Hgb Hct MCV MCH MCHC RDW Plt Count MPV Sodium Potassium Chloride Carbon Dioxide Anion Gap BUN Creatinine Est GFR (CKD-EPI)AfAm Est GFR (CKD-EPI)NonAf Random Glucose Calcium Total Bilirubin AST ALT Alkaline Phosphatase Total Protein Albumin Syphilis Serology COVID-19 (LAMAR) Not detected low wbc "some times like that" mr ramirez states that low wbc on and off for "many years" alcohol induced ast elevation encourage 01/19/20 11:06 negative hiv 02/2019 [address] mr ramirez hepatitis c and repeat hiv testing mr ramirez agrees to consider the tests 01/19/20 11:07 Assessment: 01/19/20 11:07 alcohol withdrawal Plan: ativan regiment
[2020-01-19] MEDS: VITAMINS A AND D TOPICAL OINTMENT 60 GM TUBE TP SCH ×3 (15:00→23:17)
[2020-01-19] MEDS: METHOCARBAMOL 500 MG TABLET PO PRN (17:59)
[2020-01-19] MEDS: MELATONIN 5 MG TABLETS PO SCH (23:16)
[2020-01-19] MEDS: QUEtiapine FUMARATE 100 MG TABLET (FP) PO SCH (23:16)
[2020-01-19] MEDS: THIAMINE HCL 100 MG TABLET (FP) PO SCH (23:17)
[2020-01-20] MEDS: IBUPROFEN 400 MG TABLET (FP) PO PRN ×2 (01:32→22:04)
[2020-01-20] MEDS: METHOCARBAMOL 500 MG TABLET PO PRN ×2 (01:32→10:55)
[2020-01-20] MEDS ORDERED: chlordiazePOXIDE HCL 10 MG CAPSULE PO SCH (05:00)
[2020-01-20] MEDS: LORazepam 0.5 MG TABLET PO SCH ×4 (07:07→22:03)
[2020-01-20] MEDS: hydrOXYzine PAMOATE 25 MG CAPSULE (FP) PO SCH ×5 (07:08→22:03)
[2020-01-20] MEDS: VITAMINS A AND D TOPICAL OINTMENT 60 GM TUBE TP SCH ×4 (07:08→23:36)
[2020-01-20] MEDS: NICOTINE 7 MG/24 HOURS TOPICAL PATCH TD SCH (10:42)
[2020-01-20] MEDS: CALCIUM 250MG/VIT-D 125 UNITS 1 COMBO TABLET PO SCH (10:42)
[2020-01-20] MEDS: ASPIRIN 81 MG CHEWABLE TABLETS PO SCH (10:42)
[2020-01-20] MEDS: PRENATAL VITAMINS W/ FOLIC ACID TABLET (FP) PO SCH (10:42)
--- NOTE | 2020-01-20 12:05 | PN ---
S CIWA - CIWA Score Nausea/Vomitin-No Nausea/No Vomiting Muscle Tremors: 1-None Visible, but [place] Anxiety: 1-Mildly Anxious Agitation: 1-Slight > Activity Paroxysmal Sweats: 1-Minimal Palms Moist Orientation: 0-Oriented Tacttile Disturbances: 1-Very Mild Itch/Numbness Auditory Disturbances: 0-None Visual Disturbances: 0-None Headache: 0-None Present CIWA-Ar Total Score: 5 [facility] Progress Note (SOAP) Subjective: 59 years old male was admitted on 01/16/20 for alcohol withdrawal sx management treating with ativan detox regiment feels better today ambulating with cane most of the time mr ramirez states that he fell 8-10 weeks ago and his knees is weak wheelchair for ambulation assistance Objective: 01/20/20 12:05 Vital Signs - 24 hr 01/19/20 01/19/20 01/19/20 13:14 15:41 17:00 Temperature 98.1 F 98.2 F 98.2 F Pulse Rate 77 82 99 H Respiratory 18 18 16 Rate Blood Pressure 124/68 129/87 146/98 O2 Sat by Pulse Oximetry (%) 01/19/20 01/19/20 01/19/20 19:50 20:28 23:30 Temperature 97.3 F L 98.2 F 98.0 F Pulse Rate 109 H 97 H 106 H Respiratory 18 16 18 Rate Blood Pressure 140/94 163/100 140/98 O2 Sat by Pulse 97 Oximetry (%) 01/20/20 08:36 Temperature 97.8 F Pulse Rate 87 Respiratory 18 Rate Blood Pressure 119/89 O2 Sat by Pulse Oximetry (%) Laboratory Tests 01/16/20 01/16/20 01/16/20 11:45 11:45 11:45 WBC 2.7 L RBC 3.89 L Hgb 12.9 Hct 38.0 MCV 97.6 H MCH 33.1 MCHC 33.9 RDW 14.2 Plt Count 307 D MPV 8.2 Sodium 140 Potassium 3.5 Chloride 103 Carbon Dioxide 31 Anion Gap 7 L BUN 8.2 Creatinine 0.9 Est GFR (CKD-EPI)AfAm 107.97 Est GFR (CKD-EPI)NonAf 93.16 Random Glucose 93 Calcium 8.3 L Total Bilirubin 0.9 AST 163 H ALT 59 Alkaline Phosphatase 59 Total Protein 6.9 Albumin 3.9 Syphilis Serology Non-reactive COVID-19 (LAMAR) 01/16/20 13:20 WBC RBC Hgb Hct MCV MCH MCHC RDW Plt Count MPV Sodium Potassium Chloride Carbon Dioxide Anion Gap BUN Creatinine Est GFR (CKD-EPI)AfAm Est GFR (CKD-EPI)NonAf Random Glucose Calcium Total Bilirubin AST ALT Alkaline Phosphatase Total Protein Albumin Syphilis Serology COVID-19 (LAMAR) Not detected 01/20/20 12:06 mr ramirez prefers returning to his primary care provider in the community for alcohol abuse treatment Assessment: 01/20/20 12:07 alcohol withdrawal Plan: ativan regiment
[2020-01-20] MEDS: MELATONIN 5 MG TABLETS PO SCH (22:02)
[2020-01-20] MEDS: THIAMINE HCL 100 MG TABLET (FP) PO SCH (22:03)
[2020-01-20] MEDS: QUEtiapine FUMARATE 100 MG TABLET (FP) PO SCH (22:03)
[2020-01-21] MEDS ORDERED: LORazepam 0.5 MG TABLET PO ONE (05:00)
[2020-01-21] MEDS ORDERED: chlordiazePOXIDE HCL 10 MG CAPSULE PO ONE (05:00)
[2020-01-21] MEDS: VITAMINS A AND D TOPICAL OINTMENT 60 GM TUBE TP SCH ×2 (06:05→10:10)
[2020-01-21] MEDS: hydrOXYzine PAMOATE 25 MG CAPSULE (FP) PO SCH ×2 (06:05→10:10)
[2020-01-21 09:11] VITALS: BP 153/96; PULSE 82; TEMP 97.3
[2020-01-21] MEDS: PRENATAL VITAMINS W/ FOLIC ACID TABLET (FP) PO SCH (10:10)
[2020-01-21] MEDS: NICOTINE 7 MG/24 HOURS TOPICAL PATCH TD SCH (10:10)
[2020-01-21] MEDS: ASPIRIN 81 MG CHEWABLE TABLETS PO SCH (10:10)
[2020-01-21] MEDS: CALCIUM 250MG/VIT-D 125 UNITS 1 COMBO TABLET PO SCH (10:10)
[2020-01-21] MEDS: METHOCARBAMOL 500 MG TABLET PO PRN (11:06)
--- NOTE | 2020-01-21 11:56 | DS ---
[facility] Detox Discharge Summary Admission Date: 01/16/20 Discharge Date: 01/21/20 - History Present History: Alcohol Dependence Additional Comments: 59 years old male was admitted on 01/16/20 for alcohol withdrawal sx management treated with ativan detox regiment seen by psychiatrist ramy barrientos mr ramirez has completed ativan regimen and is tolerated well General Appearance: Yes: no Distress,mild Tremorous, not Irritable, no Sweating, less Anxious HEENTM: Yes: EOMI, Hearing grossly Normal, Normal ENT Inspection, Normocephalic, Normal Voice, CLAUDINE, Pharynx Normal, Tm's normal Respiratory: Yes: Chest Non-Tender, Lungs Clear, Normal Breath Sounds, No Respiratory Distress, No Accessory Muscle Use Neck: Yes: No masses,lesions,Nodules, Supple, Trachea in good position Breast: Yes: Within Normal Limits Cardiology: Yes: Regular Rhythm, S1, S2, Tachycardia Abdominal: Yes: Normal Bowel Sounds, Non Tender, Flat, Soft Back: Yes: Normal Inspection Musculoskeletal: Yes: full range of Motion, Gait Steady, Pelvis Stable Extremities: Yes: Normal Capillary Refill, Normal Inspection, Normal Range of Motion, Non-Tender Neurological: Yes: cardiovascular physician assistant II-XII NML intact, Fully Oriented, Alert, Motor Strength 5/5, Normal Mood/Affect, Normal Response Integumentary: Yes: Normal Color, Dry, Warm Lymphatic: Yes: Within Normal Limits Pertinent Past History: time for discharge 46 minutes transferred order set from detox to rehab - Physical Exam Results Vital Signs: Vital Signs Temperature 97.3 F L 01/21/20 09:10 Pulse Rate 82 01/21/20 09:10 Respiratory Rate 18 01/21/20 09:10 Blood Pressure 153/96 01/21/20 09:10 O2 Sat by Pulse Oximetry (%) 96 01/21/20 05:31 Pertinent Admission Physical Exam Findings: alcohol withdrawal Vital Signs - 24 hr 01/20/20 01/20/20 01/20/20 12:40 16:40 18:30 Temperature 97.1 F L 97.1 F L Pulse Rate 89 94 H 88 Respiratory 20 18 19 Rate Blood Pressure 131/99 151/101 H 148/98 O2 Sat by Pulse 97 Oximetry (%) 01/20/20 01/20/20 01/21/20 18:31 20:56 05:31 Temperature 97.8 F 97.1 F L Pulse Rate 94 H 90 Respiratory 16 16 16 Rate Blood Pressure 148/98 150/91 142/84 O2 Sat by Pulse 96 96 Oximetry (%) 01/21/20 09:10 Temperature 97.3 F L Pulse Rate 82 Respiratory 18 Rate Blood Pressure 153/96 O2 Sat by Pulse Oximetry (%) Laboratory Tests 01/16/20 01/16/20 01/16/20 11:45 11:45 11:45 WBC 2.7 L RBC 3.89 L Hgb 12.9 Hct 38.0 MCV 97.6 H MCH 33.1 MCHC 33.9 RDW 14.2 Plt Count 307 D MPV 8.2 Sodium 140 Potassium 3.5 Chloride 103 Carbon Dioxide 31 Anion Gap 7 L BUN 8.2 Creatinine 0.9 Est GFR (CKD-EPI)AfAm 107.97 Est GFR (CKD-EPI)NonAf 93.16 Random Glucose 93 Calcium 8.3 L Total Bilirubin 0.9 AST 163 H ALT 59 Alkaline Phosphatase 59 Total Protein 6.9 Albumin 3.9 Syphilis Serology Non-reactive COVID-19 (LAMAR) 01/16/20 13:20 WBC RBC Hgb Hct MCV MCH MCHC RDW Plt Count MPV Sodium Potassium Chloride Carbon Dioxide Anion Gap BUN Creatinine Est GFR (CKD-EPI)AfAm Est GFR (CKD-EPI)NonAf Random Glucose Calcium Total Bilirubin AST ALT Alkaline Phosphatase Total Protein Albumin Syphilis Serology COVID-19 (LAMAR) Not detected chronic low wbc alcohol induced ast elevation - Treatment Hospital Course: Detox Protocol Followed, Detoxed Safely, Responded well, Discharged Condition Good, Rehab Referral Accepted Patient has Accepted [facility] Referral [facility] - Medication Discharge Medications: Ambulatory Orders Aspirin [ASA -] 81 mg PO BID 07/20/19 Mirtazapine [Remeron -] 15 mg PO HS 07/20/19 Ibuprofen [Motrin -] 600 mg PO TID PRN #30 tablet 11/28/19 Mirtazapine [Remeron -] 30 mg PO HS #30 tablet 11/28/19 Quetiapine Fumarate [Seroquel -] 100 mg PO HS #30 tablet 11/28/19 traZODone HCL [Trazodone HCl] 100 mg PO HS 01/16/20 - Diagnosis (1) Alcohol dependence with uncomplicated withdrawal Status: Acute (2) Ambulates with cane Status: Chronic (3) Substance induced mood disorder Status: Suspected (4) Weight loss Status: Chronic (5) Hypertension Status: Chronic Qualifiers: Hypertension type: essential hypertension Qualified Code(s): I10 - Essential (primary) hypertension (6) Nicotine dependence Status: Acute Qualifiers: Nicotine product type: cigarettes Substance use status: in withdrawal Qualified Code(s): F17.213 - Nicotine dependence, cigarettes, with withdrawal (7) Substance induced mood disorder Status: Suspected - AMA Did Patient Leave Against Medical Advice: No CIWA Score - CIWA Score Nausea/Vomitin-No Nausea/No Vomiting Muscle Tremors: 1-None Visible, but [place] Anxiety: 1-Mildly Anxious Agitation: 1-Slight > Activity Paroxysmal Sweats: No Perspiration Orientation: 0-Oriented Tacttile Disturbances: 0-None Auditory Disturbances: 0-None Visual Disturbances: 0-None Headache: 0-None Present CIWA-Ar Total Score: 3
== END 2020-01-21 11:14 | disposition other institution (70) | DRG 774 ==
LOC: YASAS 09:53 → Y3N 11:36
PROVIDERS: ADMIT Allergy & Immunology; ATTEND Allergy & Immunology
PROC: HZ2ZZZZ Detoxification Services for Substance Abuse Treatment (ICD-10-PCS; principal; 2020-01-16)
DX: F10.230 Alcohol dependence with withdrawal, uncomplicated (principal); F14.20 Cocaine dependence, uncomplicated; F17.210 Nicotine dependence, cigarettes, uncomplicated; F25.9 Schizoaffective disorder, unspecified; D64.9 Anemia, unspecified; E78.00 Pure hypercholesterolemia, unspecified; I10 Essential (primary) hypertension; M19.90 Unspecified osteoarthritis, unspecified site; R74.0 Nonspecific elevation of levels of transaminase and lactic acid dehydrogenase [LDH]; M25.562 Pain in left knee; M25.561 Pain in right knee; R26.2 Difficulty in walking, not elsewhere classified; Z87.81 Personal history of (healed) traumatic fracture; W19.XXXA Unspecified fall, initial encounter; Y93.89 Activity, other specified; Y92.238 Other place in hospital as the place of occurrence of the external cause; Y99.8 Other external cause status; Z99.89 Dependence on other enabling machines and devices; Z91.013 Allergy to seafood; Z97.8 Presence of other specified devices
CPT/HCPCS: 36415; 80053; 85027; 86780; Q0162; U0003

== ENCOUNTER 2020-01-21 11:11 | Inpatient (IN) | payer OTHER ==
--- NOTE | 2020-01-21 11:58 | HP ---
[facility] Rehab Assess/Revision - Admission History Admitted to Rehab from: [facility] Date of Admission to Rehab: 01/21/20 - Findings Detox History & Physical reviewed: Yes Concur with findings: Yes Comments/Additional Findings: transferred from detox to rehab admission as per protocol Inpatient Rehab Admission - Rehab Decision to Admit Inpatient rehab admission?: Yes - Initial Determination Are CD services needed?: Yes Free of communicable disease: Yes Not in need of hospitalization: Yes - Rehab Admission Criteria Previous failed treatment: Yes Poor recovery environment: Yes Comorbidities: Yes Lacks judgement: Yes Patient is meeting Inpatient Rehab admission criteria:: Yes
[2020-01-21] MEDS ORDERED: P-EPHED 60MG/TRIPROLIDI 2.5MG TABLET PO PRN (12:01)
[2020-01-21] MEDS ORDERED: MAG HYDROX/AL HYDROX/SIMETH 30 ML UNIT-DOSE CUP PO PRN (12:01)
[2020-01-21] MEDS ORDERED: LOPERAMIDE HCL 2 MG CAPSULE PO PRN (12:01)
[2020-01-21] MEDS ORDERED: MAGNESIUM HYDROX 2400MG/30ML ORAL SUSPENSION 30 ML CUP PO PRN (12:01)
[2020-01-21] MEDS ORDERED: NICOTINE POLACRILEX 2 MG GUM BC PRN (12:01)
[2020-01-21] MEDS ORDERED: MAGNESIUM CITRATE 300 ML BOTTLE PO PRN (12:01)
[2020-01-21] MEDS ORDERED: guaiFENesin 200 MG/10 ML 10 ML UNIT-DOSE CUPS PO PRN (12:01)
[2020-01-21] MEDS ORDERED: COLLOIDAL OATMEAL 1 BAR EACH TP PRN (12:04)
[2020-01-21] MEDS ORDERED: LISINOPRIL 5 MG TABLET (FP) PO ONE (13:30)
[2020-01-21] MEDS: LIDOCAINE 5% TOPICAL PATCH TP SCH (13:41)
--- NOTE | 2020-01-21 15:35 | PN ---
[facility] Progress Note Note: Patient on simvastatin 10 mg at home. It is not on the hospital formulary. Consulted with pharmacist, Cara Hatfield and Lipitor was ordered as a substitute. Patient and nurse aware.
[2020-01-21] MEDS: SODIUM CHLORIDE NASAL SPRAY 44 ML BOTTLE NS SCH ×2 (15:38→21:04)
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
[2020-01-21] MEDS: THIAMINE HCL 100 MG TABLET (FP) PO SCH (21:05)
[2020-01-21] MEDS: LIDOCAINE PATCH REMOVAL MC SCH (21:05)
[2020-01-21] MEDS: QUEtiapine FUMARATE 100 MG TABLET (FP) PO SCH (21:05)
[2020-01-21] MEDS: MELATONIN 5 MG TABLETS PO SCH (21:05)
[2020-01-21] MEDS: ATORVASTATIN CA 10 MG TABLET (FP) PO SCH (21:05)
[2020-01-21] MEDS: LISINOPRIL 5 MG TABLET (FP) PO SCH (21:05)
[2020-01-22] MEDS: ACETAMINOPHEN 325 MG TABLET (FP) PO PRN ×2 (02:28→21:36)
--- NOTE | 2020-01-22 03:37 | PN ---
[facility] Progress Note Note: Patient complained of hip pain rated at 7/10 Vital Signs Temperature 97.1 F L 01/21/20 20:31 Pulse Rate 96 H 01/21/20 20:31 Respiratory Rate Blood Pressure 142/92 01/21/20 20:31 O2 Sat by Pulse Oximetry (%) 97 01/21/20 20:31 Action: Ibuprofen 400mg tablet oral ordered
[2020-01-22] MEDS ORDERED: IBUPROFEN 400 MG TABLET (FP) PO ONE (04:00)
[2020-01-22] MEDS: hydrOXYzine PAMOATE 25 MG CAPSULE (FP) PO PRN ×4 (06:23→22:09)
[2020-01-22] MEDS: SODIUM CHLORIDE NASAL SPRAY 44 ML BOTTLE NS SCH ×3 (06:24→21:34)
[2020-01-22] MEDS: CALCIUM 250MG/VIT-D 125 UNITS 1 COMBO TABLET PO SCH (10:27)
[2020-01-22] MEDS: LISINOPRIL 5 MG TABLET (FP) PO SCH ×2 (10:28→21:35)
[2020-01-22] MEDS: LIDOCAINE 5% TOPICAL PATCH TP SCH (10:28)
[2020-01-22] MEDS: PRENATAL VITAMINS W/ FOLIC ACID TABLET (FP) PO SCH (10:28)
[2020-01-22] MEDS: ASPIRIN 81 MG CHEWABLE TABLETS PO SCH (10:28)
[2020-01-22] MEDS: NICOTINE 7 MG/24 HOURS TOPICAL PATCH TD SCH (10:28)
[2020-01-22] MEDS: VITAMINS A AND D TOPICAL OINTMENT 60 GM TUBE TP SCH ×3 (12:18→23:00)
[2020-01-22] MEDS: LIDOCAINE PATCH REMOVAL MC SCH (21:34)
[2020-01-22] MEDS: MELATONIN 5 MG TABLETS PO SCH (21:34)
[2020-01-22] MEDS: THIAMINE HCL 100 MG TABLET (FP) PO SCH (21:34)
[2020-01-22] MEDS: ATORVASTATIN CA 10 MG TABLET (FP) PO SCH (21:35)
[2020-01-22] MEDS: QUEtiapine FUMARATE 100 MG TABLET (FP) PO SCH (21:35)
[2020-01-23] MEDS: hydrOXYzine PAMOATE 25 MG CAPSULE (FP) PO PRN ×3 (06:10→14:37)
[2020-01-23] MEDS: ACETAMINOPHEN 325 MG TABLET (FP) PO PRN ×2 (06:10→09:22)
[2020-01-23] MEDS: VITAMINS A AND D TOPICAL OINTMENT 60 GM TUBE TP SCH ×3 (07:05→18:07)
[2020-01-23] MEDS: SODIUM CHLORIDE NASAL SPRAY 44 ML BOTTLE NS SCH ×3 (07:05→21:07)
[2020-01-23] MEDS: LIDOCAINE 5% TOPICAL PATCH TP SCH (09:18)
[2020-01-23] MEDS: ASPIRIN 81 MG CHEWABLE TABLETS PO SCH (09:18)
[2020-01-23] MEDS: LISINOPRIL 5 MG TABLET (FP) PO SCH ×2 (09:18→21:06)
[2020-01-23] MEDS: PRENATAL VITAMINS W/ FOLIC ACID TABLET (FP) PO SCH (09:18)
[2020-01-23] MEDS: CALCIUM 250MG/VIT-D 125 UNITS 1 COMBO TABLET PO SCH (09:18)
[2020-01-23] MEDS: NICOTINE 7 MG/24 HOURS TOPICAL PATCH TD SCH (09:19)
[2020-01-23] MEDS: METHYL SALICYLATE/MENTHOL OINT 30 GM TUBE TP SCH ×2 (10:02→21:05)
[2020-01-23] MEDS ORDERED: PT OWN MED DRAWER 7, Y5N ONE (19:12)
[2020-01-23] MEDS: LIDOCAINE PATCH REMOVAL MC SCH (21:05)
[2020-01-23] MEDS: MELATONIN 5 MG TABLETS PO SCH (21:05)
[2020-01-23] MEDS: THIAMINE HCL 100 MG TABLET (FP) PO SCH (21:06)
[2020-01-23] MEDS: ATORVASTATIN CA 10 MG TABLET (FP) PO SCH (21:06)
[2020-01-23] MEDS: QUEtiapine FUMARATE 100 MG TABLET (FP) PO SCH (21:06)
[2020-01-24] MEDS: VITAMINS A AND D TOPICAL OINTMENT 60 GM TUBE TP SCH ×5 (00:01→23:48)
[2020-01-24] MEDS: hydrOXYzine PAMOATE 25 MG CAPSULE (FP) PO PRN ×2 (04:28→14:23)
[2020-01-24] MEDS: SODIUM CHLORIDE NASAL SPRAY 44 ML BOTTLE NS SCH ×3 (06:25→21:16)
[2020-01-24] MEDS: ACETAMINOPHEN 325 MG TABLET (FP) PO PRN ×2 (06:27→14:19)
[2020-01-24] MEDS ORDERED: PT OWN MED DRAWER 7, Y5N ONE ×2 (08:43→18:32)
[2020-01-24] MEDS: NICOTINE 7 MG/24 HOURS TOPICAL PATCH TD SCH (10:19)
[2020-01-24] MEDS: PRENATAL VITAMINS W/ FOLIC ACID TABLET (FP) PO SCH (10:19)
[2020-01-24] MEDS: CALCIUM 250MG/VIT-D 125 UNITS 1 COMBO TABLET PO SCH (10:19)
[2020-01-24] MEDS: LISINOPRIL 5 MG TABLET (FP) PO SCH ×2 (10:19→21:14)
[2020-01-24] MEDS: ASPIRIN 81 MG CHEWABLE TABLETS PO SCH (10:19)
[2020-01-24] MEDS: LIDOCAINE 5% TOPICAL PATCH TP SCH (10:20)
[2020-01-24] MEDS: METHYL SALICYLATE/MENTHOL OINT 30 GM TUBE TP SCH ×2 (10:21→21:14)
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
[2020-01-24] MEDS: OXYMETAZOLINE 0.05% NASAL SOLUTION 15 ML BOTTLE NS PRN (14:23)
[2020-01-24] MEDS: THIAMINE HCL 100 MG TABLET (FP) PO SCH (21:14)
[2020-01-24] MEDS: ATORVASTATIN CA 10 MG TABLET (FP) PO SCH (21:14)
[2020-01-24] MEDS: LIDOCAINE PATCH REMOVAL MC SCH (21:14)
[2020-01-24] MEDS: QUEtiapine FUMARATE 100 MG TABLET (FP) PO SCH (21:14)
[2020-01-24] MEDS: MELATONIN 5 MG TABLETS PO SCH (21:14)
[2020-01-25] MEDS: hydrOXYzine PAMOATE 25 MG CAPSULE (FP) PO PRN ×4 (05:31→21:52)
[2020-01-25] MEDS: VITAMINS A AND D TOPICAL OINTMENT 60 GM TUBE TP SCH ×4 (06:46→23:20)
[2020-01-25] MEDS: SODIUM CHLORIDE NASAL SPRAY 44 ML BOTTLE NS SCH ×3 (06:46→21:30)
[2020-01-25] MEDS ORDERED: PT OWN MED DRAWER 7, Y5N ONE ×3 (09:13→18:37)
[2020-01-25] MEDS: CALCIUM 250MG/VIT-D 125 UNITS 1 COMBO TABLET PO SCH (10:20)
[2020-01-25] MEDS: PRENATAL VITAMINS W/ FOLIC ACID TABLET (FP) PO SCH (10:20)
[2020-01-25] MEDS: ASPIRIN 81 MG CHEWABLE TABLETS PO SCH (10:20)
[2020-01-25] MEDS: LISINOPRIL 5 MG TABLET (FP) PO SCH ×2 (10:20→21:30)
[2020-01-25] MEDS: LIDOCAINE 5% TOPICAL PATCH TP SCH (10:21)
[2020-01-25] MEDS: METHYL SALICYLATE/MENTHOL OINT 30 GM TUBE TP SCH ×2 (10:21→21:31)
[2020-01-25] MEDS: NICOTINE 7 MG/24 HOURS TOPICAL PATCH TD SCH (10:21)
[2020-01-25] MEDS: OXYMETAZOLINE 0.05% NASAL SOLUTION 15 ML BOTTLE NS PRN (18:32)
[2020-01-25] MEDS: QUEtiapine FUMARATE 100 MG TABLET (FP) PO SCH (21:30)
[2020-01-25] MEDS: THIAMINE HCL 100 MG TABLET (FP) PO SCH (21:30)
[2020-01-25] MEDS: LIDOCAINE PATCH REMOVAL MC SCH (21:30)
[2020-01-25] MEDS: MELATONIN 5 MG TABLETS PO SCH (21:30)
[2020-01-25] MEDS: ATORVASTATIN CA 10 MG TABLET (FP) PO SCH (21:30)
[2020-01-26] MEDS: SODIUM CHLORIDE NASAL SPRAY 44 ML BOTTLE NS SCH ×4 (06:07→21:13)
[2020-01-26] MEDS: hydrOXYzine PAMOATE 25 MG CAPSULE (FP) PO PRN ×3 (06:07→16:26)
[2020-01-26] MEDS: VITAMINS A AND D TOPICAL OINTMENT 60 GM TUBE TP SCH ×4 (06:07→23:30)
[2020-01-26] MEDS: ACETAMINOPHEN 325 MG TABLET (FP) PO PRN ×2 (07:51→12:24)
[2020-01-26] MEDS: OXYMETAZOLINE 0.05% NASAL SOLUTION 15 ML BOTTLE NS PRN ×2 (09:38→19:59)
[2020-01-26] MEDS ORDERED: PT OWN MED DRAWER 7, Y5N ONE ×2 (09:38→18:57)
[2020-01-26] MEDS: ASPIRIN 81 MG CHEWABLE TABLETS PO SCH (09:38)
[2020-01-26] MEDS: PRENATAL VITAMINS W/ FOLIC ACID TABLET (FP) PO SCH (09:38)
[2020-01-26] MEDS: CALCIUM 250MG/VIT-D 125 UNITS 1 COMBO TABLET PO SCH (09:38)
[2020-01-26] MEDS: LIDOCAINE 5% TOPICAL PATCH TP SCH (09:39)
[2020-01-26] MEDS: METHYL SALICYLATE/MENTHOL OINT 30 GM TUBE TP SCH ×2 (09:39→21:14)
[2020-01-26] MEDS: LISINOPRIL 5 MG TABLET (FP) PO SCH ×2 (09:40→21:13)
[2020-01-26] MEDS: NICOTINE 7 MG/24 HOURS TOPICAL PATCH TD SCH (09:40)
[2020-01-26] MEDS: THIAMINE HCL 100 MG TABLET (FP) PO SCH (21:12)
[2020-01-26] MEDS: MELATONIN 5 MG TABLETS PO SCH (21:13)
[2020-01-26] MEDS: QUEtiapine FUMARATE 100 MG TABLET (FP) PO SCH (21:13)
[2020-01-26] MEDS: ATORVASTATIN CA 10 MG TABLET (FP) PO SCH (21:13)
[2020-01-26] MEDS: LIDOCAINE PATCH REMOVAL MC SCH (21:49)
[2020-01-27] MEDS: VITAMINS A AND D TOPICAL OINTMENT 60 GM TUBE TP SCH ×4 (06:53→23:12)
[2020-01-27] MEDS: hydrOXYzine PAMOATE 25 MG CAPSULE (FP) PO PRN ×4 (06:53→21:34)
[2020-01-27] MEDS: SODIUM CHLORIDE NASAL SPRAY 44 ML BOTTLE NS SCH ×3 (06:53→21:29)
[2020-01-27] MEDS: PRENATAL VITAMINS W/ FOLIC ACID TABLET (FP) PO SCH (10:01)
[2020-01-27] MEDS: LISINOPRIL 5 MG TABLET (FP) PO SCH ×2 (10:02→21:28)
[2020-01-27] MEDS: ASPIRIN 81 MG CHEWABLE TABLETS PO SCH (10:02)
[2020-01-27] MEDS: CALCIUM 250MG/VIT-D 125 UNITS 1 COMBO TABLET PO SCH (10:02)
[2020-01-27] MEDS: LIDOCAINE 5% TOPICAL PATCH TP SCH (10:03)
[2020-01-27] MEDS: OXYMETAZOLINE 0.05% NASAL SOLUTION 15 ML BOTTLE NS PRN ×2 (10:04→14:20)
[2020-01-27] MEDS: METHYL SALICYLATE/MENTHOL OINT 30 GM TUBE TP SCH ×2 (10:05→21:29)
[2020-01-27] MEDS: NICOTINE 7 MG/24 HOURS TOPICAL PATCH TD SCH (10:05)
[2020-01-27] MEDS: ACETAMINOPHEN 325 MG TABLET (FP) PO PRN (10:48)
[2020-01-27] MEDS: ATORVASTATIN CA 10 MG TABLET (FP) PO SCH (21:27)
[2020-01-27] MEDS: THIAMINE HCL 100 MG TABLET (FP) PO SCH (21:27)
[2020-01-27] MEDS: QUEtiapine FUMARATE 100 MG TABLET (FP) PO SCH (21:27)
[2020-01-27] MEDS: MELATONIN 5 MG TABLETS PO SCH (21:28)
[2020-01-27] MEDS: LIDOCAINE PATCH REMOVAL MC SCH (21:29)
[2020-01-28] MEDS: hydrOXYzine PAMOATE 25 MG CAPSULE (FP) PO PRN ×3 (02:44→21:14)
[2020-01-28] MEDS: OXYMETAZOLINE 0.05% NASAL SOLUTION 15 ML BOTTLE NS PRN (02:47)
[2020-01-28] MEDS: SODIUM CHLORIDE NASAL SPRAY 44 ML BOTTLE NS SCH ×3 (06:41→21:12)
[2020-01-28] MEDS: VITAMINS A AND D TOPICAL OINTMENT 60 GM TUBE TP SCH ×4 (06:42→23:10)
[2020-01-28] MEDS: IBUPROFEN 400 MG TABLET (FP) PO PRN ×2 (08:31→21:13)
[2020-01-28] MEDS: LIDOCAINE 5% TOPICAL PATCH TP SCH (09:56)
[2020-01-28] MEDS: ASPIRIN 81 MG CHEWABLE TABLETS PO SCH (09:56)
[2020-01-28] MEDS: METHYL SALICYLATE/MENTHOL OINT 30 GM TUBE TP SCH ×2 (09:56→21:14)
[2020-01-28] MEDS: PRENATAL VITAMINS W/ FOLIC ACID TABLET (FP) PO SCH (09:56)
[2020-01-28] MEDS: NICOTINE 7 MG/24 HOURS TOPICAL PATCH TD SCH (09:56)
[2020-01-28] MEDS: CALCIUM 250MG/VIT-D 125 UNITS 1 COMBO TABLET PO SCH (09:56)
[2020-01-28] MEDS: LISINOPRIL 5 MG TABLET (FP) PO SCH ×2 (09:57→21:12)
[2020-01-28] MEDS: ATORVASTATIN CA 10 MG TABLET (FP) PO SCH (21:12)
[2020-01-28] MEDS: THIAMINE HCL 100 MG TABLET (FP) PO SCH (21:12)
[2020-01-28] MEDS: MELATONIN 5 MG TABLETS PO SCH (21:12)
[2020-01-28] MEDS: LIDOCAINE PATCH REMOVAL MC SCH (21:12)
[2020-01-28] MEDS: QUEtiapine FUMARATE 100 MG TABLET (FP) PO SCH (21:12)
[2020-01-29] MEDS: hydrOXYzine PAMOATE 25 MG CAPSULE (FP) PO PRN ×4 (03:08→21:34)
[2020-01-29] MEDS: SODIUM CHLORIDE NASAL SPRAY 44 ML BOTTLE NS SCH ×3 (06:30→21:35)
[2020-01-29] MEDS: VITAMINS A AND D TOPICAL OINTMENT 60 GM TUBE TP SCH ×4 (06:31→23:39)
[2020-01-29] MEDS ORDERED: PT OWN MED DRAWER 7, Y5N ONE ×2 (09:00→18:51)
[2020-01-29] MEDS: ASPIRIN 81 MG CHEWABLE TABLETS PO SCH (09:45)
[2020-01-29] MEDS: METHYL SALICYLATE/MENTHOL OINT 30 GM TUBE TP SCH ×2 (09:46→21:35)
[2020-01-29] MEDS: LISINOPRIL 5 MG TABLET (FP) PO SCH ×2 (09:46→21:33)
[2020-01-29] MEDS: PRENATAL VITAMINS W/ FOLIC ACID TABLET (FP) PO SCH (09:46)
[2020-01-29] MEDS: LIDOCAINE 5% TOPICAL PATCH TP SCH (09:46)
[2020-01-29] MEDS: NICOTINE 7 MG/24 HOURS TOPICAL PATCH TD SCH (09:46)
[2020-01-29] MEDS: CALCIUM 250MG/VIT-D 125 UNITS 1 COMBO TABLET PO SCH (09:46)
[2020-01-29] MEDS: IBUPROFEN 400 MG TABLET (FP) PO PRN ×2 (09:49→21:34)
[2020-01-29] MEDS: OXYMETAZOLINE 0.05% NASAL SOLUTION 15 ML BOTTLE NS PRN ×2 (09:51→14:15)
--- NOTE | 2020-01-29 14:22 | PN ---
[facility] Progress Note Note: Patient is scheduled for discharge tomorrow. Script for 30 days supply of Seroquel 100 mg/hs will be electronically transmitted to [facility], [address] , [place] [address]
[2020-01-29] MEDS: ATORVASTATIN CA 10 MG TABLET (FP) PO SCH (21:32)
[2020-01-29] MEDS: QUEtiapine FUMARATE 100 MG TABLET (FP) PO SCH (21:33)
[2020-01-29] MEDS: THIAMINE HCL 100 MG TABLET (FP) PO SCH (21:33)
[2020-01-29] MEDS: MELATONIN 5 MG TABLETS PO SCH (21:33)
[2020-01-29] MEDS: LIDOCAINE PATCH REMOVAL MC SCH (21:33)
[2020-01-30] MEDS: hydrOXYzine PAMOATE 25 MG CAPSULE (FP) PO PRN (03:44)
[2020-01-30] MEDS: OXYMETAZOLINE 0.05% NASAL SOLUTION 15 ML BOTTLE NS PRN (03:45)
[2020-01-30] MEDS: SODIUM CHLORIDE NASAL SPRAY 44 ML BOTTLE NS SCH (06:45)
[2020-01-30] MEDS: VITAMINS A AND D TOPICAL OINTMENT 60 GM TUBE TP SCH (06:47)
[2020-01-30] MEDS: IBUPROFEN 400 MG TABLET (FP) PO PRN (06:47)
[2020-01-30 07:06] VITALS: BP 129/93; PULSE 83; TEMP 97.3
--- NOTE | 2020-01-30 08:51 | DS ---
[facility] Rehab Discharge Summary - [facility] Rehab Discharge Summary Admission Date: 01/21/20 Discharge Date: 01/30/20 - History Present History: Alcohol dependence, Cocaine dependence Pertinent Past History: 59 year old male with history of alcohol dependence with withdrawal, cocaine use disorder, nicotine dependence. He was last here on 11/21-11/29/19 and completed rehab but relapsed almost immediately. - Discharge Physical Exam Vital Signs: Vital Signs Temperature 97.3 F L 01/30/20 06:21 Pulse Rate 83 01/30/20 06:21 Respiratory Rate 18 01/30/20 06:21 Blood Pressure 129/93 01/30/20 06:21 O2 Sat by Pulse Oximetry (%) 97 01/30/20 06:21 Pertinent Admission Physical Exam Findings: Physical General Appearance: No apparent distress HEENTM: EOMI, Normocephalic Respiratory: No Respiratory Distress, No Accessory Muscle Use Neck: Supple, Abdominal: +Bowel Sounds, Non Tender, Flat, Soft Musculoskeletal: full range of Motion, Gait Steady, full weight bearing Neurological: fisher swordfish II-XII intact, Motor Strength 5/5 - Treatment Discharge Condition: Discharge condition good (Medically stable for discharge), Outpatient referral accepted (Patient will to to [place] [facility]) Hospital Course: Patient attended groups, had 1:1 with his counselor, and was seen by the psychiatric service. He was adherent to his medication regimen and treatment plan. While in rehab he was treated for nasal congestion and hip pain with good effect. - Medication Discharge Medications: Ambulatory Orders Mirtazapine [Remeron -] 30 mg PO HS #30 tablet 11/28/19 Simvastatin [Zocor] 10 mg PO HS #30 tablet 01/21/20 Aspirin [ASA -] 81 mg PO BID #14 tab.chew 01/29/20 Ibuprofen [Motrin -] 600 mg PO TID PRN #30 tablet 01/29/20 Lisinopril [Prinivil] 5 mg PO BID #14 tablet 01/29/20 Quetiapine Fumarate [Seroquel -] 100 mg PO HS #30 tablet 01/29/20 Sodium Chloride Nasal [place] [[place]al [place] -] 2 spray NS TID #14 spray 01/29/20 - Medication-Assisted Treatment (MAT) Medication-Assisted Treatment (MAT): No - Discharge Instructions Diet, activity, other medical instructions: Diet: as tolerated Activity: as tolerated Other medical instructions: Please follow up with aftercare referrals. - Diagnosis (1) Alcohol dependence Current Visit: Yes Status: Chronic (2) Cocaine dependence Current Visit: Yes Status: Chronic Qualifiers: - Follow-up Referral Minutes to complete discharge: 20 - AMA Did Patient Leave Against Medical Advice: No
== END 2020-01-30 08:18 | disposition home or self-care (01) | DRG 772 ==
LOC: YASAS 11:11 → Y3W 11:12
PROVIDERS: ADMIT Allergy & Immunology; ATTEND Allergy & Immunology
PROC: HZ42ZZZ Group Counseling for Substance Abuse Treatment, Cognitive-Behavioral (ICD-10-PCS; principal; 2020-01-21)
DX: F10.20 Alcohol dependence, uncomplicated (principal); F14.20 Cocaine dependence, uncomplicated; F17.210 Nicotine dependence, cigarettes, uncomplicated; F25.9 Schizoaffective disorder, unspecified; I10 Essential (primary) hypertension; E05.90 Thyrotoxicosis, unspecified without thyrotoxic crisis or storm; E78.5 Hyperlipidemia, unspecified; J34.2 Deviated nasal septum; M25.559 Pain in unspecified hip; M25.561 Pain in right knee; G89.29 Other chronic pain; R09.81 Nasal congestion; M19.90 Unspecified osteoarthritis, unspecified site; Z99.89 Dependence on other enabling machines and devices; Z56.0 Unemployment, unspecified; Z88.0 Allergy status to penicillin; Z91.013 Allergy to seafood
CPT/HCPCS: 36415; 87389

== ENCOUNTER 2020-02-17 21:31 | Inpatient (IN) | payer OTHER ==
--- OUTSIDE RECORDS SUMMARY | 2020-02-17 21:37 | XMS ---
:1960 Author Organization [facility] Care Team Providers Name Role Phone ERIKA SALAS Unavailable Unavailable JANINA RENATO Unavailable Unavailable CAMILA MARTIN ([facility]) Unavailable Unavailable Neretin Unavailable Re-disclosure Warning The records that you are about to access may contain information from federally- assisted alcohol or drug abuse programs. If such information is present, then the following federally mandated warning applies: This information has been disclosed to you from records protected by federal confidentiality rules (42 CFR part 2). The federal rules prohibit you from making any further disclosure of this information unless further disclosure is expressly permitted by the written consent of the person to whom it pertains or as otherwise permitted by 42 CFR part 2. A general authorization for the release of medical or other information is NOT sufficient for this purpose. The Federal rules restrict any use of the information to criminally investigate or prosecute any alcohol or drug abuse patient.The records that you are about to access may contain highly sensitive health information, the redisclosure of which is protected by Article 27-F of the [place] State Public Health law. If you continue you may haveaccess to information: Regarding HIV / AIDS; Provided by facilities licensed or operated by the [facility] Office of Mental Health; or Provided by the [facility] Office for People With Developmental Disabilities. If such information is present, then the following [facility] mandated warning applies: This information has been disclosed to you from confidential records which are protected by state law. State law prohibits you from making any further disclosure of this information without the specific written consent of the person to whom it pertains, or as otherwise permitted by law. Any unauthorized further disclosure in violation of state law may result in a fine or long-term sentence or both. A general authorization for the release of medical or other information is NOT sufficient authorization for further disclosure. Encounters Encounter Providers Location Date Indications Data Source(s ) Outpatient [facility]: [facility]36 PM [facility] EDT Patient admitted. Outpatient Attender: Urvashi 10/22/2019 03:15:44 PM [facility] Patient admitted. Outpatient Attender: ERIKA SALAS 09/23/2019 12:04:54 PM The [facility] Patient admitted. Outpatient Attender: CAMILA MARTIN 04/21/2017 03:07:38 PM The [facility] Medications Medication Brand Start Product Dose Route Administrative Pharmacy [facility] Indications Reaction Description Data Name Date Form Instructions Instructions Source(s) Trazodone traZOD The Hydrochlori one 2015 ed [facility] de 100 MG 100 MG 12:00: For Fa salome Oral Tablet Oral 00 AM Health traZODone tablet EDT 100 MG Oral tablet Risperidone Risper T he 1 MG Oral idone 2016 ed [place] Tablet 1 MG 12:00: For Family Oral 00 AM Health Tab EDT Insurance Providers Payer name Policy type Policy ID Covered Covered republican's Policy P ekta / Coverage republican ID relationship to Bueno Inf ormation type bueno [facility] [employer] [id number] SP [id number] NON CAP SLIDING FEE NA Self NA [employer] [id number] Self [id number] MEDICAID [id number] SP [id number] DELLA [employer] [id number] SP [id number] NON CAP Problems, Conditions, and Diagnoses Code Display Name Description Problem Type Effective Data Sour ce(s) Dates F10.10 Alcohol use Alcohol use 75752005 02/17/2017 The [facility] disorder, mild, disorder, mild, 12:00:00 AM For Family abuse abuse EDT Health F12.10 Cannabis use Cannabis use [id number] 02/17/2017 The [facility] [place] disorder, mild, disorder, mild, 12:00:00 AM For Family abuse abuse EDT Health F17.200 Tobacco use Tobacco use [id number] 02/17/2017 The Institut e disorder disorder 12:00:00 AM For Family EDT Health F14.10 Cocaine use Cocaine use [id number] 02/17/2017 The Institut e disorder, mild, disorder, mild, 12:00:00 AM For Family abuse abuse EDT Health F43.10 Post traumatic Post traumatic [id number] 02/06/2017 The In stitute stress disorder stress disorder 12:00:00 AM For Family EDT Health 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 02/06/2017 The [place] recurrent major recurrent major 12:00:00 AM For Family depressive depressive EDT Health disorder disorder Transitional Care Transitional Care Diagnosis 10/22/2019 The [place] Management Management 03:20:36 PM For Family Outreach Outreach EDT Health Z11.59 Encounter for Encounter for Diagnosis 10/22/2019 The [facility] [place] screening for screening for 03:15:44 PM For Fam aspen other viral other viral EDT Health diseases diseases Emergency Room Emergency Room Diagnosis 09/23/2019 The [place] Visit Follow Up Visit Follow Up 12:04:54 PM For Family EDT Health 460 Outreach Outreach Diagnosis 04/21/2017 The [place] 03:07:[address] [facility] Health Surgeries/Procedures Procedure Description Date Indications Data Source(s) NOVEL CORONAVIRUS NOVEL CORONAVIRUS Routine 10/17/2019 0 10/17/2019 The COVID-19 COVID-19 12:00:[facility]ARY[facility]GEAL NASOPHARYNGEAL EDT For [facility] NOVEL CORONAVIRUS COVID-19 NOVEL CORONAVIRUS COVID-19 The [place] For NASOPHARYNGEAL NASOPHARYNGEAL Family Heal th Results ID Date Data Source [id number] 01/16/2020 01:20:00 PM EDT [facility] Name Value Range Interpretation Description Data Sup porting Code Source(s) Document(s ) SARS [facility] coronavirus 2 RNA This lab was ordered by [facility] Bill Inter and reported by [facility]. ID Date Data Source [id number] 11/17/2019 11:00:00 AM EDT [facility] Name Value Range Interpretation Description Data Sup porting Code Source(s) Document(s ) SARS [facility] coronavirus 2 RNA This lab was ordered by [facility] Bill Inter and reported by [facility]. ID Date Data Source [id number] 10/16/2019 01:00:00 PM EDT [facility] Name Value Range Interpretation Description Data Sup porting Code Source(s) Document(s ) SARS [facility] CORONAVIRUS 2 RNA This lab was ordered by Miranda Diana and reported by [facility]. Procedure Social History Code Duration Value Status Description Data Source(s ) Tobacco use and 02/17/2017 Never used The Insti tute For exposure 12:00:00 AM EDT Family He alth Alcohol intake 02/17/2017 Current drinker The I nstitute For 12:00:00 AM EDT of alcohol Family He alth (finding) Alcohol Comment 02/17/2017 1 pint of hard The I nstitute For 12:00:00 AM EDT liquor every Family Health few days Cigarettes smoked 02/17/2017 UNK The Ins titute For current (pack per 12:00:00 AM EDT Fa [employer] ) - Reported Tobacco smoking 02/17/2017 Current every The In stitute For status NHIS 12:00:00 AM EDT day smoker Family H ealth Sex assigned at Male Male The [place] For Family Health Sex assigned at Male Male [facility] [place] [facility] Sex assigned at Male Male The [place] For [facility]
--- NOTE | 2020-02-17 23:35 | HP ---
CIWA Score Nausea/Vomitin (v omitiung x 3) Muscle Tremors: 3 Anxiety: 3 Agitation: 2 Paroxysmal Sweats: 2 Orientation: 2-Disoriented Date<2 days Tacttile Disturbances: 0-None Auditory Disturbances: 0-None Visual Disturbances: 0-None Headache: 2-Mild CIWA-Ar Total Score: 17 - Admission Criteria OASAS Guidelines: Admission for Medically Managed Detox: Requires at least one of the followin. CIWA greater than 12 2. Seizures within the past 24 hours 3. Delirium tremens within the past 24 hours 4. Hallucinations within the past 24 hours 5. Acute intervention needed for co occurring medical disorder 6. Acute intervention needed for co occurring psychiatric disorder 7. Severe withdrawal that cannot be handled at a lower level of care (continued vomiting, continued diarrhea, abnormal vital signs) requiring intravenous medication and/or fluids 8. 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 Cardiovascular: Yes: HTN Psych: Yes: Depression, Schizophrenia Musculoskeletal: Yes: Osteoarthritis, Other (left leg cast due to fracture left knee) - Smoking History Smoking history: Current some day smoker Have you smoked in the past 12 months: Yes Aproximately how many cigarettes per day: 12 - Alcohol/Substance Use Hx Alcohol Use: Yes History of Substance Use: reports: Cocaine - Social History ADL: Support Services Occupation: unemployed History of Recent Travel: No Admission ROS [facility] Chief Complaint: Seeking admission to detox from alcohol Allergies/Adverse Reactions: Allergies Allergy/AdvReac Type Severity Reaction Status Date / Time Fish Containing Products Allergy Hives Verified 01/16/20 11:27 Penicillins Allergy Hives Verified 01/16/20 11:27 History of Present Illness: 59 years old male with a long history of alcohol dependence is seeking admission to detox. His last admission was for the period 01/16/2020- 01/30/2020 and he reports that he relapsed about 2 weeks ago. He drinks 2 pints of vodka daily. He has medical history of hypertension, osteoarthritis, hyperlipidemia, pneumonia, hyperthyroidism and psych. history of depression, insomnia and schizophrenia. He reports suicide attempt at age 15 and denies suicidal ideation at this time. He is unemployed, lives alone and legal issues. 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 Exam Limitations: No Limitations - Ebola screening Have you traveled outside of the country in the last 21 days: No Have you had contact with anyone from an Ebola affected area: No Have you been sick,other than usual withdrawal symptoms: No Do you have a fever: No - Review of Systems Constitutional: Chills, Malaise, Night Sweats, Changes in sleep EENT: reports: No Symptoms Reported Respiratory: reports: No Symptoms reported Cardiac: reports: No Symptoms Reported GI: reports: Diarrhea (x 4), Nausea, Poor Appetite, Poor Fluid Intake, Abdominal cramping : reports: No Symptoms Reported Musculoskeletal: reports: Back Pain, Other (right knee pain) Integumentary: reports: Dryness, Flushing Neuro: reports: Headache, Tremors Endocrine: reports: No Symptoms Reported Hematology: reports: No Symptoms Reported Psychiatric: reports: Anxious, Depressed Other Systems: Reviewed and Negative Patient History - Patient Medical History Hx Anemia: No Hx Asthma: No Hx Chronic Obstructive Pulmonary Disease (COPD): No Hx Cancer: No Hx Cardiac Disorders: No Hx Congestive Heart Failure: No Hx Hypertension: Yes Hx Hypercholesterolemia: Yes Hx Pacemaker: No HX Cerebrovascular Accident: No Hx Seizures: No Hx Dementia: No Hx Diabetes: No Hx Gastrointestinal Disorders: No Hx Liver Disease: No Hx Genitourinary Disorders: No Hx Sexually Transmitted Disorders: No Hx Renal Disease (ESRD): No Hx Thyroid Disease: Yes (hyperthyroidism) Hx Human Immunodeficiency Virus (HIV): No (Negative October 2019) Hx Hepatitis C: No Hx Depression: Yes Hx Suicide Attempt: No (Attempt at age 15, denies suicidal ideation at this time) Hx Bipolar Disorder: No Hx Schizophrenia: Yes Other Medical History: Osteoarthritis, pneumonia - Patient Surgical History Past Surgical History: Yes Hx Neurologic Surgery: No Hx Cataract Extraction: No Hx Cardiac Surgery: No Hx Lung Surgery: No Hx Abdominal Surgery: No Hx Appendectomy: No Hx Cholecystectomy: No Hx Genitourinary Surgery: No Hx Orthopedic Surgery: Yes (torn ligament, right knee in 1985) Other Surgical History: Cast on left leg due to dislocated left knee Anesthesia Reaction: No - PPD History Previous Implant?: Yes Documented Results: Negative w/proof Implanted On Prior [facility] Admission?: Yes Date: 01/18/20 Results: 0 mm PPD to be Administered?: No - Reproductive History Patient is a Female of Child Bearing Age (11 -55 yrs old): No (male) - Smoking Cessation Smoking history: Current some day smoker Have you smoked in the past 12 months: Yes Aproximately how many cigarettes per day: 12 Hx Chewing Tobacco Use: No Initiated information on smoking cessation: Yes 'Breaking Loose' booklet given: 02/17/20 - Substance & Tx. History Hx Alcohol Use: Yes Hx Substance Use: No Substance Use Type: Alcohol Hx Substance Use Treatment: Yes ([facility]) - Substances abused Alcohol Substance route: Oral Frequency: Daily Amount used: 2 pints Vodka Age of first use: 16 Date of last use: 02/17/20 [facility] - Physical General Appearance: Yes: Moderate Distress, Tremorous, Sweating, Anxious HEENTM: Yes: Within Normal Limits Respiratory: Yes: Lungs Clear, Normal Breath Sounds, No Respiratory Distress Neck: Yes: Within Normal Limits Breast: Yes: Breast Exam Deferred Cardiology: Yes: Tachycardia Abdominal: Yes: Normal Bowel Sounds Genitourinary: Yes: Within Normal Limits Musculoskeletal: Yes: Back pain, Other (right knee pain) Extremities: Yes: Tremors Neurological: Yes: Within Normal Limits Integumentary: Yes: Warm Lymphatic: Yes: Within Normal Limits - Diagnostic (1) Alcohol dependence with uncomplicated withdrawal Current Visit: Yes Status: Acute (2) Arthritis of right knee Current Visit: Yes Status: Chronic (3) Hyperthyroidism Current Visit: Yes Status: Chronic (4) Pneumonia Current Visit: Yes Status: Chronic Qualifiers: Pneumonia type: due to unspecified organism Laterality: bilateral Lung location: lower lobe of lung Qualified Code(s): J18.9 - Pneumonia, unspecified organism (5) Bipolar disorder Current Visit: Yes Status: Chronic Qualifiers: Active/Remission status: remission status unspecified Qualified Code(s): F31.9 - Bipolar disorder, unspecified (6) Dyslipidemia Current Visit: Yes Status: Chronic (7) Hypertension Current Visit: Yes Status: Chronic Qualifiers: Hypertension type: essential hypertension Qualified Code(s): I10 - Essential (primary) hypertension Comment: states due to drinking and crack use (8) Nicotine dependence Current Visit: Yes Status: Chronic Qualifiers: Nicotine product type: cigarettes Substance use status: in withdrawal Qualified Code(s): F17.213 - Nicotine dependence, cigarettes, with withdrawal (9) Osteoarthritis Current Visit: Yes Status: Chronic [facility] for [facility] - [facility]ox [facility] Level of Care: Medically Managed Detox Regimen/Protocol: Librium Claeared for Rehab Admission: No Breathalyzer - Breathalyzer Breathalyzer: 0.038 Urine Drug Screen - Test Device Lot number: [id number] Expiration date: 08/20/21 - Control Is test valid?: Yes - Results Drug screen NEGATIVE: No Urine drug screen results: MACARIO-Cocaine Inpatient Rehab Admission - Rehab Decision to Admit Inpatient rehab admission?: No
[2020-02-17] MEDS ORDERED: chlordiazePOXIDE HCL 25 MG CAPSULE PO PRN (23:47)
[2020-02-17] MEDS ORDERED: NICOTINE POLACRILEX 2 MG GUM BUC PRN (23:47)
[2020-02-17] MEDS ORDERED: BISMUTH SUBSALICYLATE 524 MG/30 ML UD PO PRN (23:47)
[2020-02-17] MEDS ORDERED: MAGNESIUM HYDROX 2400MG/30ML ORAL SUSPENSION 30 ML CUP PO PRN (23:47)
[2020-02-17] MEDS ORDERED: ACETAMINOPHEN 325 MG TABLET (FP) PO PRN ×2 (23:47)
[2020-02-17] MEDS ORDERED: MENTHOL/PHENOL 1 EACH UD MM PRN (23:47)
[2020-02-17] MEDS ORDERED: MAG HYDROX/AL HYDROX/SIMETH 30 ML UNIT-DOSE CUP PO PRN (23:47)
[2020-02-17] MEDS ORDERED: MAGNESIUM CITRATE 300 ML BOTTLE PO PRN (23:47)
[2020-02-17] MEDS ORDERED: ONDANSETRON *ODT* 4 MG TABLET SL PRN (23:47)
--- OUTSIDE RECORDS SUMMARY | 2020-02-17 23:56 | XMS ---
:1960 Author Organization [facility] Care Team Providers Name Role Phone ERIKA SALAS Unavailable Unavailable JANINA RENATO Unavailable Unavailable CAMILA MARTIN ([facility]) Unavailable Unavailable Neretin Unavailable Re-disclosure Warning The [...] is protected by Article 27-F of the [place] State Public Health law. If you continue you may haveaccess to information: Regarding HIV / AIDS; Provided by facilities licensed or operated by the [facility] Office of Mental Health; or Provided by the [facility] Office for People With Developmental Disabilities. If such information is present, then the following [facility] mandated warning applies: This information has [...] law may result in a fine or fpc sentence or both. A general authorization for the release of medical or other information is NOT sufficient authorization for further disclosure. Encounters Encounter Providers Location Date Indications Data Source(s ) Outpatient Att[facility]: R[facility]36 PM [facility] EDT Patient admitted. Outpatient Attender: Urvashi 10/22/2019 03:15:44 PM [facility] Patient admitted. Outpatient Attender: ERIKA SALAS 09/23/2019 12:04:54 PM The [facility] Patient admitted. Outpatient Attender: CAMILA MARTIN 04/21/2017 03:07:38 PM The [facility] Medications Medication Brand Start Product Dose Route Administrative Pharmacy [facility] Indications Reaction Description Data Name Date Form Instructions Instructions Source(s) Trazodone traZOD The Hydrochlori one 2015 ed Institut e de 100 MG 100 MG 12:00: For Fa salome Oral Tablet Oral 00 AM Health traZODone tablet EDT 100 MG Oral tablet Risperidone Risper T he 1 MG Oral idone 2016 ed [place] Tablet 1 MG 12:00: For Family Oral 00 AM Health Tab EDT Insurance Providers Payer name Policy type Policy ID Covered Covered republican's Policy P ekta / Coverage republican ID relationship to Bueno Inf ormation type bueno [facility] Oh My Green! [id number] SP [id number] NON CAP SLIDING FEE NA Self NA [employer] [id number] Self [id number] MEDICAID [id number] SP [id number] DELLA [employer]! [id number] SP [id number] NON CAP Problems, Conditions, and Diagnoses Code Display Name Description Problem Type Effective Data Sour ce(s) Dates F10.10 Alcohol use Alcohol use [id number] 02/17/2017 The [facility] disorder, mild, disorder, mild, 12:00:00 AM For Family abuse abuse EDT Health F12.10 Cannabis use Cannabis use [id number] 02/17/2017 The [facility] [place] disorder, mild, disorder, mild, 12:00:00 AM For Family abuse abuse EDT Health F17.200 Tobacco use Tobacco use 97371189 02/17/2017 The Institut e disorder disorder 12:00:00 AM For Family EDT Health F14.10 Cocaine use Cocaine use 76005503 02/17/2017 The Institut e disorder, mild, disorder, mild, 12:00:00 AM For Family abuse abuse EDT Health F43.10 Post traumatic Post traumatic [id number] 02/06/2017 The In stitute stress disorder stress disorder 12:00:00 AM For Family EDT Health F33.9 Episode of Episode of [id number] 02/06/2017 The [place] recurrent major recurrent major 12:00:00 AM For Family depressive depressive EDT Health disorder disorder Transitional Care Transitional Care Diagnosis 10/22/2019 The [place] Management Management 03:20:36 PM For Family Outreach Outreach EDT Health Z11.59 Encounter for Encounter for Diagnosis 10/22/2019 The [facility] itute screening for screening for 03:15:44 PM For Fam aspen other viral other viral EDT Health diseases diseases Emergency Room Emergency Room Diagnosis 09/23/2019 The [place] Visit Follow Up Visit Follow Up 12:04:54 PM For Family EDT Health 460 Outreach Outreach Diagnosis 04/21/2017 The [place] 03:07:38 PM For Family [facility] Health Surgeries/Procedures Procedure Description Date Indications Data Source(s) NOVEL CORONAVIRUS NOVEL CORONAVIRUS Routine 10/17/2019 0 10/17/2019 The COVID-19 COVID-19 12:00:[facility]OPHARY[facility]GEAL NASOPHARYNGEAL EDT For [facility] NOVEL CORONAVIRUS COVID-19 NOVEL CORONAVIRUS COVID-19 The [place] For NASOPHARYNGEAL NASOPHARYNGEAL Family Heal th Results ID Date Data Source [id number] 01/16/2020 01:20:00 PM EDT [facility] Name Value Range Interpretation Description Data Sup porting Code Source(s) Document(s ) SARS [facility] coronavirus 2 RNA This lab was ordered by [facility] Bill Inter and reported by [facility]. ID Date Data Source [id number] 11/17/2019 11:00:00 AM EDT [facility] Name Value Range Interpretation Description Data Sup porting Code Source(s) Document(s ) SARS [facility] coronavirus 2 RNA This lab was ordered by [facility] ct Bill Inter and reported by [facility]. ID Date Data Source [id number] 10/16/2019 01:00:00 PM EDT [facility] Name Value [...] current (pack per 12:00:00 AM EDT Fa Ta[facility] ) - Reported Tobacco smoking 02/17/2017 Current every The In stitute For status NHIS 12:00:00 AM EDT day smoker Family H ealth Sex assigned at Male Male The [place] For Family Health Sex assigned at Male Male The [place] For [facility] Health Sex assigned at Male Male The [place] For [facility]
[2020-02-18] MEDS: chlordiazePOXIDE HCL 25 MG CAPSULE PO SCH ×5 (01:39→23:04)
[2020-02-18] MEDS: IBUPROFEN 400 MG TABLET (FP) PO PRN ×3 (01:44→23:08)
--- NOTE | 2020-02-18 09:27 | PN ---
[facility] Progress Note Note: pt c/o right lower calf pain. leg assessed, swelling noted compared to left calf and warm to touch. Pt states pain is getting worse in the past couple of day. travel writer spoke with Dr. Cancino at [facility] for eval r/o DVT.
[2020-02-18] MEDS ORDERED: MASKS NR ONE (09:57)
[2020-02-18 10:24] LABS: HEMATOCRIT 33.2 % (35.4-49); HEMOGLOBIN 11.1 GM/dL (11.7-16.9); MCH 32.3 pg (25.7-33.7); MCHC 33.3 g/dl (32.0-35.9); MEAN CELL VOLUME 96.8 fl (80-96); MEAN PLT VOLUME 8.2 fl (7.5-11.1); PLATELET COUNT 243 K/MM3 (134-434); RBC 3.43 M/mm3 (4.00-5.60); RDW 14.2 % (11.9-15.9); WHITE BLOOD COUNT 2.9 K/mm3 (4.0-10.0)
[2020-02-18 10:29] LABS: ALBUMIN 3.3 g/dl (3.4-5.0); BILIRUBIN,TOTAL 0.4 mg/dL (0.2-1); BLOOD UREA NITROGEN 14.2 mg/dL (7-18); CALCIUM 8.5 mg/dL (8.5-10.1); POTASSIUM 3.3 mmol/L (3.5-5.1); TOT PROT 6.1 g/dl (6.4-8.2)
[2020-02-18] MEDS: NICOTINE 14 MG/24 HOURS TOPICAL PATCH TD SCH (10:57)
[2020-02-18] MEDS: PRENATAL VITAMINS W/ FOLIC ACID TABLET (FP) PO SCH (10:57)
--- NOTE | 2020-02-18 14:40 | PN ---
S CIWA - CIWA Score Nausea/Vomitin-No Nausea/No Vomiting Muscle Tremors: 3 Anxiety: 2 Agitation: 2 Paroxysmal Sweats: 2 Orientation: 0-Oriented Tacttile Disturbances: 0-None Auditory Disturbances: 0-None Visual Disturbances: 0-None Headache: 0-None Present CIWA-Ar Total Score: 9 BHS Progress Note (SOAP) Subjective: sweats anxiety agitation right leg pain Objective: 02/18/20 14:34 Vital Signs Temperature 98 F 02/18/20 09:27 Pulse Rate 96 H 02/18/20 09:27 Respiratory Rate 18 02/18/20 09:27 Blood Pressure 136/99 02/18/20 09:27 O2 Sat by Pulse Oximetry (%) 97 02/18/20 09:27 Laboratory Tests 02/17/20 02/18/20 02/18/20 07:00 07:00 07:00 WBC 2.9 L RBC 3.43 L Hgb 11.1 L Hct 33.2 L MCV 96.8 H MCH 32.3 MCHC 33.3 RDW 14.2 Plt Count 243 D MPV 8.2 Sodium 144 Potassium 3.3 L Chloride 106 Carbon Dioxide 29 Anion Gap 10 BUN 14.2 Creatinine 1.0 Est GFR (CKD-EPI)AfAm 95.06 Est GFR (CKD-EPI)NonAf 82.02 Random Glucose 113 H Calcium 8.5 Total Bilirubin 0.4 AST 55 H ALT 36 Alkaline Phosphatase 48 Total Protein 6.1 L Albumin 3.3 L Syphilis Serology Non-reactive labs noted low potassium 3.3; mildly low H:H noted; pt is currently on MVI kdur 20meq ordered labs repeated. Assessment: 02/18/20 14:40 withdrawals Plan: continue detox cane ordered analgesic balm ordered motrin 800mg tid prn right leg was assess at [place] ED and evaluated, pt had a doppler study done and negative for DVT
--- NOTE | 2020-02-18 14:43 | PN ---
S Progress Note Note: pt arrived back from ED for a right lower calf pain. doppler study done negative results pt is able to continue detox as ordered.
--- NOTE | 2020-02-18 14:55 | PN ---
S Progress Note Note: Patient was not available on the unit to be seen this morning. reportedly, he was transfer to [facility] [place] for pain in right calf
[2020-02-18] MEDS: POTASSIUM CHLORIDE TABS 20 MEQ TABLET.ER (FP) PO SCH (15:01)
[2020-02-18] MEDS ORDERED: ATORVASTATIN CA 20 MG TABLET (FP) PO SCH (22:00)
[2020-02-18] MEDS: ATORVASTATIN CA 10 MG TABLET (FP) PO SCH (23:05)
[2020-02-18] MEDS: LISINOPRIL 5 MG TABLET PO SCH (23:05)
[2020-02-18] MEDS: MELATONIN 5 MG TABLETS PO SCH (23:06)
[2020-02-18] MEDS: THIAMINE HCL 100 MG TABLET (FP) PO SCH (23:07)
[2020-02-19] MEDS: METHOCARBAMOL 500 MG TABLET PO PRN (00:53)
[2020-02-19] MEDS: chlordiazePOXIDE HCL 25 MG CAPSULE PO SCH ×4 (05:39→23:04)
[2020-02-19] MEDS: PRENATAL VITAMINS W/ FOLIC ACID TABLET (FP) PO SCH (10:20)
[2020-02-19] MEDS: POTASSIUM CHLORIDE TABS 20 MEQ TABLET.ER (FP) PO SCH (10:20)
[2020-02-19] MEDS: LISINOPRIL 5 MG TABLET PO SCH ×2 (10:20→22:28)
[2020-02-19] MEDS: NICOTINE 14 MG/24 HOURS TOPICAL PATCH TD SCH (10:21)
[2020-02-19] MEDS: ASPIRIN 81 MG CHEWABLE TABLETS PO SCH (10:21)
--- NOTE | 2020-02-19 11:23 | PN ---
S CIWA - CIWA Score Nausea/Vomitin-No Nausea/No Vomiting Muscle Tremors: 2 Anxiety: 1-Mildly Anxious Agitation: 2 Paroxysmal Sweats: 2 Orientation: 0-Oriented Tacttile Disturbances: 0-None Auditory Disturbances: 0-None Visual Disturbances: 0-None Headache: 0-None Present CIWA-Ar Total Score: 7 BHS Progress Note (SOAP) Subjective: sweats restless agitation interrupted sleep Objective: 02/19/20 12:16 Vital Signs Temperature 97.1 F L 02/19/20 09:25 Pulse Rate 94 H 02/19/20 09:25 Respiratory Rate 18 02/19/20 09:25 Blood Pressure 138/76 02/19/20 09:25 O2 Sat by Pulse Oximetry (%) 96 02/19/20 09:25 Laboratory Tests 02/17/20 02/17/20 02/18/20 07:00 23:50 07:00 WBC 2.9 L RBC 3.43 L Hgb 11.1 L Hct 33.2 L MCV 96.8 H MCH 32.3 MCHC 33.3 RDW 14.2 Plt Count 243 D MPV 8.2 Sodium Potassium Chloride Carbon Dioxide Anion Gap BUN Creatinine Est GFR (CKD-EPI)AfAm Est GFR (CKD-EPI)NonAf Random Glucose Calcium Total Bilirubin AST ALT Alkaline Phosphatase Total Protein Albumin Syphilis Serology Non-reactive COVID-19 (LAMAR) Not detected 02/18/20 07:00 WBC RBC Hgb Hct MCV MCH MCHC RDW Plt Count MPV Sodium 144 Potassium 3.3 L Chloride 106 Carbon Dioxide 29 Anion Gap 10 BUN 14.2 Creatinine 1.0 Est GFR (CKD-EPI)AfAm 95.06 Est GFR (CKD-EPI)NonAf 82.02 Random Glucose 113 H Calcium 8.5 Total Bilirubin 0.4 AST 55 H ALT 36 Alkaline Phosphatase 48 Total Protein 6.1 L Albumin 3.3 L Syphilis Serology COVID-19 (LAMAR) labs noted aaox3 ambulating well with cane no acute distress Assessment: 02/19/20 12:17 withdrawals Plan: continue detox
[2020-02-19] MEDS ORDERED: METHYL SALICYLATE/MENTHOL OINT 30 GM TUBE TP ONE (15:00)
[2020-02-19] MEDS: ATORVASTATIN CA 10 MG TABLET (FP) PO SCH (22:27)
[2020-02-19] MEDS: MELATONIN 5 MG TABLETS PO SCH (22:28)
[2020-02-19] MEDS: THIAMINE HCL 100 MG TABLET (FP) PO SCH (22:28)
[2020-02-19] MEDS: METHYL SALICYLATE/MENTHOL OINT 30 GM TUBE TP SCH (22:29)
[2020-02-20] MEDS ORDERED: chlordiazePOXIDE HCL 10 MG CAPSULE PO PRN
[2020-02-20] MEDS: chlordiazePOXIDE HCL 10 MG CAPSULE PO SCH ×4 (07:03→22:30)
--- NOTE | 2020-02-20 10:28 | CONSULT ---
[facility] Psychiatric Consult - Data Date of interview: 02/20/20 Admission source: Self-referred Identifying data: Mr Stallworth is a 59 years old Black male, father of 2 children, unemployed receiving public assstance, domiciled living in [facility] seeking detox treatment for alcohol and cocaine Substance Abuse History: Reports history of alcohol and crack cocaine use. Refer to addiction counselor's summary for further information Medical History: Significant for hypertension (when intoxicated with ETOH), hypercholesterolemia, anemia, osteoarthritis, history of fracture left knee(casted) and arthroscopic surgery for torn ligament right knee in 1985). Smokes 3-4 cigaretted daily Psychiatric History: Patient is known for multiple previous admissions to this facility. He reports being diagnosed with Schizoaffective Disorder more than 5 years ago. Reports multiple previous psychiatric hospitalizations at various facilities including [facility] in [place], [place], [facility] and [facility]. He reports that he still receivies outpatient psychiatric treatment at [facility] and he is prescribed Seroquel 100 mg/hs and Remeron 15 mg/hs. In the past he has been prescribed Risperdal, Cogentin, Depakote, Trazadone etc. 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 During his most recent admission to this facility in early January 2020, he saw Dr Mantilla and he was prescribed Seroquel 100 mg/hs. Told douglas that he has been off medication since discharge on 01/30/20. Denies previous suicide attempt. Denies experiening psychotic, manic or depressive symptoms, S/H ideations. However, reports sleeping poorly Physical/Sexual Abuse/Trauma History: Denies history of abuse as a child or DV relationship as an adult. Mental Status Exam - Mental Status Exam Alert and Oriented to: Time, Place, Person Cognitive Function: Fair Patient Appearance: Disheveled Mood: Hopeful, Euthymic Affect: Appropriate Patient Behavior: Cooperative Speech Pattern: Clear Voice Loudness: Normal Thought Process: Intact, Goal Oriented Hallucinations: Denies Suicidal Ideation: Denies Homicidal Ideation: Denies Insight/Judgement: Poor Sleep: Poorly Appetite: Good Muscle strength/Tone: Normal Gait/Station: Normal Psychiatric Findings - Problem List ([place] 1, 2,3) (1) Schizoaffective disorder Current Visit: No Status: Chronic Qualifiers: Schizoaffective disorder type: unspecified Qualified Code(s): F25.9 - Schizoaffective disorder, unspecified Comment: By history. (2) Substance-induced sleep disorder Current Visit: No Status: Acute (3) Alcohol dependence with uncomplicated withdrawal Current Visit: Yes Status: Acute (4) Cocaine dependence, uncomplicated Current Visit: No Status: Acute (5) Nicotine dependence Current Visit: Yes Status: Chronic Qualifiers: Nicotine product type: cigarettes Substance use status: in withdrawal Qualified Code(s): F17.213 - Nicotine dependence, cigarettes, with withdrawal (6) Hypertension Current Visit: Yes Status: Chronic Qualifiers: Hypertension type: essential hypertension Qualified Code(s): I10 - Essential (primary) hypertension Comment: states due to drinking and crack use (7) Dyslipidemia Current Visit: Yes Status: Chronic (8) Hyperthyroidism Current Visit: Yes Status: Chronic (9) Osteoarthritis Current Visit: Yes Status: Chronic (10) Arthritis of right knee Current Visit: Yes Status: Chronic (11) History of right knee surgery Current Visit: No Status: Resolved - Initial Treatment Plan Initial Treatment Plan: 1) Resume Seroquel 100 mg po HS. 2) Continue inpatient detoxification
[2020-02-20 10:32] LABS: BASO % 0.6 % (0-2.0); HEMATOCRIT 34.5 % (35.4-49); HEMOGLOBIN 11.7 GM/dL (11.7-16.9); LYMPH % 31.9 % (8-40); MCH 33.1 pg (25.7-33.7); MEAN CELL VOLUME 97.3 fl (80-96); MEAN PLT VOLUME 8.4 fl (7.5-11.1); MONO % 11.2 % (3.8-10.2); NEUT % 51.3 % (42.8-82.8); PLATELET COUNT 233 K/MM3 (134-434); RBC 3.54 M/mm3 (4.00-5.60); RDW 14.3 % (11.9-15.9); WHITE BLOOD COUNT 3.5 K/mm3 (4.0-10.0)
[2020-02-20 10:37] LABS: ALBUMIN 3.2 g/dl (3.4-5.0); BILIRUBIN,TOTAL 0.8 mg/dL (0.2-1); BLOOD UREA NITROGEN 11.2 mg/dL (7-18); CALCIUM 8.4 mg/dL (8.5-10.1); CREATININE 0.8 mg/dL (0.55-1.3); POTASSIUM 3.6 mmol/L (3.5-5.1)
[2020-02-20] MEDS: NICOTINE 14 MG/24 HOURS TOPICAL PATCH TD SCH (10:42)
[2020-02-20] MEDS: ASPIRIN 81 MG CHEWABLE TABLETS PO SCH (10:44)
[2020-02-20] MEDS: LISINOPRIL 5 MG TABLET PO SCH ×2 (10:44→21:37)
[2020-02-20] MEDS: METHYL SALICYLATE/MENTHOL OINT 30 GM TUBE TP SCH ×2 (10:44→21:39)
[2020-02-20] MEDS: POTASSIUM CHLORIDE TABS 20 MEQ TABLET.ER (FP) PO SCH (10:44)
[2020-02-20] MEDS: hydrOXYzine PAMOATE 25 MG CAPSULE (FP) PO PRN ×2 (10:44→15:01)
[2020-02-20] MEDS: PRENATAL VITAMINS W/ FOLIC ACID TABLET (FP) PO SCH (11:03)
--- NOTE | 2020-02-20 11:05 | PN ---
S CIWA - CIWA Score Nausea/Vomitin-No Nausea/No Vomiting Muscle Tremors: 2 Anxiety: 1-Mildly Anxious Agitation: 2 Paroxysmal Sweats: 1-Minimal Palms Moist Orientation: 0-Oriented Tacttile Disturbances: 0-None Auditory Disturbances: 0-None Visual Disturbances: 0-None Headache: 0-None Present CIWA-Ar Total Score: 6 BHS Progress Note (SOAP) Subjective: sweats chills body aches Objective: 02/20/20 11:04 Vital Signs Temperature 97.3 F L 02/20/20 08:39 Pulse Rate 74 02/20/20 08:39 Respiratory Rate 18 02/20/20 08:39 Blood Pressure 142/104 H 02/20/20 08:39 O2 Sat by Pulse Oximetry (%) 95 02/20/20 08:39 Laboratory Tests 02/17/20 02/17/20 02/18/20 07:00 23:50 07:00 WBC 2.9 L RBC 3.43 L Hgb 11.1 L Hct 33.2 L MCV 96.8 H MCH 32.3 MCHC 33.3 RDW 14.2 Plt Count 243 D MPV 8.2 Absolute Neuts (auto) Neutrophils % Lymphocytes % Monocytes % Eosinophils % Basophils % Nucleated RBC % Sodium Potassium Chloride Carbon Dioxide Anion Gap BUN Creatinine Est GFR (CKD-EPI)AfAm Est GFR (CKD-EPI)NonAf Random Glucose Calcium Total Bilirubin AST ALT Alkaline Phosphatase Total Protein Albumin Syphilis Serology Non-reactive COVID-19 (LAMAR) Not detected 02/18/20 02/20/20 02/20/20 07:00 07:00 07:00 WBC 3.5 L RBC 3.54 L Hgb 11.7 Hct 34.5 L MCV 97.3 H MCH 33.1 MCHC 34.0 RDW 14.3 Plt Count 233 MPV 8.4 Absolute Neuts (auto) 1.8 Neutrophils % 51.3 Lymphocytes % 31.9 D Monocytes % 11.2 H Eosinophils % 5.0 H D Basophils % 0.6 Nucleated RBC % 0 Sodium 144 142 Potassium 3.3 L 3.6 Chloride 106 104 Carbon Dioxide 29 31 Anion Gap 10 7 L BUN 14.2 11.2 Creatinine 1.0 0.8 Est GFR (CKD-EPI)AfAm 95.06 113.33 Est GFR (CKD-EPI)NonAf 82.02 97.78 Random Glucose 113 H 115 H Calcium 8.5 8.4 L Total Bilirubin 0.4 0.8 AST 55 H 34 ALT 36 31 Alkaline Phosphatase 48 45 Total Protein 6.1 L 6.0 L Albumin 3.3 L 3.2 L Syphilis Serology COVID-19 (LAMAR) potassium improved elevated BP; will repeat BP after pt takes his HTN medication aaox3 ambulating no acute distress Assessment: 02/20/20 11:04 withdrawals Plan: continue detox increase fluids f/u BP status
[2020-02-20] MEDS: IBUPROFEN 400 MG TABLET (FP) PO PRN ×2 (12:04→17:24)
[2020-02-20] MEDS ORDERED: CHLORTHALIDONE 25 MG TABLET PO SCH (14:30)
--- NOTE | 2020-02-20 14:32 | PN ---
[facility] Progress Note Note: Vital Signs Temperature 97.8 F 02/20/20 13:05 Pulse Rate 91 H 02/20/20 13:05 Respiratory Rate 18 02/20/20 13:05 Blood Pressure 148/104 H 02/20/20 13:05 O2 Sat by Pulse Oximetry (%) 95 02/20/20 08:39 BP remains elevated spoke with pt and he cannot remember the name of his BP medication he last took. 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 however pt received last Rx in December 2019. pt was made aware will restart his BP medication to control his BP while in detox. pt in agreement. 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 pt agreed will continue to f/u on BP status
--- NOTE | 2020-02-20 15:58 | PN ---
S Progress Note Note: ordered chlorthalidone but was not available. ordered norvasc 10mg and HCTZ 25mg for his HTN. will continue to monitor.
[2020-02-20] MEDS: amLODIPine BESYLATE 10 MG TABLET (FP) PO SCH (17:23)
[2020-02-20] MEDS: METHOCARBAMOL 500 MG TABLET PO PRN (17:25)
[2020-02-20] MEDS: HYDROCHLOROTHIAZIDE 25 MG TABLET (FP) PO SCH (17:25)
[2020-02-20] MEDS: THIAMINE HCL 100 MG TABLET (FP) PO SCH (21:37)
[2020-02-20] MEDS: ATORVASTATIN CA 10 MG TABLET (FP) PO SCH (21:37)
[2020-02-20] MEDS: MELATONIN 5 MG TABLETS PO SCH (21:38)
[2020-02-20] MEDS: QUEtiapine FUMARATE 100 MG TABLET (FP) PO SCH (21:38)
[2020-02-21] MEDS: chlordiazePOXIDE HCL 10 MG CAPSULE PO SCH ×2 (06:00→18:03)
[2020-02-21] MEDS: hydrOXYzine PAMOATE 25 MG CAPSULE (FP) PO PRN ×3 (06:00→18:36)
[2020-02-21] MEDS: PRENATAL VITAMINS W/ FOLIC ACID TABLET (FP) PO SCH (10:30)
[2020-02-21] MEDS: ASPIRIN 81 MG CHEWABLE TABLETS PO SCH (10:30)
[2020-02-21] MEDS: LISINOPRIL 5 MG TABLET PO SCH ×2 (10:30→21:46)
[2020-02-21] MEDS: amLODIPine BESYLATE 10 MG TABLET (FP) PO SCH (10:30)
[2020-02-21] MEDS: HYDROCHLOROTHIAZIDE 25 MG TABLET (FP) PO SCH (10:30)
[2020-02-21] MEDS: METHYL SALICYLATE/MENTHOL OINT 30 GM TUBE TP SCH ×2 (10:31→21:46)
[2020-02-21] MEDS: NICOTINE 14 MG/24 HOURS TOPICAL PATCH TD SCH (10:31)
--- NOTE | 2020-02-21 11:18 | PN ---
S CIWA - CIWA Score Nausea/Vomitin-No Nausea/No Vomiting Muscle Tremors: 2 Anxiety: 2 Agitation: 1-Slight > Activity Paroxysmal Sweats: 1-Minimal Palms Moist Orientation: 0-Oriented Tacttile Disturbances: 0-None Auditory Disturbances: 0-None Visual Disturbances: 0-None Headache: 0-None Present CIWA-Ar Total Score: 6 BHS Progress Note (SOAP) Subjective: sweats restless interrupted sleep Objective: 02/21/20 11:21 Vital Signs Temperature 98.6 F 02/21/20 09:19 Pulse Rate 103 H 02/21/20 09:19 Respiratory Rate 20 02/21/20 09:19 Blood Pressure 142/99 02/21/20 09:19 O2 Sat by Pulse Oximetry (%) 97 02/21/20 09:19 Laboratory Tests 02/17/20 02/17/20 02/18/20 07:00 23:50 07:00 WBC 2.9 L RBC 3.43 L Hgb 11.1 L Hct 33.2 L MCV 96.8 H MCH 32.3 MCHC 33.3 RDW 14.2 Plt Count 243 D MPV 8.2 Absolute Neuts (auto) Neutrophils % Lymphocytes % Monocytes % Eosinophils % Basophils % Nucleated RBC % Sodium Potassium Chloride Carbon Dioxide Anion Gap BUN Creatinine Est GFR (CKD-EPI)AfAm Est GFR (CKD-EPI)NonAf Random Glucose Calcium Total Bilirubin AST ALT Alkaline Phosphatase Total Protein Albumin Syphilis Serology Non-reactive COVID-19 (LAMAR) Not detected 02/18/20 02/20/20 02/20/20 07:00 07:00 07:00 WBC 3.5 L RBC 3.54 L Hgb 11.7 Hct 34.5 L MCV 97.3 H MCH 33.1 MCHC 34.0 RDW 14.3 Plt Count 233 MPV 8.4 Absolute Neuts (auto) 1.8 Neutrophils % 51.3 Lymphocytes % 31.9 D Monocytes % 11.2 H Eosinophils % 5.0 H D Basophils % 0.6 Nucleated RBC % 0 Sodium 144 142 Potassium 3.3 L 3.6 Chloride 106 104 Carbon Dioxide 29 31 Anion Gap 10 7 L BUN 14.2 11.2 Creatinine 1.0 0.8 Est GFR (CKD-EPI)AfAm 95.06 113.33 Est GFR (CKD-EPI)NonAf 82.02 97.78 Random Glucose 113 H 115 H Calcium 8.5 8.4 L Total Bilirubin 0.4 0.8 AST 55 H 34 ALT 36 31 Alkaline Phosphatase 48 45 Total Protein 6.1 L 6.0 L Albumin 3.3 L 3.2 L Syphilis Serology COVID-19 (LAMAR) aaox3 ambulating no acute distress Assessment: 02/21/20 11:22 withdrawals Plan: continue detox
[2020-02-21] MEDS: IBUPROFEN 400 MG TABLET (FP) PO PRN (18:36)
[2020-02-21] MEDS: QUEtiapine FUMARATE 100 MG TABLET (FP) PO SCH (21:46)
[2020-02-21] MEDS: MELATONIN 5 MG TABLETS PO SCH (21:46)
[2020-02-21] MEDS: THIAMINE HCL 100 MG TABLET (FP) PO SCH (21:46)
[2020-02-21] MEDS: ATORVASTATIN CA 10 MG TABLET (FP) PO SCH (21:46)
[2020-02-22] MEDS ORDERED: chlordiazePOXIDE HCL 10 MG CAPSULE PO ONE (05:00)
[2020-02-22] MEDS: hydrOXYzine PAMOATE 25 MG CAPSULE (FP) PO PRN (07:10)
[2020-02-22 08:36] VITALS: BP 113/76; PULSE 89; TEMP 97.7
[2020-02-22] MEDS: METHYL SALICYLATE/MENTHOL OINT 30 GM TUBE TP SCH (11:16)
[2020-02-22] MEDS: amLODIPine BESYLATE 10 MG TABLET (FP) PO SCH (11:16)
[2020-02-22] MEDS: NICOTINE 14 MG/24 HOURS TOPICAL PATCH TD SCH (11:16)
[2020-02-22] MEDS: HYDROCHLOROTHIAZIDE 25 MG TABLET (FP) PO SCH (11:16)
[2020-02-22] MEDS: ASPIRIN 81 MG CHEWABLE TABLETS PO SCH (11:16)
[2020-02-22] MEDS: PRENATAL VITAMINS W/ FOLIC ACID TABLET (FP) PO SCH (11:17)
[2020-02-22] MEDS: LISINOPRIL 5 MG TABLET PO SCH (11:17)
--- NOTE | 2020-02-22 11:21 | DS ---
[facility] Detox Discharge Summary Admission Date: 02/17/20 Discharge Date: 02/22/20 - History Present History: Alcohol Dependence, Cocaine Dependence Additional Comments: Patient seen and examined, alert and oriented x3, in acute respiratory distress. Full ROM, ambulatory in the unit without assistance. Skin warm to touch without lesions. Completed detox protocol, stable for discharge today to [facility] for rehab. Pertinent Past History: History of HTN, HLD, Osteoarthritis, syncope, alcohol,cocaine and nicotine use disorder. - Physical Exam Results Vital Signs: Vital Signs Temperature 97.7 F 02/22/20 05:25 Pulse Rate 89 02/22/20 05:25 Respiratory Rate 18 02/22/20 05:25 Blood Pressure 113/76 02/22/20 05:25 O2 Sat by Pulse Oximetry (%) 96 02/22/20 05:25 Vital Signs 02/22/20 05:25 Temperature 97.7 F Pulse Rate 89 Respiratory 18 Rate Blood Pressure 113/76 O2 Sat by Pulse 96 Oximetry (%) Laboratory Last Values WBC 3.5 K/mm3 (4.0-10.0) L 02/20/20 07:00 RBC 3.54 M/mm3 (4.00-5.60) L 02/20/20 07:00 Hgb 11.7 GM/dL (11.7-16.9) 02/20/20 07:00 Hct 34.5 % (35.4-49) L 02/20/20 07:00 MCV 97.3 fl (80-96) H 02/20/20 07:00 MCH 33.1 pg (25.7-33.7) 02/20/20 07:00 MCHC 34.0 g/dl (32.0-35.9) 02/20/20 07:00 RDW 14.3 % (11.9-15.9) 02/20/20 07:00 Plt Count 233 K/MM3 (134-434) 02/20/20 07:00 MPV 8.4 fl (7.5-11.1) 02/20/20 07:00 Absolute Neuts (auto) 1.8 K/mm3 (1.5-8.0) 02/20/20 07:00 Neutrophils % 51.3 % (42.8-82.8) 02/20/20 07:00 Lymphocytes % 31.9 % (8-40) D 02/20/20 07:00 Monocytes % 11.2 % (3.8-10.2) H 02/20/20 07:00 Eosinophils % 5.0 % (0-4.5) H D 02/20/20 07:00 Basophils % 0.6 % (0-2.0) 02/20/20 07:00 Nucleated RBC % 0 % (0-0) 02/20/20 07:00 Sodium 142 mmol/L (136-145) 02/20/20 07:00 Potassium 3.6 mmol/L (3.5-5.1) 02/20/20 07:00 Chloride 104 mmol/L (98-107) 02/20/20 07:00 Carbon Dioxide 31 mmol/L (21-32) 02/20/20 07:00 Anion Gap 7 MMOL/L (8-16) L 02/20/20 07:00 BUN 11.2 mg/dL (7-18) 02/20/20 07:00 Creatinine 0.8 mg/dL (0.55-1.3) 02/20/20 07:00 Est GFR (CKD-EPI)AfAm 113.33 02/20/20 07:00 Est GFR (CKD-EPI)NonAf 97.78 02/20/20 07:00 Random Glucose 115 mg/dL (74-106) H 02/20/20 07:00 Calcium 8.4 mg/dL (8.5-10.1) L 02/20/20 07:00 Total Bilirubin 0.8 mg/dL (0.2-1) 02/20/20 07:00 AST 34 U/L (15-37) 02/20/20 07:00 ALT 31 U/L (13-61) 02/20/20 07:00 Alkaline Phosphatase 45 U/L (45-117) 02/20/20 07:00 Total Protein 6.0 g/dl (6.4-8.2) L 02/20/20 07:00 Albumin 3.2 g/dl (3.4-5.0) L 02/20/20 07:00 Syphilis Serology Non-reactive (NONREACTIVE) 02/17/20 07:00 COVID-19 (LAMAR) Not detected (Not Detected) 02/17/20 23:50 Labs noted. Pertinent Admission Physical Exam Findings: Withdrawal symptoms. - Treatment Hospital Course: Detox Protocol Followed, Detoxed Safely, Responded well, Discharged Condition Good - Medication Discharge Medications: Ambulatory Orders Mirtazapine [Remeron -] 30 mg PO HS #30 tablet 11/28/19 Simvastatin [Zocor] 10 mg PO HS #30 tablet 01/21/20 Aspirin [ASA -] 81 mg PO BID #14 tab.chew 01/29/20 Ibuprofen [Motrin -] 600 mg PO TID PRN #30 tablet 01/29/20 Lisinopril [Prinivil] 5 mg PO BID #14 tablet 01/29/20 Quetiapine Fumarate [Seroquel -] 100 mg PO HS #30 tablet 01/29/20 Sodium Chloride Nasal [place] [[place] Nasal [place] -] 2 spray NS TID #14 spray 01/29/20 - Diagnosis (1) Alcohol dependence with uncomplicated withdrawal Current Visit: Yes Status: Acute (2) Arthritis of right knee Current Visit: Yes Status: Chronic (3) Dyslipidemia Current Visit: Yes Status: Chronic (4) Hypertension Current Visit: Yes Status: Chronic Qualifiers: Hypertension type: essential hypertension Qualified Code(s): I10 - Essential (primary) hypertension (5) Nicotine dependence Current Visit: Yes Status: Chronic Qualifiers: Nicotine product type: cigarettes Substance use status: in withdrawal Qualified Code(s): F17.213 - Nicotine dependence, cigarettes, with withdrawal (6) Cocaine dependence, uncomplicated Current Visit: No Status: Chronic - AMA Did Patient Leave Against Medical Advice: No
== END 2020-02-22 09:54 | disposition home or self-care (01) | DRG 774 ==
LOC: YASAS 21:31 → Y6N 23:51
PROVIDERS: ADMIT Allergy & Immunology; ATTEND Allergy & Immunology
PROC: HZ2ZZZZ Detoxification Services for Substance Abuse Treatment (ICD-10-PCS; principal; 2020-02-17)
DX: F10.230 Alcohol dependence with withdrawal, uncomplicated (principal); F14.20 Cocaine dependence, uncomplicated; F17.210 Nicotine dependence, cigarettes, uncomplicated; F31.9 Bipolar disorder, unspecified; F19.282 Other psychoactive substance dependence with psychoactive substance-induced sleep disorder; F25.9 Schizoaffective disorder, unspecified; E05.90 Thyrotoxicosis, unspecified without thyrotoxic crisis or storm; E78.5 Hyperlipidemia, unspecified; I10 Essential (primary) hypertension; M17.11 Unilateral primary osteoarthritis, right knee; M79.661 Pain in right lower leg; Z99.89 Dependence on other enabling machines and devices; Z98.890 Other specified postprocedural states; Z91.013 Allergy to seafood
CPT/HCPCS: 36415; 80053; 85025; 85027; 86780; C9803; U0003

== ENCOUNTER 2020-02-18 10:13 | Emergency (ER) | payer OTHER ==
[2020-02-18 10:23] VITALS: BMI 24.3
--- NOTE | 2020-02-18 10:37 | PDOC ---
History of Present Illness - General Chief Complaint: Edema Stated Complaint: LEG PAIN Time Seen by Provider: 02/18/20 10:33 History Source: Patient Exam Limitations: No Limitations - History of Present Illness Initial Comments: 02/18/20 10:50 59 y.o. M PMHX for alcohol abuse and prior R knee arthroscopy. Patient is presenting to the ED from [facility] due to multiple falls from his knee "buckling" while walking 3x this week. Patient reports no LOC and has not hit his head. Patient states he has pain in his R calf and pain with movement of the leg. Patient states his leg pain has been on and off since his other leg was casted in May. PMHx: Alcohol abuse Meds: In Chart Allergies: Fish, penicillin 02/18/20 10:57 Is this a multiple visit Asthma Patient?: No Timing/Duration: constant Past History - Medical History Allergies/Adverse Reactions: Allergies Allergy/AdvReac Type Severity Reaction Status Date / Time Fish Containing Products Allergy Hives Verified 01/16/20 11:27 Penicillins Allergy Hives Verified 01/16/20 11:27 Home Medications: Ambulatory Orders Mirtazapine [Remeron -] 30 mg PO HS #30 tablet 11/28/19 Simvastatin [Zocor] 10 mg PO HS #30 tablet 01/21/20 Aspirin [ASA -] 81 mg PO BID #14 tab.chew 01/29/20 Ibuprofen [Motrin -] 600 mg PO TID PRN #30 tablet 01/29/20 Lisinopril [Prinivil] 5 mg PO BID #14 tablet 01/29/20 Quetiapine Fumarate [Seroquel -] 100 mg PO HS #30 tablet 01/29/20 Sodium Chloride Nasal [place] [[place] Nasal [place] -] 2 spray NS TID #14 spray 01/29/20 Anemia: No Asthma: No Cancer: No Cardiac Disorders: No CVA: No COPD: No CHF: No Dementia: No Diabetes: No GI Disorders: No Disorders: No HTN: Yes Hypercholesterolemia: Yes Kidney Stones: No Liver Disease: No Seizures: No Thyroid Disease: Yes (hyperthyroidism) - Surgical History Abdominal Surgery: No Appendectomy: No Cardiac Surgery: No Cholecystectomy: No Lung Surgery: No Neurologic Surgery: No Orthopedic Surgery: Yes (torn ligament, right knee in 1985) - Reproductive History Testicular Surgery: No - Psycho-Social/Smoking History Smoking History: Unknown if ever smoked Have you smoked in the past 12 months: Yes Number of Cigarettes Smoked Daily: 12 Cigars Per Day: 0 'Breaking Loose' booklet given: 02/17/20 - Substance Abuse Hx (Audit-C & DAST Scrn) How often the patient has a drink containing alcohol: 4 0r more times/wk Number of drinks the patient has on a typical day: 5 or 6 How often the patient has six or more drinks on one occasion: Daily or almost daily Score: In Men: 4 or > Positive; In Women: 3 or > Positive: 10 Screen Result (Pos requires Nsg. Audit-10AR): Positive Review of Systems - Review of Systems Able to Perform ROS?: Yes Is the patient limited Uzbek proficient: No Constitutional: Yes: Chills. No: Fever Respiratory: No: Cough, Shortness of Breath Cardiac (ROS): No: Chest Pain, Lightheadedness ABD/GI: Yes: Nausea. No: Abdominal Distended, Constipated, Diarrhea, Vomiting : No: Burning, Dysuria Musculoskeletal: Yes: Joint Pain (R knee). No: Back Pain, Muscle Weakness Integumentary: No: Bruising, Dryness, Erythema Neurological: No: Headache, Numbness, Tingling, Dizziness Hematologic/Lymphatic: No: Easy Bleeding, Easy Bruising *Physical Exam - Vital Signs Last Vital Signs Temp Pulse Resp BP Pulse Ox 98.6 F 87 16 140/101 H 100 02/18/20 10:19 02/18/20 10:19 02/18/20 10:19 02/18/20 10:19 02/18/20 10:19 - Physical Exam General Appearance: Yes: Nourished, Appropriately Dressed. No: Apparent Distress Respiratory/Chest: positive: Lungs Clear, Normal Breath Sounds. negative: Chest Tender, Respiratory Distress, Accessory Muscle Use, Crackles, Rales, Stridor, Wheezing Cardiovascular: negative: Regular Rhythm, Regular Rate, Edema, JVD, Murmur Gastrointestinal/Abdominal: positive: Normal Bowel Sounds, Flat, Soft. negative: Tender, Organomegaly, Distended, Guarding, Rebound, Tenderness Musculoskeletal: positive: Normal Inspection. negative: CVA Tenderness Extremity: positive: Tender (R), Calf Tenderness (Right). negative: Coldness, Cyanosis, Pedal Edema, Swelling Integumentary: positive: Normal Color, Dry, Warm Neurologic: positive: Fully Oriented, Alert, Normal Mood/Affect, Normal Response Medical Decision Making - Medical Decision Making 02/18/20 10:59 59 y.o. M PMHx of alcohol abuse presenting due to R leg pain w/ multiple falls. DDx: R leg ligamentous strain Tib/Fib X-ray: No signs of fracture or subluxation. Has arthritic knee chnages. Vascular: No DVT, Oval shaped cyst in the popliteal fossa. Dispo: D/C to [facility] 02/18/20 12:17 02/18/20 12:27 Discharge - Discharge Information Problems reviewed: Yes Clinical Impression/Diagnosis: Strain of right knee Qualifiers: Encounter type: initial encounter Qualified Code(s): S86.911A - Strain of unspecified muscle(s) and tendon(s) at lower leg level, right leg, initial encounter Condition: Stable Disposition: HOME - Admission No - Follow up/Referral - Patient Discharge Instructions Additional Instructions: You were seen in the emergency department for R leg pain. Your labs and imaging showed no findings for a clot Please follow up with your primary care physician and or Specialist regarding your visit to the emergency department. If you experience profound leg pain, swelling, fever, chills please return to the emergency department or call 911. You can take 650mg of Tylenol every 6-8 hours if the pain persists. - Post Discharge Activity
--- NOTE | 2020-02-18 11:03 | PDOC ---
Attending Attestation - Resident Resident Name: Angel Mendoza - ED Attending Attestation I have performed the following: I have examined & evaluated the patient, The case was reviewed & discussed with the resident, I agree w/resident's findings & plan - HPI HPI: 02/18/20 11:00 59y/o M inpt detox at [facility] admitted yesterday sent to r/o DVT in setting of R calf pain and swelling. pt denies fall, but reports strain to R leg from walking on injured L leg, no f/c. pain ongoing for the past few months but worse over the last week. no cardiopulmonary complaints. was admitted yesterday for detox and sent for evaluation. - Physicial Exam PE: 02/18/20 11:01 vss alert, nad. conversant. heart regular, lungs clear. abd benign RLE: sts medial R knee, no effusion. FROM with full strength knee/ankle/toes. 2+ distal pulses, sensation intact. 1+ edema with calf ttp. - Medical Decision Making 02/18/20 11:02 59y/o M h/o R knee strain p/w calf pain/swelling, nvi. sent for r/o dvt. likely strain, fracture less likely given no trauma hx. xray, doppler dispo accordingly, can return to inpt detox if negative Discharge - Discharge Information Problems reviewed: Yes Clinical Impression/Diagnosis: Strain of right knee Qualifiers: Encounter type: initial encounter Qualified Code(s): S86.911A - Strain of unspecified muscle(s) and tendon(s) at lower leg level, right leg, initial encounter - Follow up/Referral - Patient Discharge Instructions - Post Discharge Activity
[2020-02-18 11:56] VITALS: TEMP 98.3
[2020-02-18] MEDS ORDERED: LISINOPRIL 5 MG TABLET PO ONE (12:06)
[2020-02-18] MEDS ORDERED: LISINOPRIL 5 MG TABLET ONE (12:10)
[2020-02-18 14:09] VITALS: BP 138/88; PULSE 72
== END 2020-02-18 14:06 | disposition home or self-care (01) ==
LOC: JER 10:13
DX: S86.911A Strain of unspecified muscle(s) and tendon(s) at lower leg level, right leg, initial encounter (principal)
CPT/HCPCS: 73590-TC-RT-FY; 93971-TC; 99284-25

== ENCOUNTER 2020-05-14 20:08 | Inpatient (IN) | payer OTHER ==
[2020-05-14 20:36] VITALS: BMI 23.6
[2020-05-14] MEDS ORDERED: NICOTINE POLACRILEX 2 MG GUM BUC PRN (21:54)
[2020-05-14] MEDS ORDERED: IBUPROFEN 400 MG TABLET (FP) PO PRN (21:54)
[2020-05-14] MEDS ORDERED: MAGNESIUM CITRATE 300 ML BOTTLE PO PRN (21:54)
[2020-05-14] MEDS ORDERED: MENTHOL/PHENOL 1 EACH UD MM PRN (21:54)
[2020-05-14] MEDS ORDERED: chlordiazePOXIDE HCL 25 MG CAPSULE PO PRN (21:54)
[2020-05-14] MEDS ORDERED: MAG HYDROX/AL HYDROX/SIMETH 30 ML UNIT-DOSE CUP PO PRN (21:54)
[2020-05-14] MEDS ORDERED: ONDANSETRON *ODT* 4 MG TABLET SL PRN (21:54)
[2020-05-14] MEDS ORDERED: BISMUTH SUBSALICYLATE 524 MG/30 ML UD PO PRN (21:54)
[2020-05-14] MEDS ORDERED: ACETAMINOPHEN 325 MG TABLET (FP) PO PRN (21:54)
[2020-05-14] MEDS ORDERED: MAGNESIUM HYDROX 2400MG/30ML ORAL SUSPENSION 30 ML CUP PO PRN (21:54)
[2020-05-14] MEDS ORDERED: MELATONIN 5 MG TABLETS PO PRN (21:54)
[2020-05-14] MEDS: chlordiazePOXIDE HCL 25 MG CAPSULE PO SCH (23:12)
[2020-05-14] MEDS: METHOCARBAMOL 500 MG TABLET PO PRN (23:12)
[2020-05-14] MEDS: THIAMINE HCL 100 MG TABLET (FP) PO SCH (23:12)
[2020-05-14] MEDS: ACETAMINOPHEN 325 MG TABLET (FP) PO PRN (23:17)
[2020-05-15] MEDS: chlordiazePOXIDE HCL 25 MG CAPSULE PO SCH ×4 (06:02→22:27)
[2020-05-15 09:47] LABS: HEMATOCRIT 32.3 % (35.4-49); MCH 32.9 pg (25.7-33.7); MCHC 34.1 g/dl (32.0-35.9); MEAN CELL VOLUME 96.5 fl (80-96); MEAN PLT VOLUME 8.2 fl (7.5-11.1); PLATELET COUNT 234 K/MM3 (134-434); RBC 3.35 M/mm3 (4.00-5.60); RDW 14.9 % (11.9-15.9); WHITE BLOOD COUNT 2.5 K/mm3 (4.0-10.0)
[2020-05-15 09:50] LABS: POTASSIUM 3.9 mmol/L (3.5-5.1)
[2020-05-15] MEDS ORDERED: MASKS NR ONE ×2 (09:53→22:26)
[2020-05-15 09:57] LABS: CALCIUM 8.5 mg/dL (8.5-10.1)
[2020-05-15 09:58] LABS: ALBUMIN 3.5 g/dl (3.4-5.0)
[2020-05-15 10:01] LABS: CREATININE 1.2 mg/dL (0.55-1.3)
[2020-05-15 10:02] LABS: BILIRUBIN,TOTAL 1.1 mg/dL (0.2-1); TOT PROT 6.1 g/dl (6.4-8.2)
[2020-05-15] MEDS: PRENATAL VITAMINS W/ FOLIC ACID TABLET (FP) PO SCH (10:19)
[2020-05-15] MEDS: ASPIRIN 81 MG CHEWABLE TABLETS PO SCH ×2 (10:20→22:27)
[2020-05-15] MEDS: LISINOPRIL 5 MG TABLET PO SCH ×2 (10:56→22:27)
[2020-05-15] MEDS: SODIUM CHLORIDE NASAL SPRAY 44 ML BOTTLE NS SCH ×2 (14:24→22:28)
[2020-05-15] MEDS: QUEtiapine FUMARATE 100 MG TABLET (FP) PO SCH (22:27)
[2020-05-15] MEDS: ATORVASTATIN CA 10 MG TABLET (FP) PO SCH (22:27)
[2020-05-15] MEDS: THIAMINE HCL 100 MG TABLET (FP) PO SCH (22:27)
[2020-05-16] MEDS: chlordiazePOXIDE HCL 25 MG CAPSULE PO SCH ×4 (05:27→22:24)
[2020-05-16] MEDS: SODIUM CHLORIDE NASAL SPRAY 44 ML BOTTLE NS SCH ×3 (05:27→22:26)
[2020-05-16] MEDS: PRENATAL VITAMINS W/ FOLIC ACID TABLET (FP) PO SCH (10:12)
[2020-05-16] MEDS: ASPIRIN 81 MG CHEWABLE TABLETS PO SCH ×2 (10:12→22:24)
[2020-05-16] MEDS: LISINOPRIL 5 MG TABLET PO SCH ×2 (10:12→22:24)
[2020-05-16 17:18] LABS: POTASSIUM 4.1 mmol/L (3.5-5.1)
[2020-05-16 17:19] LABS: CALCIUM 8.3 mg/dL (8.5-10.1)
[2020-05-16 17:20] LABS: ALBUMIN 3.2 g/dl (3.4-5.0); BLOOD UREA NITROGEN 19.8 mg/dL (7-18)
[2020-05-16 17:25] LABS: BILIRUBIN,TOTAL 0.8 mg/dL (0.2-1); TOT PROT 5.6 g/dl (6.4-8.2)
[2020-05-16 17:26] LABS: BASO % 1.4 % (0-2.0); EOS % 3.4 % (0-4.5); HEMATOCRIT 33.6 % (35.4-49); HEMOGLOBIN 11.3 GM/dL (11.7-16.9); LYMPH % 43.9 % (8-40); MCH 32.8 pg (25.7-33.7); MCHC 33.7 g/dl (32.0-35.9); MEAN CELL VOLUME 97.2 fl (80-96); MEAN PLT VOLUME 8.8 fl (7.5-11.1); MONO % 11.9 % (3.8-10.2); NEUT % 39.4 % (42.8-82.8); PLATELET COUNT 237 K/MM3 (134-434); RBC 3.46 M/mm3 (4.00-5.60); RDW 14.7 % (11.9-15.9); WHITE BLOOD COUNT 3.3 K/mm3 (4.0-10.0)
[2020-05-16] MEDS: ACETAMINOPHEN 325 MG TABLET (FP) PO PRN (20:53)
[2020-05-16] MEDS: QUEtiapine FUMARATE 100 MG TABLET (FP) PO SCH (22:24)
[2020-05-16] MEDS: THIAMINE HCL 100 MG TABLET (FP) PO SCH (22:24)
[2020-05-16] MEDS: ATORVASTATIN CA 10 MG TABLET (FP) PO SCH (22:24)
[2020-05-17] MEDS ORDERED: chlordiazePOXIDE HCL 10 MG CAPSULE PO PRN
[2020-05-17] MEDS: chlordiazePOXIDE HCL 10 MG CAPSULE PO SCH ×4 (06:16→22:42)
[2020-05-17] MEDS: SODIUM CHLORIDE NASAL SPRAY 44 ML BOTTLE NS SCH ×3 (06:16→21:50)
[2020-05-17] MEDS: ASPIRIN 81 MG CHEWABLE TABLETS PO SCH ×2 (10:07→21:46)
[2020-05-17] MEDS: PRENATAL VITAMINS W/ FOLIC ACID TABLET (FP) PO SCH (10:07)
[2020-05-17] MEDS: LISINOPRIL 5 MG TABLET PO SCH ×2 (10:07→21:47)
[2020-05-17] MEDS: ACETAMINOPHEN 325 MG TABLET (FP) PO PRN (17:20)
[2020-05-17] MEDS: THIAMINE HCL 100 MG TABLET (FP) PO SCH (21:46)
[2020-05-17] MEDS: QUEtiapine FUMARATE 100 MG TABLET (FP) PO SCH (21:46)
[2020-05-17] MEDS: ATORVASTATIN CA 10 MG TABLET (FP) PO SCH (21:47)
[2020-05-18] MEDS: chlordiazePOXIDE HCL 10 MG CAPSULE PO SCH ×2 (07:09→16:36)
[2020-05-18] MEDS: SODIUM CHLORIDE NASAL SPRAY 44 ML BOTTLE NS SCH ×3 (07:09→22:08)
[2020-05-18] MEDS: hydrOXYzine PAMOATE 25 MG CAPSULE (FP) PO PRN ×2 (10:00→16:36)
[2020-05-18] MEDS: ASPIRIN 81 MG CHEWABLE TABLETS PO SCH ×2 (10:00→22:07)
[2020-05-18] MEDS: METHOCARBAMOL 500 MG TABLET PO PRN (10:01)
[2020-05-18] MEDS: PRENATAL VITAMINS W/ FOLIC ACID TABLET (FP) PO SCH (10:02)
[2020-05-18] MEDS: LISINOPRIL 5 MG TABLET PO SCH ×2 (11:43→22:07)
[2020-05-18] MEDS: THIAMINE HCL 100 MG TABLET (FP) PO SCH (22:07)
[2020-05-18] MEDS: QUEtiapine FUMARATE 100 MG TABLET (FP) PO SCH (22:07)
[2020-05-18] MEDS: ATORVASTATIN CA 10 MG TABLET (FP) PO SCH (22:07)
[2020-05-19] MEDS ORDERED: chlordiazePOXIDE HCL 10 MG CAPSULE PO ONE (05:00)
[2020-05-19] MEDS: SODIUM CHLORIDE NASAL SPRAY 44 ML BOTTLE NS SCH (05:09)
[2020-05-19] MEDS: METHOCARBAMOL 500 MG TABLET PO PRN (06:06)
[2020-05-19 06:14] VITALS: BP 131/90; PULSE 97; TEMP 97.3
== END 2020-05-19 08:32 | disposition home or self-care (01) | DRG 774 ==
LOC: YASAS 20:08 → Y6N 22:06
PROVIDERS: ADMIT Allergy & Immunology; ATTEND Allergy & Immunology
PROC: HZ2ZZZZ Detoxification Services for Substance Abuse Treatment (ICD-10-PCS; principal; 2020-05-14)
DX: F10.230 Alcohol dependence with withdrawal, uncomplicated (principal); F14.20 Cocaine dependence, uncomplicated; F10.220 Alcohol dependence with intoxication, uncomplicated; F17.210 Nicotine dependence, cigarettes, uncomplicated; F19.282 Other psychoactive substance dependence with psychoactive substance-induced sleep disorder; F25.9 Schizoaffective disorder, unspecified; D64.9 Anemia, unspecified; I10 Essential (primary) hypertension; E78.5 Hyperlipidemia, unspecified; E78.00 Pure hypercholesterolemia, unspecified; G47.00 Insomnia, unspecified; M17.0 Bilateral primary osteoarthritis of knee; M19.031 Primary osteoarthritis, right wrist; K08.89 Other specified disorders of teeth and supporting structures; R63.4 Abnormal weight loss; Z68.23 Body mass index [BMI] 23.0-23.9, adult; Z99.89 Dependence on other enabling machines and devices; Z98.890 Other specified postprocedural states; Z88.0 Allergy status to penicillin; Z91.013 Allergy to seafood; Z56.0 Unemployment, unspecified
CPT/HCPCS: 36415; 80053; 82947; 85025; 85027; 86780; C9803; Q0162; U0003

== ENCOUNTER 2020-07-16 20:30 | Inpatient (IN) | payer OTHER ==
[2020-07-16 20:41] VITALS: BMI 23.6
[2020-07-16] MEDS ORDERED: SODIUM CHLORIDE 0.9% 500 ML INFUS.BAG IV ONE (21:29)
[2020-07-16 22:40] LABS: BASO % 0.9 % (0-2.0); EOS % 1.7 % (0-4.5); HEMATOCRIT 33.5 % (35.4-49); HEMOGLOBIN 11.4 GM/dL (11.7-16.9); MCH 33.7 pg (25.7-33.7); MCHC 34.1 g/dl (32.0-35.9); MEAN CELL VOLUME 98.8 fl (80-96); MEAN PLT VOLUME 7.7 fl (7.5-11.1); MONO % 13.6 % (3.8-10.2); NEUT % 58.8 % (42.8-82.8); PLATELET COUNT 269 K/MM3 (134-434); RBC 3.39 M/mm3 (4.00-5.60); RDW 13.3 % (11.9-15.9); WHITE BLOOD COUNT 4.8 K/mm3 (4.0-10.0)
[2020-07-16 22:59] LABS: ACTIVATED PTT 29.1 SECONDS (25.2-36.5); INR 0.92 (0.83-1.09); PROTHROMBIN TIME (PATIENT) 11.4 SEC (9.7-13.0)
[2020-07-16 23:03] LABS: POTASSIUM 3.6 mmol/L (3.5-5.1)
[2020-07-16 23:05] LABS: ALBUMIN 3.7 g/dl (3.4-5.0); BLOOD UREA NITROGEN 26.6 mg/dL (7-18); CALCIUM 8.3 mg/dL (8.5-10.1)
[2020-07-16 23:09] LABS: CREATININE 2.4 mg/dL (0.55-1.3)
[2020-07-16 23:10] LABS: BILIRUBIN,TOTAL 0.8 mg/dL (0.2-1); TOT PROT 6.4 g/dl (6.4-8.2)
[2020-07-16] MEDS ORDERED: chlordiazePOXIDE HCL 25 MG CAPSULE PO ONE (23:21)
[2020-07-16] MEDS ORDERED: ACETAMINOPHEN 325 MG TABLET (FP) PO ONE (23:26)
[2020-07-16] MEDS ORDERED: ACETAMINOPHEN 325 MG TABLET (FP) ONE (23:36)
[2020-07-16] MEDS ORDERED: chlordiazePOXIDE HCL 25 MG CAPSULE ONE (23:37)
[2020-07-16] MEDS ORDERED: ONDANSETRON 4 MG/2 ML VIAL IVPUSH ONE (23:40)
[2020-07-16] MEDS ORDERED: ONDANSETRON 4 MG/2 ML VIAL ONE (23:42)
[2020-07-17] MEDS ORDERED: SODIUM CHLORIDE 0.9% 500 ML INFUS.BAG IV ONE (02:24)
[2020-07-17 02:40] LABS: EPI CELLS >36 /uL (0-25.1); HYALINE CASTS 37 /uL (0-3.1); PH,URINE 5.5 (5.0-8.0); URINE APPEARANCE CLOUDY; URINE BACTERIA 63 /uL (0-1359); URINE BILIRUBIN NEGATIVE (NEGATIVE); URINE COLOR DK YELLOW; URINE GLUCOSE (UA) NEGATIVE (NEGATIVE); URINE KETONE 1+ (NEGATIVE); URINE LEUK ESTERASE NEGATIVE (NEGATIVE); URINE NITRITE NEGATIVE (NEGATIVE); URINE PROTEIN 3+ (NEGATIVE)
[2020-07-17 02:47] LABS: METHADONE, UR NEGATIVE ng/ml (CUTOFF=300)
[2020-07-17 02:48] LABS: OPIATES, URI NEGATIVE ng/ml (CUTOFF=300); PHENCYCLIDINE,URINE NEGATIVE ng/ml (CUTOFF=25); URINE BARBITURATES NEGATIVE ng/ml (CUTOFF=200); URINE BENZODIAZEPINES NEGATIVE ng/ml (CUTOFF=200)
[2020-07-17 02:49] LABS: URINE AMPHETAMINES NEGATIVE ng/ml (CUTOFF=500)
[2020-07-17 03:38] LABS: COCAINE, UR POSITIVE ng/ml (CUTOFF=300)
[2020-07-17] MEDS ORDERED: chlordiazePOXIDE HCL 25 MG CAPSULE PO PRN (05:27)
[2020-07-17] MEDS ORDERED: FOLIC ACID INJECTION - 1 MG, THIAMINE HCL 100 MG, MULTIVIT INJECTION ADULT 10 ML in SOD... IVPB ONE (05:28)
[2020-07-17] MEDS ORDERED: SODIUM CHLORIDE 1,000 ML IV SCH (05:30)
[2020-07-17] MEDS ORDERED: chlordiazePOXIDE HCL 25 MG CAPSULE ONE ×2 (06:04→10:52)
[2020-07-17] MEDS: chlordiazePOXIDE HCL 25 MG CAPSULE PO SCH ×4 (06:07→22:16)
[2020-07-17] MEDS: HEPARIN NA (PORCINE) 5,000 UNITS/ML 1ML VIAL SQ SCH ×3 (06:11→22:21)
[2020-07-17] MEDS ORDERED: THIAMINE HCL 100 MG TABLET (FP) ONE (09:31)
[2020-07-17] MEDS ORDERED: MULTIVITAMINS (DAILY MVI) TABLET (FP) ONE (09:31)
[2020-07-17 10:06] LABS: BASO % 1.7 % (0-2.0); EOS % 3.1 % (0-4.5); HEMATOCRIT 33.4 % (35.4-49); HEMOGLOBIN 11.4 GM/dL (11.7-16.9); LYMPH % 35.5 % (8-40); MCH 33.8 pg (25.7-33.7); MCHC 34.1 g/dl (32.0-35.9); MEAN CELL VOLUME 99.3 fl (80-96); MEAN PLT VOLUME 7.8 fl (7.5-11.1); MONO % 14.4 % (3.8-10.2); NEUT % 45.3 % (42.8-82.8); PLATELET COUNT 277 K/MM3 (134-434); RBC 3.36 M/mm3 (4.00-5.60); RDW 13.2 % (11.9-15.9); WHITE BLOOD COUNT 3.1 K/mm3 (4.0-10.0)
[2020-07-17 10:27] LABS: POTASSIUM 3.6 mmol/L (3.5-5.1)
[2020-07-17 10:29] LABS: CALCIUM 8.1 mg/dL (8.5-10.1)
[2020-07-17 10:30] LABS: ALBUMIN 3.2 g/dl (3.4-5.0); BLOOD UREA NITROGEN 32.3 mg/dL (7-18)
[2020-07-17 10:38] LABS: BILIRUBIN,TOTAL 1.2 mg/dL (0.2-1); CREATININE 1.6 mg/dL (0.55-1.3); PHOSPHOROUS 3.3 mg/dL (2.5-4.9); TOT PROT 5.7 g/dl (6.4-8.2)
[2020-07-17] MEDS ORDERED: FOLIC ACID 1 MG TABLET (FP) ONE (10:52)
[2020-07-17] MEDS: MULTIVITAMINS (DAILY MVI) TABLET (FP) PO SCH (10:59)
[2020-07-17] MEDS: THIAMINE HCL 100 MG TABLET (FP) PO SCH (10:59)
[2020-07-17] MEDS: FOLIC ACID 1 MG TABLET (FP) PO SCH (10:59)
[2020-07-17 12:53] LABS: URINE RBC 108 /uL (0-23.9)
[2020-07-17] MEDS: SODIUM CHLORIDE 1,000 ML IV SCH (14:00)
[2020-07-17] MEDS ORDERED: HEPARIN NA (PORCINE) 5,000 UNITS/ML 1ML VIAL ONE (14:16)
[2020-07-17] MEDS: METHYL SALICYLATE/MENTHOL OINT 30 GM TUBE TP SCH (22:16)
[2020-07-17] MEDS: ACETAMINOPHEN 500 MG TABLET (FP) PO PRN (22:17)
[2020-07-18] MEDS: chlordiazePOXIDE HCL 25 MG CAPSULE PO SCH ×4 (05:04→22:05)
[2020-07-18] MEDS: HEPARIN NA (PORCINE) 5,000 UNITS/ML 1ML VIAL SQ SCH ×3 (06:05→21:27)
[2020-07-18 07:43] LABS: EOS % 5.5 % (0-4.5); HEMATOCRIT 30.6 % (35.4-49); HEMOGLOBIN 10.4 GM/dL (11.7-16.9); LYMPH % 38.2 % (8-40); MCH 33.7 pg (25.7-33.7); MEAN CELL VOLUME 99.2 fl (80-96); MEAN PLT VOLUME 8.3 fl (7.5-11.1); MONO % 11.6 % (3.8-10.2); NEUT % 43.7 % (42.8-82.8); PLATELET COUNT 262 K/MM3 (134-434); RBC 3.08 M/mm3 (4.00-5.60); RDW 13.3 % (11.9-15.9); WHITE BLOOD COUNT 3.1 K/mm3 (4.0-10.0)
[2020-07-18 07:57] LABS: POTASSIUM 4.2 mmol/L (3.5-5.1)
[2020-07-18 08:02] LABS: ALBUMIN 2.8 g/dl (3.4-5.0); BLOOD UREA NITROGEN 25.7 mg/dL (7-18); MAGNESIUM 1.9 mg/dL (1.8-2.4)
[2020-07-18 08:05] LABS: CREATININE 1.1 mg/dL (0.55-1.3); PHOSPHOROUS 3.3 mg/dL (2.5-4.9)
[2020-07-18 08:06] LABS: BILIRUBIN,TOTAL 0.7 mg/dL (0.2-1); TOT PROT 5.2 g/dl (6.4-8.2)
[2020-07-18] MEDS: FOLIC ACID 1 MG TABLET (FP) PO SCH (09:49)
[2020-07-18] MEDS: MULTIVITAMINS (DAILY MVI) TABLET (FP) PO SCH (09:49)
[2020-07-18] MEDS: THIAMINE HCL 100 MG TABLET (FP) PO SCH (09:49)
[2020-07-18] MEDS: SODIUM CHLORIDE 1,000 ML IV SCH (11:28)
[2020-07-18] MEDS: METHYL SALICYLATE/MENTHOL OINT 30 GM TUBE TP SCH ×2 (12:25→21:28)
[2020-07-19] MEDS ORDERED: chlordiazePOXIDE HCL 10 MG CAPSULE PO PRN
[2020-07-19] MEDS ORDERED: MELATONIN 5 MG TABLETS PO ONE ×2 (01:08→21:10)
[2020-07-19] MEDS: HEPARIN NA (PORCINE) 5,000 UNITS/ML 1ML VIAL SQ SCH ×3 (05:37→21:55)
[2020-07-19] MEDS: chlordiazePOXIDE HCL 10 MG CAPSULE PO SCH ×4 (05:37→22:03)
[2020-07-19 08:10] LABS: BASO % 1.5 % (0-2.0); EOS % 6.4 % (0-4.5); HEMATOCRIT 31.1 % (35.4-49); HEMOGLOBIN 10.6 GM/dL (11.7-16.9); LYMPH % 31.6 % (8-40); MCH 33.6 pg (25.7-33.7); MEAN CELL VOLUME 98.9 fl (80-96); MEAN PLT VOLUME 8.3 fl (7.5-11.1); MONO % 9.9 % (3.8-10.2); NEUT % 50.6 % (42.8-82.8); PLATELET COUNT 268 K/MM3 (134-434); RBC 3.15 M/mm3 (4.00-5.60); RDW 13.3 % (11.9-15.9); WHITE BLOOD COUNT 3.1 K/mm3 (4.0-10.0)
[2020-07-19 08:29] LABS: POTASSIUM 3.8 mmol/L (3.5-5.1)
[2020-07-19 08:42] LABS: CALCIUM 8.6 mg/dL (8.5-10.1)
[2020-07-19 08:43] LABS: ALBUMIN 2.9 g/dl (3.4-5.0); BLOOD UREA NITROGEN 21.9 mg/dL (7-18); MAGNESIUM 1.7 mg/dL (1.8-2.4)
[2020-07-19 08:46] LABS: PHOSPHOROUS 3.4 mg/dL (2.5-4.9)
[2020-07-19 08:47] LABS: BILIRUBIN,TOTAL 0.7 mg/dL (0.2-1); TOT PROT 5.5 g/dl (6.4-8.2)
[2020-07-19] MEDS: FOLIC ACID 1 MG TABLET (FP) PO SCH (09:56)
[2020-07-19] MEDS: METHYL SALICYLATE/MENTHOL OINT 30 GM TUBE TP SCH ×2 (09:56→21:56)
[2020-07-19] MEDS: THIAMINE HCL 100 MG TABLET (FP) PO SCH (09:56)
[2020-07-19] MEDS: MULTIVITAMINS (DAILY MVI) TABLET (FP) PO SCH (09:56)
[2020-07-20] MEDS: chlordiazePOXIDE HCL 10 MG CAPSULE PO SCH ×2 (05:36→17:55)
[2020-07-20] MEDS: HEPARIN NA (PORCINE) 5,000 UNITS/ML 1ML VIAL SQ SCH ×3 (05:37→22:07)
[2020-07-20 08:14] LABS: BASO % 2.4 % (0-2.0); HEMATOCRIT 30.6 % (35.4-49); HEMOGLOBIN 10.4 GM/dL (11.7-16.9); LYMPH % 34.6 % (8-40); MCH 33.3 pg (25.7-33.7); MCHC 33.8 g/dl (32.0-35.9); MEAN CELL VOLUME 98.5 fl (80-96); MEAN PLT VOLUME 8.2 fl (7.5-11.1); MONO % 10.3 % (3.8-10.2); NEUT % 46.7 % (42.8-82.8); PLATELET COUNT 267 K/MM3 (134-434); RBC 3.11 M/mm3 (4.00-5.60); RDW 13.2 % (11.9-15.9); WHITE BLOOD COUNT 3.2 K/mm3 (4.0-10.0)
[2020-07-20 08:38] LABS: POTASSIUM 3.8 mmol/L (3.5-5.1)
[2020-07-20 08:39] LABS: BLOOD UREA NITROGEN 19.4 mg/dL (7-18)
[2020-07-20 08:43] LABS: MAGNESIUM 1.7 mg/dL (1.8-2.4)
[2020-07-20 08:44] LABS: CALCIUM 8.7 mg/dL (8.5-10.1)
[2020-07-20 08:45] LABS: CREATININE 0.8 mg/dL (0.55-1.3)
[2020-07-20 08:46] LABS: PHOSPHOROUS 3.7 mg/dL (2.5-4.9)
[2020-07-20] MEDS: METHYL SALICYLATE/MENTHOL OINT 30 GM TUBE TP SCH ×2 (09:38→22:09)
[2020-07-20] MEDS: MULTIVITAMINS (DAILY MVI) TABLET (FP) PO SCH (09:38)
[2020-07-20] MEDS: THIAMINE HCL 100 MG TABLET (FP) PO SCH (09:38)
[2020-07-20] MEDS: FOLIC ACID 1 MG TABLET (FP) PO SCH (09:38)
[2020-07-20] MEDS: ACETAMINOPHEN 500 MG TABLET (FP) PO PRN (22:06)
[2020-07-20] MEDS ORDERED: MELATONIN 5 MG TABLETS PO SCH (23:04)
[2020-07-21] MEDS ORDERED: MELATONIN 5 MG TABLETS PO ONE (01:34)
[2020-07-21] MEDS ORDERED: chlordiazePOXIDE HCL 10 MG CAPSULE PO ONE (05:00)
[2020-07-21] MEDS: HEPARIN NA (PORCINE) 5,000 UNITS/ML 1ML VIAL SQ SCH (05:28)
[2020-07-21 05:54] VITALS: BP 115/71; PULSE 69; TEMP 97.5
[2020-07-21 08:57] LABS: BASO % 0.4 % (0-2.0); EOS % 6.1 % (0-4.5); HEMATOCRIT 30.6 % (35.4-49); HEMOGLOBIN 10.5 GM/dL (11.7-16.9); LYMPH % 36.9 % (8-40); MCH 33.9 pg (25.7-33.7); MCHC 34.5 g/dl (32.0-35.9); MEAN CELL VOLUME 98.3 fl (80-96); MEAN PLT VOLUME 8.3 fl (7.5-11.1); MONO % 9.7 % (3.8-10.2); NEUT % 46.9 % (42.8-82.8); PLATELET COUNT 291 K/MM3 (134-434); RBC 3.11 M/mm3 (4.00-5.60); RDW 13.2 % (11.9-15.9); WHITE BLOOD COUNT 3.3 K/mm3 (4.0-10.0)
[2020-07-21] MEDS: METHYL SALICYLATE/MENTHOL OINT 30 GM TUBE TP SCH (09:10)
[2020-07-21] MEDS: FOLIC ACID 1 MG TABLET (FP) PO SCH (09:10)
[2020-07-21] MEDS: MULTIVITAMINS (DAILY MVI) TABLET (FP) PO SCH (09:10)
[2020-07-21] MEDS: THIAMINE HCL 100 MG TABLET (FP) PO SCH (09:10)
[2020-07-21 09:25] LABS: POTASSIUM 3.7 mmol/L (3.5-5.1)
[2020-07-21 09:31] LABS: BLOOD UREA NITROGEN 17.5 mg/dL (7-18); CALCIUM 8.6 mg/dL (8.5-10.1)
[2020-07-21 09:32] LABS: MAGNESIUM 1.6 mg/dL (1.8-2.4)
[2020-07-21 09:33] LABS: CREATININE 0.8 mg/dL (0.55-1.3); PHOSPHOROUS 4.7 mg/dL (2.5-4.9)
[2020-07-21 09:35] LABS: BILIRUBIN,TOTAL 0.4 mg/dL (0.2-1); TOT PROT 5.5 g/dl (6.4-8.2)
[2020-07-21] MEDS ORDERED: MAGNESIUM SULF 50% (8.12 MEQ/2 ML-1 GM VIAL) IVPB ONE (09:44)
[2020-07-21] MEDS ORDERED: MAGNESIUM OXIDE 400 MG TABLET (FP) PO ONE (09:53)
[2020-07-21] MEDS ORDERED: MELATONIN 5 MG TABLETS PO SCH (22:00)
== END 2020-07-21 13:12 | disposition left against medical advice (07) | DRG 469 ==
LOC: JER 20:30 → JERBED 07-17 04:19 → J7W 07-17 15:44
PROVIDERS: ADMIT Hospitalist; ATTEND Internal Medicine
PROC: HZ2ZZZZ Detoxification Services for Substance Abuse Treatment (ICD-10-PCS; principal; 2020-07-16)
DX: N17.9 Acute kidney failure, unspecified (principal); E86.1 Hypovolemia; F10.239 Alcohol dependence with withdrawal, unspecified; E86.0 Dehydration; F14.10 Cocaine abuse, uncomplicated; I10 Essential (primary) hypertension; E78.5 Hyperlipidemia, unspecified; F20.9 Schizophrenia, unspecified
CPT/HCPCS: 36415; 70450-TC; 71045-TC-FY; 80048; 80053; 80307; 81003; 83036; 83605; 83735; 84100; 85025; 85610; 85730; 87040; 87086; 93005; 93010; 99285-25; C9803; J1644; U0003

== ENCOUNTER 2020-08-01 17:13 | Inpatient (IN) | payer OTHER ==
[2020-08-01 21:49] VITALS: BMI 21.5
[2020-08-01] MEDS ORDERED: NICOTINE POLACRILEX 2 MG GUM BUC PRN (22:14)
[2020-08-01] MEDS ORDERED: DICYCLOMINE HCL 10 MG CAPSULE PO PRN (22:14)
[2020-08-01] MEDS ORDERED: ONDANSETRON *ODT* 4 MG TABLET SL PRN (22:14)
[2020-08-01] MEDS ORDERED: MAGNESIUM CITRATE 300 ML BOTTLE PO PRN (22:14)
[2020-08-01] MEDS ORDERED: MAGNESIUM HYDROX 2400MG/30ML ORAL SUSPENSION 30 ML CUP PO PRN (22:14)
[2020-08-01] MEDS ORDERED: guaiFENesin 200 MG/10 ML 10 ML UNIT-DOSE CUPS PO PRN (22:14)
[2020-08-01] MEDS ORDERED: P-EPHED 60MG/TRIPROLIDI 2.5MG TABLET PO PRN (22:14)
[2020-08-01] MEDS ORDERED: BISMUTH SUBSALICYLATE 524 MG/30 ML UD PO PRN (22:14)
[2020-08-01] MEDS ORDERED: MAG HYDROX/AL HYDROX/SIMETH 30 ML UNIT-DOSE CUP PO PRN (22:14)
[2020-08-01] MEDS ORDERED: ACETAMINOPHEN 325 MG TABLET (FP) PO PRN ×2 (22:14)
[2020-08-01] MEDS ORDERED: MENTHOL/PHENOL 1 EACH UD MM PRN (22:14)
[2020-08-01] MEDS ORDERED: LORazepam 2 MG TABLET PO SCH (23:00)
[2020-08-01] MEDS: hydrOXYzine PAMOATE 25 MG CAPSULE (FP) PO PRN (23:47)
[2020-08-01] MEDS: LORazepam 1 MG TABLET PO PRN (23:54)
[2020-08-01] MEDS: LORazepam 2 MG TABLET PO SCH (23:59)
[2020-08-02] MEDS: LORazepam 1 MG TABLET PO PRN (05:31)
[2020-08-02] MEDS: LORazepam 2 MG TABLET PO SCH (05:33)
[2020-08-02] MEDS: LORazepam 1 MG TABLET PO SCH ×3 (10:39→22:10)
[2020-08-02] MEDS: IBUPROFEN 400 MG TABLET (FP) PO PRN ×2 (10:40→22:09)
[2020-08-02] MEDS: PRENATAL VITAMINS W/ FOLIC ACID TABLET (FP) PO SCH (10:40)
[2020-08-02] MEDS: NICOTINE 14 MG/24 HOURS TOPICAL PATCH TD SCH (10:41)
[2020-08-02 11:26] LABS: HEMATOCRIT 33.6 % (35.4-49); HEMOGLOBIN 11.6 GM/dL (11.7-16.9); MCH 34.1 pg (25.7-33.7); MCHC 34.5 g/dl (32.0-35.9); MEAN CELL VOLUME 98.9 fl (80-96); MEAN PLT VOLUME 8.1 fl (7.5-11.1); PLATELET COUNT 363 K/MM3 (134-434); RDW 14.1 % (11.9-15.9)
[2020-08-02 11:29] LABS: POTASSIUM 3.6 mmol/L (3.5-5.1)
[2020-08-02 11:33] LABS: ALBUMIN 3.5 g/dl (3.4-5.0); CALCIUM 8.8 mg/dL (8.5-10.1)
[2020-08-02 11:38] LABS: BILIRUBIN,TOTAL 1.1 mg/dL (0.2-1); TOT PROT 6.2 g/dl (6.4-8.2)
[2020-08-02] MEDS: THIAMINE HCL 100 MG TABLET (FP) PO SCH (22:09)
[2020-08-02] MEDS: MELATONIN 5 MG TABLETS PO SCH (22:09)
[2020-08-02] MEDS: hydrOXYzine PAMOATE 25 MG CAPSULE (FP) PO PRN (22:09)
[2020-08-03] MEDS ORDERED: MASKS NR ONE (05:54)
[2020-08-03] MEDS: IBUPROFEN 400 MG TABLET (FP) PO PRN (05:55)
[2020-08-03] MEDS: LORazepam 1 MG TABLET PO SCH ×4 (05:55→23:00)
[2020-08-03] MEDS: PRENATAL VITAMINS W/ FOLIC ACID TABLET (FP) PO SCH (10:04)
[2020-08-03] MEDS: NICOTINE 14 MG/24 HOURS TOPICAL PATCH TD SCH (10:05)
[2020-08-03] MEDS: hydrOXYzine PAMOATE 25 MG CAPSULE (FP) PO PRN (17:31)
[2020-08-03] MEDS: MELATONIN 5 MG TABLETS PO SCH (23:00)
[2020-08-03] MEDS: THIAMINE HCL 100 MG TABLET (FP) PO SCH (23:01)
[2020-08-04] MEDS ORDERED: LORazepam 0.5 MG TABLET PO PRN
[2020-08-04] MEDS: METHOCARBAMOL 500 MG TABLET PO PRN ×2 (00:31→23:02)
[2020-08-04] MEDS: hydrOXYzine PAMOATE 25 MG CAPSULE (FP) PO PRN (00:31)
[2020-08-04] MEDS: LORazepam 0.5 MG TABLET PO SCH ×4 (05:53→22:57)
[2020-08-04] MEDS: IBUPROFEN 400 MG TABLET (FP) PO PRN (05:55)
[2020-08-04] MEDS: NICOTINE 14 MG/24 HOURS TOPICAL PATCH TD SCH (10:38)
[2020-08-04] MEDS: PRENATAL VITAMINS W/ FOLIC ACID TABLET (FP) PO SCH (10:41)
[2020-08-04] MEDS ORDERED: LIDOCAINE 5% TOPICAL PATCH TP ONE (14:03)
[2020-08-04] MEDS: LISINOPRIL 10 MG TABLET PO SCH (14:47)
[2020-08-04 21:27] LABS: PH,URINE 8.5 (5.0-8.0); URINE APPEARANCE CLEAR; URINE BILIRUBIN NEGATIVE (NEGATIVE); URINE COLOR YELLOW; URINE GLUCOSE (UA) NEGATIVE (NEGATIVE); URINE KETONE NEGATIVE (NEGATIVE); URINE LEUK ESTERASE NEGATIVE (NEGATIVE); URINE NITRITE NEGATIVE (NEGATIVE); URINE PROTEIN NEGATIVE (NEGATIVE)
[2020-08-04] MEDS ORDERED: LIDOCAINE PATCH REMOVAL MC SCH (22:00)
[2020-08-04] MEDS ORDERED: ATORVASTATIN CA 10 MG TABLET (FP) PO SCH (22:00)
[2020-08-04] MEDS: ASPIRIN 81 MG CHEWABLE TABLETS PO SCH (22:57)
[2020-08-04] MEDS: MELATONIN 5 MG TABLETS PO SCH (22:58)
[2020-08-04] MEDS: THIAMINE HCL 100 MG TABLET (FP) PO SCH (22:58)
[2020-08-05] MEDS ORDERED: LORazepam 0.5 MG TABLET PO ONE (05:00)
[2020-08-05] MEDS: IBUPROFEN 400 MG TABLET (FP) PO PRN (06:42)
[2020-08-05 09:16] VITALS: BP 123/65; PULSE 81; TEMP 97.9
[2020-08-05] MEDS: PRENATAL VITAMINS W/ FOLIC ACID TABLET (FP) PO SCH (09:45)
[2020-08-05] MEDS: LISINOPRIL 10 MG TABLET PO SCH (09:45)
[2020-08-05] MEDS: METHOCARBAMOL 500 MG TABLET PO PRN (09:45)
[2020-08-05] MEDS: NICOTINE 14 MG/24 HOURS TOPICAL PATCH TD SCH (09:46)
[2020-08-05] MEDS: ASPIRIN 81 MG CHEWABLE TABLETS PO SCH (09:46)
== END 2020-08-05 09:46 | disposition other institution (70) | DRG 774 ==
LOC: YASAS 17:13 → Y3N 21:54
PROVIDERS: ADMIT Allergy & Immunology; ATTEND Allergy & Immunology
PROC: HZ2ZZZZ Detoxification Services for Substance Abuse Treatment (ICD-10-PCS; principal; 2020-08-01)
DX: F10.230 Alcohol dependence with withdrawal, uncomplicated (principal); F14.20 Cocaine dependence, uncomplicated; F17.210 Nicotine dependence, cigarettes, uncomplicated; F19.282 Other psychoactive substance dependence with psychoactive substance-induced sleep disorder; F19.280 Other psychoactive substance dependence with psychoactive substance-induced anxiety disorder; F19.24 Other psychoactive substance dependence with psychoactive substance-induced mood disorder; F25.9 Schizoaffective disorder, unspecified; F31.9 Bipolar disorder, unspecified; E05.90 Thyrotoxicosis, unspecified without thyrotoxic crisis or storm; E78.5 Hyperlipidemia, unspecified; I10 Essential (primary) hypertension; M17.0 Bilateral primary osteoarthritis of knee; M19.032 Primary osteoarthritis, left wrist; Z88.0 Allergy status to penicillin; Z91.013 Allergy to seafood
CPT/HCPCS: 36415; 80053; 81003; 85027; 86780; C9803; Q0162; U0003

== ENCOUNTER 2020-08-25 02:52 | Inpatient (IN) | payer OTHER ==
[2020-08-25] MEDS ORDERED: MENTHOL/PHENOL 1 EACH UD MM PRN (04:51)
[2020-08-25] MEDS ORDERED: METHOCARBAMOL 500 MG TABLET PO PRN (04:51)
[2020-08-25] MEDS ORDERED: MAGNESIUM CITRATE 300 ML BOTTLE PO PRN (04:51)
[2020-08-25] MEDS ORDERED: ACETAMINOPHEN 325 MG TABLET (FP) PO PRN ×2 (04:51)
[2020-08-25] MEDS ORDERED: MAG HYDROX/AL HYDROX/SIMETH 30 ML UNIT-DOSE CUP PO PRN (04:51)
[2020-08-25] MEDS ORDERED: IBUPROFEN 400 MG TABLET (FP) PO PRN (04:51)
[2020-08-25] MEDS ORDERED: ONDANSETRON *ODT* 4 MG TABLET SL PRN (04:51)
[2020-08-25] MEDS ORDERED: NICOTINE POLACRILEX 2 MG GUM BUC PRN (04:51)
[2020-08-25] MEDS ORDERED: MAGNESIUM HYDROX 2400MG/30ML ORAL SUSPENSION 30 ML CUP PO PRN (04:51)
[2020-08-25] MEDS ORDERED: BISMUTH SUBSALICYLATE 524 MG/30 ML UD PO PRN (04:51)
[2020-08-25] MEDS ORDERED: chlordiazePOXIDE HCL 25 MG CAPSULE PO PRN (04:54)
[2020-08-25] MEDS: chlordiazePOXIDE HCL 25 MG CAPSULE PO SCH ×2 (06:31→10:20)
[2020-08-25 07:15] VITALS: BMI 28.7
[2020-08-25] MEDS ORDERED: NICOTINE 14 MG/24 HOURS TOPICAL PATCH TD SCH (10:00)
[2020-08-25] MEDS ORDERED: PRENATAL VITAMINS W/ FOLIC ACID TABLET (FP) PO SCH (10:00)
[2020-08-25 14:52] VITALS: BP 143/97; PULSE 96; TEMP 98.4
[2020-08-25] MEDS ORDERED: MELATONIN 5 MG TABLETS PO SCH (22:00)
[2020-08-25] MEDS ORDERED: QUEtiapine FUMARATE 100 MG TABLET (FP) PO SCH (22:00)
[2020-08-25] MEDS ORDERED: THIAMINE HCL 100 MG TABLET (FP) PO SCH (22:00)
[2020-08-26] MEDS ORDERED: chlordiazePOXIDE HCL 25 MG CAPSULE PO SCH (05:00)
[2020-08-27] MEDS ORDERED: chlordiazePOXIDE HCL 10 MG CAPSULE PO PRN
[2020-08-27] MEDS ORDERED: chlordiazePOXIDE HCL 10 MG CAPSULE PO SCH (05:00)
[2020-08-28] MEDS ORDERED: chlordiazePOXIDE HCL 10 MG CAPSULE PO SCH (05:00)
[2020-08-29] MEDS ORDERED: chlordiazePOXIDE HCL 10 MG CAPSULE PO ONE (05:00)
== END 2020-08-25 17:46 | disposition left against medical advice (07) | DRG 770 ==
LOC: YASAS 02:52 → Y6N 05:53
PROVIDERS: ADMIT Allergy & Immunology; ATTEND Allergy & Immunology
PROC: HZ2ZZZZ Detoxification Services for Substance Abuse Treatment (ICD-10-PCS; principal; 2020-08-25)
DX: F10.230 Alcohol dependence with withdrawal, uncomplicated (principal); F14.20 Cocaine dependence, uncomplicated; F12.20 Cannabis dependence, uncomplicated; F17.210 Nicotine dependence, cigarettes, uncomplicated; F25.9 Schizoaffective disorder, unspecified; D50.9 Iron deficiency anemia, unspecified; E78.5 Hyperlipidemia, unspecified; I10 Essential (primary) hypertension; M17.0 Bilateral primary osteoarthritis of knee; M19.032 Primary osteoarthritis, left wrist; Z87.01 Personal history of pneumonia (recurrent); Z87.81 Personal history of (healed) traumatic fracture; Z88.0 Allergy status to penicillin; Z91.013 Allergy to seafood
CPT/HCPCS: C9803; U0003; U0005

== ENCOUNTER 2020-10-11 21:30 | Inpatient (IN) | payer OTHER ==
[2020-10-11] MEDS ORDERED: METHOCARBAMOL 500 MG TABLET PO PRN (22:22)
[2020-10-11] MEDS ORDERED: IBUPROFEN 400 MG TABLET (FP) PO PRN (22:22)
[2020-10-11] MEDS ORDERED: BISMUTH SUBSALICYLATE 524 MG/30 ML PO PRN (22:22)
[2020-10-11] MEDS ORDERED: MAG HYDROX/AL HYDROX/SIMETH 30 ML UNIT-DOSE CUP PO PRN (22:22)
[2020-10-11] MEDS ORDERED: MAGNESIUM HYDROX 2400MG/30ML ORAL SUSPENSION 30 ML CUP PO PRN (22:22)
[2020-10-11] MEDS ORDERED: ONDANSETRON *ODT* 4 MG TABLET SL PRN (22:22)
[2020-10-11] MEDS ORDERED: MAGNESIUM CITRATE 300 ML BOTTLE PO PRN (22:22)
[2020-10-11] MEDS ORDERED: ACETAMINOPHEN 325 MG TABLET (FP) PO PRN ×2 (22:22)
[2020-10-11] MEDS ORDERED: NICOTINE POLACRILEX 2 MG GUM BUC PRN (22:22)
[2020-10-11] MEDS ORDERED: MENTHOL/PHENOL 1 EACH UD MM PRN (22:22)
[2020-10-11] MEDS ORDERED: diazePAM 5 MG TABLET PO PRN (22:40)
[2020-10-11 23:06] VITALS: BMI 21.5
[2020-10-11] MEDS: diazePAM 5 MG TABLET PO SCH (23:59)
[2020-10-11] MEDS: ASPIRIN 81 MG CHEWABLE TABLETS PO SCH (23:59)
[2020-10-11] MEDS: BACITRACIN 0.9 GM PACKET TP SCH (23:59)
[2020-10-12] MEDS: diazePAM 5 MG TABLET PO SCH ×4 (07:09→22:41)
[2020-10-12 10:12] LABS: HEMATOCRIT 32.8 % (35.4-49); HEMOGLOBIN 11.2 GM/dL (11.7-16.9); MCH 33.4 pg (25.7-33.7); MCHC 34.2 g/dl (32.0-35.9); MEAN CELL VOLUME 97.8 fl (80-96); MEAN PLT VOLUME 8.7 fl (7.5-11.1); PLATELET COUNT 215 K/MM3 (134-434); RBC 3.36 M/mm3 (4.00-5.60); RDW 13.9 % (11.9-15.9); WHITE BLOOD COUNT 2.2 K/mm3 (4.0-10.0)
[2020-10-12] MEDS: ASPIRIN 81 MG CHEWABLE TABLETS PO SCH ×2 (10:19→22:40)
[2020-10-12] MEDS: LISINOPRIL 10 MG TABLET PO SCH (10:19)
[2020-10-12] MEDS: BACITRACIN 0.9 GM PACKET TP SCH ×2 (10:19→22:44)
[2020-10-12] MEDS: PRENATAL VITAMINS W/ FOLIC ACID TABLET (FP) PO SCH (10:20)
[2020-10-12 10:44] LABS: ALBUMIN 3.5 g/dl (3.4-5.0); BLOOD UREA NITROGEN 13.1 mg/dL (7-18); CALCIUM 8.7 mg/dL (8.5-10.1)
[2020-10-12] MEDS: CHLORTHALIDONE 25 MG TABLET PO SCH ×2 (10:47→22:43)
[2020-10-12] MEDS: METHYL SALICYLATE/MENTHOL OINT 30 GM TUBE TP SCH ×2 (10:47→22:46)
[2020-10-12] MEDS: hydrOXYzine PAMOATE 25 MG CAPSULE (FP) PO PRN (10:47)
[2020-10-12 10:48] LABS: BILIRUBIN,TOTAL 0.4 mg/dL (0.2-1); TOT PROT 6.3 g/dl (6.4-8.2)
[2020-10-12] MEDS: QUEtiapine FUMARATE 100 MG TABLET (FP) PO SCH (22:41)
[2020-10-12] MEDS: ATORVASTATIN CA 10 MG TABLET (FP) PO SCH (22:41)
[2020-10-12] MEDS: THIAMINE HCL 100 MG TABLET (FP) PO SCH (22:42)
[2020-10-12] MEDS: MELATONIN 5 MG TABLETS PO SCH (22:43)
[2020-10-13] MEDS: diazePAM 5 MG TABLET PO SCH ×3 (06:39→22:35)
[2020-10-13] MEDS: METHYL SALICYLATE/MENTHOL OINT 30 GM TUBE TP SCH ×3 (06:40→22:41)
[2020-10-13] MEDS: ASPIRIN 81 MG CHEWABLE TABLETS PO SCH ×2 (10:17→22:35)
[2020-10-13] MEDS: BACITRACIN 0.9 GM PACKET TP SCH ×2 (10:17→22:36)
[2020-10-13] MEDS: LISINOPRIL 10 MG TABLET PO SCH (10:17)
[2020-10-13] MEDS: PRENATAL VITAMINS W/ FOLIC ACID TABLET (FP) PO SCH (10:18)
[2020-10-13] MEDS: CHLORTHALIDONE 25 MG TABLET PO SCH ×2 (10:18→22:36)
[2020-10-13 11:34] LABS: EOS % 5.8 % (0-4.5); HEMATOCRIT 35.8 % (35.4-49); HEMOGLOBIN 12.1 GM/dL (11.7-16.9); LYMPH % 36.1 % (8-40); MCH 33.2 pg (25.7-33.7); MCHC 33.8 g/dl (32.0-35.9); MEAN CELL VOLUME 98.1 fl (80-96); MEAN PLT VOLUME 9.1 fl (7.5-11.1); MONO % 15.2 % (3.8-10.2); NEUT % 41.9 % (42.8-82.8); PLATELET COUNT 223 K/MM3 (134-434); RBC 3.65 M/mm3 (4.00-5.60); WHITE BLOOD COUNT 3.2 K/mm3 (4.0-10.0)
[2020-10-13] MEDS: THIAMINE HCL 100 MG TABLET (FP) PO SCH (22:35)
[2020-10-13] MEDS: QUEtiapine FUMARATE 100 MG TABLET (FP) PO SCH (22:35)
[2020-10-13] MEDS: ATORVASTATIN CA 10 MG TABLET (FP) PO SCH (22:35)
[2020-10-13] MEDS: MELATONIN 5 MG TABLETS PO SCH (22:36)
[2020-10-14] MEDS: diazePAM 5 MG TABLET PO SCH ×2 (05:36→17:28)
[2020-10-14 10:07] LABS: SARS-CoV-2 NAA Not Detected (Not Detected)
[2020-10-14] MEDS: hydrOXYzine PAMOATE 25 MG CAPSULE (FP) PO PRN (10:17)
[2020-10-14] MEDS: LISINOPRIL 10 MG TABLET PO SCH (10:17)
[2020-10-14] MEDS: ASPIRIN 81 MG CHEWABLE TABLETS PO SCH ×2 (10:17→22:22)
[2020-10-14] MEDS: PRENATAL VITAMINS W/ FOLIC ACID TABLET (FP) PO SCH (10:17)
[2020-10-14] MEDS: METHYL SALICYLATE/MENTHOL OINT 30 GM TUBE TP SCH ×2 (10:18→22:22)
[2020-10-14] MEDS: BACITRACIN 0.9 GM PACKET TP SCH ×2 (10:18→22:22)
[2020-10-14] MEDS: CHLORTHALIDONE 25 MG TABLET PO SCH ×2 (11:31→22:24)
[2020-10-14] MEDS: THIAMINE HCL 100 MG TABLET (FP) PO SCH (22:24)
[2020-10-14] MEDS: QUEtiapine FUMARATE 100 MG TABLET (FP) PO SCH (22:24)
[2020-10-14] MEDS: ATORVASTATIN CA 10 MG TABLET (FP) PO SCH (22:24)
[2020-10-14] MEDS: MELATONIN 5 MG TABLETS PO SCH (22:24)
[2020-10-15] MEDS ORDERED: diazePAM 5 MG TABLET PO ONE (06:00)
[2020-10-15 06:14] VITALS: BP 114/69; PULSE 91; TEMP 98.6
== END 2020-10-15 08:56 | disposition home or self-care (01) | DRG 774 ==
LOC: YASAS 21:30 → Y6N 22:30
PROVIDERS: ADMIT Allergy & Immunology; ATTEND Allergy & Immunology
PROC: HZ2ZZZZ Detoxification Services for Substance Abuse Treatment (ICD-10-PCS; principal; 2020-10-11)
DX: F10.230 Alcohol dependence with withdrawal, uncomplicated (principal); F14.20 Cocaine dependence, uncomplicated; F12.20 Cannabis dependence, uncomplicated; F17.213 Nicotine dependence, cigarettes, with withdrawal; F19.282 Other psychoactive substance dependence with psychoactive substance-induced sleep disorder; F19.24 Other psychoactive substance dependence with psychoactive substance-induced mood disorder; F25.9 Schizoaffective disorder, unspecified; D50.9 Iron deficiency anemia, unspecified; D72.819 Decreased white blood cell count, unspecified; I10 Essential (primary) hypertension; M17.0 Bilateral primary osteoarthritis of knee; M19.031 Primary osteoarthritis, right wrist; M19.032 Primary osteoarthritis, left wrist; E78.5 Hyperlipidemia, unspecified; E78.1 Pure hyperglyceridemia; Z99.89 Dependence on other enabling machines and devices; Z88.0 Allergy status to penicillin; Z91.018 Allergy to other foods; Z87.01 Personal history of pneumonia (recurrent)
CPT/HCPCS: 36415; 80053; 82962; 85025; 85027; 86780; C9803; Q0162; U0003; U0005

== ENCOUNTER 2020-10-25 18:27 | Inpatient (IN) | payer OTHER ==
[2020-10-25 19:11] VITALS: BMI 21.5
[2020-10-25] MEDS ORDERED: ACETAMINOPHEN 325 MG TABLET (FP) PO PRN ×2 (19:21)
[2020-10-25] MEDS ORDERED: METHOCARBAMOL 500 MG TABLET PO PRN (19:21)
[2020-10-25] MEDS ORDERED: MAGNESIUM CITRATE 300 ML BOTTLE PO PRN (19:21)
[2020-10-25] MEDS ORDERED: IBUPROFEN 400 MG TABLET (FP) PO PRN (19:21)
[2020-10-25] MEDS ORDERED: MAGNESIUM HYDROX 2400MG/30ML ORAL SUSPENSION 30 ML CUP PO PRN (19:21)
[2020-10-25] MEDS ORDERED: NICOTINE POLACRILEX 2 MG GUM BUC PRN (19:21)
[2020-10-25] MEDS ORDERED: ONDANSETRON *ODT* 4 MG TABLET SL PRN (19:21)
[2020-10-25] MEDS ORDERED: MENTHOL/PHENOL 1 EACH UD MM PRN (19:21)
[2020-10-25] MEDS ORDERED: MAG HYDROX/AL HYDROX/SIMETH 30 ML UNIT-DOSE CUP PO PRN (19:21)
[2020-10-25] MEDS ORDERED: BISMUTH SUBSALICYLATE 524 MG/30 ML PO PRN (19:21)
[2020-10-25] MEDS ORDERED: LORazepam 1 MG TABLET PO PRN (19:21)
[2020-10-25] MEDS: BACITRACIN 0.9 GM PACKET TP SCH (21:17)
[2020-10-25] MEDS: LORazepam 2 MG TABLET PO SCH (22:29)
[2020-10-25] MEDS: MELATONIN 5 MG TABLETS PO SCH (22:29)
[2020-10-25] MEDS: hydrOXYzine PAMOATE 25 MG CAPSULE (FP) PO SCH (22:29)
[2020-10-25] MEDS: THIAMINE HCL 100 MG TABLET (FP) PO SCH (22:29)
[2020-10-26] MEDS: LORazepam 2 MG TABLET PO SCH ×4 (05:16→22:12)
[2020-10-26] MEDS: hydrOXYzine PAMOATE 25 MG CAPSULE (FP) PO SCH ×5 (05:16→22:12)
[2020-10-26] MEDS: ASPIRIN COATED 81 MG TABLET.EC PO SCH (10:13)
[2020-10-26] MEDS: BACITRACIN 0.9 GM PACKET TP SCH (10:13)
[2020-10-26] MEDS: PRENATAL VITAMINS W/ FOLIC ACID TABLET (FP) PO SCH (10:13)
[2020-10-26] MEDS: NICOTINE 7 MG/24 HOURS TOPICAL PATCH TD SCH (10:14)
[2020-10-26] MEDS: LIDOCAINE 5% TOPICAL PATCH TP SCH (10:14)
[2020-10-26 10:24] LABS: HEMOGLOBIN 12.6 GM/dL (11.7-16.9); MCH 32.1 pg (25.7-33.7); MCHC 33.1 g/dl (32.0-35.9); PLATELET COUNT 430 K/MM3 (134-434); RBC 3.91 M/mm3 (4.00-5.60); RDW 13.8 % (11.9-15.9); WHITE BLOOD COUNT 3.4 K/mm3 (4.0-10.0)
[2020-10-26 10:29] LABS: CALCIUM 9.3 mg/dL (8.5-10.1)
[2020-10-26 10:30] LABS: ALBUMIN 3.6 g/dl (3.4-5.0); BLOOD UREA NITROGEN 18.7 mg/dL (7-18)
[2020-10-26 10:33] LABS: CREATININE 0.9 mg/dL (0.55-1.3)
[2020-10-26 10:34] LABS: BILIRUBIN,TOTAL 0.7 mg/dL (0.2-1)
[2020-10-26 10:35] LABS: TOT PROT 6.7 g/dl (6.4-8.2)
[2020-10-26] MEDS: METHYL SALICYLATE/MENTHOL OINT 30 GM TUBE TP SCH ×2 (15:42→22:12)
[2020-10-26] MEDS ORDERED: LIDOCAINE PATCH REMOVAL MC SCH (22:00)
[2020-10-26] MEDS: THIAMINE HCL 100 MG TABLET (FP) PO SCH (22:12)
[2020-10-26] MEDS: MELATONIN 5 MG TABLETS PO SCH (22:12)
[2020-10-27] MEDS: hydrOXYzine PAMOATE 25 MG CAPSULE (FP) PO SCH ×2 (05:27→10:22)
[2020-10-27] MEDS: LORazepam 1 MG TABLET PO SCH ×2 (05:28→10:22)
[2020-10-27 09:14] VITALS: BP 127/72; PULSE 68; TEMP 96.3
[2020-10-27] MEDS: ASPIRIN COATED 81 MG TABLET.EC PO SCH (10:22)
[2020-10-27] MEDS: PRENATAL VITAMINS W/ FOLIC ACID TABLET (FP) PO SCH (10:22)
[2020-10-27] MEDS: METHYL SALICYLATE/MENTHOL OINT 30 GM TUBE TP SCH (10:22)
[2020-10-27] MEDS: NICOTINE 7 MG/24 HOURS TOPICAL PATCH TD SCH (10:23)
[2020-10-27] MEDS: LIDOCAINE 5% TOPICAL PATCH TP SCH (10:23)
[2020-10-27] MEDS: BACITRACIN 0.9 GM PACKET TP SCH (10:24)
[2020-10-28] MEDS ORDERED: LORazepam 0.5 MG TABLET PO PRN
[2020-10-28] MEDS ORDERED: LORazepam 0.5 MG TABLET PO SCH (05:00)
[2020-10-29] MEDS ORDERED: LORazepam 0.5 MG TABLET PO ONE (05:00)
== END 2020-10-27 10:31 | disposition left against medical advice (07) | DRG 770 ==
LOC: YASAS 18:27 → Y3N 19:16
PROVIDERS: ADMIT Allergy & Immunology; ATTEND Allergy & Immunology
PROC: HZ2ZZZZ Detoxification Services for Substance Abuse Treatment (ICD-10-PCS; principal; 2020-10-25)
DX: F10.230 Alcohol dependence with withdrawal, uncomplicated (principal); F14.20 Cocaine dependence, uncomplicated; F12.20 Cannabis dependence, uncomplicated; F17.210 Nicotine dependence, cigarettes, uncomplicated; F25.9 Schizoaffective disorder, unspecified; F19.282 Other psychoactive substance dependence with psychoactive substance-induced sleep disorder; F19.280 Other psychoactive substance dependence with psychoactive substance-induced anxiety disorder; D50.9 Iron deficiency anemia, unspecified; E78.5 Hyperlipidemia, unspecified; E05.90 Thyrotoxicosis, unspecified without thyrotoxic crisis or storm; I10 Essential (primary) hypertension; M17.0 Bilateral primary osteoarthritis of knee; M19.032 Primary osteoarthritis, left wrist; R29.6 Repeated falls; Z99.89 Dependence on other enabling machines and devices; Z88.0 Allergy status to penicillin; Z91.013 Allergy to seafood
CPT/HCPCS: 36415; 80053; 85027; 86780; C9803; U0003; U0005

== ENCOUNTER 2020-12-13 12:01 | Inpatient (IN) | payer OTHER ==
[2020-12-13 12:50] VITALS: BMI 21.8
[2020-12-13] MEDS ORDERED: LORazepam 1 MG TABLET PO PRN (17:27)
[2020-12-13] MEDS ORDERED: METHOCARBAMOL 500 MG TABLET PO PRN ×2 (17:27→17:35)
[2020-12-13] MEDS ORDERED: MAG HYDROX/AL HYDROX/SIMETH 30 ML UNIT-DOSE CUP PO PRN (17:27)
[2020-12-13] MEDS ORDERED: MENTHOL/PHENOL 1 EACH UD MM PRN (17:27)
[2020-12-13] MEDS ORDERED: ONDANSETRON *ODT* 4 MG TABLET SL PRN (17:27)
[2020-12-13] MEDS ORDERED: MAGNESIUM HYDROX 2400MG/30ML ORAL SUSPENSION 30 ML CUP PO PRN (17:27)
[2020-12-13] MEDS ORDERED: MAGNESIUM CITRATE 300 ML BOTTLE PO PRN (17:27)
[2020-12-13] MEDS ORDERED: ACETAMINOPHEN 325 MG TABLET (FP) PO PRN ×2 (17:27)
[2020-12-13] MEDS ORDERED: IBUPROFEN 400 MG TABLET (FP) PO PRN (17:27)
[2020-12-13] MEDS ORDERED: BISMUTH SUBSALICYLATE 524 MG/30 ML PO PRN (17:27)
[2020-12-13] MEDS ORDERED: NICOTINE 10 MG CARTRIDGE (INHALER) IH PRN (17:27)
[2020-12-13] MEDS: hydrOXYzine PAMOATE 25 MG CAPSULE (FP) PO SCH ×2 (19:28→22:42)
[2020-12-13] MEDS: ASPIRIN 81 MG CHEWABLE TABLETS PO SCH (22:41)
[2020-12-13] MEDS: LORazepam 2 MG TABLET PO SCH (22:42)
[2020-12-13] MEDS: ATORVASTATIN CA 10 MG TABLET (FP) PO SCH (22:42)
[2020-12-13] MEDS: THIAMINE HCL 100 MG TABLET (FP) PO SCH (22:42)
[2020-12-13] MEDS: MELATONIN 5 MG TABLETS PO SCH (23:16)
[2020-12-14] MEDS: LORazepam 2 MG TABLET PO SCH ×4 (06:33→22:27)
[2020-12-14] MEDS: hydrOXYzine PAMOATE 25 MG CAPSULE (FP) PO SCH ×5 (06:34→22:27)
[2020-12-14] MEDS ORDERED: LISINOPRIL 10 MG TABLET PO SCH (10:00)
[2020-12-14] MEDS ORDERED: PRENATAL VITAMINS W/ FOLIC ACID TABLET (FP) PO SCH (10:00)
[2020-12-14] MEDS: ASPIRIN 81 MG CHEWABLE TABLETS PO SCH ×2 (10:11→22:27)
[2020-12-14 11:09] LABS: HEMATOCRIT 36.7 % (35.4-49); HEMOGLOBIN 12.8 GM/dL (11.7-16.9); MCHC 34.8 g/dl (32.0-35.9); MEAN CELL VOLUME 94.9 fl (80-96); MEAN PLT VOLUME 7.9 fl (7.5-11.1); PLATELET COUNT 265 10^3/uL (134-434); RBC 3.87 M/mm3 (4.00-5.60); RDW 14.1 % (11.9-15.9); WHITE BLOOD COUNT 3.2 K/mm3 (4.0-10.0)
[2020-12-14 11:22] LABS: ALBUMIN 3.9 g/dl (3.4-5.0)
[2020-12-14 11:27] LABS: BILIRUBIN,TOTAL 0.7 mg/dL (0.2-1); TOT PROT 7.3 g/dl (6.4-8.2)
[2020-12-14] MEDS ORDERED: QUEtiapine FUMARATE 100 MG TABLET (FP) PO SCH (22:00)
[2020-12-14] MEDS: MELATONIN 5 MG TABLETS PO SCH (22:27)
[2020-12-14] MEDS: ATORVASTATIN CA 10 MG TABLET (FP) PO SCH (22:27)
[2020-12-14] MEDS: THIAMINE HCL 100 MG TABLET (FP) PO SCH (22:29)
[2020-12-15] MEDS ORDERED: LORazepam 1 MG TABLET PO SCH (05:00)
[2020-12-15] MEDS: hydrOXYzine PAMOATE 25 MG CAPSULE (FP) PO SCH (05:56)
[2020-12-15 09:28] VITALS: BP 129/86; PULSE 103; TEMP 97.1
[2020-12-15 11:19] LABS: BLOOD UREA NITROGEN 24.3 mg/dL (7-18); CALCIUM 8.4 mg/dL (8.5-10.1)
[2020-12-16] MEDS ORDERED: LORazepam 0.5 MG TABLET PO PRN
[2020-12-16] MEDS ORDERED: LORazepam 0.5 MG TABLET PO SCH (05:00)
[2020-12-17] MEDS ORDERED: LORazepam 0.5 MG TABLET PO ONE (05:00)
== END 2020-12-15 09:15 | disposition left against medical advice (07) | DRG 770 ==
LOC: YASAS 12:01 → Y3N 18:17
PROVIDERS: ADMIT Allergy & Immunology; ATTEND Allergy & Immunology
PROC: HZ2ZZZZ Detoxification Services for Substance Abuse Treatment (ICD-10-PCS; principal; 2020-12-13)
DX: F10.230 Alcohol dependence with withdrawal, uncomplicated (principal); F14.20 Cocaine dependence, uncomplicated; F17.213 Nicotine dependence, cigarettes, with withdrawal; F19.24 Other psychoactive substance dependence with psychoactive substance-induced mood disorder; F25.9 Schizoaffective disorder, unspecified; I10 Essential (primary) hypertension; E78.1 Pure hyperglyceridemia; G47.00 Insomnia, unspecified; R26.2 Difficulty in walking, not elsewhere classified; Z99.89 Dependence on other enabling machines and devices; Z88.0 Allergy status to penicillin; Z91.013 Allergy to seafood; Z91.410 Personal history of adult physical and sexual abuse; Z56.0 Unemployment, unspecified
CPT/HCPCS: 36415; 80048; 80053; 82140; 85027; 86780; C9803; Q0162; U0003; U0005

== ENCOUNTER 2021-02-24 20:53 | Inpatient (IN) | payer OTHER ==
[2021-02-24 21:21] VITALS: BMI 23.1
[2021-02-24] MEDS ORDERED: MAGNESIUM HYDROX 2400MG/30ML ORAL SUSPENSION 30 ML CUP PO PRN (21:41)
[2021-02-24] MEDS ORDERED: BISMUTH SUBSALICYLATE 524 MG/30 ML PO PRN (21:41)
[2021-02-24] MEDS ORDERED: MENTHOL/PHENOL 1 EACH UD MM PRN (21:41)
[2021-02-24] MEDS ORDERED: MAGNESIUM CITRATE 300 ML BOTTLE PO PRN (21:41)
[2021-02-24] MEDS ORDERED: ACETAMINOPHEN 325 MG TABLET (FP) PO PRN ×2 (21:41)
[2021-02-24] MEDS ORDERED: IBUPROFEN 400 MG TABLET (FP) PO PRN (21:41)
[2021-02-24] MEDS ORDERED: ONDANSETRON *ODT* 4 MG TABLET SL PRN (21:41)
[2021-02-24] MEDS ORDERED: MAG HYDROX/AL HYDROX/SIMETH 30 ML UNIT-DOSE CUP PO PRN (21:41)
[2021-02-24] MEDS ORDERED: QUEtiapine FUMARATE 100 MG TABLET (FP) PO ONE (21:45)
[2021-02-24] MEDS ORDERED: MELATONIN 5 MG TABLETS PO SCH (22:00)
[2021-02-25] MEDS: THIAMINE HCL 100 MG TABLET (FP) PO SCH ×2 (01:43→22:53)
[2021-02-25] MEDS: diazePAM 5 MG TABLET PO SCH ×5 (01:43→22:53)
[2021-02-25] MEDS: METHOCARBAMOL 500 MG TABLET PO PRN (06:29)
[2021-02-25 10:53] LABS: HEMATOCRIT 33.8 % (35.4-49); HEMOGLOBIN 11.6 GM/dL (11.7-16.9); MCH 34.1 pg (25.7-33.7); MCHC 34.4 g/dl (32.0-35.9); MEAN CELL VOLUME 99.1 fl (80-96); MEAN PLT VOLUME 8.4 fl (7.5-11.1); PLATELET COUNT 279 10^3/uL (134-434); RBC 3.41 M/mm3 (4.00-5.60); RDW 14.3 % (11.9-15.9); WHITE BLOOD COUNT 2.6 K/mm3 (4.0-10.0)
[2021-02-25] MEDS: PRENATAL VITAMINS W/ FOLIC ACID TABLET (FP) PO SCH (10:55)
[2021-02-25 11:04] LABS: ALBUMIN 3.2 g/dl (3.4-5.0); BLOOD UREA NITROGEN 19.9 mg/dL (7-18)
[2021-02-25 11:05] LABS: CALCIUM 7.9 mg/dL (8.5-10.1)
[2021-02-25 11:06] LABS: BILIRUBIN,TOTAL 0.7 mg/dL (0.2-1)
[2021-02-25 11:07] LABS: CREATININE 0.9 mg/dL (0.55-1.3)
[2021-02-25 11:09] LABS: TOT PROT 6.4 g/dl (6.4-8.2)
[2021-02-25] MEDS: METHYL SALICYLATE/MENTHOL OINT 30 GM TUBE TP SCH ×2 (12:31→22:52)
[2021-02-25 16:02] LABS: HIV INTERPRETATION NEGATIVE (NEGATIVE)
[2021-02-25] MEDS: IBUPROFEN 600 MG TABLET (FP) PO PRN (19:31)
[2021-02-25] MEDS: QUEtiapine FUMARATE 100 MG TABLET (FP) PO SCH (22:52)
[2021-02-26] MEDS: diazePAM 5 MG TABLET PO SCH ×3 (05:46→22:05)
[2021-02-26] MEDS: hydrOXYzine PAMOATE 25 MG CAPSULE (FP) PO PRN (05:46)
[2021-02-26] MEDS: METHYL SALICYLATE/MENTHOL OINT 30 GM TUBE TP SCH ×2 (10:43→22:06)
[2021-02-26] MEDS: PRENATAL VITAMINS W/ FOLIC ACID TABLET (FP) PO SCH (10:43)
[2021-02-26] MEDS: diazePAM 5 MG TABLET PO PRN (10:44)
[2021-02-26] MEDS: IBUPROFEN 600 MG TABLET (FP) PO PRN ×2 (15:41→22:06)
[2021-02-26] MEDS: THIAMINE HCL 100 MG TABLET (FP) PO SCH (22:05)
[2021-02-26] MEDS: QUEtiapine FUMARATE 100 MG TABLET (FP) PO SCH (22:05)
[2021-02-27] MEDS: IBUPROFEN 600 MG TABLET (FP) PO PRN ×2 (06:26→13:16)
[2021-02-27] MEDS: diazePAM 5 MG TABLET PO SCH ×2 (06:27→17:26)
[2021-02-27] MEDS: LISINOPRIL 10 MG TABLET PO SCH ×2 (07:11→11:18)
[2021-02-27] MEDS: PRENATAL VITAMINS W/ FOLIC ACID TABLET (FP) PO SCH (10:16)
[2021-02-27] MEDS: METHYL SALICYLATE/MENTHOL OINT 30 GM TUBE TP SCH ×2 (10:17→22:10)
[2021-02-27] MEDS: hydrOXYzine PAMOATE 25 MG CAPSULE (FP) PO PRN ×2 (10:18→17:25)
[2021-02-27] MEDS: METHOCARBAMOL 500 MG TABLET PO PRN (10:18)
[2021-02-27] MEDS: diazePAM 5 MG TABLET PO PRN (13:13)
[2021-02-27] MEDS ORDERED: cloNIDine HCL 0.1 MG TABLET PO ONE (20:31)
[2021-02-27] MEDS: QUEtiapine FUMARATE 100 MG TABLET (FP) PO SCH (22:09)
[2021-02-27] MEDS: THIAMINE HCL 100 MG TABLET (FP) PO SCH (22:09)
[2021-02-28] MEDS: hydrOXYzine PAMOATE 25 MG CAPSULE (FP) PO PRN (03:19)
[2021-02-28] MEDS ORDERED: diazePAM 5 MG TABLET PO ONE (06:00)
[2021-02-28 06:46] VITALS: BP 130/80; PULSE 86; TEMP 97.5
[2021-02-28] MEDS: PRENATAL VITAMINS W/ FOLIC ACID TABLET (FP) PO SCH (10:52)
[2021-02-28] MEDS: METHYL SALICYLATE/MENTHOL OINT 30 GM TUBE TP SCH (10:52)
[2021-02-28] MEDS: LISINOPRIL 10 MG TABLET PO SCH (10:52)
[2021-02-28] MEDS: IBUPROFEN 600 MG TABLET (FP) PO PRN (11:17)
== END 2021-02-28 11:24 | disposition home or self-care (01) | DRG 774 ==
LOC: YASAS 20:53 → UNDOADMIN 22:05 → Y3N 22:05 → Y6N 02-25 00:59
PROVIDERS: ADMIT Allergy & Immunology; ATTEND Allergy & Immunology
PROC: HZ2ZZZZ Detoxification Services for Substance Abuse Treatment (ICD-10-PCS; principal; 2021-02-25)
DX: F10.230 Alcohol dependence with withdrawal, uncomplicated (principal); F10.220 Alcohol dependence with intoxication, uncomplicated; F14.20 Cocaine dependence, uncomplicated; F17.210 Nicotine dependence, cigarettes, uncomplicated; F25.9 Schizoaffective disorder, unspecified; F19.24 Other psychoactive substance dependence with psychoactive substance-induced mood disorder; F19.282 Other psychoactive substance dependence with psychoactive substance-induced sleep disorder; I10 Essential (primary) hypertension; D50.9 Iron deficiency anemia, unspecified; M19.90 Unspecified osteoarthritis, unspecified site; E05.90 Thyrotoxicosis, unspecified without thyrotoxic crisis or storm; R00.0 Tachycardia, unspecified; R26.2 Difficulty in walking, not elsewhere classified; Z99.89 Dependence on other enabling machines and devices; Z88.0 Allergy status to penicillin; Z91.013 Allergy to seafood; Z56.0 Unemployment, unspecified
CPT/HCPCS: 36415; 80053; 85027; 86780; 87389; C9803; J0735; U0003; U0005

== ENCOUNTER 2021-05-28 21:15 | Inpatient (IN) | payer OTHER ==
[2021-05-28 13:31] VITALS: BMI 22.5
[~2021-05-28 21:15] MED LIST changes: +BISMUTH SUBSALICYLATE 524 MG/30 ML PO PRN; +MAG HYDROX/AL HYDROX/SIMETH 30 ML UNIT-DOSE CUP PO PRN; +METHOCARBAMOL 500 MG TABLET PO PRN; +NICOTINE 10 MG CARTRIDGE (INHALER) IH PRN; -NICOTINE 14 MG/24 HOURS TOPICAL PATCH TD PRN; -NICOTINE POLACRILEX 2 MG GUM BUC PRN; +ONDANSETRON *ODT* 4 MG TABLET SL PRN; +chlordiazePOXIDE HCL 25 MG CAPSULE PO PRN; -guaiFENesin/D-METHORPHAN HB 10 ML UNIT-DOSE CUPS PO PRN
[2021-05-28] MEDS ORDERED: MELATONIN 5 MG TABLETS PO SCH (22:00)
[2021-05-29] MEDS ORDERED: chlordiazePOXIDE HCL 25 MG CAPSULE ONE (01:35)
[2021-05-29] MEDS: THIAMINE HCL 100 MG TABLET (FP) PO SCH ×2 (01:36→22:16)
[2021-05-29] MEDS ORDERED: hydrOXYzine PAMOATE 25 MG CAPSULE (FP) PO ONE (01:36)
[2021-05-29] MEDS: hydrOXYzine PAMOATE 25 MG CAPSULE (FP) PO SCH ×8 (01:38→22:17)
[2021-05-29] MEDS: chlordiazePOXIDE HCL 25 MG CAPSULE PO SCH ×6 (02:21→22:18)
[2021-05-29 10:03] LABS: HEMATOCRIT 33.3 % (35.4-49); HEMOGLOBIN 11.3 GM/dL (11.7-16.9); MCH 33.2 pg (25.7-33.7); MEAN CELL VOLUME 97.7 fl (80-96); MEAN PLT VOLUME 7.7 fl (7.5-11.1); PLATELET COUNT 291 10^3/uL (134-434); RBC 3.41 M/mm3 (4.00-5.60); RDW 14.2 % (11.9-15.9); WHITE BLOOD COUNT 2.6 K/mm3 (4.0-10.0)
[2021-05-29 10:07] LABS: CALCIUM 8.3 mg/dL (8.5-10.1)
[2021-05-29 10:08] LABS: ALBUMIN 3.4 g/dl (3.4-5.0); BLOOD UREA NITROGEN 20.3 mg/dL (7-18)
[2021-05-29 10:11] LABS: CREATININE 0.9 mg/dL (0.55-1.3)
[2021-05-29 10:13] LABS: BILIRUBIN,TOTAL 0.7 mg/dL (0.2-1); TOT PROT 6.3 g/dl (6.4-8.2)
[2021-05-29] MEDS: LISINOPRIL 10 MG TABLET PO SCH (10:49)
[2021-05-29] MEDS: PRENATAL VITAMINS W/ FOLIC ACID TABLET (FP) PO SCH (10:50)
[2021-05-29] MEDS: CHLORTHALIDONE 25 MG TABLET PO SCH ×2 (11:34→22:16)
[2021-05-29] MEDS ORDERED: FLU VACC QS2021-22(6MOS UP)/PF 60 MCG/0.5 ML SYRINGE IM ONE (12:00)
[2021-05-29] MEDS: traZODone HCL 50 MG TABLET (FP) PO SCH (22:16)
[2021-05-29] MEDS: ATORVASTATIN CA 10 MG TABLET (FP) PO SCH (22:17)
[2021-05-29] MEDS ORDERED: cloNIDine HCL 0.1 MG TABLET PO ONE (22:49)
[2021-05-30] MEDS: chlordiazePOXIDE HCL 25 MG CAPSULE PO SCH ×4 (05:17→22:24)
[2021-05-30] MEDS: hydrOXYzine PAMOATE 25 MG CAPSULE (FP) PO SCH ×5 (05:17→22:25)
[2021-05-30] MEDS: CHLORTHALIDONE 25 MG TABLET PO SCH ×2 (10:23→22:23)
[2021-05-30] MEDS: PRENATAL VITAMINS W/ FOLIC ACID TABLET (FP) PO SCH (10:23)
[2021-05-30] MEDS: LISINOPRIL 10 MG TABLET PO SCH (10:24)
[2021-05-30] MEDS: TAMSULOSIN HCL 0.4 MG CAP PO SCH (15:18)
[2021-05-30] MEDS: CALCIUM CARBONATE 650 MG TABLET PO SCH ×2 (15:18→23:18)
[2021-05-30] MEDS: METHYL SALICYLATE/MENTHOL OINT 30 GM TUBE TP SCH ×2 (15:19→23:17)
[2021-05-30] MEDS: SODIUM CHLORIDE NASAL SPRAY 44 ML BOTTLE NS SCH ×2 (15:19→23:18)
[2021-05-30] MEDS: ATORVASTATIN CA 10 MG TABLET (FP) PO SCH (22:24)
[2021-05-30] MEDS: traZODone HCL 50 MG TABLET (FP) PO SCH (22:24)
[2021-05-30] MEDS: THIAMINE HCL 100 MG TABLET (FP) PO SCH (22:25)
[2021-05-31] MEDS ORDERED: chlordiazePOXIDE HCL 10 MG CAPSULE PO PRN
[2021-05-31] MEDS: chlordiazePOXIDE HCL 10 MG CAPSULE PO SCH ×4 (05:14→22:31)
[2021-05-31] MEDS: hydrOXYzine PAMOATE 25 MG CAPSULE (FP) PO SCH ×5 (05:14→22:26)
[2021-05-31] MEDS: PRENATAL VITAMINS W/ FOLIC ACID TABLET (FP) PO SCH (10:41)
[2021-05-31] MEDS: TAMSULOSIN HCL 0.4 MG CAP PO SCH (10:41)
[2021-05-31] MEDS: LISINOPRIL 10 MG TABLET PO SCH (10:41)
[2021-05-31] MEDS: CALCIUM CARBONATE 650 MG TABLET PO SCH ×2 (10:41→22:27)
[2021-05-31] MEDS: METHYL SALICYLATE/MENTHOL OINT 30 GM TUBE TP SCH ×2 (10:44→22:26)
[2021-05-31] MEDS: CHLORTHALIDONE 25 MG TABLET PO SCH ×2 (10:46→22:26)
[2021-05-31] MEDS: SODIUM CHLORIDE NASAL SPRAY 44 ML BOTTLE NS SCH ×2 (10:47→22:25)
[2021-05-31] MEDS: IBUPROFEN 400 MG TABLET (FP) PO PRN (14:23)
[2021-05-31] MEDS: ATORVASTATIN CA 10 MG TABLET (FP) PO SCH (22:26)
[2021-05-31] MEDS: traZODone HCL 50 MG TABLET (FP) PO SCH (22:26)
[2021-05-31] MEDS: THIAMINE HCL 100 MG TABLET (FP) PO SCH (22:27)
[2021-06-01] MEDS: chlordiazePOXIDE HCL 10 MG CAPSULE PO SCH ×2 (06:17→17:57)
[2021-06-01] MEDS: hydrOXYzine PAMOATE 25 MG CAPSULE (FP) PO SCH ×5 (06:17→22:35)
[2021-06-01] MEDS: TAMSULOSIN HCL 0.4 MG CAP PO SCH (09:19)
[2021-06-01] MEDS: PRENATAL VITAMINS W/ FOLIC ACID TABLET (FP) PO SCH (10:19)
[2021-06-01] MEDS: LISINOPRIL 10 MG TABLET PO SCH (10:19)
[2021-06-01] MEDS: SODIUM CHLORIDE NASAL SPRAY 44 ML BOTTLE NS SCH ×2 (10:19→22:37)
[2021-06-01] MEDS: CALCIUM CARBONATE 650 MG TABLET PO SCH ×2 (10:20→22:35)
[2021-06-01] MEDS: CHLORTHALIDONE 25 MG TABLET PO SCH ×2 (10:20→22:35)
[2021-06-01] MEDS: METHYL SALICYLATE/MENTHOL OINT 30 GM TUBE TP SCH ×2 (10:20→22:36)
[2021-06-01] MEDS: ATORVASTATIN CA 10 MG TABLET (FP) PO SCH (22:35)
[2021-06-01] MEDS: traZODone HCL 50 MG TABLET (FP) PO SCH (22:35)
[2021-06-01] MEDS: THIAMINE HCL 100 MG TABLET (FP) PO SCH (22:35)
[2021-06-02] MEDS ORDERED: chlordiazePOXIDE HCL 10 MG CAPSULE PO ONE (05:00)
[2021-06-02] MEDS: hydrOXYzine PAMOATE 25 MG CAPSULE (FP) PO SCH (05:10)
[2021-06-02] MEDS: IBUPROFEN 400 MG TABLET (FP) PO PRN (05:12)
[2021-06-02 08:50] VITALS: BP 106/78; PULSE 102; TEMP 96.9
== END 2021-06-02 08:56 | disposition home or self-care (01) | DRG 774 ==
LOC: YASAS 21:15 → Y3N 05-29 01:39
PROVIDERS: ADMIT Allergy & Immunology; ATTEND Allergy & Immunology
PROC: HZ2ZZZZ Detoxification Services for Substance Abuse Treatment (ICD-10-PCS; principal; 2021-05-29)
DX: F10.230 Alcohol dependence with withdrawal, uncomplicated (principal); F14.20 Cocaine dependence, uncomplicated; F17.210 Nicotine dependence, cigarettes, uncomplicated; F19.282 Other psychoactive substance dependence with psychoactive substance-induced sleep disorder; F19.24 Other psychoactive substance dependence with psychoactive substance-induced mood disorder; F25.9 Schizoaffective disorder, unspecified; E83.51 Hypocalcemia; D72.819 Decreased white blood cell count, unspecified; D64.9 Anemia, unspecified; E78.5 Hyperlipidemia, unspecified; I10 Essential (primary) hypertension; M17.11 Unilateral primary osteoarthritis, right knee; M19.032 Primary osteoarthritis, left wrist; M19.031 Primary osteoarthritis, right wrist; N40.0 Benign prostatic hyperplasia without lower urinary tract symptoms; R74.01 Elevation of levels of liver transaminase levels; Z99.89 Dependence on other enabling machines and devices; Z88.0 Allergy status to penicillin
CPT/HCPCS: 36415; 80053; 85027; 86780; 90686; C9803; G0008; J0735; Q0162; U0003; U0005

== ENCOUNTER 2021-08-23 22:28 | Inpatient (IN) | payer OTHER ==
[2021-08-23] MEDS ORDERED: LOPERAMIDE HCL 2 MG CAPSULE PO PRN (23:06)
[2021-08-23] MEDS ORDERED: BENZOCAINE/MENTHOL (CHLORASEPTIC ) LOZENGE MM PRN (23:06)
[2021-08-23] MEDS ORDERED: DICYCLOMINE HCL 10 MG CAPSULE PO PRN (23:06)
[2021-08-23] MEDS ORDERED: MAGNESIUM CITRATE 300 ML BOTTLE PO PRN (23:06)
[2021-08-23] MEDS ORDERED: BISMUTH SUBSALICYLATE 524 MG/30 ML PO PRN (23:06)
[2021-08-23] MEDS ORDERED: MAG HYDROX/AL HYDROX/SIMETH 30 ML UNIT-DOSE CUP PO PRN (23:06)
[2021-08-23] MEDS ORDERED: METHOCARBAMOL 500 MG TABLET PO PRN (23:06)
[2021-08-23] MEDS ORDERED: ACETAMINOPHEN 325 MG TABLET (FP) PO PRN ×2 (23:06)
[2021-08-23] MEDS ORDERED: ONDANSETRON *ODT* 4 MG TABLET SL PRN (23:06)
[2021-08-23] MEDS ORDERED: MAGNESIUM HYDROX 2400MG/30ML ORAL SUSPENSION 30 ML CUP PO PRN (23:06)
[2021-08-23] MEDS ORDERED: chlordiazePOXIDE HCL 25 MG CAPSULE PO PRN (23:08)
[2021-08-23 23:59] VITALS: BMI 22.9
[2021-08-24] MEDS: chlordiazePOXIDE HCL 25 MG CAPSULE PO SCH ×5 (01:30→22:05)
[2021-08-24] MEDS: IBUPROFEN 400 MG TABLET (FP) PO PRN (06:44)
[2021-08-24] MEDS ORDERED: COLLOIDAL OATMEAL 1 BAR EACH TP PRN (10:04)
[2021-08-24] MEDS: PRENATAL VITAMINS W/ FOLIC ACID TABLET (FP) PO SCH (11:11)
[2021-08-24] MEDS: hydrOXYzine PAMOATE 25 MG CAPSULE (FP) PO PRN ×2 (11:12→22:06)
[2021-08-24 14:16] LABS: HEMATOCRIT 33.4 % (35.4-49); HEMOGLOBIN 11.4 GM/dL (11.7-16.9); MCH 33.3 pg (25.7-33.7); MEAN CELL VOLUME 97.9 fl (80-96); MEAN PLT VOLUME 8.1 fl (7.5-11.1); PLATELET COUNT 287 10^3/uL (134-434); RBC 3.41 M/mm3 (4.00-5.60); RDW 14.1 % (11.9-15.9); WHITE BLOOD COUNT 2.2 K/mm3 (4.0-10.0)
[2021-08-24 14:31] LABS: ALBUMIN 3.2 g/dl (3.4-5.0); CALCIUM 8.6 mg/dL (8.5-10.1)
[2021-08-24 14:35] LABS: CREATININE 1.1 mg/dL (0.55-1.3)
[2021-08-24 14:36] LABS: BILIRUBIN,TOTAL 0.5 mg/dL (0.2-1); TOT PROT 6.1 g/dl (6.4-8.2)
[2021-08-24] MEDS: THIAMINE HCL 100 MG TABLET (FP) PO SCH (22:05)
[2021-08-24] MEDS: QUEtiapine FUMARATE 100 MG TABLET (FP) PO SCH (22:05)
[2021-08-24] MEDS: MELATONIN 5 MG TABLETS PO PRN (22:06)
[2021-08-25] MEDS: chlordiazePOXIDE HCL 25 MG CAPSULE PO SCH ×4 (05:04→23:09)
[2021-08-25] MEDS: PRENATAL VITAMINS W/ FOLIC ACID TABLET (FP) PO SCH (10:01)
[2021-08-25] MEDS: hydrOXYzine PAMOATE 25 MG CAPSULE (FP) PO PRN (11:12)
[2021-08-25] MEDS: LISINOPRIL 10 MG TABLET PO SCH (13:07)
[2021-08-25] MEDS: TAMSULOSIN HCL 0.4 MG CAP PO SCH (13:07)
[2021-08-25] MEDS ORDERED: PATIENT'S OWN MEDICATION (NON-FORMULARY) (Simvastatin 10 MG Tablet) PO SCH (22:00)
[2021-08-25] MEDS: QUEtiapine FUMARATE 100 MG TABLET (FP) PO SCH (23:09)
[2021-08-25] MEDS: THIAMINE HCL 100 MG TABLET (FP) PO SCH (23:09)
[2021-08-25] MEDS: MELATONIN 5 MG TABLETS PO PRN (23:09)
[2021-08-25] MEDS: ATORVASTATIN CA 10 MG TABLET (FP) PO SCH (23:09)
[2021-08-25] MEDS: CHLORTHALIDONE 25 MG TABLET PO SCH (23:10)
[2021-08-26] MEDS ORDERED: chlordiazePOXIDE HCL 10 MG CAPSULE PO PRN
[2021-08-26] MEDS: chlordiazePOXIDE HCL 10 MG CAPSULE PO SCH ×4 (06:07→22:15)
[2021-08-26 10:07] LABS: BASO % 1.6 % (0-2.0); EOS % 6.2 % (0-4.5); HEMATOCRIT 32.7 % (35.4-49); HEMOGLOBIN 11.1 GM/dL (11.7-16.9); LYMPH % 38.1 % (8-40); MCH 33.2 pg (25.7-33.7); MCHC 34.1 g/dl (32.0-35.9); MEAN CELL VOLUME 97.4 fl (80-96); MONO % 13.4 % (3.8-10.2); NEUT % 40.7 % (42.8-82.8); PLATELET COUNT 294 10^3/uL (134-434); RBC 3.35 M/mm3 (4.00-5.60); RDW 13.8 % (11.9-15.9); WHITE BLOOD COUNT 2.5 K/mm3 (4.0-10.0)
[2021-08-26 10:09] LABS: GLUCOSE,FASTING 84 mg/dL (74-106)
[2021-08-26 10:13] LABS: SGOT/AST 30 U/L (15-37)
[2021-08-26] MEDS: CHLORTHALIDONE 25 MG TABLET PO SCH ×2 (11:06→22:14)
[2021-08-26] MEDS: PRENATAL VITAMINS W/ FOLIC ACID TABLET (FP) PO SCH (11:06)
[2021-08-26] MEDS: LISINOPRIL 10 MG TABLET PO SCH (11:06)
[2021-08-26] MEDS: TAMSULOSIN HCL 0.4 MG CAP PO SCH (11:07)
[2021-08-26 12:09] LABS: SARS-CoV-2 NAA Not Detected (Not Detected)
[2021-08-26] MEDS: METHYL SALICYLATE/MENTHOL OINT 30 GM TUBE TP SCH ×2 (13:08→22:14)
[2021-08-26] MEDS: IBUPROFEN 400 MG TABLET (FP) PO PRN (18:01)
[2021-08-26] MEDS: QUEtiapine FUMARATE 100 MG TABLET (FP) PO SCH (22:14)
[2021-08-26] MEDS: THIAMINE HCL 100 MG TABLET (FP) PO SCH (22:14)
[2021-08-26] MEDS: ATORVASTATIN CA 10 MG TABLET (FP) PO SCH (22:14)
[2021-08-27] MEDS: MELATONIN 5 MG TABLETS PO PRN (02:25)
[2021-08-27] MEDS: hydrOXYzine PAMOATE 25 MG CAPSULE (FP) PO PRN (02:38)
[2021-08-27] MEDS ORDERED: chlordiazePOXIDE HCL 10 MG CAPSULE PO SCH (05:00)
[2021-08-27 09:17] VITALS: BP 129/94; PULSE 94; TEMP 98.1
[2021-08-27] MEDS: LISINOPRIL 10 MG TABLET PO SCH (09:19)
[2021-08-27] MEDS: CHLORTHALIDONE 25 MG TABLET PO SCH (09:19)
[2021-08-27] MEDS: PRENATAL VITAMINS W/ FOLIC ACID TABLET (FP) PO SCH (09:19)
[2021-08-28] MEDS ORDERED: chlordiazePOXIDE HCL 10 MG CAPSULE PO ONE (05:00)
== END 2021-08-27 10:05 | disposition home or self-care (01) | DRG 774 ==
LOC: YASAS 22:28 → Y6N 08-24 01:14
PROVIDERS: ADMIT Allergy & Immunology; ATTEND Allergy & Immunology
PROC: HZ2ZZZZ Detoxification Services for Substance Abuse Treatment (ICD-10-PCS; principal; 2021-08-24)
DX: F10.230 Alcohol dependence with withdrawal, uncomplicated (principal); F14.20 Cocaine dependence, uncomplicated; F17.210 Nicotine dependence, cigarettes, uncomplicated; F19.280 Other psychoactive substance dependence with psychoactive substance-induced anxiety disorder; F19.282 Other psychoactive substance dependence with psychoactive substance-induced sleep disorder; F19.24 Other psychoactive substance dependence with psychoactive substance-induced mood disorder; D72.819 Decreased white blood cell count, unspecified; D50.9 Iron deficiency anemia, unspecified; E78.5 Hyperlipidemia, unspecified; E78.1 Pure hyperglyceridemia; E05.90 Thyrotoxicosis, unspecified without thyrotoxic crisis or storm; I10 Essential (primary) hypertension; G47.00 Insomnia, unspecified; M17.0 Bilateral primary osteoarthritis of knee; M19.032 Primary osteoarthritis, left wrist; N40.0 Benign prostatic hyperplasia without lower urinary tract symptoms; Z88.0 Allergy status to penicillin
CPT/HCPCS: 36415; 80053; 82947; 84450; 85025; 85027; 86780; 87811; C9803-CS; U0003; U0005

== ENCOUNTER 2021-12-20 19:46 | Inpatient (IN) | payer OTHER ==
[2021-12-20 20:30] VITALS: BMI 21.5
[2021-12-20] MEDS ORDERED: ONDANSETRON *ODT* 4 MG TABLET SL PRN (20:44)
[2021-12-20] MEDS ORDERED: ACETAMINOPHEN 325 MG TABLET (FP) PO PRN (20:44)
[2021-12-20] MEDS ORDERED: BISMUTH SUBSALICYLATE 524 MG/30 ML PO PRN (20:44)
[2021-12-20] MEDS ORDERED: P-EPHED 60MG/TRIPROLIDI 2.5MG TABLET PO PRN (20:44)
[2021-12-20] MEDS ORDERED: MAG HYDROX/AL HYDROX/SIMETH 30 ML UNIT-DOSE CUP PO PRN (20:44)
[2021-12-20] MEDS ORDERED: LOPERAMIDE HCL 2 MG CAPSULE PO PRN (20:44)
[2021-12-20] MEDS ORDERED: BENZOCAINE/MENTHOL (CHLORASEPTIC ) LOZENGE MM PRN (20:44)
[2021-12-20] MEDS ORDERED: MAGNESIUM HYDROX 2400MG/30ML ORAL SUSPENSION 30 ML CUP PO PRN (20:44)
[2021-12-20] MEDS ORDERED: NICOTINE POLACRILEX 2 MG GUM BUC PRN (20:44)
[2021-12-20] MEDS ORDERED: guaiFENesin 200 MG/10 ML 10 ML UNIT-DOSE CUPS PO PRN (20:44)
[2021-12-20] MEDS ORDERED: MAGNESIUM CITRATE 300 ML BOTTLE PO PRN (20:44)
[2021-12-20] MEDS ORDERED: DICYCLOMINE HCL 10 MG CAPSULE PO PRN (20:44)
[2021-12-20] MEDS ORDERED: chlordiazePOXIDE HCL 25 MG CAPSULE PO PRN (20:47)
[2021-12-20] MEDS ORDERED: risperiDONE 0.25 MG TABLET PO ONE (22:00)
[2021-12-20] MEDS: chlordiazePOXIDE HCL 25 MG CAPSULE PO SCH (22:44)
[2021-12-20] MEDS: MELATONIN 5 MG TABLETS PO SCH (22:45)
[2021-12-20] MEDS: hydrOXYzine PAMOATE 25 MG CAPSULE (FP) PO PRN (22:45)
[2021-12-20] MEDS: THIAMINE HCL 100 MG TABLET (FP) PO SCH (22:45)
[2021-12-20] MEDS: METHOCARBAMOL 500 MG TABLET PO PRN (22:47)
[2021-12-20] MEDS: LIDOCAINE PATCH REMOVAL MC SCH (22:49)
[2021-12-21] MEDS: ACETAMINOPHEN 325 MG TABLET (FP) PO PRN ×2 (04:56→20:25)
[2021-12-21] MEDS: chlordiazePOXIDE HCL 25 MG CAPSULE PO SCH ×4 (04:57→22:21)
[2021-12-21] MEDS: METHOCARBAMOL 500 MG TABLET PO PRN ×2 (04:59→20:27)
[2021-12-21] MEDS: METHYL SALICYLATE/MENTHOL OINT 30 GM TUBE TP SCH ×2 (10:16→22:21)
[2021-12-21] MEDS: TAMSULOSIN HCL 0.4 MG CAP PO SCH (10:17)
[2021-12-21] MEDS: PRENATAL VITAMINS W/ FOLIC ACID TABLET (FP) PO SCH (10:17)
[2021-12-21] MEDS: CHLORTHALIDONE 25 MG TABLET PO SCH ×2 (10:17→23:26)
[2021-12-21] MEDS: LIDOCAINE 5% TOPICAL PATCH TP SCH (10:17)
[2021-12-21] MEDS: LISINOPRIL 10 MG TABLET PO SCH (10:20)
[2021-12-21 11:09] LABS: HEMATOCRIT 34.2 % (35.4-49); HEMOGLOBIN 11.4 GM/dL (11.7-16.9); MCH 32.2 pg (25.7-33.7); MCHC 33.4 g/dl (32.0-35.9); MEAN CELL VOLUME 96.4 fl (80-96); MEAN PLT VOLUME 7.9 fl (7.5-11.1); PLATELET COUNT 282 10^3/uL (134-434); RBC 3.54 M/mm3 (4.00-5.60); RDW 13.6 % (11.9-15.9); WHITE BLOOD COUNT 2.7 K/mm3 (4.0-10.0)
[2021-12-21 11:15] LABS: ALBUMIN 3.4 g/dl (3.4-5.0); BLOOD UREA NITROGEN 18.9 mg/dL (7-18); CALCIUM 8.3 mg/dL (8.5-10.1)
[2021-12-21 11:19] LABS: CREATININE 0.7 mg/dL (0.55-1.3)
[2021-12-21 11:21] LABS: BILIRUBIN,TOTAL 0.7 mg/dL (0.2-1); TOT PROT 6.4 g/dl (6.4-8.2)
[2021-12-21] MEDS: MELATONIN 5 MG TABLETS PO SCH (22:22)
[2021-12-21] MEDS: THIAMINE HCL 100 MG TABLET (FP) PO SCH (22:23)
[2021-12-21] MEDS: ATORVASTATIN CA 10 MG TABLET (FP) PO SCH (22:23)
[2021-12-21] MEDS: LIDOCAINE PATCH REMOVAL MC SCH (22:24)
[2021-12-21] MEDS: hydrOXYzine PAMOATE 25 MG CAPSULE (FP) PO PRN (22:25)
[2021-12-22] MEDS: chlordiazePOXIDE HCL 25 MG CAPSULE PO SCH ×4 (05:19→23:00)
[2021-12-22] MEDS: PRENATAL VITAMINS W/ FOLIC ACID TABLET (FP) PO SCH (10:42)
[2021-12-22] MEDS: LISINOPRIL 10 MG TABLET PO SCH (10:43)
[2021-12-22] MEDS: LIDOCAINE 5% TOPICAL PATCH TP SCH (10:43)
[2021-12-22] MEDS: TAMSULOSIN HCL 0.4 MG CAP PO SCH (10:43)
[2021-12-22] MEDS: CHLORTHALIDONE 25 MG TABLET PO SCH ×2 (10:43→23:00)
[2021-12-22] MEDS: METHYL SALICYLATE/MENTHOL OINT 30 GM TUBE TP SCH ×2 (10:45→23:01)
[2021-12-22 11:34] LABS: ALBUMIN 3.3 g/dl (3.4-5.0); BLOOD UREA NITROGEN 10.9 mg/dL (7-18); CREATININE 0.7 mg/dL (0.55-1.3)
[2021-12-22 11:35] LABS: BILIRUBIN,TOTAL 0.6 mg/dL (0.2-1); TOT PROT 6.2 g/dl (6.4-8.2)
[2021-12-22] MEDS: LIDOCAINE PATCH REMOVAL MC SCH (23:00)
[2021-12-22] MEDS: ATORVASTATIN CA 10 MG TABLET (FP) PO SCH (23:00)
[2021-12-22] MEDS: THIAMINE HCL 100 MG TABLET (FP) PO SCH (23:00)
[2021-12-22] MEDS: MELATONIN 5 MG TABLETS PO SCH (23:00)
[2021-12-22] MEDS: METHOCARBAMOL 500 MG TABLET PO PRN (23:02)
[2021-12-23] MEDS ORDERED: chlordiazePOXIDE HCL 10 MG CAPSULE PO PRN
[2021-12-23] MEDS: chlordiazePOXIDE HCL 10 MG CAPSULE PO SCH ×2 (05:32→10:21)
[2021-12-23 09:40] VITALS: RESP 18; TEMP 96.9
[2021-12-23] MEDS: PRENATAL VITAMINS W/ FOLIC ACID TABLET (FP) PO SCH (10:19)
[2021-12-23] MEDS: LISINOPRIL 10 MG TABLET PO SCH (10:19)
[2021-12-23] MEDS: CHLORTHALIDONE 25 MG TABLET PO SCH (10:19)
[2021-12-23] MEDS: LIDOCAINE 5% TOPICAL PATCH TP SCH (10:19)
[2021-12-23] MEDS: TAMSULOSIN HCL 0.4 MG CAP PO SCH (10:19)
[2021-12-23] MEDS: METHYL SALICYLATE/MENTHOL OINT 30 GM TUBE TP SCH (10:20)
[2021-12-23 13:27] VITALS: BP 132/90; PULSE 82
[2021-12-23] MEDS ORDERED: ESCITALOPRAM OXALATE 10 MG TABLET PO SCH (13:30)
[2021-12-23] MEDS ORDERED: risperiDONE 0.5 MG TABLET PO SCH (22:00)
[2021-12-24] MEDS ORDERED: chlordiazePOXIDE HCL 10 MG CAPSULE PO SCH (05:00)
[2021-12-25] MEDS ORDERED: chlordiazePOXIDE HCL 10 MG CAPSULE PO ONE (05:00)
== END 2021-12-23 14:40 | disposition home or self-care (01) | DRG 774 ==
LOC: YASAS 19:46 → Y3N 21:37
PROVIDERS: ADMIT Allergy & Immunology; ATTEND Surgery
PROC: HZ2ZZZZ Detoxification Services for Substance Abuse Treatment (ICD-10-PCS; principal; 2021-12-21)
DX: F10.230 Alcohol dependence with withdrawal, uncomplicated (principal); F14.20 Cocaine dependence, uncomplicated; F12.20 Cannabis dependence, uncomplicated; F17.210 Nicotine dependence, cigarettes, uncomplicated; F25.9 Schizoaffective disorder, unspecified; F19.24 Other psychoactive substance dependence with psychoactive substance-induced mood disorder; I10 Essential (primary) hypertension; E78.1 Pure hyperglyceridemia; N40.0 Benign prostatic hyperplasia without lower urinary tract symptoms; D72.819 Decreased white blood cell count, unspecified; M15.9 Polyosteoarthritis, unspecified; Z99.89 Dependence on other enabling machines and devices; Z88.0 Allergy status to penicillin; S22.31XD Fracture of one rib, right side, subsequent encounter for fracture with routine healing; Y04.0XXD Assault by unarmed brawl or fight, subsequent encounter; Y92.9 Unspecified place or not applicable
CPT/HCPCS: 36415; 71101-TC-RT-FY; 80053; 82947; 82962; 83036; 85027; 86780; C9803-CS; U0003; U0005

== ENCOUNTER 2022-01-08 20:41 | Inpatient (IN) | payer OTHER ==
[2022-01-08 22:00] VITALS: BMI 22.5
[2022-01-08] MEDS ORDERED: METHOCARBAMOL 500 MG TABLET PO PRN (23:23)
[2022-01-08] MEDS ORDERED: IBUPROFEN 400 MG TABLET (FP) PO PRN (23:23)
[2022-01-08] MEDS ORDERED: MAGNESIUM HYDROX 2400MG/30ML ORAL SUSPENSION 30 ML CUP PO PRN (23:23)
[2022-01-08] MEDS ORDERED: BISMUTH SUBSALICYLATE 524 MG/30 ML PO PRN (23:23)
[2022-01-08] MEDS ORDERED: LOPERAMIDE HCL 2 MG CAPSULE PO PRN (23:23)
[2022-01-08] MEDS ORDERED: BENZOCAINE/MENTHOL (CHLORASEPTIC ) LOZENGE MM PRN (23:23)
[2022-01-08] MEDS ORDERED: ONDANSETRON *ODT* 4 MG TABLET SL PRN (23:23)
[2022-01-08] MEDS ORDERED: NICOTINE POLACRILEX 2 MG GUM BUC PRN (23:23)
[2022-01-08] MEDS ORDERED: ACETAMINOPHEN 325 MG TABLET (FP) PO PRN ×2 (23:23)
[2022-01-08] MEDS ORDERED: MAGNESIUM CITRATE 300 ML BOTTLE PO PRN (23:23)
[2022-01-08] MEDS ORDERED: MAG HYDROX/AL HYDROX/SIMETH 30 ML UNIT-DOSE CUP PO PRN (23:23)
[2022-01-08] MEDS ORDERED: DICYCLOMINE HCL 10 MG CAPSULE PO PRN (23:23)
[2022-01-09] MEDS ORDERED: LORazepam 1 MG TABLET PO PRN (00:53)
[2022-01-09] MEDS ORDERED: chlordiazePOXIDE HCL 25 MG CAPSULE PO PRN (01:10)
[2022-01-09] MEDS ORDERED: LORazepam 2 MG TABLET PO SCH (05:00)
[2022-01-09] MEDS: chlordiazePOXIDE HCL 25 MG CAPSULE PO SCH ×4 (06:26→22:08)
[2022-01-09] MEDS: NICOTINE 14 MG/24 HOURS TOPICAL PATCH TD SCH (10:21)
[2022-01-09] MEDS: PRENATAL VITAMINS W/ FOLIC ACID TABLET (FP) PO SCH (10:21)
[2022-01-09] MEDS: risperiDONE 1 MG TABLET PO SCH ×2 (10:21→22:09)
[2022-01-09] MEDS: IBUPROFEN 600 MG TABLET (FP) PO PRN (10:31)
[2022-01-09 11:15] LABS: HEMATOCRIT 36.1 % (35.4-49); HEMOGLOBIN 11.9 GM/dL (11.7-16.9); MCH 32.2 pg (25.7-33.7); MCHC 32.9 g/dl (32.0-35.9); MEAN CELL VOLUME 97.8 fl (80-96); MEAN PLT VOLUME 7.8 fl (7.5-11.1); PLATELET COUNT 336 10^3/uL (134-434); RBC 3.69 M/mm3 (4.00-5.60); RDW 14.3 % (11.9-15.9); WHITE BLOOD COUNT 2.5 K/mm3 (4.0-10.0)
[2022-01-09 11:22] LABS: ALBUMIN 3.8 g/dl (3.4-5.0); CALCIUM 8.7 mg/dL (8.5-10.1)
[2022-01-09 11:23] LABS: BLOOD UREA NITROGEN 20.3 mg/dL (7-18)
[2022-01-09 11:26] LABS: CREATININE 0.8 mg/dL (0.55-1.3)
[2022-01-09 11:27] LABS: BILIRUBIN,TOTAL 0.4 mg/dL (0.2-1); TOT PROT 7.3 g/dl (6.4-8.2)
[2022-01-09] MEDS ORDERED: ONDANSETRON *ODT* 4 MG TABLET SL ONE (11:35)
[2022-01-09 17:48] VITALS: RESP 18
[2022-01-09] MEDS: THIAMINE HCL 100 MG TABLET (FP) PO SCH (22:09)
[2022-01-09] MEDS: MELATONIN 5 MG TABLETS PO SCH (22:09)
[2022-01-10] MEDS ORDERED: LORazepam 1 MG TABLET PO SCH (05:00)
[2022-01-10] MEDS: chlordiazePOXIDE HCL 25 MG CAPSULE PO SCH ×4 (05:27→22:11)
[2022-01-10] MEDS: IBUPROFEN 600 MG TABLET (FP) PO PRN (10:06)
[2022-01-10] MEDS: PRENATAL VITAMINS W/ FOLIC ACID TABLET (FP) PO SCH (10:07)
[2022-01-10] MEDS: risperiDONE 1 MG TABLET PO SCH ×2 (10:07→22:10)
[2022-01-10] MEDS: NICOTINE 14 MG/24 HOURS TOPICAL PATCH TD SCH (10:09)
[2022-01-10] MEDS ORDERED: LISINOPRIL 10 MG TABLET PO SCH (13:00)
[2022-01-10] MEDS ORDERED: TAMSULOSIN HCL 0.4 MG CAP PO SCH (13:00)
[2022-01-10] MEDS ORDERED: ATORVASTATIN CA 10 MG TABLET (FP) PO SCH (22:00)
[2022-01-10] MEDS: THIAMINE HCL 100 MG TABLET (FP) PO SCH (22:10)
[2022-01-10] MEDS: MELATONIN 5 MG TABLETS PO SCH (22:10)
[2022-01-11] MEDS ORDERED: chlordiazePOXIDE HCL 10 MG CAPSULE PO PRN
[2022-01-11] MEDS ORDERED: LORazepam 0.5 MG TABLET PO PRN
[2022-01-11] MEDS ORDERED: chlordiazePOXIDE HCL 10 MG CAPSULE PO SCH (05:00)
[2022-01-11] MEDS ORDERED: LORazepam 0.5 MG TABLET PO SCH (05:00)
[2022-01-11] MEDS: IBUPROFEN 600 MG TABLET (FP) PO PRN (05:53)
[2022-01-11 06:13] VITALS: BP 139/88; PULSE 77; TEMP 97.5
[2022-01-12] MEDS ORDERED: chlordiazePOXIDE HCL 10 MG CAPSULE PO SCH (05:00)
[2022-01-12] MEDS ORDERED: LORazepam 0.5 MG TABLET PO ONE (05:00)
[2022-01-13] MEDS ORDERED: chlordiazePOXIDE HCL 10 MG CAPSULE PO ONE (05:00)
== END 2022-01-11 08:05 | disposition home or self-care (01) | DRG 775 ==
LOC: YASAS 20:41 → Y3N 23:58
PROVIDERS: ADMIT Allergy & Immunology; ATTEND Surgery
PROC: HZ2ZZZZ Detoxification Services for Substance Abuse Treatment (ICD-10-PCS; principal; 2022-01-08)
DX: F10.230 Alcohol dependence with withdrawal, uncomplicated (principal); F17.210 Nicotine dependence, cigarettes, uncomplicated; F10.24 Alcohol dependence with alcohol-induced mood disorder; F25.9 Schizoaffective disorder, unspecified; I10 Essential (primary) hypertension; M17.11 Unilateral primary osteoarthritis, right knee; N40.0 Benign prostatic hyperplasia without lower urinary tract symptoms; E78.1 Pure hyperglyceridemia; R79.89 Other specified abnormal findings of blood chemistry; R74.01 Elevation of levels of liver transaminase levels; Z88.0 Allergy status to penicillin
CPT/HCPCS: 36415; 80053; 85027; 86780; 87811; C9803-CS; J2794; Q0162; U0003; U0005

== ENCOUNTER 2022-03-26 08:28 | Inpatient (IN) | payer OTHER ==
[2022-03-26 09:53] VITALS: BMI 22.9
[2022-03-26] MEDS ORDERED: MAG HYDROX/AL HYDROX/SIMETH 30 ML UNIT-DOSE CUP PO PRN (09:59)
[2022-03-26] MEDS ORDERED: BENZOCAINE/MENTHOL (CHLORASEPTIC ) LOZENGE MM PRN (09:59)
[2022-03-26] MEDS ORDERED: MAGNESIUM HYDROX 2400MG/30ML ORAL SUSPENSION 30 ML CUP PO PRN (09:59)
[2022-03-26] MEDS ORDERED: LOPERAMIDE HCL 2 MG CAPSULE PO PRN (09:59)
[2022-03-26] MEDS ORDERED: BISMUTH SUBSALICYLATE 524 MG/30 ML PO PRN (09:59)
[2022-03-26] MEDS ORDERED: ACETAMINOPHEN 325 MG TABLET (FP) PO PRN (09:59)
[2022-03-26] MEDS ORDERED: ONDANSETRON *ODT* 4 MG TABLET SL PRN (09:59)
[2022-03-26] MEDS ORDERED: chlordiazePOXIDE HCL 25 MG CAPSULE PO PRN (09:59)
[2022-03-26] MEDS ORDERED: NICOTINE 10 MG CARTRIDGE (INHALER) IH PRN (09:59)
[2022-03-26] MEDS ORDERED: DICYCLOMINE HCL 10 MG CAPSULE PO PRN (09:59)
[2022-03-26] MEDS: PRENATAL VITAMINS W/ FOLIC ACID TABLET (FP) PO SCH (10:46)
[2022-03-26] MEDS: METHOCARBAMOL 500 MG TABLET PO PRN ×2 (10:47→19:13)
[2022-03-26] MEDS: chlordiazePOXIDE HCL 25 MG CAPSULE PO SCH ×3 (10:47→22:08)
[2022-03-26] MEDS: LISINOPRIL 10 MG TABLET PO SCH (10:47)
[2022-03-26] MEDS: TAMSULOSIN HCL 0.4 MG CAP PO SCH (10:47)
[2022-03-26] MEDS: IBUPROFEN 600 MG TABLET (FP) PO PRN (10:48)
[2022-03-26] MEDS: hydrOXYzine PAMOATE 25 MG CAPSULE (FP) PO PRN (13:04)
[2022-03-26] MEDS: risperiDONE 1 MG TABLET PO SCH (22:08)
[2022-03-26] MEDS: THIAMINE HCL 100 MG TABLET (FP) PO SCH (22:08)
[2022-03-26] MEDS: ATORVASTATIN CA 10 MG TABLET (FP) PO SCH (22:08)
[2022-03-26] MEDS: MELATONIN 5 MG TABLETS PO SCH (22:08)
[2022-03-27] MEDS: chlordiazePOXIDE HCL 25 MG CAPSULE PO SCH ×4 (06:16→22:06)
[2022-03-27] MEDS: PRENATAL VITAMINS W/ FOLIC ACID TABLET (FP) PO SCH (10:04)
[2022-03-27] MEDS: ESCITALOPRAM OXALATE 10 MG TABLET PO SCH (10:04)
[2022-03-27] MEDS: risperiDONE 1 MG TABLET PO SCH ×2 (10:04→22:06)
[2022-03-27] MEDS: LISINOPRIL 10 MG TABLET PO SCH (10:04)
[2022-03-27] MEDS: TAMSULOSIN HCL 0.4 MG CAP PO SCH (10:04)
[2022-03-27] MEDS: hydrOXYzine PAMOATE 25 MG CAPSULE (FP) PO PRN ×2 (10:06→20:41)
[2022-03-27] MEDS: METHOCARBAMOL 500 MG TABLET PO PRN ×3 (10:06→22:33)
[2022-03-27 12:21] LABS: ALBUMIN 3.3 g/dl (3.4-5.0); CALCIUM 8.6 mg/dL (8.5-10.1)
[2022-03-27 12:24] LABS: CREATININE 0.8 mg/dL (0.55-1.3)
[2022-03-27 12:25] LABS: HEMATOCRIT 33.5 % (35.4-49); HEMOGLOBIN 11.5 GM/dL (11.7-16.9); MCH 33.9 pg (25.7-33.7); MCHC 34.4 g/dl (32.0-35.9); MEAN CELL VOLUME 98.7 fl (80-96); MEAN PLT VOLUME 8.3 fl (7.5-11.1); PLATELET COUNT 228 10^3/uL (134-434); RBC 3.39 M/mm3 (4.00-5.60); RDW 13.9 % (11.9-15.9); WHITE BLOOD COUNT 2.8 K/mm3 (4.0-10.0)
[2022-03-27 12:26] LABS: BILIRUBIN,TOTAL 0.6 mg/dL (0.2-1)
[2022-03-27] MEDS: METHYL SALICYLATE/MENTHOL OINT 30 GM TUBE TP SCH ×2 (14:05→22:09)
[2022-03-27] MEDS ORDERED: cloNIDine HCL 0.1 MG TABLET PO ONE (17:32)
[2022-03-27] MEDS: IBUPROFEN 600 MG TABLET (FP) PO PRN (20:41)
[2022-03-27] MEDS: ATORVASTATIN CA 10 MG TABLET (FP) PO SCH (22:06)
[2022-03-27] MEDS: THIAMINE HCL 100 MG TABLET (FP) PO SCH (22:06)
[2022-03-27] MEDS: MELATONIN 5 MG TABLETS PO SCH (22:06)
[2022-03-28] MEDS: chlordiazePOXIDE HCL 25 MG CAPSULE PO SCH ×4 (05:45→23:07)
[2022-03-28] MEDS: METHOCARBAMOL 500 MG TABLET PO PRN ×2 (05:56→23:28)
[2022-03-28] MEDS: hydrOXYzine PAMOATE 25 MG CAPSULE (FP) PO PRN ×2 (05:58→18:57)
[2022-03-28] MEDS: IBUPROFEN 400 MG TABLET (FP) PO PRN ×2 (09:02→16:38)
[2022-03-28] MEDS: risperiDONE 1 MG TABLET PO SCH ×2 (10:16→23:08)
[2022-03-28] MEDS: ESCITALOPRAM OXALATE 10 MG TABLET PO SCH (10:16)
[2022-03-28] MEDS: LISINOPRIL 10 MG TABLET PO SCH (10:16)
[2022-03-28] MEDS: PRENATAL VITAMINS W/ FOLIC ACID TABLET (FP) PO SCH (10:16)
[2022-03-28] MEDS: TAMSULOSIN HCL 0.4 MG CAP PO SCH (10:17)
[2022-03-28] MEDS: METHYL SALICYLATE/MENTHOL OINT 30 GM TUBE TP SCH ×2 (10:17→23:08)
[2022-03-28] MEDS: METOPROLOL TARTRATE 25 MG TABLET (FP) PO SCH ×2 (12:27→23:08)
[2022-03-28] MEDS: MELATONIN 5 MG TABLETS PO SCH (23:07)
[2022-03-28] MEDS: ATORVASTATIN CA 10 MG TABLET (FP) PO SCH (23:07)
[2022-03-28] MEDS: THIAMINE HCL 100 MG TABLET (FP) PO SCH (23:07)
[2022-03-28] MEDS: ACETAMINOPHEN 325 MG TABLET (FP) PO PRN (23:28)
[2022-03-29] MEDS ORDERED: chlordiazePOXIDE HCL 10 MG CAPSULE PO PRN
[2022-03-29] MEDS: chlordiazePOXIDE HCL 10 MG CAPSULE PO SCH ×4 (05:53→22:15)
[2022-03-29] MEDS: IBUPROFEN 600 MG TABLET (FP) PO PRN ×2 (08:38→17:08)
[2022-03-29] MEDS: risperiDONE 1 MG TABLET PO SCH ×2 (10:09→22:15)
[2022-03-29] MEDS: LISINOPRIL 10 MG TABLET PO SCH (10:09)
[2022-03-29] MEDS: TAMSULOSIN HCL 0.4 MG CAP PO SCH (10:09)
[2022-03-29] MEDS: METOPROLOL TARTRATE 25 MG TABLET (FP) PO SCH ×2 (10:09→22:11)
[2022-03-29] MEDS: PRENATAL VITAMINS W/ FOLIC ACID TABLET (FP) PO SCH (10:10)
[2022-03-29] MEDS: ESCITALOPRAM OXALATE 10 MG TABLET PO SCH (10:10)
[2022-03-29] MEDS: METHYL SALICYLATE/MENTHOL OINT 30 GM TUBE TP SCH ×2 (10:10→22:11)
[2022-03-29 13:10] VITALS: RESP 18
[2022-03-29] MEDS: hydrOXYzine PAMOATE 25 MG CAPSULE (FP) PO PRN ×2 (15:40→23:10)
[2022-03-29] MEDS: METHOCARBAMOL 500 MG TABLET PO PRN ×2 (17:08→23:10)
[2022-03-29] MEDS: MELATONIN 5 MG TABLETS PO SCH (22:11)
[2022-03-29] MEDS: THIAMINE HCL 100 MG TABLET (FP) PO SCH (22:11)
[2022-03-29] MEDS: ATORVASTATIN CA 10 MG TABLET (FP) PO SCH (22:14)
[2022-03-29] MEDS: IBUPROFEN 400 MG TABLET (FP) PO PRN (22:15)
[2022-03-30] MEDS ORDERED: chlordiazePOXIDE HCL 10 MG CAPSULE PO SCH (05:00)
[2022-03-30] MEDS: hydrOXYzine PAMOATE 25 MG CAPSULE (FP) PO PRN (05:14)
[2022-03-30] MEDS: METHOCARBAMOL 500 MG TABLET PO PRN (05:14)
[2022-03-30] MEDS: IBUPROFEN 600 MG TABLET (FP) PO PRN (05:15)
[2022-03-30 06:21] VITALS: BP 145/104; PULSE 86; TEMP 98.1
[2022-03-30] MEDS: ACETAMINOPHEN 325 MG TABLET (FP) PO PRN (08:33)
[2022-03-31] MEDS ORDERED: chlordiazePOXIDE HCL 10 MG CAPSULE PO ONE (05:00)
== END 2022-03-30 08:56 | disposition home or self-care (01) | DRG 774 ==
LOC: YASAS 08:28 → Y3N 09:29
PROVIDERS: ADMIT Allergy & Immunology; ATTEND Surgery
PROC: HZ2ZZZZ Detoxification Services for Substance Abuse Treatment (ICD-10-PCS; principal; 2022-03-26)
DX: F10.230 Alcohol dependence with withdrawal, uncomplicated (principal); F14.20 Cocaine dependence, uncomplicated; F17.210 Nicotine dependence, cigarettes, uncomplicated; F25.9 Schizoaffective disorder, unspecified; D72.819 Decreased white blood cell count, unspecified; G47.00 Insomnia, unspecified; E78.5 Hyperlipidemia, unspecified; I10 Essential (primary) hypertension; N40.0 Benign prostatic hyperplasia without lower urinary tract symptoms; M17.11 Unilateral primary osteoarthritis, right knee; Z99.89 Dependence on other enabling machines and devices; Z88.0 Allergy status to penicillin
CPT/HCPCS: 0241U-QW; 36415; 71045-TC-FY; 80053; 84484; 85025; 85027; 86780; 87811; 93005; 93010; C9803-CS; J2794; U0003; U0005

== ENCOUNTER 2022-06-13 18:40 | Inpatient (IN) | payer OTHER ==
[2022-06-13 19:13] VITALS: BMI 23.1
[2022-06-13] MEDS ORDERED: LORazepam 2 MG/ML SDV VIAL IM ONE (19:30)
[2022-06-13] MEDS ORDERED: DICYCLOMINE HCL 10 MG CAPSULE PO PRN (19:40)
[2022-06-13] MEDS ORDERED: BENZOCAINE/MENTHOL (CHLORASEPTIC ) LOZENGE MM PRN (19:40)
[2022-06-13] MEDS ORDERED: BISMUTH SUBSALICYLATE 524 MG/30 ML PO PRN (19:40)
[2022-06-13] MEDS ORDERED: NALOXONE HCL (KLOXXADO) 8 MG SPRAY NS PRN (19:40)
[2022-06-13] MEDS ORDERED: ACETAMINOPHEN 325 MG TABLET (FP) PO PRN ×2 (19:40)
[2022-06-13] MEDS ORDERED: LOPERAMIDE HCL 2 MG CAPSULE PO PRN (19:40)
[2022-06-13] MEDS ORDERED: POLYETHYLENE GLYCOL (HEALTHYLAX) 3350 17 GM PACKET PO PRN (19:40)
[2022-06-13] MEDS ORDERED: IBUPROFEN 400 MG TABLET (FP) PO PRN (19:40)
[2022-06-13] MEDS ORDERED: ONDANSETRON *ODT* 4 MG TABLET SL PRN (19:40)
[2022-06-13] MEDS ORDERED: NICOTINE 10 MG CARTRIDGE (INHALER) IH PRN (19:40)
[2022-06-13] MEDS ORDERED: MAGNESIUM HYDROX 2400MG/30ML ORAL SUSPENSION 30 ML CUP PO PRN (19:40)
[2022-06-13] MEDS ORDERED: MAG HYDROX/AL HYDROX/SIMETH 30 ML UNIT-DOSE CUP PO PRN (19:40)
[2022-06-13] MEDS ORDERED: chlordiazePOXIDE HCL 25 MG CAPSULE ONE (19:50)
[2022-06-13] MEDS: chlordiazePOXIDE HCL 25 MG CAPSULE PO PRN (19:53)
[2022-06-13] MEDS ORDERED: ONDANSETRON *ODT* 4 MG TABLET ONE (20:02)
[2022-06-13] MEDS: THIAMINE HCL 100 MG TABLET (FP) PO SCH (22:30)
[2022-06-13] MEDS: MELATONIN 5 MG TABLETS PO SCH (22:30)
[2022-06-13] MEDS: chlordiazePOXIDE HCL 25 MG CAPSULE PO SCH (22:31)
[2022-06-14] MEDS: chlordiazePOXIDE HCL 25 MG CAPSULE PO PRN ×4 (01:47→23:50)
[2022-06-14] MEDS: chlordiazePOXIDE HCL 25 MG CAPSULE PO SCH ×4 (06:07→21:58)
[2022-06-14 10:31] LABS: HEMATOCRIT 36.1 % (35.4-49); HEMOGLOBIN 11.9 GM/dL (11.7-16.9); MCH 32.4 pg (25.7-33.7); MCHC 32.9 g/dl (32.0-35.9); MEAN CELL VOLUME 98.4 fl (80-96); MEAN PLT VOLUME 8.2 fl (7.5-11.1); PLATELET COUNT 285 10^3/uL (134-434); RBC 3.66 M/mm3 (4.00-5.60); RDW 14.3 % (11.9-15.9); WHITE BLOOD COUNT 2.3 K/mm3 (4.0-10.0)
[2022-06-14 10:45] LABS: BLOOD UREA NITROGEN 12.2 mg/dL (7-18); CALCIUM 9.1 mg/dL (8.5-10.1)
[2022-06-14] MEDS: NICOTINE 14 MG/24 HOURS TOPICAL PATCH TD SCH (10:45)
[2022-06-14 10:49] LABS: CREATININE 1.1 mg/dL (0.55-1.3)
[2022-06-14 10:50] LABS: BILIRUBIN,TOTAL 0.9 mg/dL (0.2-1); TOT PROT 7.2 g/dl (6.4-8.2)
[2022-06-14] MEDS: PRENATAL VITAMINS W/ FOLIC ACID TABLET (FP) PO SCH (10:55)
[2022-06-14] MEDS: LACTULOSE 20 GM/30 ML UDC (FOR ORAL USE ONLY) PO SCH ×2 (15:06→21:45)
[2022-06-14] MEDS: IBUPROFEN 600 MG TABLET (FP) PO PRN (18:09)
[2022-06-14] MEDS ORDERED: METHYL SALICYLATE/MENTHOL OINT 30 GM TUBE TP PRN (21:22)
[2022-06-14] MEDS: MELATONIN 5 MG TABLETS PO SCH (21:45)
[2022-06-14] MEDS: THIAMINE HCL 100 MG TABLET (FP) PO SCH (21:45)
[2022-06-14] MEDS ORDERED: GABAPENTIN 100 MG CAPSULE PO ONE (23:12)
[2022-06-14] MEDS ORDERED: MELATONIN 5 MG TABLETS PO SCH (23:12)
[2022-06-15] MEDS ORDERED: LORazepam 2 MG/ML SDV VIAL IM ONE (03:00)
[2022-06-15] MEDS: chlordiazePOXIDE HCL 25 MG CAPSULE PO SCH ×2 (04:41→10:10)
[2022-06-15] MEDS: LACTULOSE 20 GM/30 ML UDC (FOR ORAL USE ONLY) PO SCH ×2 (05:50→13:55)
[2022-06-15] MEDS: IBUPROFEN 600 MG TABLET (FP) PO PRN (06:10)
[2022-06-15] MEDS ORDERED: LISINOPRIL 10 MG TABLET PO SCH (10:00)
[2022-06-15] MEDS ORDERED: METOPROLOL TARTRATE 25 MG TABLET (FP) PO SCH (10:00)
[2022-06-15] MEDS ORDERED: TAMSULOSIN HCL 0.4 MG CAP PO SCH (10:00)
[2022-06-15] MEDS ORDERED: LORazepam 1 MG TABLET PO PRN (10:19)
[2022-06-15] MEDS: PRENATAL VITAMINS W/ FOLIC ACID TABLET (FP) PO SCH (10:51)
[2022-06-15] MEDS: NICOTINE 14 MG/24 HOURS TOPICAL PATCH TD SCH (10:51)
[2022-06-15] MEDS ORDERED: LORazepam 2 MG TABLET PO SCH (11:00)
[2022-06-15 12:01] LABS: HEMATOCRIT 34.3 % (35.4-49); HEMOGLOBIN 11.6 GM/dL (11.7-16.9); MCH 33.1 pg (25.7-33.7); MCHC 33.9 g/dl (32.0-35.9); MEAN CELL VOLUME 97.5 fl (80-96); MEAN PLT VOLUME 8.2 fl (7.5-11.1); PLATELET COUNT 227 10^3/uL (134-434); RBC 3.51 M/mm3 (4.00-5.60); RDW 13.8 % (11.9-15.9); WHITE BLOOD COUNT 3.2 K/mm3 (4.0-10.0)
[2022-06-15] MEDS ORDERED: METHOCARBAMOL 500 MG TABLET PO PRN (12:16)
[2022-06-15] MEDS ORDERED: LIDOCAINE 5% TOPICAL PATCH TP SCH (12:30)
[2022-06-15 12:50] VITALS: BP 153/112; PULSE 83; RESP 16; TEMP 97.3
[2022-06-15 14:01] LABS: CALCIUM 9.4 mg/dL (8.5-10.1)
[2022-06-15 14:02] LABS: ALBUMIN 3.7 g/dl (3.4-5.0); BLOOD UREA NITROGEN 11.9 mg/dL (7-18)
[2022-06-15 14:05] LABS: CREATININE 0.9 mg/dL (0.55-1.3)
[2022-06-15 14:07] LABS: TOT PROT 6.5 g/dl (6.4-8.2)
[2022-06-15 14:08] LABS: BILIRUBIN,TOTAL 0.8 mg/dL (0.2-1)
[2022-06-15] MEDS ORDERED: LIDOCAINE PATCH REMOVAL MC SCH (22:00)
[2022-06-15] MEDS ORDERED: ATORVASTATIN CA 10 MG TABLET (FP) PO SCH (22:00)
[2022-06-16] MEDS ORDERED: chlordiazePOXIDE HCL 10 MG CAPSULE PO PRN
[2022-06-16] MEDS ORDERED: LORazepam 1 MG TABLET PO SCH (05:00)
[2022-06-16] MEDS ORDERED: chlordiazePOXIDE HCL 10 MG CAPSULE PO SCH (05:00)
[2022-06-17] MEDS ORDERED: LORazepam 0.5 MG TABLET PO PRN
[2022-06-17] MEDS ORDERED: LORazepam 0.5 MG TABLET PO SCH (05:00)
[2022-06-17] MEDS ORDERED: chlordiazePOXIDE HCL 10 MG CAPSULE PO SCH (05:00)
[2022-06-18] MEDS ORDERED: LORazepam 0.5 MG TABLET PO ONE (05:00)
[2022-06-18] MEDS ORDERED: chlordiazePOXIDE HCL 10 MG CAPSULE PO ONE (05:00)
== END 2022-06-15 15:30 | disposition short-term general hospital (02) | DRG 774 ==
LOC: YASAS 18:40 → Y3N 20:41
PROVIDERS: ADMIT Allergy & Immunology; ATTEND Family Medicine
PROC: HZ2ZZZZ Detoxification Services for Substance Abuse Treatment (ICD-10-PCS; principal; 2022-06-13)
DX: F10.230 Alcohol dependence with withdrawal, uncomplicated (principal); F14.20 Cocaine dependence, uncomplicated; F17.210 Nicotine dependence, cigarettes, uncomplicated; F25.9 Schizoaffective disorder, unspecified; E72.20 Disorder of urea cycle metabolism, unspecified; E78.5 Hyperlipidemia, unspecified; I10 Essential (primary) hypertension; F19.24 Other psychoactive substance dependence with psychoactive substance-induced mood disorder; E05.90 Thyrotoxicosis, unspecified without thyrotoxic crisis or storm; M17.0 Bilateral primary osteoarthritis of knee; N40.0 Benign prostatic hyperplasia without lower urinary tract symptoms; R41.82 Altered mental status, unspecified; Z91.81 History of falling; Z99.89 Dependence on other enabling machines and devices; Z88.0 Allergy status to penicillin
CPT/HCPCS: 36415; 80053; 82140; 82962; 85027; 86780; 87811; 93005; 93010; C9803-CS; Q0162; U0003; U0005

== ENCOUNTER 2022-06-15 13:24 | Emergency (ER) | payer OTHER ==
[2022-06-15 13:58] VITALS: BP 153/100; PULSE 86; RESP 20; TEMP 98.1; BMI 22.9
[2022-06-15 14:41] LABS: BASO % 1.2 % (0-2.0); EOS % 7.3 % (0-4.5); HEMOGLOBIN 12.1 GM/dL (11.7-16.9); MCH 32.9 pg (25.7-33.7); MCHC 33.6 g/dl (32.0-35.9); MEAN CELL VOLUME 97.9 fl (80-96); MEAN PLT VOLUME 7.7 fl (7.5-11.1); MONO % 9.1 % (3.8-10.2); NEUT % 58.4 % (42.8-82.8); PLATELET COUNT 246 10^3/uL (134-434); RBC 3.67 M/mm3 (4.00-5.60); RDW 13.9 % (11.9-15.9); WHITE BLOOD COUNT 3.4 K/mm3 (4.0-10.0)
[2022-06-15 14:49] LABS: INR 1.04 (0.83-1.09)
[2022-06-15 14:51] LABS: ACTIVATED PTT 32.9 SECONDS (25.2-36.5)
[2022-06-15 15:09] LABS: CALCIUM 9.6 mg/dL (8.5-10.1)
[2022-06-15 15:10] LABS: ALBUMIN 4.1 g/dl (3.4-5.0); BLOOD UREA NITROGEN 10.7 mg/dL (7-18); MAGNESIUM 1.8 mg/dL (1.8-2.4)
[2022-06-15 15:13] LABS: BILIRUBIN,TOTAL 0.6 mg/dL (0.2-1); CREATININE 0.8 mg/dL (0.55-1.3); PHOSPHOROUS 3.6 mg/dL (2.5-4.9); TOT PROT 7.2 g/dl (6.4-8.2)
== END 2022-06-15 14:55 | disposition home or self-care (01) ==
LOC: JER 13:24
DX: R45.1 Restlessness and agitation (principal)
CPT/HCPCS: 0241U-QW; 36415; 71045-TC-FY; 80053; 82140; 83735; 84100; 85025; 85610; 85730; 99285-25

== ENCOUNTER 2022-06-22 08:43 | Inpatient (IN) | payer OTHER ==
[2022-06-22 09:37] VITALS: BMI 25.5
[2022-06-22] MEDS ORDERED: BENZOCAINE/MENTHOL (CHLORASEPTIC ) LOZENGE MM PRN (15:04)
[2022-06-22] MEDS ORDERED: DICYCLOMINE HCL 10 MG CAPSULE PO PRN (15:04)
[2022-06-22] MEDS ORDERED: NICOTINE 10 MG CARTRIDGE (INHALER) IH PRN (15:04)
[2022-06-22] MEDS ORDERED: ACETAMINOPHEN 325 MG TABLET (FP) PO PRN (15:04)
[2022-06-22] MEDS ORDERED: ONDANSETRON *ODT* 4 MG TABLET SL PRN (15:04)
[2022-06-22] MEDS ORDERED: BISMUTH SUBSALICYLATE 524 MG/30 ML PO PRN (15:04)
[2022-06-22] MEDS ORDERED: POLYETHYLENE GLYCOL (HEALTHYLAX) 3350 17 GM PACKET PO PRN (15:04)
[2022-06-22] MEDS ORDERED: IBUPROFEN 400 MG TABLET (FP) PO PRN (15:04)
[2022-06-22] MEDS ORDERED: LOPERAMIDE HCL 2 MG CAPSULE PO PRN (15:04)
[2022-06-22] MEDS ORDERED: hydrOXYzine PAMOATE 25 MG CAPSULE (FP) PO PRN (15:04)
[2022-06-22] MEDS ORDERED: MAGNESIUM HYDROX 2400MG/30ML ORAL SUSPENSION 30 ML CUP PO PRN (15:04)
[2022-06-22] MEDS ORDERED: NALOXONE HCL (KLOXXADO) 8 MG SPRAY NS PRN (15:04)
[2022-06-22] MEDS ORDERED: MAG HYDROX/AL HYDROX/SIMETH 30 ML UNIT-DOSE CUP PO PRN (15:04)
[2022-06-22] MEDS: LISINOPRIL 10 MG TABLET PO SCH (15:47)
[2022-06-22] MEDS: THIAMINE HCL 100 MG TABLET (FP) PO SCH (22:08)
[2022-06-22] MEDS: METHOCARBAMOL 500 MG TABLET PO PRN (22:08)
[2022-06-22] MEDS: risperiDONE 1 MG TABLET PO SCH (22:08)
[2022-06-22] MEDS: MELATONIN 5 MG TABLETS PO SCH (22:08)
[2022-06-23] MEDS: GABAPENTIN 100 MG CAPSULE PO SCH ×3 (06:14→22:05)
[2022-06-23] MEDS: IBUPROFEN 600 MG TABLET (FP) PO PRN ×2 (07:27→22:09)
[2022-06-23] MEDS: METHOCARBAMOL 500 MG TABLET PO PRN ×2 (07:27→22:11)
[2022-06-23] MEDS: PRENATAL VITAMINS W/ FOLIC ACID TABLET (FP) PO SCH (09:08)
[2022-06-23] MEDS: FAMOTIDINE 20 MG TABLET PO SCH (09:08)
[2022-06-23] MEDS: LISINOPRIL 10 MG TABLET PO SCH (09:08)
[2022-06-23] MEDS: risperiDONE 1 MG TABLET PO SCH ×2 (09:08→22:07)
[2022-06-23] MEDS: TAMSULOSIN HCL 0.4 MG CAP PO SCH (09:09)
[2022-06-23] MEDS: METOPROLOL TARTRATE 25 MG TABLET (FP) PO SCH ×2 (09:09→22:04)
[2022-06-23] MEDS: ACETAMINOPHEN 325 MG TABLET (FP) PO PRN ×2 (10:36→20:22)
[2022-06-23 13:44] LABS: HEMATOCRIT 32.2 % (35.4-49); HEMOGLOBIN 10.8 GM/dL (11.7-16.9); MCH 33.5 pg (25.7-33.7); MCHC 33.6 g/dl (32.0-35.9); MEAN CELL VOLUME 99.6 fl (80-96); MEAN PLT VOLUME 8.3 fl (7.5-11.1); PLATELET COUNT 212 10^3/uL (134-434); RBC 3.23 M/mm3 (4.00-5.60); RDW 14.4 % (11.9-15.9)
[2022-06-23 14:43] LABS: ALBUMIN 3.7 g/dl (3.4-5.0); CALCIUM 8.9 mg/dL (8.5-10.1)
[2022-06-23 14:46] LABS: CREATININE 0.9 mg/dL (0.55-1.3)
[2022-06-23 14:48] LABS: BILIRUBIN,TOTAL 0.7 mg/dL (0.2-1); TOT PROT 6.8 g/dl (6.4-8.2)
[2022-06-23] MEDS: LACTULOSE 20 GM/30 ML UDC (FOR ORAL USE ONLY) PO SCH ×2 (16:05→22:36)
[2022-06-23 17:39] VITALS: RESP 18
[2022-06-23] MEDS ORDERED: QUEtiapine FUMARATE 100 MG TABLET (FP) PO SCH (22:00)
[2022-06-23] MEDS ORDERED: ATORVASTATIN CA 10 MG TABLET (FP) PO SCH (22:00)
[2022-06-23] MEDS: MELATONIN 5 MG TABLETS PO SCH (22:04)
[2022-06-23] MEDS: THIAMINE HCL 100 MG TABLET (FP) PO SCH (22:05)
[2022-06-24] MEDS: GABAPENTIN 100 MG CAPSULE PO SCH (05:51)
[2022-06-24] MEDS: LACTULOSE 20 GM/30 ML UDC (FOR ORAL USE ONLY) PO SCH (05:51)
[2022-06-24] MEDS: TAMSULOSIN HCL 0.4 MG CAP PO SCH (09:28)
[2022-06-24] MEDS: FAMOTIDINE 20 MG TABLET PO SCH (09:28)
[2022-06-24] MEDS: METOPROLOL TARTRATE 25 MG TABLET (FP) PO SCH (09:28)
[2022-06-24] MEDS: LISINOPRIL 10 MG TABLET PO SCH (09:28)
[2022-06-24] MEDS: risperiDONE 1 MG TABLET PO SCH (09:29)
[2022-06-24] MEDS: PRENATAL VITAMINS W/ FOLIC ACID TABLET (FP) PO SCH (09:29)
[2022-06-24] MEDS: IBUPROFEN 600 MG TABLET (FP) PO PRN (09:30)
[2022-06-24 10:19] VITALS: BP 152/93; PULSE 100; TEMP 96.6
== END 2022-06-24 09:31 | disposition home or self-care (01) | DRG 774 ==
LOC: YASAS 08:43 → Y3N 14:05
PROVIDERS: ADMIT Allergy & Immunology; ATTEND Surgery
PROC: HZ2ZZZZ Detoxification Services for Substance Abuse Treatment (ICD-10-PCS; principal; 2022-06-22)
DX: F10.230 Alcohol dependence with withdrawal, uncomplicated (principal); F14.20 Cocaine dependence, uncomplicated; F17.210 Nicotine dependence, cigarettes, uncomplicated; F25.9 Schizoaffective disorder, unspecified; F19.282 Other psychoactive substance dependence with psychoactive substance-induced sleep disorder; F19.280 Other psychoactive substance dependence with psychoactive substance-induced anxiety disorder; F19.24 Other psychoactive substance dependence with psychoactive substance-induced mood disorder; F32.A Depression, unspecified; D50.9 Iron deficiency anemia, unspecified; E78.5 Hyperlipidemia, unspecified; E05.90 Thyrotoxicosis, unspecified without thyrotoxic crisis or storm; I10 Essential (primary) hypertension; M17.0 Bilateral primary osteoarthritis of knee; M19.032 Primary osteoarthritis, left wrist; N40.0 Benign prostatic hyperplasia without lower urinary tract symptoms; Z99.89 Dependence on other enabling machines and devices; Z88.0 Allergy status to penicillin; Z91.81 History of falling
CPT/HCPCS: 36415; 80053; 82140; 85027; 86780; 87811; C9803-CS; U0003; U0005

== ENCOUNTER 2022-09-10 14:41 | Inpatient (IN) | payer OTHER ==
[2022-09-10 15:06] VITALS: BMI 24.3
[2022-09-10] MEDS ORDERED: MAGNESIUM HYDROX 2400MG/30ML ORAL SUSPENSION 30 ML CUP PO PRN (15:37)
[2022-09-10] MEDS ORDERED: MAG HYDROX/AL HYDROX/SIMETH 30 ML UNIT-DOSE CUP PO PRN (15:37)
[2022-09-10] MEDS ORDERED: ONDANSETRON *ODT* 4 MG TABLET SL PRN (15:37)
[2022-09-10] MEDS ORDERED: BISMUTH SUBSALICYLATE 524 MG/30 ML PO PRN (15:37)
[2022-09-10] MEDS ORDERED: DICYCLOMINE HCL 10 MG CAPSULE PO PRN (15:37)
[2022-09-10] MEDS ORDERED: BENZONATATE 200 MG CAPSULE PO PRN (15:37)
[2022-09-10] MEDS ORDERED: POLYETHYLENE GLYCOL (HEALTHYLAX) 3350 17 GM PACKET PO PRN (15:37)
[2022-09-10] MEDS ORDERED: NALOXONE HCL 0.4 MG/ML VIAL IM PRN (15:37)
[2022-09-10] MEDS ORDERED: guaiFENesin 600 MG TABLET.ER (FP) PO PRN (15:37)
[2022-09-10] MEDS ORDERED: chlordiazePOXIDE HCL 25 MG CAPSULE PO PRN (15:37)
[2022-09-10] MEDS ORDERED: IBUPROFEN 400 MG TABLET (FP) PO PRN (15:37)
[2022-09-10] MEDS ORDERED: ACETAMINOPHEN 325 MG TABLET (FP) PO PRN (15:37)
[2022-09-10] MEDS ORDERED: NALOXONE HCL (KLOXXADO) 8 MG SPRAY NS PRN (15:37)
[2022-09-10] MEDS ORDERED: NICOTINE POLACRILEX 2 MG GUM BUC PRN (15:37)
[2022-09-10] MEDS ORDERED: LOPERAMIDE HCL 2 MG CAPSULE PO PRN (15:37)
[2022-09-10] MEDS ORDERED: BENZOCAINE/MENTHOL (CHLORASEPTIC ) LOZENGE MM PRN (15:37)
[2022-09-10] MEDS ORDERED: PATIENT'S OWN MEDICATION (NON-FORMULARY) (Simvastatin 10 MG Tablet) PO SCH (22:00)
[2022-09-10] MEDS: THIAMINE HCL 100 MG TABLET (FP) PO SCH (22:29)
[2022-09-10] MEDS: chlordiazePOXIDE HCL 25 MG CAPSULE PO SCH (22:29)
[2022-09-10] MEDS: MELATONIN 5 MG TABLETS PO SCH (22:29)
[2022-09-10] MEDS: METOPROLOL TARTRATE 25 MG TABLET (FP) PO SCH (22:29)
[2022-09-10] MEDS: ATORVASTATIN CA 10 MG TABLET (FP) PO SCH (22:29)
[2022-09-11] MEDS: METHOCARBAMOL 500 MG TABLET PO PRN ×3 (00:05→17:28)
[2022-09-11] MEDS: hydrOXYzine PAMOATE 25 MG CAPSULE (FP) PO PRN ×3 (00:05→20:11)
[2022-09-11] MEDS: IBUPROFEN 600 MG TABLET (FP) PO PRN ×2 (03:08→23:52)
[2022-09-11] MEDS ORDERED: METHYL SALICYLATE/MENTHOL OINT 30 GM TUBE TP PRN (04:37)
[2022-09-11] MEDS: chlordiazePOXIDE HCL 25 MG CAPSULE PO SCH ×4 (05:27→22:19)
[2022-09-11] MEDS ORDERED: FAMOTIDINE 20 MG TABLET PO SCH (10:00)
[2022-09-11] MEDS ORDERED: TAMSULOSIN HCL 0.4 MG CAP PO SCH (10:00)
[2022-09-11] MEDS ORDERED: PRENATAL VITAMINS W/ FOLIC ACID TABLET (FP) PO SCH (10:00)
[2022-09-11] MEDS ORDERED: LISINOPRIL 10 MG TABLET PO SCH (10:00)
[2022-09-11] MEDS: METOPROLOL TARTRATE 25 MG TABLET (FP) PO SCH ×2 (10:29→22:19)
[2022-09-11 11:00] LABS: HEMATOCRIT 33.7 % (35.4-49); HEMOGLOBIN 11.4 GM/dL (11.7-16.9); MCHC 33.8 g/dl (32.0-35.9); MEAN CELL VOLUME 94.6 fl (80-96); MEAN PLT VOLUME 8.2 fl (7.5-11.1); PLATELET COUNT 300 10^3/uL (134-434); RBC 3.57 M/mm3 (4.00-5.60); RDW 15.1 % (11.9-15.9); WHITE BLOOD COUNT 2.6 K/mm3 (4.0-10.0)
[2022-09-11 11:10] LABS: ALBUMIN 3.5 g/dl (3.4-5.0)
[2022-09-11 11:11] LABS: BLOOD UREA NITROGEN 14.6 mg/dL (7-18)
[2022-09-11 11:14] LABS: CALCIUM 8.6 mg/dL (8.5-10.1); TOT PROT 6.4 g/dl (6.4-8.2)
[2022-09-11 11:18] LABS: CREATININE 1.1 mg/dL (0.55-1.3)
[2022-09-11 11:19] LABS: BILIRUBIN,TOTAL 0.9 mg/dL (0.2-1)
[2022-09-11] MEDS: LACTULOSE 20 GM/30 ML UDC (FOR ORAL USE ONLY) PO SCH ×2 (14:40→22:19)
[2022-09-11] MEDS: MELATONIN 5 MG TABLETS PO SCH (22:19)
[2022-09-11] MEDS: THIAMINE HCL 100 MG TABLET (FP) PO SCH (22:19)
[2022-09-11] MEDS: ATORVASTATIN CA 10 MG TABLET (FP) PO SCH (22:19)
[2022-09-12] MEDS ORDERED: chlordiazePOXIDE HCL 25 MG CAPSULE PO SCH (05:00)
[2022-09-12] MEDS: hydrOXYzine PAMOATE 25 MG CAPSULE (FP) PO PRN (05:27)
[2022-09-12] MEDS: LACTULOSE 20 GM/30 ML UDC (FOR ORAL USE ONLY) PO SCH (05:27)
[2022-09-12 09:05] VITALS: BP 136/88; PULSE 69; RESP 18; TEMP 97.7
[2022-09-13] MEDS ORDERED: chlordiazePOXIDE HCL 10 MG CAPSULE PO PRN
[2022-09-13] MEDS ORDERED: chlordiazePOXIDE HCL 10 MG CAPSULE PO SCH (05:00)
[2022-09-14] MEDS ORDERED: chlordiazePOXIDE HCL 10 MG CAPSULE PO SCH (05:00)
[2022-09-15] MEDS ORDERED: chlordiazePOXIDE HCL 10 MG CAPSULE PO ONE (05:00)
== END 2022-09-12 09:42 | disposition left against medical advice (07) | DRG 770 ==
LOC: YASAS 14:41 → Y3N 16:38
PROVIDERS: ADMIT Allergy & Immunology; ATTEND Surgery
PROC: HZ2ZZZZ Detoxification Services for Substance Abuse Treatment (ICD-10-PCS; principal; 2022-09-10)
DX: F10.230 Alcohol dependence with withdrawal, uncomplicated (principal); F10.220 Alcohol dependence with intoxication, uncomplicated; F14.20 Cocaine dependence, uncomplicated; F17.210 Nicotine dependence, cigarettes, uncomplicated; E72.20 Disorder of urea cycle metabolism, unspecified; E78.5 Hyperlipidemia, unspecified; I10 Essential (primary) hypertension; M17.0 Bilateral primary osteoarthritis of knee; M19.032 Primary osteoarthritis, left wrist; N40.0 Benign prostatic hyperplasia without lower urinary tract symptoms; R26.89 Other abnormalities of gait and mobility; Z88.0 Allergy status to penicillin
CPT/HCPCS: 36415; 80053; 82140; 84443; 85027; 86780; C9803-CS; U0003; U0005

== ENCOUNTER 2022-10-04 15:48 | Inpatient (IN) | payer OTHER ==
[2022-10-04 16:38] VITALS: BMI 21.5
[2022-10-04] MEDS ORDERED: BISMUTH SUBSALICYLATE 524 MG/30 ML PO PRN (18:00)
[2022-10-04] MEDS ORDERED: ONDANSETRON *ODT* 4 MG TABLET SL PRN (18:00)
[2022-10-04] MEDS ORDERED: BENZONATATE 200 MG CAPSULE PO PRN (18:00)
[2022-10-04] MEDS ORDERED: MAGNESIUM HYDROX 2400MG/30ML ORAL SUSPENSION 30 ML CUP PO PRN (18:00)
[2022-10-04] MEDS ORDERED: P-EPHED 60MG/TRIPROLIDI 2.5MG TABLET PO PRN (18:00)
[2022-10-04] MEDS ORDERED: NICOTINE POLACRILEX 2 MG GUM BUC PRN (18:00)
[2022-10-04] MEDS ORDERED: guaiFENesin 600 MG TABLET.ER (FP) PO PRN (18:00)
[2022-10-04] MEDS ORDERED: MAG HYDROX/AL HYDROX/SIMETH 30 ML UNIT-DOSE CUP PO PRN (18:00)
[2022-10-04] MEDS ORDERED: ACETAMINOPHEN 325 MG TABLET (FP) PO PRN ×2 (18:00)
[2022-10-04] MEDS ORDERED: BENZOCAINE/MENTHOL (CHLORASEPTIC ) LOZENGE MM PRN (18:00)
[2022-10-04] MEDS ORDERED: NALOXONE HCL 0.4 MG/ML VIAL IM PRN (18:00)
[2022-10-04] MEDS ORDERED: POLYETHYLENE GLYCOL (HEALTHYLAX) 3350 17 GM PACKET PO PRN (18:00)
[2022-10-04] MEDS ORDERED: IBUPROFEN 400 MG TABLET (FP) PO PRN (18:00)
[2022-10-04] MEDS ORDERED: LOPERAMIDE HCL 2 MG CAPSULE PO PRN (18:00)
[2022-10-04] MEDS ORDERED: NICOTINE 7 MG/24 HOURS TOPICAL PATCH TD PRN (18:00)
[2022-10-04] MEDS ORDERED: NALOXONE HCL (KLOXXADO) 8 MG SPRAY NS PRN (18:00)
[2022-10-04] MEDS ORDERED: DICYCLOMINE HCL 10 MG CAPSULE PO PRN (18:00)
[2022-10-04] MEDS ORDERED: diazePAM 5 MG TABLET ONE (18:23)
[2022-10-04] MEDS: diazePAM 5 MG TABLET PO PRN (18:27)
[2022-10-04] MEDS: diazePAM 5 MG TABLET PO SCH (22:27)
[2022-10-04] MEDS: MELATONIN 5 MG TABLETS PO SCH (22:28)
[2022-10-04] MEDS: THIAMINE HCL 100 MG TABLET (FP) PO SCH (22:28)
[2022-10-04] MEDS: hydrOXYzine PAMOATE 25 MG CAPSULE (FP) PO PRN (23:26)
[2022-10-05] MEDS: diazePAM 5 MG TABLET PO SCH ×4 (06:10→22:17)
[2022-10-05] MEDS: PRENATAL VITAMINS W/ FOLIC ACID TABLET (FP) PO SCH (10:10)
[2022-10-05] MEDS: IBUPROFEN 600 MG TABLET (FP) PO PRN (10:10)
[2022-10-05] MEDS: risperiDONE 1 MG TABLET PO SCH ×2 (13:37→22:17)
[2022-10-05 16:02] LABS: BASO % 1.7 % (0-2.0); EOS % 2.4 % (0-4.5); HEMATOCRIT 35.3 % (35.4-49); LYMPH % 32.6 % (8-40); MCH 32.5 pg (25.7-33.7); MEAN CELL VOLUME 95.8 fl (80-96); MONO % 11.7 % (3.8-10.2); NEUT % 51.6 % (42.8-82.8); PLATELET COUNT 276 10^3/uL (134-434); RBC 3.69 M/mm3 (4.00-5.60); RDW 14.6 % (11.9-15.9); WHITE BLOOD COUNT 3.2 K/mm3 (4.0-10.0)
[2022-10-05 16:13] LABS: POTASSIUM 4.4 mmol/L (3.5-5.1)
[2022-10-05 16:16] LABS: CALCIUM 9.6 mg/dL (8.5-10.1)
[2022-10-05 16:19] LABS: ALBUMIN 3.8 g/dl (3.4-5.0); BLOOD UREA NITROGEN 26.8 mg/dL (7-18)
[2022-10-05 16:20] LABS: CREATININE 1.1 mg/dL (0.55-1.3)
[2022-10-05 16:22] LABS: BILIRUBIN,TOTAL 0.8 mg/dL (0.2-1)
[2022-10-05] MEDS: MELATONIN 5 MG TABLETS PO SCH (22:17)
[2022-10-05] MEDS: QUEtiapine FUMARATE 100 MG TABLET (FP) PO SCH (22:17)
[2022-10-05] MEDS: THIAMINE HCL 100 MG TABLET (FP) PO SCH (22:17)
[2022-10-06] MEDS: diazePAM 5 MG TABLET PO SCH ×3 (05:48→22:18)
[2022-10-06] MEDS: risperiDONE 1 MG TABLET PO SCH ×2 (10:15→22:18)
[2022-10-06] MEDS: PRENATAL VITAMINS W/ FOLIC ACID TABLET (FP) PO SCH (10:15)
[2022-10-06] MEDS: hydrOXYzine PAMOATE 25 MG CAPSULE (FP) PO PRN (19:12)
[2022-10-06] MEDS: diazePAM 5 MG TABLET PO PRN (19:12)
[2022-10-06] MEDS: MELATONIN 5 MG TABLETS PO SCH (22:18)
[2022-10-06] MEDS: QUEtiapine FUMARATE 100 MG TABLET (FP) PO SCH (22:18)
[2022-10-06] MEDS: THIAMINE HCL 100 MG TABLET (FP) PO SCH (22:18)
[2022-10-07] MEDS: hydrOXYzine PAMOATE 25 MG CAPSULE (FP) PO PRN ×2 (05:41→17:48)
[2022-10-07] MEDS: diazePAM 5 MG TABLET PO SCH ×2 (05:41→17:48)
[2022-10-07] MEDS: IBUPROFEN 600 MG TABLET (FP) PO PRN (10:13)
[2022-10-07] MEDS: PRENATAL VITAMINS W/ FOLIC ACID TABLET (FP) PO SCH (10:13)
[2022-10-07] MEDS: risperiDONE 1 MG TABLET PO SCH ×2 (10:14→22:21)
[2022-10-07] MEDS: diazePAM 5 MG TABLET PO PRN (10:15)
[2022-10-07] MEDS ORDERED: diazePAM 5 MG TABLET PO PRN (19:38)
[2022-10-07] MEDS: MELATONIN 5 MG TABLETS PO SCH (22:20)
[2022-10-07] MEDS: QUEtiapine FUMARATE 100 MG TABLET (FP) PO SCH (22:21)
[2022-10-07] MEDS: THIAMINE HCL 100 MG TABLET (FP) PO SCH (22:21)
[2022-10-08] MEDS: hydrOXYzine PAMOATE 25 MG CAPSULE (FP) PO PRN (05:37)
[2022-10-08] MEDS ORDERED: diazePAM 5 MG TABLET PO ONE (06:00)
[2022-10-08 09:04] VITALS: PULSE 90; RESP 16
[2022-10-08] MEDS: risperiDONE 1 MG TABLET PO SCH (09:42)
[2022-10-08] MEDS: PRENATAL VITAMINS W/ FOLIC ACID TABLET (FP) PO SCH (09:42)
[2022-10-08] MEDS ORDERED: cloNIDine HCL 0.1 MG TABLET PO ONE (09:45)
[2022-10-08 11:46] VITALS: BP 132/91; TEMP 98.1
== END 2022-10-08 11:45 | disposition other institution (70) | DRG 774 ==
LOC: YASAS 15:48 → Y3N 18:14
PROVIDERS: ADMIT Allergy & Immunology; ATTEND Surgery
PROC: HZ2ZZZZ Detoxification Services for Substance Abuse Treatment (ICD-10-PCS; principal; 2022-10-04)
DX: F10.230 Alcohol dependence with withdrawal, uncomplicated (principal); F14.20 Cocaine dependence, uncomplicated; F19.24 Other psychoactive substance dependence with psychoactive substance-induced mood disorder; F25.9 Schizoaffective disorder, unspecified; D50.9 Iron deficiency anemia, unspecified; E78.5 Hyperlipidemia, unspecified; I10 Essential (primary) hypertension; Z85.46 Personal history of malignant neoplasm of prostate; Z99.89 Dependence on other enabling machines and devices; Z88.0 Allergy status to penicillin; Z72.0 Tobacco use
CPT/HCPCS: 36415; 80053; 85025; C9803-CS; U0003; U0005

== ENCOUNTER 2022-10-08 12:02 | Inpatient (IN) | payer OTHER ==
[2022-10-08] MEDS ORDERED: PNEUMOC 20-VAL CONJ-DIP CRM/PF 0.5 ML SYRINGE IM ONE (12:13)
[2022-10-08] MEDS ORDERED: POLYETHYLENE GLYCOL (HEALTHYLAX) 3350 17 GM PACKET PO PRN (12:29)
[2022-10-08] MEDS ORDERED: BENZONATATE 200 MG CAPSULE PO PRN (12:29)
[2022-10-08] MEDS ORDERED: NALOXONE HCL 0.4 MG/ML VIAL IVPUSH PRN (12:29)
[2022-10-08] MEDS ORDERED: NICOTINE POLACRILEX 4 MG GUM BUC PRN (12:29)
[2022-10-08] MEDS ORDERED: MAGNESIUM HYDROX 2400MG/30ML ORAL SUSPENSION 30 ML CUP PO PRN (12:29)
[2022-10-08] MEDS ORDERED: NALOXONE HCL (KLOXXADO) 8 MG SPRAY NS PRN (12:29)
[2022-10-08] MEDS ORDERED: COLLOIDAL OATMEAL 1 BAR EACH TP PRN (12:29)
[2022-10-08] MEDS ORDERED: AMMONIUM LACTATE 12% LOTION 225 GM BOTTLE TP PRN (12:29)
[2022-10-08] MEDS ORDERED: LOPERAMIDE HCL 2 MG CAPSULE PO PRN (12:29)
[2022-10-08] MEDS ORDERED: NICOTINE 7 MG/24 HOURS TOPICAL PATCH TD PRN (12:29)
[2022-10-08] MEDS ORDERED: NICOTINE 10 MG CARTRIDGE (INHALER) IH PRN (12:29)
[2022-10-08] MEDS ORDERED: ACETAMINOPHEN 325 MG TABLET (FP) PO PRN (12:29)
[2022-10-08] MEDS ORDERED: IBUPROFEN 400 MG TABLET (FP) PO PRN (12:29)
[2022-10-08] MEDS ORDERED: BENZOCAINE/MENTHOL (CHLORASEPTIC ) LOZENGE MM PRN (12:29)
[2022-10-08] MEDS ORDERED: guaiFENesin 600 MG TABLET.ER (FP) PO PRN (12:29)
[2022-10-08] MEDS ORDERED: MAG HYDROX/AL HYDROX/SIMETH 30 ML UNIT-DOSE CUP PO PRN (12:29)
[2022-10-08] MEDS: METOPROLOL TARTRATE 25 MG TABLET (FP) PO SCH ×2 (13:41→21:08)
[2022-10-08] MEDS: hydrOXYzine PAMOATE 25 MG CAPSULE (FP) PO PRN (19:42)
[2022-10-08] MEDS: THIAMINE HCL 100 MG TABLET (FP) PO SCH (21:08)
[2022-10-08] MEDS: MELATONIN 5 MG TABLETS PO SCH (21:08)
[2022-10-08] MEDS: IBUPROFEN 600 MG TABLET (FP) PO PRN (21:09)
[2022-10-08] MEDS: ATORVASTATIN CA 10 MG TABLET (FP) PO SCH (21:09)
[2022-10-08] MEDS: QUEtiapine FUMARATE 100 MG TABLET (FP) PO SCH (21:10)
[2022-10-08] MEDS: risperiDONE 1 MG TABLET PO SCH (21:10)
[2022-10-09] MEDS: METOPROLOL TARTRATE 25 MG TABLET (FP) PO SCH ×2 (09:24→21:16)
[2022-10-09] MEDS: PRENATAL VITAMINS W/ FOLIC ACID TABLET (FP) PO SCH (09:24)
[2022-10-09] MEDS: risperiDONE 1 MG TABLET PO SCH ×2 (09:24→21:16)
[2022-10-09] MEDS: hydrOXYzine PAMOATE 25 MG CAPSULE (FP) PO PRN ×3 (09:25→21:16)
[2022-10-09] MEDS: METHOCARBAMOL 500 MG TABLET PO PRN ×2 (09:25→21:16)
[2022-10-09] MEDS: IBUPROFEN 600 MG TABLET (FP) PO PRN (15:42)
[2022-10-09] MEDS: QUEtiapine FUMARATE 100 MG TABLET (FP) PO SCH (21:16)
[2022-10-09] MEDS: ATORVASTATIN CA 10 MG TABLET (FP) PO SCH (21:16)
[2022-10-09] MEDS: MELATONIN 5 MG TABLETS PO SCH (21:16)
[2022-10-09] MEDS: THIAMINE HCL 100 MG TABLET (FP) PO SCH (21:16)
[2022-10-10] MEDS: hydrOXYzine PAMOATE 25 MG CAPSULE (FP) PO PRN ×3 (07:10→21:09)
[2022-10-10] MEDS ORDERED: METHYL SALICYLATE/MENTHOL OINT 30 GM TUBE TP PRN (08:34)
[2022-10-10] MEDS: METOPROLOL TARTRATE 25 MG TABLET (FP) PO SCH ×2 (10:22→21:09)
[2022-10-10] MEDS: risperiDONE 1 MG TABLET PO SCH ×2 (10:22→21:09)
[2022-10-10] MEDS: PRENATAL VITAMINS W/ FOLIC ACID TABLET (FP) PO SCH (10:22)
[2022-10-10] MEDS: TAMSULOSIN HCL 0.4 MG CAP PO SCH (10:24)
[2022-10-10] MEDS: LISINOPRIL 10 MG TABLET PO SCH (10:26)
[2022-10-10] MEDS: METHOCARBAMOL 500 MG TABLET PO PRN (13:51)
[2022-10-10] MEDS: ATORVASTATIN CA 10 MG TABLET (FP) PO SCH (21:09)
[2022-10-10] MEDS: THIAMINE HCL 100 MG TABLET (FP) PO SCH (21:09)
[2022-10-10] MEDS: QUEtiapine FUMARATE 100 MG TABLET (FP) PO SCH (21:09)
[2022-10-10] MEDS: MELATONIN 5 MG TABLETS PO SCH (21:09)
[2022-10-11] MEDS: hydrOXYzine PAMOATE 25 MG CAPSULE (FP) PO PRN ×3 (06:38→18:27)
[2022-10-11] MEDS: TAMSULOSIN HCL 0.4 MG CAP PO SCH (07:38)
[2022-10-11] MEDS: PRENATAL VITAMINS W/ FOLIC ACID TABLET (FP) PO SCH (09:27)
[2022-10-11] MEDS: METOPROLOL TARTRATE 25 MG TABLET (FP) PO SCH ×2 (09:27→21:10)
[2022-10-11] MEDS: LISINOPRIL 10 MG TABLET PO SCH (09:27)
[2022-10-11] MEDS: risperiDONE 1 MG TABLET PO SCH ×2 (09:27→21:10)
[2022-10-11] MEDS: METHOCARBAMOL 500 MG TABLET PO PRN (09:27)
[2022-10-11] MEDS ORDERED: SODIUM CHLORIDE NASAL SPRAY 44 ML BOTTLE NS PRN (11:14)
[2022-10-11] MEDS: THIAMINE HCL 100 MG TABLET (FP) PO SCH (21:10)
[2022-10-11] MEDS: QUEtiapine FUMARATE 100 MG TABLET (FP) PO SCH (21:10)
[2022-10-11] MEDS: ATORVASTATIN CA 10 MG TABLET (FP) PO SCH (21:10)
[2022-10-11] MEDS: MELATONIN 5 MG TABLETS PO SCH (22:20)
[2022-10-12] MEDS: hydrOXYzine PAMOATE 25 MG CAPSULE (FP) PO PRN ×4 (06:09→21:06)
[2022-10-12] MEDS: TAMSULOSIN HCL 0.4 MG CAP PO SCH (07:41)
[2022-10-12] MEDS: PRENATAL VITAMINS W/ FOLIC ACID TABLET (FP) PO SCH (09:55)
[2022-10-12] MEDS: risperiDONE 1 MG TABLET PO SCH ×2 (09:55→21:06)
[2022-10-12] MEDS: METOPROLOL TARTRATE 25 MG TABLET (FP) PO SCH ×2 (09:55→21:06)
[2022-10-12] MEDS: LISINOPRIL 10 MG TABLET PO SCH (09:55)
[2022-10-12] MEDS: IBUPROFEN 600 MG TABLET (FP) PO PRN (13:11)
[2022-10-12] MEDS: QUEtiapine FUMARATE 100 MG TABLET (FP) PO SCH (21:06)
[2022-10-12] MEDS: THIAMINE HCL 100 MG TABLET (FP) PO SCH (21:06)
[2022-10-12] MEDS: MELATONIN 5 MG TABLETS PO SCH (21:06)
[2022-10-12] MEDS: ATORVASTATIN CA 10 MG TABLET (FP) PO SCH (21:06)
[2022-10-13] MEDS: hydrOXYzine PAMOATE 25 MG CAPSULE (FP) PO PRN ×4 (06:23→23:58)
[2022-10-13] MEDS: TAMSULOSIN HCL 0.4 MG CAP PO SCH (07:51)
[2022-10-13] MEDS: PRENATAL VITAMINS W/ FOLIC ACID TABLET (FP) PO SCH (09:39)
[2022-10-13] MEDS: risperiDONE 1 MG TABLET PO SCH ×2 (09:42→21:02)
[2022-10-13] MEDS ORDERED: TETRAHYDROZOLINE HCL EYE DROPS OD PRN (09:43)
[2022-10-13] MEDS ORDERED: OXYMETAZOLINE 0.05% NASAL SOLUTION 15 ML BOTTLE NS PRN (09:44)
[2022-10-13] MEDS: METOPROLOL TARTRATE 25 MG TABLET (FP) PO SCH ×2 (10:21→21:03)
[2022-10-13] MEDS: LISINOPRIL 10 MG TABLET PO SCH (10:21)
[2022-10-13] MEDS: METHOCARBAMOL 500 MG TABLET PO PRN (17:56)
[2022-10-13] MEDS: THIAMINE HCL 100 MG TABLET (FP) PO SCH (21:02)
[2022-10-13] MEDS: MELATONIN 5 MG TABLETS PO SCH (21:02)
[2022-10-13] MEDS: QUEtiapine FUMARATE 100 MG TABLET (FP) PO SCH (21:02)
[2022-10-13] MEDS: ATORVASTATIN CA 10 MG TABLET (FP) PO SCH (21:03)
[2022-10-13 22:44] VITALS: RESP 18
[2022-10-14] MEDS: hydrOXYzine PAMOATE 25 MG CAPSULE (FP) PO PRN ×2 (02:58→06:49)
[2022-10-14 07:03] VITALS: TEMP 97.6
[2022-10-14] MEDS: TAMSULOSIN HCL 0.4 MG CAP PO SCH (07:33)
[2022-10-14 08:53] VITALS: BP 120/84; PULSE 90
[2022-10-14] MEDS: risperiDONE 1 MG TABLET PO SCH (09:01)
[2022-10-14] MEDS: LISINOPRIL 10 MG TABLET PO SCH (09:01)
[2022-10-14] MEDS: PRENATAL VITAMINS W/ FOLIC ACID TABLET (FP) PO SCH (09:01)
[2022-10-14] MEDS: METOPROLOL TARTRATE 25 MG TABLET (FP) PO SCH (09:01)
== END 2022-10-14 09:10 | disposition home or self-care (01) | DRG 772 ==
LOC: YASAS 12:02 → Y3E 12:03
PROVIDERS: ADMIT Allergy & Immunology; ATTEND Psychiatry & Neurology Pain Medicine
PROC: HZ42ZZZ Group Counseling for Substance Abuse Treatment, Cognitive-Behavioral (ICD-10-PCS; principal; 2022-10-08)
DX: F10.20 Alcohol dependence, uncomplicated (principal); F14.20 Cocaine dependence, uncomplicated; F12.20 Cannabis dependence, uncomplicated; F17.210 Nicotine dependence, cigarettes, uncomplicated; F19.282 Other psychoactive substance dependence with psychoactive substance-induced sleep disorder; F19.280 Other psychoactive substance dependence with psychoactive substance-induced anxiety disorder; F19.24 Other psychoactive substance dependence with psychoactive substance-induced mood disorder; F41.9 Anxiety disorder, unspecified; E78.5 Hyperlipidemia, unspecified; E05.90 Thyrotoxicosis, unspecified without thyrotoxic crisis or storm; H10.11 Acute atopic conjunctivitis, right eye; J30.2 Other seasonal allergic rhinitis; M17.0 Bilateral primary osteoarthritis of knee; M15.9 Polyosteoarthritis, unspecified; R79.89 Other specified abnormal findings of blood chemistry; R26.89 Other abnormalities of gait and mobility; Z99.89 Dependence on other enabling machines and devices; Z88.0 Allergy status to penicillin
CPT/HCPCS: 36415; 86803; 90677

== ENCOUNTER 2022-12-16 17:44 | Inpatient (IN) | payer OTHER ==
[2022-12-16 19:27] VITALS: BMI 24.3
[2022-12-16] MEDS ORDERED: MAG HYDROX/AL HYDROX/SIMETH 30 ML UNIT-DOSE CUP PO PRN (21:21)
[2022-12-16] MEDS ORDERED: guaiFENesin 600 MG TABLET.ER (FP) PO PRN (21:21)
[2022-12-16] MEDS ORDERED: POLYETHYLENE GLYCOL (HEALTHYLAX) 3350 17 GM PACKET PO PRN (21:21)
[2022-12-16] MEDS ORDERED: ONDANSETRON *ODT* 4 MG TABLET SL PRN (21:21)
[2022-12-16] MEDS ORDERED: BISMUTH SUBSALICYLATE 524 MG/30 ML PO PRN (21:21)
[2022-12-16] MEDS ORDERED: NALOXONE HCL 0.4 MG/ML VIAL IM PRN (21:21)
[2022-12-16] MEDS ORDERED: IBUPROFEN 400 MG TABLET (FP) PO PRN (21:21)
[2022-12-16] MEDS ORDERED: NALOXONE HCL (KLOXXADO) 8 MG SPRAY NS PRN (21:21)
[2022-12-16] MEDS ORDERED: LOPERAMIDE HCL 2 MG CAPSULE PO PRN (21:21)
[2022-12-16] MEDS ORDERED: NICOTINE POLACRILEX 2 MG GUM BUC PRN (21:21)
[2022-12-16] MEDS ORDERED: MAGNESIUM HYDROX 2400MG/30ML ORAL SUSPENSION 30 ML CUP PO PRN (21:21)
[2022-12-16] MEDS ORDERED: BENZOCAINE/MENTHOL (CHLORASEPTIC ) LOZENGE MM PRN (21:21)
[2022-12-16] MEDS ORDERED: BENZONATATE 200 MG CAPSULE PO PRN (21:21)
[2022-12-16] MEDS ORDERED: DICYCLOMINE HCL 10 MG CAPSULE PO PRN (21:21)
[2022-12-16] MEDS ORDERED: IBUPROFEN 600 MG TABLET (FP) PO ONE (21:29)
[2022-12-16] MEDS: IBUPROFEN 600 MG TABLET (FP) PO PRN (21:29)
[2022-12-16] MEDS: THIAMINE HCL 100 MG TABLET (FP) PO SCH (23:08)
[2022-12-16] MEDS: MELATONIN 5 MG TABLETS PO SCH (23:08)
[2022-12-16] MEDS: hydrOXYzine PAMOATE 25 MG CAPSULE (FP) PO PRN (23:43)
[2022-12-17] MEDS: ACETAMINOPHEN 325 MG TABLET (FP) PO PRN ×2 (02:17→09:25)
[2022-12-17] MEDS: IBUPROFEN 600 MG TABLET (FP) PO PRN ×2 (06:50→22:31)
[2022-12-17] MEDS: PRENATAL VITAMINS W/ FOLIC ACID TABLET (FP) PO SCH (09:23)
[2022-12-17] MEDS: NICOTINE 14 MG/24 HOURS TOPICAL PATCH TD SCH (09:24)
[2022-12-17] MEDS ORDERED: diazePAM 5 MG TABLET PO PRN (10:40)
[2022-12-17] MEDS: diazePAM 5 MG TABLET PO SCH ×3 (11:20→22:27)
[2022-12-17 14:04] LABS: HEMATOCRIT 34.9 % (35.4-49); HEMOGLOBIN 11.7 GM/dL (11.7-16.9); MCH 32.9 pg (25.7-33.7); MCHC 33.7 g/dl (32.0-35.9); MEAN CELL VOLUME 97.8 fl (80-96); MEAN PLT VOLUME 8.2 fl (7.5-11.1); PLATELET COUNT 266 10^3/uL (134-434); RBC 3.57 M/mm3 (4.00-5.60); RDW 14.4 % (11.9-15.9); WHITE BLOOD COUNT 2.3 K/mm3 (4.0-10.0)
[2022-12-17 15:10] LABS: POTASSIUM 3.8 mmol/L (3.5-5.1)
[2022-12-17 15:12] LABS: ALBUMIN 3.7 g/dl (3.4-5.0)
[2022-12-17 15:13] LABS: BLOOD UREA NITROGEN 14.8 mg/dL (7-18)
[2022-12-17 15:16] LABS: CREATININE 1.1 mg/dL (0.55-1.3)
[2022-12-17 15:17] LABS: BILIRUBIN,TOTAL 0.7 mg/dL (0.2-1); TOT PROT 6.5 g/dl (6.4-8.2)
[2022-12-17] MEDS: LISINOPRIL 10 MG TABLET PO SCH (17:25)
[2022-12-17] MEDS: METHYL SALICYLATE/MENTHOL OINT 30 GM TUBE TP SCH ×2 (18:43→22:32)
[2022-12-17] MEDS: ATORVASTATIN CA 10 MG TABLET (FP) PO SCH (22:27)
[2022-12-17] MEDS: risperiDONE 1 MG TABLET PO SCH (22:27)
[2022-12-17] MEDS: THIAMINE HCL 100 MG TABLET (FP) PO SCH (22:27)
[2022-12-17] MEDS: METOPROLOL TARTRATE 25 MG TABLET (FP) PO SCH (22:27)
[2022-12-17] MEDS: MELATONIN 5 MG TABLETS PO SCH (22:27)
[2022-12-18] MEDS: diazePAM 5 MG TABLET PO SCH ×4 (05:21→22:25)
[2022-12-18] MEDS: IBUPROFEN 600 MG TABLET (FP) PO PRN ×2 (05:22→18:43)
[2022-12-18] MEDS: METOPROLOL TARTRATE 25 MG TABLET (FP) PO SCH ×2 (10:04→22:24)
[2022-12-18] MEDS: METHYL SALICYLATE/MENTHOL OINT 30 GM TUBE TP SCH ×2 (10:04→22:26)
[2022-12-18] MEDS: PRENATAL VITAMINS W/ FOLIC ACID TABLET (FP) PO SCH (10:04)
[2022-12-18] MEDS: risperiDONE 1 MG TABLET PO SCH ×2 (10:04→22:25)
[2022-12-18] MEDS: LISINOPRIL 10 MG TABLET PO SCH (10:04)
[2022-12-18] MEDS: TAMSULOSIN HCL 0.4 MG CAP PO SCH (10:04)
[2022-12-18] MEDS: NICOTINE 14 MG/24 HOURS TOPICAL PATCH TD SCH (10:05)
[2022-12-18] MEDS: hydrOXYzine PAMOATE 25 MG CAPSULE (FP) PO PRN (16:38)
[2022-12-18] MEDS: THIAMINE HCL 100 MG TABLET (FP) PO SCH (22:24)
[2022-12-18] MEDS: MELATONIN 5 MG TABLETS PO SCH (22:24)
[2022-12-18] MEDS: ATORVASTATIN CA 10 MG TABLET (FP) PO SCH (22:24)
[2022-12-19] MEDS: diazePAM 5 MG TABLET PO SCH ×3 (05:53→21:44)
[2022-12-19] MEDS: PRENATAL VITAMINS W/ FOLIC ACID TABLET (FP) PO SCH (09:42)
[2022-12-19] MEDS: TAMSULOSIN HCL 0.4 MG CAP PO SCH (09:42)
[2022-12-19] MEDS: METOPROLOL TARTRATE 25 MG TABLET (FP) PO SCH ×2 (09:42→22:21)
[2022-12-19] MEDS: LISINOPRIL 10 MG TABLET PO SCH (09:42)
[2022-12-19] MEDS: risperiDONE 1 MG TABLET PO SCH (09:42)
[2022-12-19] MEDS: METHYL SALICYLATE/MENTHOL OINT 30 GM TUBE TP SCH ×2 (09:43→21:43)
[2022-12-19] MEDS: NICOTINE 14 MG/24 HOURS TOPICAL PATCH TD SCH (09:43)
[2022-12-19] MEDS: IBUPROFEN 600 MG TABLET (FP) PO PRN (17:45)
[2022-12-19] MEDS: METHOCARBAMOL 500 MG TABLET PO PRN (17:45)
[2022-12-19] MEDS: QUEtiapine FUMARATE 100 MG TABLET (FP) PO SCH (21:43)
[2022-12-19] MEDS: MELATONIN 5 MG TABLETS PO SCH (21:43)
[2022-12-19] MEDS: THIAMINE HCL 100 MG TABLET (FP) PO SCH (21:44)
[2022-12-19] MEDS: hydrOXYzine PAMOATE 25 MG CAPSULE (FP) PO PRN (21:44)
[2022-12-19] MEDS: ATORVASTATIN CA 10 MG TABLET (FP) PO SCH (22:21)
[2022-12-20] MEDS ORDERED: cloNIDine HCL 0.1 MG TABLET PO ONE
[2022-12-20] MEDS: hydrOXYzine PAMOATE 25 MG CAPSULE (FP) PO PRN ×2 (05:21→21:16)
[2022-12-20] MEDS: METHOCARBAMOL 500 MG TABLET PO PRN ×2 (05:21→21:14)
[2022-12-20] MEDS: diazePAM 5 MG TABLET PO SCH ×2 (05:21→17:29)
[2022-12-20] MEDS: NICOTINE 14 MG/24 HOURS TOPICAL PATCH TD SCH (10:26)
[2022-12-20] MEDS: LISINOPRIL 10 MG TABLET PO SCH (10:26)
[2022-12-20] MEDS: TAMSULOSIN HCL 0.4 MG CAP PO SCH (10:26)
[2022-12-20] MEDS: METHYL SALICYLATE/MENTHOL OINT 30 GM TUBE TP SCH ×2 (10:26→22:06)
[2022-12-20] MEDS: METOPROLOL TARTRATE 25 MG TABLET (FP) PO SCH ×2 (10:26→21:14)
[2022-12-20] MEDS: PRENATAL VITAMINS W/ FOLIC ACID TABLET (FP) PO SCH (10:26)
[2022-12-20] MEDS: IBUPROFEN 600 MG TABLET (FP) PO PRN (18:58)
[2022-12-20] MEDS: THIAMINE HCL 100 MG TABLET (FP) PO SCH (21:15)
[2022-12-20] MEDS: ATORVASTATIN CA 10 MG TABLET (FP) PO SCH (21:16)
[2022-12-20] MEDS: QUEtiapine FUMARATE 100 MG TABLET (FP) PO SCH (21:16)
[2022-12-20] MEDS: MELATONIN 5 MG TABLETS PO SCH (21:16)
[2022-12-21] MEDS ORDERED: diazePAM 5 MG TABLET PO ONE (06:00)
[2022-12-21] MEDS ORDERED: cloNIDine HCL 0.1 MG TABLET PO ONE (06:24)
[2022-12-21 09:23] VITALS: BP 136/90; PULSE 77; RESP 18; TEMP 98.2
[2022-12-21] MEDS: TAMSULOSIN HCL 0.4 MG CAP PO SCH (09:45)
[2022-12-21] MEDS: METOPROLOL TARTRATE 25 MG TABLET (FP) PO SCH (09:45)
[2022-12-21] MEDS: METHYL SALICYLATE/MENTHOL OINT 30 GM TUBE TP SCH (09:45)
[2022-12-21] MEDS: LISINOPRIL 10 MG TABLET PO SCH (09:45)
[2022-12-21] MEDS: hydrOXYzine PAMOATE 25 MG CAPSULE (FP) PO PRN (09:46)
[2022-12-21] MEDS: PRENATAL VITAMINS W/ FOLIC ACID TABLET (FP) PO SCH (09:47)
[2022-12-21] MEDS: NICOTINE 14 MG/24 HOURS TOPICAL PATCH TD SCH (09:47)
[2022-12-21] MEDS ORDERED: FAMOTIDINE 20 MG TABLET PO SCH (10:00)
[2022-12-21] MEDS ORDERED: GABAPENTIN 100 MG CAPSULE PO SCH (10:00)
== END 2022-12-21 11:00 | disposition other institution (70) | DRG 774 ==
LOC: YASAS 17:44 → Y3N 22:19
PROVIDERS: ADMIT Allergy & Immunology; ATTEND Allergy & Immunology
PROC: HZ2ZZZZ Detoxification Services for Substance Abuse Treatment (ICD-10-PCS; principal; 2022-12-16)
DX: F10.230 Alcohol dependence with withdrawal, uncomplicated (principal); F10.220 Alcohol dependence with intoxication, uncomplicated; F10.24 Alcohol dependence with alcohol-induced mood disorder; F14.20 Cocaine dependence, uncomplicated; F17.210 Nicotine dependence, cigarettes, uncomplicated; F25.9 Schizoaffective disorder, unspecified; I10 Essential (primary) hypertension; E78.5 Hyperlipidemia, unspecified; G47.00 Insomnia, unspecified; N40.0 Benign prostatic hyperplasia without lower urinary tract symptoms; R00.0 Tachycardia, unspecified; Z88.0 Allergy status to penicillin; Z91.198 Patient's noncompliance with other medical treatment and regimen for other reason; Z91.51 Personal history of suicidal behavior; Z56.0 Unemployment, unspecified; Z59.00 Homelessness unspecified
CPT/HCPCS: 36415; 80053; 85027; 86780; 87635; 87811

== ENCOUNTER 2022-12-21 11:14 | Inpatient (IN) | payer OTHER ==
[2022-12-21] MEDS ORDERED: POLYETHYLENE GLYCOL (HEALTHYLAX) 3350 17 GM PACKET PO PRN (11:39)
[2022-12-21] MEDS ORDERED: ACETAMINOPHEN 325 MG TABLET (FP) PO PRN (11:39)
[2022-12-21] MEDS ORDERED: NALOXONE HCL (KLOXXADO) 8 MG SPRAY NS PRN (11:39)
[2022-12-21] MEDS ORDERED: BENZONATATE 200 MG CAPSULE PO PRN (11:39)
[2022-12-21] MEDS ORDERED: NALOXONE HCL 0.4 MG/ML VIAL IVPUSH PRN (11:39)
[2022-12-21] MEDS ORDERED: MAG HYDROX/AL HYDROX/SIMETH 30 ML UNIT-DOSE CUP PO PRN (11:39)
[2022-12-21] MEDS ORDERED: MAGNESIUM HYDROX 2400MG/30ML ORAL SUSPENSION 30 ML CUP PO PRN (11:39)
[2022-12-21] MEDS ORDERED: LOPERAMIDE HCL 2 MG CAPSULE PO PRN (11:39)
[2022-12-21] MEDS ORDERED: NICOTINE 10 MG CARTRIDGE (INHALER) IH PRN (11:39)
[2022-12-21] MEDS ORDERED: hydrOXYzine PAMOATE 25 MG CAPSULE (FP) PO PRN (11:39)
[2022-12-21] MEDS ORDERED: METHOCARBAMOL 500 MG TABLET PO PRN (11:39)
[2022-12-21] MEDS ORDERED: BENZOCAINE/MENTHOL (CHLORASEPTIC ) LOZENGE MM PRN (11:39)
[2022-12-21] MEDS ORDERED: COLLOIDAL OATMEAL 1 BAR EACH TP PRN (11:39)
[2022-12-21] MEDS ORDERED: guaiFENesin 600 MG TABLET.ER (FP) PO PRN (11:39)
[2022-12-21] MEDS ORDERED: AMMONIUM LACTATE 12% LOTION 225 GM BOTTLE TP PRN (11:39)
[2022-12-21] MEDS: cloNIDine HCL 0.1 MG TABLET PO SCH ×2 (13:43→21:20)
[2022-12-21] MEDS ORDERED: LISINOPRIL 10 MG TABLET PO ONE (13:45)
[2022-12-21] MEDS: THIAMINE HCL 100 MG TABLET (FP) PO SCH (21:18)
[2022-12-21] MEDS: ATORVASTATIN CA 10 MG TABLET (FP) PO SCH (21:20)
[2022-12-21] MEDS: hydrOXYzine PAMOATE 50 MG CAPSULE (FP) PO PRN (21:20)
[2022-12-21] MEDS: METOPROLOL TARTRATE 25 MG TABLET (FP) PO SCH (21:20)
[2022-12-21] MEDS: risperiDONE 1 MG TABLET PO SCH (21:20)
[2022-12-21] MEDS: QUEtiapine FUMARATE 100 MG TABLET (FP) PO SCH (21:20)
[2022-12-21] MEDS: IBUPROFEN 600 MG TABLET (FP) PO PRN (21:20)
[2022-12-21] MEDS ORDERED: MELATONIN 5 MG TABLETS PO SCH (22:00)
[2022-12-22] MEDS: hydrOXYzine PAMOATE 50 MG CAPSULE (FP) PO PRN ×2 (05:08→16:45)
[2022-12-22] MEDS: TAMSULOSIN HCL 0.4 MG CAP PO SCH (09:20)
[2022-12-22] MEDS: cloNIDine HCL 0.1 MG TABLET PO SCH ×2 (09:44→21:00)
[2022-12-22] MEDS: FAMOTIDINE 20 MG TABLET PO SCH (09:44)
[2022-12-22] MEDS: PRENATAL VITAMINS W/ FOLIC ACID TABLET (FP) PO SCH (09:44)
[2022-12-22] MEDS: LISINOPRIL 20 MG TABLET PO SCH (09:45)
[2022-12-22] MEDS: risperiDONE 1 MG TABLET PO SCH ×2 (09:45→21:01)
[2022-12-22] MEDS: METOPROLOL TARTRATE 25 MG TABLET (FP) PO SCH ×2 (09:45→21:01)
[2022-12-22] MEDS: GABAPENTIN 100 MG CAPSULE PO SCH (09:45)
[2022-12-22] MEDS ORDERED: LISINOPRIL 10 MG TABLET PO SCH (10:00)
[2022-12-22] MEDS: LACTULOSE 20 GM/30 ML UDC (FOR ORAL USE ONLY) PO SCH ×2 (13:43→21:01)
[2022-12-22] MEDS: THIAMINE HCL 100 MG TABLET (FP) PO SCH (21:00)
[2022-12-22] MEDS: QUEtiapine FUMARATE 100 MG TABLET (FP) PO SCH (21:01)
[2022-12-22] MEDS: SUVOREXANT 10 MG TABLET PO PRN (21:01)
[2022-12-22] MEDS: ATORVASTATIN CA 10 MG TABLET (FP) PO SCH (21:01)
[2022-12-23] MEDS: LACTULOSE 20 GM/30 ML UDC (FOR ORAL USE ONLY) PO SCH ×3 (06:50→21:21)
[2022-12-23] MEDS: hydrOXYzine PAMOATE 50 MG CAPSULE (FP) PO PRN ×3 (06:52→21:22)
[2022-12-23] MEDS: PRENATAL VITAMINS W/ FOLIC ACID TABLET (FP) PO SCH (09:32)
[2022-12-23] MEDS: GABAPENTIN 100 MG CAPSULE PO SCH (09:33)
[2022-12-23] MEDS: risperiDONE 1 MG TABLET PO SCH ×2 (09:33→21:21)
[2022-12-23] MEDS: FAMOTIDINE 20 MG TABLET PO SCH (09:33)
[2022-12-23] MEDS: METOPROLOL TARTRATE 25 MG TABLET (FP) PO SCH ×2 (09:33→21:21)
[2022-12-23] MEDS: LISINOPRIL 20 MG TABLET PO SCH (09:33)
[2022-12-23] MEDS: cloNIDine HCL 0.1 MG TABLET PO SCH ×2 (09:33→21:21)
[2022-12-23] MEDS: TAMSULOSIN HCL 0.4 MG CAP PO SCH (12:24)
[2022-12-23] MEDS: QUEtiapine FUMARATE 100 MG TABLET (FP) PO SCH (21:21)
[2022-12-23] MEDS: THIAMINE HCL 100 MG TABLET (FP) PO SCH (21:21)
[2022-12-23] MEDS: ATORVASTATIN CA 10 MG TABLET (FP) PO SCH (21:21)
[2022-12-23] MEDS: IBUPROFEN 600 MG TABLET (FP) PO PRN (21:23)
[2022-12-24] MEDS: IBUPROFEN 600 MG TABLET (FP) PO PRN (05:57)
[2022-12-24] MEDS: hydrOXYzine PAMOATE 50 MG CAPSULE (FP) PO PRN ×2 (05:58→14:12)
[2022-12-24] MEDS: LACTULOSE 20 GM/30 ML UDC (FOR ORAL USE ONLY) PO SCH ×3 (07:05→21:03)
[2022-12-24] MEDS: TAMSULOSIN HCL 0.4 MG CAP PO SCH (09:30)
[2022-12-24] MEDS: risperiDONE 1 MG TABLET PO SCH ×2 (09:55→21:04)
[2022-12-24] MEDS: cloNIDine HCL 0.1 MG TABLET PO SCH ×2 (09:55→21:04)
[2022-12-24] MEDS: FAMOTIDINE 20 MG TABLET PO SCH (09:55)
[2022-12-24] MEDS: METOPROLOL TARTRATE 25 MG TABLET (FP) PO SCH ×2 (09:55→21:04)
[2022-12-24] MEDS: PRENATAL VITAMINS W/ FOLIC ACID TABLET (FP) PO SCH (09:55)
[2022-12-24] MEDS: LISINOPRIL 20 MG TABLET PO SCH (09:55)
[2022-12-24] MEDS: GABAPENTIN 100 MG CAPSULE PO SCH (09:55)
[2022-12-24] MEDS: QUEtiapine FUMARATE 100 MG TABLET (FP) PO SCH (21:04)
[2022-12-24] MEDS: ATORVASTATIN CA 10 MG TABLET (FP) PO SCH (21:04)
[2022-12-24] MEDS: THIAMINE HCL 100 MG TABLET (FP) PO SCH (21:04)
[2022-12-24] MEDS: IBUPROFEN 400 MG TABLET (FP) PO PRN (21:05)
[2022-12-24] MEDS: SUVOREXANT 10 MG TABLET PO PRN (21:06)
[2022-12-25] MEDS: hydrOXYzine PAMOATE 50 MG CAPSULE (FP) PO PRN ×2 (03:09→10:10)
[2022-12-25] MEDS: IBUPROFEN 600 MG TABLET (FP) PO PRN (06:26)
[2022-12-25] MEDS: LACTULOSE 20 GM/30 ML UDC (FOR ORAL USE ONLY) PO SCH ×3 (06:27→21:05)
[2022-12-25] MEDS: TAMSULOSIN HCL 0.4 MG CAP PO SCH (08:55)
[2022-12-25] MEDS: PRENATAL VITAMINS W/ FOLIC ACID TABLET (FP) PO SCH (09:19)
[2022-12-25] MEDS: cloNIDine HCL 0.1 MG TABLET PO SCH ×2 (09:20→21:05)
[2022-12-25] MEDS: METOPROLOL TARTRATE 25 MG TABLET (FP) PO SCH ×2 (09:20→21:04)
[2022-12-25] MEDS: risperiDONE 1 MG TABLET PO SCH ×2 (09:20→21:05)
[2022-12-25] MEDS: FAMOTIDINE 20 MG TABLET PO SCH (09:20)
[2022-12-25] MEDS: LISINOPRIL 20 MG TABLET PO SCH (09:20)
[2022-12-25] MEDS: GABAPENTIN 100 MG CAPSULE PO SCH (09:20)
[2022-12-25] MEDS: IBUPROFEN 400 MG TABLET (FP) PO PRN (19:09)
[2022-12-25] MEDS: SUVOREXANT 10 MG TABLET PO PRN (21:04)
[2022-12-25] MEDS: QUEtiapine FUMARATE 100 MG TABLET (FP) PO SCH (21:05)
[2022-12-25] MEDS: ATORVASTATIN CA 10 MG TABLET (FP) PO SCH (21:05)
[2022-12-25] MEDS: THIAMINE HCL 100 MG TABLET (FP) PO SCH (21:05)
[2022-12-26] MEDS: IBUPROFEN 600 MG TABLET (FP) PO PRN (05:53)
[2022-12-26] MEDS: LACTULOSE 20 GM/30 ML UDC (FOR ORAL USE ONLY) PO SCH ×3 (05:53→21:02)
[2022-12-26] MEDS: hydrOXYzine PAMOATE 50 MG CAPSULE (FP) PO PRN ×2 (05:54→14:54)
[2022-12-26] MEDS: FAMOTIDINE 20 MG TABLET PO SCH (09:22)
[2022-12-26] MEDS: TAMSULOSIN HCL 0.4 MG CAP PO SCH (09:22)
[2022-12-26] MEDS: cloNIDine HCL 0.1 MG TABLET PO SCH ×2 (09:22→21:02)
[2022-12-26] MEDS: GABAPENTIN 100 MG CAPSULE PO SCH (09:23)
[2022-12-26] MEDS: LISINOPRIL 20 MG TABLET PO SCH (09:23)
[2022-12-26] MEDS: METOPROLOL TARTRATE 25 MG TABLET (FP) PO SCH ×2 (09:23→21:02)
[2022-12-26] MEDS: risperiDONE 1 MG TABLET PO SCH ×2 (09:24→21:02)
[2022-12-26] MEDS: PRENATAL VITAMINS W/ FOLIC ACID TABLET (FP) PO SCH (09:24)
[2022-12-26] MEDS: IBUPROFEN 400 MG TABLET (FP) PO PRN (20:29)
[2022-12-26] MEDS: THIAMINE HCL 100 MG TABLET (FP) PO SCH (21:02)
[2022-12-26] MEDS: QUEtiapine FUMARATE 100 MG TABLET (FP) PO SCH (21:02)
[2022-12-26] MEDS: ATORVASTATIN CA 10 MG TABLET (FP) PO SCH (21:02)
[2022-12-26] MEDS: SUVOREXANT 10 MG TABLET PO PRN (21:03)
[2022-12-27] MEDS: hydrOXYzine PAMOATE 50 MG CAPSULE (FP) PO PRN ×3 (02:23→21:23)
[2022-12-27] MEDS: LACTULOSE 20 GM/30 ML UDC (FOR ORAL USE ONLY) PO SCH ×3 (06:28→21:23)
[2022-12-27] MEDS: PRENATAL VITAMINS W/ FOLIC ACID TABLET (FP) PO SCH (09:06)
[2022-12-27] MEDS: risperiDONE 1 MG TABLET PO SCH ×2 (09:06→21:23)
[2022-12-27] MEDS: FAMOTIDINE 20 MG TABLET PO SCH (09:06)
[2022-12-27] MEDS: GABAPENTIN 100 MG CAPSULE PO SCH (09:07)
[2022-12-27] MEDS: TAMSULOSIN HCL 0.4 MG CAP PO SCH (09:07)
[2022-12-27] MEDS: METOPROLOL TARTRATE 25 MG TABLET (FP) PO SCH ×2 (09:07→21:23)
[2022-12-27] MEDS: LISINOPRIL 20 MG TABLET PO SCH (09:07)
[2022-12-27] MEDS: cloNIDine HCL 0.1 MG TABLET PO SCH ×2 (09:07→21:23)
[2022-12-27] MEDS: ATORVASTATIN CA 10 MG TABLET (FP) PO SCH (21:23)
[2022-12-27] MEDS: THIAMINE HCL 100 MG TABLET (FP) PO SCH (21:23)
[2022-12-27] MEDS: SUVOREXANT 10 MG TABLET PO PRN (21:23)
[2022-12-27] MEDS: QUEtiapine FUMARATE 100 MG TABLET (FP) PO SCH (21:23)
[2022-12-28] MEDS: LACTULOSE 20 GM/30 ML UDC (FOR ORAL USE ONLY) PO SCH ×3 (06:35→21:00)
[2022-12-28] MEDS: METOPROLOL TARTRATE 25 MG TABLET (FP) PO SCH ×2 (09:13→21:00)
[2022-12-28] MEDS: GABAPENTIN 100 MG CAPSULE PO SCH (09:13)
[2022-12-28] MEDS: PRENATAL VITAMINS W/ FOLIC ACID TABLET (FP) PO SCH (09:13)
[2022-12-28] MEDS: TAMSULOSIN HCL 0.4 MG CAP PO SCH (09:13)
[2022-12-28] MEDS: LISINOPRIL 20 MG TABLET PO SCH (09:13)
[2022-12-28] MEDS: FAMOTIDINE 20 MG TABLET PO SCH (09:13)
[2022-12-28] MEDS: cloNIDine HCL 0.1 MG TABLET PO SCH ×2 (09:13→20:59)
[2022-12-28] MEDS: risperiDONE 1 MG TABLET PO SCH ×2 (09:13→21:00)
[2022-12-28] MEDS: IBUPROFEN 600 MG TABLET (FP) PO PRN ×2 (09:15→15:40)
[2022-12-28] MEDS: hydrOXYzine PAMOATE 50 MG CAPSULE (FP) PO PRN ×2 (09:15→21:00)
[2022-12-28] MEDS: SUVOREXANT 10 MG TABLET PO PRN (20:59)
[2022-12-28] MEDS: THIAMINE HCL 100 MG TABLET (FP) PO SCH (20:59)
[2022-12-28] MEDS: QUEtiapine FUMARATE 100 MG TABLET (FP) PO SCH (21:00)
[2022-12-28] MEDS: ATORVASTATIN CA 10 MG TABLET (FP) PO SCH (21:00)
[2022-12-28] MEDS: IBUPROFEN 400 MG TABLET (FP) PO PRN (21:01)
[2022-12-29] MEDS: LACTULOSE 20 GM/30 ML UDC (FOR ORAL USE ONLY) PO SCH (06:12)
[2022-12-29] MEDS: hydrOXYzine PAMOATE 50 MG CAPSULE (FP) PO PRN (06:18)
[2022-12-29 07:05] VITALS: RESP 18; TEMP 97.7
[2022-12-29] MEDS: TAMSULOSIN HCL 0.4 MG CAP PO SCH (08:56)
[2022-12-29] MEDS: IBUPROFEN 600 MG TABLET (FP) PO PRN (08:58)
[2022-12-29] MEDS: cloNIDine HCL 0.1 MG TABLET PO SCH (09:00)
[2022-12-29] MEDS: METOPROLOL TARTRATE 25 MG TABLET (FP) PO SCH (09:00)
[2022-12-29] MEDS: FAMOTIDINE 20 MG TABLET PO SCH (09:00)
[2022-12-29] MEDS: risperiDONE 1 MG TABLET PO SCH (09:01)
[2022-12-29] MEDS: GABAPENTIN 100 MG CAPSULE PO SCH (09:01)
[2022-12-29] MEDS: PRENATAL VITAMINS W/ FOLIC ACID TABLET (FP) PO SCH (09:01)
[2022-12-29] MEDS: LISINOPRIL 20 MG TABLET PO SCH (09:01)
[2022-12-29 09:04] VITALS: BP 154/104; PULSE 87
== END 2022-12-29 09:15 | disposition home or self-care (01) | DRG 774 ==
LOC: YASAS 11:14 → Y3W 11:15
PROVIDERS: ADMIT Allergy & Immunology; ATTEND Psychiatry & Neurology Pain Medicine
PROC: HZ2ZZZZ Detoxification Services for Substance Abuse Treatment (ICD-10-PCS; principal; 2022-12-21)
DX: F10.20 Alcohol dependence, uncomplicated (principal); F14.20 Cocaine dependence, uncomplicated; F17.210 Nicotine dependence, cigarettes, uncomplicated; F19.280 Other psychoactive substance dependence with psychoactive substance-induced anxiety disorder; F19.282 Other psychoactive substance dependence with psychoactive substance-induced sleep disorder; F19.24 Other psychoactive substance dependence with psychoactive substance-induced mood disorder; F20.9 Schizophrenia, unspecified; F32.A Depression, unspecified; E72.20 Disorder of urea cycle metabolism, unspecified; E78.5 Hyperlipidemia, unspecified; I10 Essential (primary) hypertension; M17.0 Bilateral primary osteoarthritis of knee; M19.031 Primary osteoarthritis, right wrist; M19.032 Primary osteoarthritis, left wrist; E05.90 Thyrotoxicosis, unspecified without thyrotoxic crisis or storm; L85.3 Xerosis cutis; D50.9 Iron deficiency anemia, unspecified; N40.0 Benign prostatic hyperplasia without lower urinary tract symptoms; G47.00 Insomnia, unspecified; R79.89 Other specified abnormal findings of blood chemistry; R29.6 Repeated falls; Z99.89 Dependence on other enabling machines and devices; Z88.0 Allergy status to penicillin
CPT/HCPCS: 36415; 82140; 86803

== ENCOUNTER 2023-01-10 13:37 | Inpatient (IN) | payer OTHER ==
[2023-01-10 14:31] VITALS: BMI 24.7
[2023-01-10] MEDS ORDERED: MAGNESIUM HYDROX 2400MG/30ML ORAL SUSPENSION 30 ML CUP PO PRN (16:19)
[2023-01-10] MEDS ORDERED: IBUPROFEN 400 MG TABLET (FP) PO PRN (16:19)
[2023-01-10] MEDS ORDERED: NICOTINE POLACRILEX 2 MG GUM BUC PRN (16:19)
[2023-01-10] MEDS ORDERED: POLYETHYLENE GLYCOL (HEALTHYLAX) 3350 17 GM PACKET PO PRN (16:19)
[2023-01-10] MEDS ORDERED: ONDANSETRON *ODT* 4 MG TABLET SL PRN (16:19)
[2023-01-10] MEDS ORDERED: BENZOCAINE/MENTHOL (CHLORASEPTIC ) LOZENGE MM PRN (16:19)
[2023-01-10] MEDS ORDERED: BISMUTH SUBSALICYLATE 524 MG/30 ML PO PRN (16:19)
[2023-01-10] MEDS ORDERED: guaiFENesin 600 MG TABLET.ER (FP) PO PRN (16:19)
[2023-01-10] MEDS ORDERED: DICYCLOMINE HCL 10 MG CAPSULE PO PRN (16:19)
[2023-01-10] MEDS ORDERED: LOPERAMIDE HCL 2 MG CAPSULE PO PRN (16:19)
[2023-01-10] MEDS ORDERED: MAG HYDROX/AL HYDROX/SIMETH 30 ML UNIT-DOSE CUP PO PRN (16:19)
[2023-01-10] MEDS ORDERED: BENZONATATE 200 MG CAPSULE PO PRN (16:19)
[2023-01-10] MEDS ORDERED: ACETAMINOPHEN 325 MG TABLET (FP) PO PRN (16:19)
[2023-01-10] MEDS ORDERED: P-EPHED 60MG/TRIPROLIDI 2.5MG TABLET PO PRN (16:19)
[2023-01-10] MEDS: hydrOXYzine PAMOATE 25 MG CAPSULE (FP) PO PRN (18:38)
[2023-01-10] MEDS: METHOCARBAMOL 500 MG TABLET PO PRN (18:38)
[2023-01-10] MEDS: MELATONIN 5 MG TABLETS PO SCH (22:12)
[2023-01-10] MEDS: THIAMINE HCL 100 MG TABLET (FP) PO SCH (22:12)
[2023-01-10] MEDS ORDERED: LISINOPRIL 5 MG TABLET PO ONE (23:20)
[2023-01-11] MEDS: hydrOXYzine PAMOATE 25 MG CAPSULE (FP) PO PRN (01:37)
[2023-01-11] MEDS: METHOCARBAMOL 500 MG TABLET PO PRN ×2 (01:37→07:47)
[2023-01-11] MEDS: IBUPROFEN 600 MG TABLET (FP) PO PRN (07:47)
[2023-01-11] MEDS ORDERED: chlordiazePOXIDE HCL 25 MG CAPSULE PO PRN (09:47)
[2023-01-11] MEDS: LISINOPRIL 20 MG TABLET PO SCH (10:36)
[2023-01-11] MEDS: chlordiazePOXIDE HCL 25 MG CAPSULE PO SCH ×3 (10:36→22:13)
[2023-01-11] MEDS: FAMOTIDINE 20 MG TABLET PO SCH (10:36)
[2023-01-11] MEDS: METOPROLOL TARTRATE 25 MG TABLET (FP) PO SCH ×2 (10:36→22:12)
[2023-01-11] MEDS: risperiDONE 1 MG TABLET PO SCH ×2 (10:36→22:12)
[2023-01-11] MEDS: PRENATAL VITAMINS W/ FOLIC ACID TABLET (FP) PO SCH (10:39)
[2023-01-11] MEDS: METHYL SALICYLATE/MENTHOL OINT 30 GM TUBE TP SCH ×2 (10:51→23:05)
[2023-01-11 13:31] LABS: HIV INTERPRETATION NEGATIVE (NEGATIVE)
[2023-01-11] MEDS: ATORVASTATIN CA 10 MG TABLET (FP) PO SCH (22:12)
[2023-01-11] MEDS: TAMSULOSIN HCL 0.4 MG CAP PO SCH (22:12)
[2023-01-11] MEDS: THIAMINE HCL 100 MG TABLET (FP) PO SCH (22:12)
[2023-01-11] MEDS: MELATONIN 5 MG TABLETS PO SCH (22:16)
[2023-01-12] MEDS: chlordiazePOXIDE HCL 25 MG CAPSULE PO SCH ×4 (05:51→22:12)
[2023-01-12] MEDS: METOPROLOL TARTRATE 25 MG TABLET (FP) PO SCH ×2 (10:10→22:11)
[2023-01-12] MEDS: hydrOXYzine PAMOATE 25 MG CAPSULE (FP) PO PRN ×2 (10:10→18:31)
[2023-01-12] MEDS: PRENATAL VITAMINS W/ FOLIC ACID TABLET (FP) PO SCH (10:10)
[2023-01-12] MEDS: METHOCARBAMOL 500 MG TABLET PO PRN (10:10)
[2023-01-12] MEDS: FAMOTIDINE 20 MG TABLET PO SCH (10:10)
[2023-01-12] MEDS: LISINOPRIL 20 MG TABLET PO SCH (10:10)
[2023-01-12] MEDS: risperiDONE 1 MG TABLET PO SCH ×2 (10:10→22:11)
[2023-01-12] MEDS: METHYL SALICYLATE/MENTHOL OINT 30 GM TUBE TP SCH ×2 (10:12→22:58)
[2023-01-12] MEDS ORDERED: LISINOPRIL 10 MG TABLET PO ONE (18:41)
[2023-01-12] MEDS: THIAMINE HCL 100 MG TABLET (FP) PO SCH (22:11)
[2023-01-12] MEDS: TAMSULOSIN HCL 0.4 MG CAP PO SCH (22:11)
[2023-01-12] MEDS: ATORVASTATIN CA 10 MG TABLET (FP) PO SCH (22:11)
[2023-01-12] MEDS: SUVOREXANT 10 MG TABLET PO PRN (22:15)
[2023-01-12] MEDS: IBUPROFEN 600 MG TABLET (FP) PO PRN (22:15)
[2023-01-13] MEDS: chlordiazePOXIDE HCL 25 MG CAPSULE PO SCH ×4 (05:28→22:00)
[2023-01-13] MEDS: hydrOXYzine PAMOATE 25 MG CAPSULE (FP) PO PRN ×3 (05:30→20:07)
[2023-01-13] MEDS: METOPROLOL TARTRATE 25 MG TABLET (FP) PO SCH ×2 (10:34→22:00)
[2023-01-13] MEDS: FAMOTIDINE 20 MG TABLET PO SCH (10:34)
[2023-01-13] MEDS: risperiDONE 1 MG TABLET PO SCH ×2 (10:34→22:00)
[2023-01-13] MEDS: LISINOPRIL 20 MG TABLET PO SCH (10:34)
[2023-01-13] MEDS: PRENATAL VITAMINS W/ FOLIC ACID TABLET (FP) PO SCH (10:35)
[2023-01-13] MEDS: METHYL SALICYLATE/MENTHOL OINT 30 GM TUBE TP SCH ×2 (10:36→22:04)
[2023-01-13] MEDS: ATORVASTATIN CA 10 MG TABLET (FP) PO SCH (21:59)
[2023-01-13] MEDS: THIAMINE HCL 100 MG TABLET (FP) PO SCH (21:59)
[2023-01-13] MEDS: TAMSULOSIN HCL 0.4 MG CAP PO SCH (21:59)
[2023-01-13] MEDS: SUVOREXANT 10 MG TABLET PO PRN (22:01)
[2023-01-14] MEDS ORDERED: chlordiazePOXIDE HCL 10 MG CAPSULE PO PRN
[2023-01-14] MEDS: chlordiazePOXIDE HCL 10 MG CAPSULE PO SCH ×2 (05:35→11:10)
[2023-01-14] MEDS: hydrOXYzine PAMOATE 25 MG CAPSULE (FP) PO PRN (07:11)
[2023-01-14] MEDS: METHOCARBAMOL 500 MG TABLET PO PRN (07:12)
[2023-01-14] MEDS: IBUPROFEN 600 MG TABLET (FP) PO PRN (09:33)
[2023-01-14] MEDS: risperiDONE 1 MG TABLET PO SCH (10:03)
[2023-01-14] MEDS: LISINOPRIL 20 MG TABLET PO SCH (10:03)
[2023-01-14] MEDS: FAMOTIDINE 20 MG TABLET PO SCH (10:03)
[2023-01-14] MEDS: METHYL SALICYLATE/MENTHOL OINT 30 GM TUBE TP SCH (10:03)
[2023-01-14] MEDS: METOPROLOL TARTRATE 25 MG TABLET (FP) PO SCH (10:04)
[2023-01-14] MEDS: PRENATAL VITAMINS W/ FOLIC ACID TABLET (FP) PO SCH (10:04)
[2023-01-14 10:34] LABS: POTASSIUM 3.8 mmol/L (3.5-5.1)
[2023-01-14 10:36] LABS: CALCIUM 8.8 mg/dL (8.5-10.1)
[2023-01-14 10:37] LABS: ALBUMIN 3.3 g/dl (3.4-5.0); BLOOD UREA NITROGEN 13.5 mg/dL (7-18)
[2023-01-14 10:40] LABS: CREATININE 0.9 mg/dL (0.55-1.3)
[2023-01-14 10:41] LABS: BILIRUBIN,TOTAL 0.5 mg/dL (0.2-1)
[2023-01-14 10:42] LABS: TOT PROT 6.2 g/dl (6.4-8.2)
[2023-01-14 10:49] LABS: HEMATOCRIT 30.9 % (35.4-49); HEMOGLOBIN 10.8 GM/dL (11.7-16.9); MEAN CELL VOLUME 94.2 fl (80-96); MEAN PLT VOLUME 8.3 fl (7.5-11.1); PLATELET COUNT 223 10^3/uL (134-434); RBC 3.28 M/mm3 (4.00-5.60); WHITE BLOOD COUNT 2.9 K/mm3 (4.0-10.0)
[2023-01-14 10:54] VITALS: BP 147/97; PULSE 93; RESP 18; TEMP 98.1
[2023-01-15] MEDS ORDERED: chlordiazePOXIDE HCL 10 MG CAPSULE PO SCH (05:00)
[2023-01-16] MEDS ORDERED: chlordiazePOXIDE HCL 10 MG CAPSULE PO ONE (05:00)
== END 2023-01-14 10:35 | disposition home or self-care (01) | DRG 774 ==
LOC: YASAS 13:37 → Y6N 17:50
PROVIDERS: ADMIT Allergy & Immunology; ATTEND Surgery
PROC: HZ2ZZZZ Detoxification Services for Substance Abuse Treatment (ICD-10-PCS; principal; 2023-01-10)
DX: F10.230 Alcohol dependence with withdrawal, uncomplicated (principal); F14.20 Cocaine dependence, uncomplicated; F17.210 Nicotine dependence, cigarettes, uncomplicated; F25.9 Schizoaffective disorder, unspecified; G47.00 Insomnia, unspecified; F19.282 Other psychoactive substance dependence with psychoactive substance-induced sleep disorder; F19.24 Other psychoactive substance dependence with psychoactive substance-induced mood disorder; E05.90 Thyrotoxicosis, unspecified without thyrotoxic crisis or storm; I10 Essential (primary) hypertension; K21.9 Gastro-esophageal reflux disease without esophagitis; N40.0 Benign prostatic hyperplasia without lower urinary tract symptoms; Z85.46 Personal history of malignant neoplasm of prostate; Z88.0 Allergy status to penicillin
CPT/HCPCS: 36415; 80053; 85027; 86780; 87389; 87635

== ENCOUNTER 2023-01-27 17:11 | Inpatient (IN) | payer OTHER ==
[2023-01-27 19:50] VITALS: BMI 21.5
[2023-01-27] MEDS ORDERED: guaiFENesin 600 MG TABLET.ER (FP) PO PRN (23:08)
[2023-01-27] MEDS ORDERED: BENZOCAINE/MENTHOL (CHLORASEPTIC ) LOZENGE MM PRN (23:08)
[2023-01-27] MEDS ORDERED: NALOXONE HCL (KLOXXADO) 8 MG SPRAY NS PRN (23:08)
[2023-01-27] MEDS ORDERED: NICOTINE POLACRILEX 2 MG GUM BUC PRN (23:08)
[2023-01-27] MEDS ORDERED: ACETAMINOPHEN 325 MG TABLET (FP) PO PRN (23:08)
[2023-01-27] MEDS ORDERED: DICYCLOMINE HCL 10 MG CAPSULE PO PRN (23:08)
[2023-01-27] MEDS ORDERED: POLYETHYLENE GLYCOL (HEALTHYLAX) 3350 17 GM PACKET PO PRN (23:08)
[2023-01-27] MEDS ORDERED: IBUPROFEN 400 MG TABLET (FP) PO PRN (23:08)
[2023-01-27] MEDS ORDERED: MAGNESIUM HYDROX 2400MG/30ML ORAL SUSPENSION 30 ML CUP PO PRN (23:08)
[2023-01-27] MEDS ORDERED: MAG HYDROX/AL HYDROX/SIMETH 30 ML UNIT-DOSE CUP PO PRN (23:08)
[2023-01-27] MEDS ORDERED: BISMUTH SUBSALICYLATE 524 MG/30 ML PO PRN (23:08)
[2023-01-27] MEDS ORDERED: LOPERAMIDE HCL 2 MG CAPSULE PO PRN (23:08)
[2023-01-27] MEDS ORDERED: NALOXONE HCL 0.4 MG/ML VIAL IM PRN (23:08)
[2023-01-27] MEDS ORDERED: ONDANSETRON *ODT* 4 MG TABLET SL PRN (23:08)
[2023-01-27] MEDS ORDERED: BENZONATATE 200 MG CAPSULE PO PRN (23:08)
[2023-01-28] MEDS: IBUPROFEN 600 MG TABLET (FP) PO PRN ×2 (02:32→10:12)
[2023-01-28 09:20] LABS: HEMATOCRIT 33.6 % (35.4-49); HEMOGLOBIN 11.1 GM/dL (11.7-16.9); MEAN CELL VOLUME 96.8 fl (80-96); MEAN PLT VOLUME 7.9 fl (7.5-11.1); PLATELET COUNT 344 10^3/uL (134-434); RBC 3.47 M/mm3 (4.00-5.60); RDW 13.7 % (11.9-15.9); WHITE BLOOD COUNT 2.8 K/mm3 (4.0-10.0)
[2023-01-28 09:21] LABS: POTASSIUM 4.1 mmol/L (3.5-5.1)
[2023-01-28 09:25] LABS: CALCIUM 8.3 mg/dL (8.5-10.1)
[2023-01-28 09:26] LABS: ALBUMIN 3.7 g/dl (3.4-5.0); BLOOD UREA NITROGEN 13.1 mg/dL (7-18)
[2023-01-28 09:29] LABS: CREATININE 1.1 mg/dL (0.55-1.3)
[2023-01-28 09:31] LABS: TOT PROT 6.4 g/dl (6.4-8.2)
[2023-01-28] MEDS: chlordiazePOXIDE HCL 25 MG CAPSULE PO SCH ×3 (10:10→22:28)
[2023-01-28] MEDS: PRENATAL VITAMINS W/ FOLIC ACID TABLET (FP) PO SCH (10:10)
[2023-01-28] MEDS: risperiDONE 1 MG TABLET PO SCH ×2 (10:10→22:28)
[2023-01-28] MEDS: NICOTINE 14 MG/24 HOURS TOPICAL PATCH TD SCH (10:14)
[2023-01-28] MEDS: chlordiazePOXIDE HCL 25 MG CAPSULE PO PRN (12:35)
[2023-01-28] MEDS: METHOCARBAMOL 500 MG TABLET PO PRN (16:46)
[2023-01-28] MEDS: hydrOXYzine PAMOATE 25 MG CAPSULE (FP) PO PRN (19:50)
[2023-01-28] MEDS: ATORVASTATIN CA 10 MG TABLET (FP) PO SCH (22:28)
[2023-01-28] MEDS: THIAMINE HCL 100 MG TABLET (FP) PO SCH (22:28)
[2023-01-28] MEDS: MELATONIN 5 MG TABLETS PO SCH (22:28)
[2023-01-29] MEDS: chlordiazePOXIDE HCL 25 MG CAPSULE PO SCH ×4 (05:24→22:23)
[2023-01-29] MEDS: TAMSULOSIN HCL 0.4 MG CAP PO SCH (08:33)
[2023-01-29] MEDS: risperiDONE 1 MG TABLET PO SCH ×2 (09:26→22:23)
[2023-01-29] MEDS: FAMOTIDINE 20 MG TABLET PO SCH (09:26)
[2023-01-29] MEDS: METHOCARBAMOL 500 MG TABLET PO PRN ×3 (09:27→22:23)
[2023-01-29] MEDS: PRENATAL VITAMINS W/ FOLIC ACID TABLET (FP) PO SCH (09:28)
[2023-01-29] MEDS: NICOTINE 14 MG/24 HOURS TOPICAL PATCH TD SCH (09:29)
[2023-01-29] MEDS: IBUPROFEN 600 MG TABLET (FP) PO PRN ×2 (09:29→17:37)
[2023-01-29] MEDS: LISINOPRIL 20 MG TABLET PO SCH (17:36)
[2023-01-29] MEDS: hydrOXYzine PAMOATE 25 MG CAPSULE (FP) PO PRN (17:37)
[2023-01-29] MEDS: chlordiazePOXIDE HCL 25 MG CAPSULE PO PRN (20:20)
[2023-01-29] MEDS: THIAMINE HCL 100 MG TABLET (FP) PO SCH (22:23)
[2023-01-29] MEDS: MELATONIN 5 MG TABLETS PO SCH (22:23)
[2023-01-29] MEDS: METOPROLOL TARTRATE 25 MG TABLET (FP) PO SCH (22:23)
[2023-01-29] MEDS: ATORVASTATIN CA 10 MG TABLET (FP) PO SCH (22:23)
[2023-01-30] MEDS: chlordiazePOXIDE HCL 10 MG CAPSULE PO SCH ×2 (05:26→10:05)
[2023-01-30] MEDS: IBUPROFEN 600 MG TABLET (FP) PO PRN (07:02)
[2023-01-30] MEDS: METHOCARBAMOL 500 MG TABLET PO PRN (07:02)
[2023-01-30] MEDS: TAMSULOSIN HCL 0.4 MG CAP PO SCH (09:30)
[2023-01-30] MEDS: FAMOTIDINE 20 MG TABLET PO SCH (10:06)
[2023-01-30] MEDS: METOPROLOL TARTRATE 25 MG TABLET (FP) PO SCH (10:06)
[2023-01-30] MEDS: PRENATAL VITAMINS W/ FOLIC ACID TABLET (FP) PO SCH (10:06)
[2023-01-30] MEDS: LISINOPRIL 20 MG TABLET PO SCH (10:06)
[2023-01-30] MEDS: risperiDONE 1 MG TABLET PO SCH (10:06)
[2023-01-30] MEDS: NICOTINE 14 MG/24 HOURS TOPICAL PATCH TD SCH (10:06)
[2023-01-30 13:05] VITALS: RESP 15; TEMP 97.1
[2023-01-30 13:07] VITALS: BP 163/107; PULSE 77
[2023-01-31] MEDS ORDERED: chlordiazePOXIDE HCL 10 MG CAPSULE PO PRN
[2023-01-31] MEDS ORDERED: chlordiazePOXIDE HCL 10 MG CAPSULE PO SCH (05:00)
[2023-02-01] MEDS ORDERED: chlordiazePOXIDE HCL 10 MG CAPSULE PO ONE (05:00)
== END 2023-01-30 12:40 | disposition left against medical advice (07) | DRG 770 ==
LOC: YASAS 17:11 → UNDOADMIN 01-28 01:54 → Y3N 01-28 01:54
PROVIDERS: ADMIT Allergy & Immunology; ATTEND Allergy & Immunology
PROC: HZ2ZZZZ Detoxification Services for Substance Abuse Treatment (ICD-10-PCS; principal; 2023-01-28)
DX: F10.230 Alcohol dependence with withdrawal, uncomplicated (principal); F14.20 Cocaine dependence, uncomplicated; F17.210 Nicotine dependence, cigarettes, uncomplicated; F19.282 Other psychoactive substance dependence with psychoactive substance-induced sleep disorder; F19.24 Other psychoactive substance dependence with psychoactive substance-induced mood disorder; F25.9 Schizoaffective disorder, unspecified; E78.5 Hyperlipidemia, unspecified; E05.90 Thyrotoxicosis, unspecified without thyrotoxic crisis or storm; I10 Essential (primary) hypertension; K21.9 Gastro-esophageal reflux disease without esophagitis; M17.0 Bilateral primary osteoarthritis of knee; N40.0 Benign prostatic hyperplasia without lower urinary tract symptoms; R26.89 Other abnormalities of gait and mobility; Z91.81 History of falling; Z99.89 Dependence on other enabling machines and devices
CPT/HCPCS: 36415; 80053; 85027; 86780; 87635

== ENCOUNTER 2023-03-16 22:21 | Inpatient (IN) | payer OTHER ==
[2023-03-17 01:46] VITALS: BMI 20.9
[2023-03-17] MEDS ORDERED: MAGNESIUM HYDROX 2400MG/30ML ORAL SUSPENSION 30 ML CUP PO PRN (03:19)
[2023-03-17] MEDS ORDERED: guaiFENesin 600 MG TABLET.ER (FP) PO PRN (03:19)
[2023-03-17] MEDS ORDERED: NALOXONE HCL 0.4 MG/ML VIAL IM PRN (03:19)
[2023-03-17] MEDS ORDERED: IBUPROFEN 400 MG TABLET (FP) PO PRN (03:19)
[2023-03-17] MEDS ORDERED: POLYETHYLENE GLYCOL (HEALTHYLAX) 3350 17 GM PACKET PO PRN (03:19)
[2023-03-17] MEDS ORDERED: LOPERAMIDE HCL 2 MG CAPSULE PO PRN (03:19)
[2023-03-17] MEDS ORDERED: ONDANSETRON *ODT* 4 MG TABLET SL PRN (03:19)
[2023-03-17] MEDS ORDERED: BENZONATATE 200 MG CAPSULE PO PRN (03:19)
[2023-03-17] MEDS ORDERED: DICYCLOMINE HCL 10 MG CAPSULE PO PRN (03:19)
[2023-03-17] MEDS ORDERED: NALOXONE HCL (KLOXXADO) 8 MG SPRAY NS PRN (03:19)
[2023-03-17] MEDS ORDERED: BENZOCAINE/MENTHOL (CHLORASEPTIC ) LOZENGE MM PRN (03:19)
[2023-03-17] MEDS ORDERED: MAG HYDROX/AL HYDROX/SIMETH 30 ML UNIT-DOSE CUP PO PRN (03:19)
[2023-03-17] MEDS ORDERED: BISMUTH SUBSALICYLATE 524 MG/30 ML PO PRN (03:19)
[2023-03-17] MEDS: PRENATAL VITAMINS W/ FOLIC ACID TABLET (FP) PO SCH (09:56)
[2023-03-17] MEDS: hydrOXYzine PAMOATE 25 MG CAPSULE (FP) PO PRN (09:58)
[2023-03-17] MEDS: chlordiazePOXIDE HCL 25 MG CAPSULE PO SCH ×3 (11:05→22:08)
[2023-03-17] MEDS ORDERED: LORATADINE 10 MG TABLET PO PRN (11:30)
[2023-03-17] MEDS: LACTULOSE 20 GM/30 ML UDC (FOR ORAL USE ONLY) PO SCH ×2 (14:36→22:08)
[2023-03-17] MEDS: THIAMINE HCL 100 MG TABLET (FP) PO SCH (22:08)
[2023-03-17] MEDS: MELATONIN 5 MG TABLETS PO SCH (22:08)
[2023-03-17] MEDS: TAMSULOSIN HCL 0.4 MG CAP PO SCH (22:09)
[2023-03-17] MEDS: METOPROLOL TARTRATE 25 MG TABLET (FP) PO SCH (22:09)
[2023-03-17] MEDS: ATORVASTATIN CA 10 MG TABLET (FP) PO SCH (22:09)
[2023-03-18] MEDS: chlordiazePOXIDE HCL 25 MG CAPSULE PO SCH ×4 (04:56→22:07)
[2023-03-18] MEDS: LACTULOSE 20 GM/30 ML UDC (FOR ORAL USE ONLY) PO SCH ×3 (05:33→22:08)
[2023-03-18] MEDS: IBUPROFEN 600 MG TABLET (FP) PO PRN ×2 (07:52→22:06)
[2023-03-18] MEDS: METOPROLOL TARTRATE 25 MG TABLET (FP) PO SCH ×2 (09:18→22:07)
[2023-03-18] MEDS: PRENATAL VITAMINS W/ FOLIC ACID TABLET (FP) PO SCH (09:18)
[2023-03-18] MEDS: GABAPENTIN 100 MG CAPSULE PO SCH (09:18)
[2023-03-18] MEDS: LISINOPRIL 20 MG TABLET PO SCH (09:18)
[2023-03-18] MEDS: FAMOTIDINE 20 MG TABLET PO SCH (09:18)
[2023-03-18] MEDS: hydrOXYzine PAMOATE 25 MG CAPSULE (FP) PO PRN ×2 (09:18→20:35)
[2023-03-18] MEDS: ACETAMINOPHEN 325 MG TABLET (FP) PO PRN (09:32)
[2023-03-18 10:12] LABS: CALCIUM 8.6 mg/dL (8.5-10.1)
[2023-03-18 10:13] LABS: ALBUMIN 3.7 g/dl (3.4-5.0); BLOOD UREA NITROGEN 10.8 mg/dL (7-18)
[2023-03-18 10:16] LABS: CREATININE 0.9 mg/dL (0.55-1.3)
[2023-03-18 10:17] LABS: BILIRUBIN,TOTAL 0.5 mg/dL (0.2-1); TOT PROT 6.6 g/dl (6.4-8.2)
[2023-03-18 10:32] LABS: HEMATOCRIT 33.1 % (35.4-49); HEMOGLOBIN 11.2 GM/dL (11.7-16.9); MCH 32.2 pg (25.7-33.7); MCHC 33.9 g/dl (32.0-35.9); MEAN CELL VOLUME 95.2 fl (80-96); MEAN PLT VOLUME 8.7 fl (7.5-11.1); PLATELET COUNT 255 10^3/uL (134-434); RBC 3.48 M/mm3 (4.00-5.60); RDW 14.9 % (11.9-15.9); WHITE BLOOD COUNT 2.5 K/mm3 (4.0-10.0)
[2023-03-18] MEDS ORDERED: POTASSIUM CHLORIDE ORAL LIQUID 20 MEQ/15 ML PO ONE ×2 (12:00→17:00)
[2023-03-18] MEDS: chlordiazePOXIDE HCL 25 MG CAPSULE PO PRN (13:08)
[2023-03-18] MEDS: ATORVASTATIN CA 10 MG TABLET (FP) PO SCH (22:07)
[2023-03-18] MEDS: THIAMINE HCL 100 MG TABLET (FP) PO SCH (22:07)
[2023-03-18] MEDS: TAMSULOSIN HCL 0.4 MG CAP PO SCH (22:07)
[2023-03-18] MEDS: MELATONIN 5 MG TABLETS PO SCH (22:08)
[2023-03-19] MEDS: chlordiazePOXIDE HCL 25 MG CAPSULE PO PRN ×3 (00:53→19:51)
[2023-03-19] MEDS: chlordiazePOXIDE HCL 25 MG CAPSULE PO SCH ×4 (05:09→22:49)
[2023-03-19] MEDS: LACTULOSE 20 GM/30 ML UDC (FOR ORAL USE ONLY) PO SCH ×3 (05:09→22:47)
[2023-03-19] MEDS: GABAPENTIN 100 MG CAPSULE PO SCH (10:08)
[2023-03-19] MEDS: METOPROLOL TARTRATE 25 MG TABLET (FP) PO SCH ×2 (10:08→22:47)
[2023-03-19] MEDS: PRENATAL VITAMINS W/ FOLIC ACID TABLET (FP) PO SCH (10:08)
[2023-03-19] MEDS: LISINOPRIL 20 MG TABLET PO SCH (10:08)
[2023-03-19] MEDS: FAMOTIDINE 20 MG TABLET PO SCH (10:08)
[2023-03-19] MEDS: IBUPROFEN 600 MG TABLET (FP) PO PRN ×2 (10:10→17:24)
[2023-03-19] MEDS: hydrOXYzine PAMOATE 25 MG CAPSULE (FP) PO PRN (15:46)
[2023-03-19] MEDS ORDERED: cloNIDine HCL 0.1 MG TABLET PO ONE (18:12)
[2023-03-19] MEDS: ACETAMINOPHEN 325 MG TABLET (FP) PO PRN (20:02)
[2023-03-19] MEDS ORDERED: METHYL SALICYLATE/MENTHOL OINT 30 GM TUBE TP SCH (22:00)
[2023-03-19] MEDS: ATORVASTATIN CA 10 MG TABLET (FP) PO SCH (22:46)
[2023-03-19] MEDS: TAMSULOSIN HCL 0.4 MG CAP PO SCH (22:46)
[2023-03-19] MEDS: CYCLOBENZAPRINE HCL 5 MG TABLET PO SCH (22:46)
[2023-03-19] MEDS: THIAMINE HCL 100 MG TABLET (FP) PO SCH (22:47)
[2023-03-19] MEDS: METHYL SALICYLATE/MENTHOL OINT 30 GM TUBE TP SCH (22:47)
[2023-03-19] MEDS: MELATONIN 5 MG TABLETS PO SCH (22:47)
[2023-03-19] MEDS: risperiDONE 1 MG TABLET PO SCH (22:47)
[2023-03-20] MEDS ORDERED: chlordiazePOXIDE HCL 10 MG CAPSULE PO PRN
[2023-03-20] MEDS: chlordiazePOXIDE HCL 10 MG CAPSULE PO SCH ×4 (05:46→22:06)
[2023-03-20] MEDS: LACTULOSE 20 GM/30 ML UDC (FOR ORAL USE ONLY) PO SCH ×3 (06:06→22:07)
[2023-03-20] MEDS: CYCLOBENZAPRINE HCL 5 MG TABLET PO SCH ×3 (06:31→22:04)
[2023-03-20] MEDS: METOPROLOL TARTRATE 25 MG TABLET (FP) PO SCH ×2 (10:11→22:07)
[2023-03-20] MEDS: METHYL SALICYLATE/MENTHOL OINT 30 GM TUBE TP SCH ×2 (10:11→22:05)
[2023-03-20] MEDS: risperiDONE 1 MG TABLET PO SCH ×2 (10:11→22:07)
[2023-03-20] MEDS: LISINOPRIL 20 MG TABLET PO SCH (10:11)
[2023-03-20] MEDS: FAMOTIDINE 20 MG TABLET PO SCH (10:12)
[2023-03-20] MEDS: hydrOXYzine PAMOATE 25 MG CAPSULE (FP) PO PRN (10:12)
[2023-03-20] MEDS: GABAPENTIN 100 MG CAPSULE PO SCH (10:12)
[2023-03-20] MEDS: PRENATAL VITAMINS W/ FOLIC ACID TABLET (FP) PO SCH (10:12)
[2023-03-20] MEDS ORDERED: LISINOPRIL 10 MG TABLET PO SCH (11:00)
[2023-03-20] MEDS: IBUPROFEN 600 MG TABLET (FP) PO PRN ×2 (14:40→22:06)
[2023-03-20] MEDS: THIAMINE HCL 100 MG TABLET (FP) PO SCH (22:07)
[2023-03-20] MEDS: TAMSULOSIN HCL 0.4 MG CAP PO SCH (22:07)
[2023-03-20] MEDS: ATORVASTATIN CA 10 MG TABLET (FP) PO SCH (22:07)
[2023-03-20] MEDS: MELATONIN 5 MG TABLETS PO SCH (22:07)
[2023-03-21] MEDS ORDERED: chlordiazePOXIDE HCL 10 MG CAPSULE PO SCH (05:00)
[2023-03-21] MEDS: CYCLOBENZAPRINE HCL 5 MG TABLET PO SCH (05:40)
[2023-03-21] MEDS: LACTULOSE 20 GM/30 ML UDC (FOR ORAL USE ONLY) PO SCH (05:40)
[2023-03-21 09:24] VITALS: BP 153/90; PULSE 85; RESP 17; TEMP 97.9
[2023-03-21] MEDS: hydrOXYzine PAMOATE 25 MG CAPSULE (FP) PO PRN (09:38)
[2023-03-21] MEDS: FAMOTIDINE 20 MG TABLET PO SCH (09:38)
[2023-03-21] MEDS: risperiDONE 1 MG TABLET PO SCH (09:38)
[2023-03-21] MEDS: METHYL SALICYLATE/MENTHOL OINT 30 GM TUBE TP SCH (09:38)
[2023-03-21] MEDS: GABAPENTIN 100 MG CAPSULE PO SCH (09:38)
[2023-03-21] MEDS: METOPROLOL TARTRATE 25 MG TABLET (FP) PO SCH (09:38)
[2023-03-21] MEDS: PRENATAL VITAMINS W/ FOLIC ACID TABLET (FP) PO SCH (09:38)
[2023-03-21] MEDS: IBUPROFEN 600 MG TABLET (FP) PO PRN (10:59)
[2023-03-22] MEDS ORDERED: chlordiazePOXIDE HCL 10 MG CAPSULE PO ONE (05:00)
== END 2023-03-21 11:59 | disposition home or self-care (01) | DRG 774 ==
LOC: YASAS 22:21 → Y6N 03-17 06:42
PROVIDERS: ADMIT Allergy & Immunology; ATTEND Surgery
PROC: HZ2ZZZZ Detoxification Services for Substance Abuse Treatment (ICD-10-PCS; principal; 2023-03-17)
DX: F10.230 Alcohol dependence with withdrawal, uncomplicated (principal); F14.20 Cocaine dependence, uncomplicated; F17.210 Nicotine dependence, cigarettes, uncomplicated; F19.24 Other psychoactive substance dependence with psychoactive substance-induced mood disorder; E87.6 Hypokalemia; G62.9 Polyneuropathy, unspecified; D72.810 Lymphocytopenia; I10 Essential (primary) hypertension; E78.5 Hyperlipidemia, unspecified; E11.9 Type 2 diabetes mellitus without complications; K21.9 Gastro-esophageal reflux disease without esophagitis; N40.0 Benign prostatic hyperplasia without lower urinary tract symptoms; M15.9 Polyosteoarthritis, unspecified; R79.89 Other specified abnormal findings of blood chemistry; Z99.89 Dependence on other enabling machines and devices; Z88.0 Allergy status to penicillin
CPT/HCPCS: 36415; 80053; 80307; 83036; 84132; 85027; 86780; 87635

== ENCOUNTER 2023-04-20 21:37 | Inpatient (IN) | payer OTHER ==
[2023-04-20] MEDS ORDERED: ONDANSETRON *ODT* 4 MG TABLET SL PRN (23:47)
[2023-04-20] MEDS ORDERED: NALOXONE HCL 0.4 MG/ML VIAL IM PRN (23:47)
[2023-04-20] MEDS ORDERED: IBUPROFEN 400 MG TABLET (FP) PO PRN (23:47)
[2023-04-20] MEDS ORDERED: POLYETHYLENE GLYCOL (HEALTHYLAX) 3350 17 GM PACKET PO PRN (23:47)
[2023-04-20] MEDS ORDERED: NALOXONE HCL (KLOXXADO) 8 MG SPRAY NS PRN (23:47)
[2023-04-20] MEDS ORDERED: guaiFENesin 600 MG TABLET.ER (FP) PO PRN (23:47)
[2023-04-20] MEDS ORDERED: NICOTINE POLACRILEX 2 MG GUM BUC PRN (23:47)
[2023-04-20] MEDS ORDERED: BISMUTH SUBSALICYLATE 524 MG/30 ML PO PRN (23:47)
[2023-04-20] MEDS ORDERED: LOPERAMIDE HCL 2 MG CAPSULE PO PRN (23:47)
[2023-04-20] MEDS ORDERED: MAG HYDROX/AL HYDROX/SIMETH 30 ML UNIT-DOSE CUP PO PRN (23:47)
[2023-04-20] MEDS ORDERED: BENZOCAINE/MENTHOL (CHLORASEPTIC ) LOZENGE MM PRN (23:47)
[2023-04-20] MEDS ORDERED: MAGNESIUM HYDROX 2400MG/30ML ORAL SUSPENSION 30 ML CUP PO PRN (23:47)
[2023-04-20] MEDS ORDERED: BENZONATATE 200 MG CAPSULE PO PRN (23:47)
[2023-04-21 01:30] VITALS: BMI 23.1
[2023-04-21] MEDS: hydrOXYzine PAMOATE 25 MG CAPSULE (FP) PO PRN ×2 (08:26→17:01)
[2023-04-21] MEDS: METHOCARBAMOL 500 MG TABLET PO PRN ×2 (08:26→17:00)
[2023-04-21] MEDS: IBUPROFEN 600 MG TABLET (FP) PO PRN ×2 (08:39→22:43)
[2023-04-21] MEDS: NICOTINE 14 MG/24 HOURS TOPICAL PATCH TD SCH (10:10)
[2023-04-21] MEDS: PRENATAL VITAMINS W/ FOLIC ACID TABLET (FP) PO SCH (10:10)
[2023-04-21 10:26] LABS: HEMATOCRIT 34.5 % (35.4-49); HEMOGLOBIN 11.6 GM/dL (11.7-16.9); MCH 32.7 pg (25.7-33.7); MCHC 33.6 g/dl (32.0-35.9); MEAN CELL VOLUME 97.2 fl (80-96); PLATELET COUNT 261 10^3/uL (134-434); POTASSIUM 4.1 mmol/L (3.5-5.1); RBC 3.55 M/mm3 (4.00-5.60); RDW 13.6 % (11.9-15.9); WHITE BLOOD COUNT 2.6 K/mm3 (4.0-10.0)
[2023-04-21 10:32] LABS: ALBUMIN 3.8 g/dl (3.4-5.0); BLOOD UREA NITROGEN 14.5 mg/dL (7-18); CALCIUM 8.5 mg/dL (8.5-10.1)
[2023-04-21 10:35] LABS: CREATININE 1.1 mg/dL (0.55-1.3)
[2023-04-21 10:37] LABS: BILIRUBIN,TOTAL 0.9 mg/dL (0.2-1)
[2023-04-21] MEDS: LORazepam 2 MG TABLET PO SCH ×3 (11:06→22:47)
[2023-04-21] MEDS ORDERED: LORATADINE 10 MG TABLET PO PRN (12:20)
[2023-04-21] MEDS: LACTULOSE 20 GM/30 ML UDC (FOR ORAL USE ONLY) PO SCH ×3 (13:08→22:43)
[2023-04-21] MEDS: LORazepam 1 MG TABLET PO PRN ×2 (15:25→20:26)
[2023-04-21] MEDS: ACETAMINOPHEN 325 MG TABLET (FP) PO PRN (17:00)
[2023-04-21] MEDS ORDERED: METOPROLOL TARTRATE 25 MG TABLET (FP) PO ONE (22:43)
[2023-04-21] MEDS: THIAMINE HCL 100 MG TABLET (FP) PO SCH (22:43)
[2023-04-21] MEDS: MELATONIN 5 MG TABLETS PO SCH (22:44)
[2023-04-21] MEDS: ATORVASTATIN CA 10 MG TABLET (FP) PO SCH (22:46)
[2023-04-21] MEDS: QUEtiapine FUMARATE 100 MG TABLET (FP) PO SCH (22:46)
[2023-04-21] MEDS: FAMOTIDINE 20 MG TABLET PO SCH (22:47)
[2023-04-21] MEDS: METOPROLOL TARTRATE 25 MG TABLET (FP) PO SCH (22:47)
[2023-04-21] MEDS: TAMSULOSIN HCL 0.4 MG CAP PO SCH (22:47)
[2023-04-22] MEDS: METHOCARBAMOL 500 MG TABLET PO PRN ×2 (02:09→13:11)
[2023-04-22] MEDS: ACETAMINOPHEN 325 MG TABLET (FP) PO PRN (02:09)
[2023-04-22] MEDS: LORazepam 2 MG TABLET PO SCH ×4 (05:29→22:04)
[2023-04-22] MEDS: NICOTINE 14 MG/24 HOURS TOPICAL PATCH TD SCH (10:16)
[2023-04-22] MEDS: PRENATAL VITAMINS W/ FOLIC ACID TABLET (FP) PO SCH (10:16)
[2023-04-22] MEDS: LACTULOSE 20 GM/30 ML UDC (FOR ORAL USE ONLY) PO SCH ×4 (10:17→22:03)
[2023-04-22] MEDS: LISINOPRIL 10 MG TABLET PO SCH (10:18)
[2023-04-22] MEDS: FAMOTIDINE 20 MG TABLET PO SCH ×2 (10:18→22:04)
[2023-04-22] MEDS: METOPROLOL TARTRATE 25 MG TABLET (FP) PO SCH ×2 (10:18→22:04)
[2023-04-22] MEDS: GABAPENTIN 100 MG CAPSULE PO SCH (10:19)
[2023-04-22] MEDS: IBUPROFEN 600 MG TABLET (FP) PO PRN ×2 (12:48→17:30)
[2023-04-22] MEDS: hydrOXYzine PAMOATE 25 MG CAPSULE (FP) PO PRN (13:11)
[2023-04-22] MEDS: THIAMINE HCL 100 MG TABLET (FP) PO SCH (22:04)
[2023-04-22] MEDS: ATORVASTATIN CA 10 MG TABLET (FP) PO SCH (22:04)
[2023-04-22] MEDS: TAMSULOSIN HCL 0.4 MG CAP PO SCH (22:04)
[2023-04-22] MEDS: QUEtiapine FUMARATE 100 MG TABLET (FP) PO SCH (22:04)
[2023-04-22] MEDS: MELATONIN 5 MG TABLETS PO SCH (22:04)
[2023-04-23] MEDS ORDERED: LORazepam 1 MG TABLET PO SCH (05:00)
[2023-04-23] MEDS: METHOCARBAMOL 500 MG TABLET PO PRN (05:36)
[2023-04-23] MEDS: hydrOXYzine PAMOATE 25 MG CAPSULE (FP) PO PRN (05:37)
[2023-04-23 06:37] VITALS: RESP 18
[2023-04-23] MEDS: LISINOPRIL 10 MG TABLET PO SCH (09:05)
[2023-04-23] MEDS: FAMOTIDINE 20 MG TABLET PO SCH (09:05)
[2023-04-23] MEDS: LACTULOSE 20 GM/30 ML UDC (FOR ORAL USE ONLY) PO SCH (09:06)
[2023-04-23] MEDS: NICOTINE 14 MG/24 HOURS TOPICAL PATCH TD SCH (09:06)
[2023-04-23] MEDS: PRENATAL VITAMINS W/ FOLIC ACID TABLET (FP) PO SCH (09:06)
[2023-04-23] MEDS: GABAPENTIN 100 MG CAPSULE PO SCH (09:06)
[2023-04-23] MEDS: METOPROLOL TARTRATE 25 MG TABLET (FP) PO SCH (09:06)
[2023-04-23 09:37] VITALS: BP 157/115; PULSE 90; TEMP 98
[2023-04-24] MEDS ORDERED: LORazepam 0.5 MG TABLET PO PRN
[2023-04-24] MEDS ORDERED: LORazepam 0.5 MG TABLET PO SCH (05:00)
[2023-04-25] MEDS ORDERED: LORazepam 0.5 MG TABLET PO ONE (05:00)
== END 2023-04-23 09:00 | disposition left against medical advice (07) | DRG 770 ==
LOC: YASAS 21:37 → Y6N 04-21 01:28
PROVIDERS: ADMIT Surgery; ATTEND Surgery
PROC: HZ2ZZZZ Detoxification Services for Substance Abuse Treatment (ICD-10-PCS; principal; 2023-04-21)
DX: F10.230 Alcohol dependence with withdrawal, uncomplicated (principal); F14.20 Cocaine dependence, uncomplicated; F17.210 Nicotine dependence, cigarettes, uncomplicated; F25.9 Schizoaffective disorder, unspecified; E05.90 Thyrotoxicosis, unspecified without thyrotoxic crisis or storm; E78.5 Hyperlipidemia, unspecified; I10 Essential (primary) hypertension; M15.9 Polyosteoarthritis, unspecified; N40.0 Benign prostatic hyperplasia without lower urinary tract symptoms; C61 Malignant neoplasm of prostate; R26.89 Other abnormalities of gait and mobility; Z88.0 Allergy status to penicillin
CPT/HCPCS: 36415; 80053; 80307; 82140; 85027; 86780; 87635; 87811

== ENCOUNTER 2023-08-25 10:06 | Inpatient (IN) | payer OTHER ==
[2023-08-25 11:13] VITALS: BMI 22.2
[2023-08-25] MEDS ORDERED: BENZONATATE 200 MG CAPSULE PO PRN (12:28)
[2023-08-25] MEDS ORDERED: guaiFENesin 600 MG TABLET.ER (FP) PO PRN (12:28)
[2023-08-25] MEDS ORDERED: MAG HYDROX/AL HYDROX/SIMETH 30 ML UNIT-DOSE CUP PO PRN (12:28)
[2023-08-25] MEDS ORDERED: BENZOCAINE/MENTHOL (CHLORASEPTIC ) LOZENGE MM PRN (12:28)
[2023-08-25] MEDS ORDERED: ONDANSETRON *ODT* 4 MG TABLET SL PRN (12:28)
[2023-08-25] MEDS ORDERED: LOPERAMIDE HCL 2 MG CAPSULE PO PRN (12:28)
[2023-08-25] MEDS ORDERED: IBUPROFEN 400 MG TABLET (FP) PO PRN (12:28)
[2023-08-25] MEDS ORDERED: POLYETHYLENE GLYCOL (HEALTHYLAX) 3350 17 GM PACKET PO PRN (12:28)
[2023-08-25] MEDS ORDERED: MAGNESIUM HYDROX 2400MG/30ML ORAL SUSPENSION 30 ML CUP PO PRN (12:28)
[2023-08-25] MEDS ORDERED: NALOXONE HCL 0.4 MG/ML VIAL IM PRN (12:28)
[2023-08-25] MEDS ORDERED: NICOTINE POLACRILEX 2 MG GUM BUC PRN (12:28)
[2023-08-25] MEDS ORDERED: NALOXONE HCL (KLOXXADO) 8 MG SPRAY NS PRN (12:28)
[2023-08-25] MEDS ORDERED: BISMUTH SUBSALICYLATE 524 MG/30 ML PO PRN (12:28)
[2023-08-25] MEDS ORDERED: LACTULOSE 20 GM/30 ML UDC (FOR ORAL USE ONLY) PO PRN (12:32)
[2023-08-25] MEDS: chlordiazePOXIDE HCL 25 MG CAPSULE PO PRN (13:15)
[2023-08-25] MEDS: IBUPROFEN 600 MG TABLET (FP) PO PRN (13:16)
[2023-08-25] MEDS ORDERED: chlordiazePOXIDE HCL 25 MG CAPSULE ONE (13:19)
[2023-08-25] MEDS ORDERED: IBUPROFEN 600 MG TABLET (FP) PO ONE (13:19)
[2023-08-25] MEDS: chlordiazePOXIDE HCL 25 MG CAPSULE PO SCH (17:19)
[2023-08-25] MEDS: ACETAMINOPHEN 325 MG TABLET (FP) PO PRN (17:19)
[2023-08-25] MEDS: TAMSULOSIN HCL 0.4 MG CAP PO SCH (22:39)
[2023-08-25] MEDS: ATORVASTATIN CA 10 MG TABLET (FP) PO SCH (22:39)
[2023-08-25] MEDS: METOPROLOL TARTRATE 25 MG TABLET (FP) PO SCH (22:39)
[2023-08-25] MEDS: THIAMINE HCL 100 MG TABLET (FP) PO SCH (22:39)
[2023-08-25] MEDS: FAMOTIDINE 20 MG TABLET PO SCH (22:39)
[2023-08-25] MEDS: MELATONIN 5 MG TABLETS PO SCH (22:40)
[2023-08-26] MEDS: hydrOXYzine PAMOATE 25 MG CAPSULE (FP) PO PRN (04:39)
[2023-08-26] MEDS: LISINOPRIL 10 MG TABLET PO SCH (10:45)
[2023-08-26] MEDS: PRENATAL VITAMINS W/ FOLIC ACID TABLET (FP) PO SCH (10:45)
[2023-08-26] MEDS: NICOTINE 14 MG/24 HOURS TOPICAL PATCH TD SCH (10:49)
[2023-08-26 14:11] LABS: HEMATOCRIT 37.4 % (35.4-49); HEMOGLOBIN 12.6 GM/dL (11.7-16.9); MCH 32.5 pg (25.7-33.7); MCHC 33.6 g/dl (32.0-35.9); MEAN CELL VOLUME 96.7 fl (80-96); MEAN PLT VOLUME 8.3 fl (7.5-11.1); PLATELET COUNT 299 10^3/uL (134-434); RBC 3.86 M/mm3 (4.00-5.60); RDW 14.6 % (11.9-15.9); WHITE BLOOD COUNT 3.9 K/mm3 (4.0-10.0)
[2023-08-26 14:16] LABS: POTASSIUM 4.1 mmol/L (3.5-5.1)
[2023-08-26 14:19] LABS: CALCIUM 9.1 mg/dL (8.5-10.1)
[2023-08-26 14:20] LABS: ALBUMIN 3.6 g/dl (3.4-5.0); BLOOD UREA NITROGEN 20.4 mg/dL (7-18)
[2023-08-26 14:23] LABS: CREATININE 1.1 mg/dL (0.55-1.3)
[2023-08-26 14:25] LABS: BILIRUBIN,TOTAL 1.2 mg/dL (0.2-1); TOT PROT 6.9 g/dl (6.4-8.2)
[2023-08-26] MEDS: QUEtiapine FUMARATE 100 MG TABLET (FP) PO SCH (22:19)
[2023-08-27] MEDS: chlordiazePOXIDE HCL 25 MG CAPSULE PO SCH (04:41)
[2023-08-27] MEDS ORDERED: LORazepam 1 MG TABLET PO PRN (09:52)
[2023-08-27] MEDS: LORazepam 2 MG TABLET PO SCH (10:26)
[2023-08-27] MEDS: LORazepam 1 MG TABLET PO SCH (17:09)
[2023-08-28] MEDS ORDERED: chlordiazePOXIDE HCL 10 MG CAPSULE PO PRN
[2023-08-28] MEDS ORDERED: chlordiazePOXIDE HCL 10 MG CAPSULE PO SCH (05:00)
[2023-08-28] MEDS: LORazepam 1 MG TABLET PO SCH (05:12)
[2023-08-28 09:29] VITALS: BP 142/94; PULSE 82; RESP 18; TEMP 97.6
[2023-08-29] MEDS ORDERED: LORazepam 0.5 MG TABLET PO SCH (05:00)
[2023-08-29] MEDS ORDERED: chlordiazePOXIDE HCL 10 MG CAPSULE PO SCH (05:00)
[2023-08-30] MEDS ORDERED: LORazepam 0.5 MG TABLET PO ONE (05:00)
[2023-08-30] MEDS ORDERED: chlordiazePOXIDE HCL 10 MG CAPSULE PO ONE (05:00)
== END 2023-08-28 12:53 | disposition home or self-care (01) | DRG 774 ==
LOC: YASAS 10:06 → Y6N 12:58
PROVIDERS: ADMIT Allergy & Immunology; ATTEND Surgery
PROC: HZ2ZZZZ Detoxification Services for Substance Abuse Treatment (ICD-10-PCS; principal; 2023-08-25)
DX: F10.230 Alcohol dependence with withdrawal, uncomplicated (principal); F14.20 Cocaine dependence, uncomplicated; F17.210 Nicotine dependence, cigarettes, uncomplicated; F25.9 Schizoaffective disorder, unspecified; F19.24 Other psychoactive substance dependence with psychoactive substance-induced mood disorder; I10 Essential (primary) hypertension; K21.9 Gastro-esophageal reflux disease without esophagitis; E78.00 Pure hypercholesterolemia, unspecified; J30.9 Allergic rhinitis, unspecified; N40.0 Benign prostatic hyperplasia without lower urinary tract symptoms; Z85.46 Personal history of malignant neoplasm of prostate; Z99.89 Dependence on other enabling machines and devices; Z88.0 Allergy status to penicillin
CPT/HCPCS: 0241U-QW; 36415; 80053; 80307; 82803; 83735; 85025; 85027; 85610; 85730; 86780; 93005; 93010

== ENCOUNTER 2023-10-22 19:49 | Inpatient (IN) | payer OTHER ==
[2023-10-22 20:55] VITALS: BMI 21.8
[2023-10-22] MEDS ORDERED: BENZONATATE 200 MG CAPSULE PO PRN (21:41)
[2023-10-22] MEDS ORDERED: MAGNESIUM HYDROX 2400MG/30ML ORAL SUSPENSION 30 ML CUP PO PRN (21:41)
[2023-10-22] MEDS ORDERED: DICYCLOMINE HCL 10 MG CAPSULE PO PRN (21:41)
[2023-10-22] MEDS ORDERED: LOPERAMIDE HCL 2 MG CAPSULE PO PRN (21:41)
[2023-10-22] MEDS ORDERED: ACETAMINOPHEN 325 MG TABLET (FP) PO PRN (21:41)
[2023-10-22] MEDS ORDERED: POLYETHYLENE GLYCOL (HEALTHYLAX) 3350 17 GM PACKET PO PRN (21:41)
[2023-10-22] MEDS ORDERED: ONDANSETRON *ODT* 4 MG TABLET SL PRN (21:41)
[2023-10-22] MEDS ORDERED: BISMUTH SUBSALICYLATE 524 MG/30 ML PO PRN (21:41)
[2023-10-22] MEDS ORDERED: NICOTINE POLACRILEX 2 MG GUM BUC PRN (21:41)
[2023-10-22] MEDS ORDERED: IBUPROFEN 400 MG TABLET (FP) PO PRN (21:41)
[2023-10-22] MEDS ORDERED: guaiFENesin 600 MG TABLET.ER (FP) PO PRN (21:41)
[2023-10-22] MEDS ORDERED: NALOXONE (NARCAN) HCL 4 MG/0.1 ML SPRAY NS PRN (21:41)
[2023-10-22] MEDS ORDERED: NALOXONE HCL 0.4 MG/ML VIAL IM PRN (21:41)
[2023-10-22] MEDS ORDERED: BENZOCAINE/MENTHOL (CHLORASEPTIC ) LOZENGE MM PRN (21:41)
[2023-10-22] MEDS: THIAMINE 100 MG TABLET PO SCH (22:37)
[2023-10-22] MEDS: MELATONIN 5 MG TABLETS PO SCH (22:37)
[2023-10-22] MEDS: hydrOXYzine PAMOATE 25 MG CAPSULE (FP) PO PRN (22:39)
[2023-10-23] MEDS: PRENATAL VITAMINS W/ FOLIC ACID TABLET (FP) PO SCH (09:39)
[2023-10-23] MEDS: NICOTINE 14 MG/24 HOURS TOPICAL PATCH TD SCH (09:39)
[2023-10-23] MEDS: LISINOPRIL 10 MG TABLET PO SCH (09:41)
[2023-10-23] MEDS: FAMOTIDINE 20 MG TABLET PO SCH (09:41)
[2023-10-23] MEDS: METOPROLOL TARTRATE 25 MG TABLET (FP) PO SCH (09:41)
[2023-10-23] MEDS: SULFAMETHOXAZOLE/TRIMETHOPRIM 800MG/160MG D.S. TABLET PO SCH (11:37)
[2023-10-23] MEDS: chlordiazePOXIDE HCL 25 MG CAPSULE PO SCH (11:37)
[2023-10-23] MEDS: MAG HYDROX/AL HYDROX/SIMETH 30 ML UNIT-DOSE CUP PO PRN (11:38)
[2023-10-23 12:03] LABS: HEMATOCRIT 32.9 % (35.4-49); MCH 32.1 pg (25.7-33.7); MCHC 33.4 g/dl (32.0-35.9); MEAN CELL VOLUME 96.1 fl (80-96); MEAN PLT VOLUME 8.6 fl (7.5-11.1); PLATELET COUNT 266 10^3/uL (134-434); RBC 3.42 M/mm3 (4.00-5.60); WHITE BLOOD COUNT 2.7 K/mm3 (4.0-10.0)
[2023-10-23 12:05] LABS: POTASSIUM 3.7 mmol/L (3.5-5.1)
[2023-10-23 12:12] LABS: CALCIUM 8.5 mg/dL (8.5-10.1)
[2023-10-23 12:13] LABS: ALBUMIN 3.6 g/dl (3.4-5.0); BLOOD UREA NITROGEN 13.8 mg/dL (7-18)
[2023-10-23 12:16] LABS: CREATININE 0.9 mg/dL (0.55-1.3)
[2023-10-23 12:17] LABS: TOT PROT 6.3 g/dl (6.4-8.2)
[2023-10-23] MEDS: TAMSULOSIN HCL 0.4 MG CAP PO SCH (22:03)
[2023-10-23] MEDS: QUEtiapine FUMARATE 100 MG TABLET (FP) PO SCH (22:03)
[2023-10-23] MEDS: IBUPROFEN 600 MG TABLET (FP) PO PRN (23:59)
[2023-10-24] MEDS: chlordiazePOXIDE HCL 25 MG CAPSULE PO PRN (02:16)
[2023-10-25] MEDS: chlordiazePOXIDE HCL 25 MG CAPSULE PO SCH (05:11)
[2023-10-26] MEDS ORDERED: chlordiazePOXIDE HCL 10 MG CAPSULE PO PRN
[2023-10-26] MEDS: chlordiazePOXIDE HCL 10 MG CAPSULE PO SCH (04:11)
[2023-10-27] MEDS: chlordiazePOXIDE HCL 10 MG CAPSULE PO SCH (05:22)
[2023-10-27 10:39] VITALS: BP 133/83; PULSE 78; RESP 18; TEMP 98
[2023-10-28] MEDS ORDERED: chlordiazePOXIDE HCL 10 MG CAPSULE PO ONE (05:00)
== END 2023-10-27 09:30 | disposition home or self-care (01) | DRG 774 ==
LOC: YASAS 19:49 → Y6N 21:29
PROVIDERS: ADMIT Allergy & Immunology; ATTEND Surgery
PROC: HZ2ZZZZ Detoxification Services for Substance Abuse Treatment (ICD-10-PCS; principal; 2023-10-22)
DX: F10.230 Alcohol dependence with withdrawal, uncomplicated (principal); F14.20 Cocaine dependence, uncomplicated; F17.210 Nicotine dependence, cigarettes, uncomplicated; F25.9 Schizoaffective disorder, unspecified; F19.282 Other psychoactive substance dependence with psychoactive substance-induced sleep disorder; F19.24 Other psychoactive substance dependence with psychoactive substance-induced mood disorder; I10 Essential (primary) hypertension; K21.9 Gastro-esophageal reflux disease without esophagitis; M17.0 Bilateral primary osteoarthritis of knee; M19.032 Primary osteoarthritis, left wrist; N40.0 Benign prostatic hyperplasia without lower urinary tract symptoms; K12.2 Cellulitis and abscess of mouth; Z99.89 Dependence on other enabling machines and devices; Z59.00 Homelessness unspecified; Z88.0 Allergy status to penicillin; Z91.148 Patient's other noncompliance with medication regimen for other reason
CPT/HCPCS: 36415; 80053; 80305; 80307; 85027; 86780

== ENCOUNTER 2023-11-28 21:44 | Inpatient (IN) | payer OTHER ==
[2023-11-28 22:29] VITALS: BMI 24.3
[2023-11-28] MEDS ORDERED: MAG HYDROX/AL HYDROX/SIMETH 30 ML UNIT-DOSE CUP PO PRN (22:48)
[2023-11-28] MEDS ORDERED: MAGNESIUM HYDROX 2400MG/30ML ORAL SUSPENSION 30 ML CUP PO PRN (22:48)
[2023-11-28] MEDS ORDERED: P-EPHED 60MG/TRIPROLIDI 2.5MG TABLET PO PRN (22:48)
[2023-11-28] MEDS ORDERED: DICYCLOMINE HCL 10 MG CAPSULE PO PRN (22:48)
[2023-11-28] MEDS ORDERED: LOPERAMIDE HCL 2 MG CAPSULE PO PRN (22:48)
[2023-11-28] MEDS ORDERED: BENZONATATE 200 MG CAPSULE PO PRN (22:48)
[2023-11-28] MEDS ORDERED: ONDANSETRON *ODT* 4 MG TABLET SL PRN (22:48)
[2023-11-28] MEDS ORDERED: POLYETHYLENE GLYCOL (HEALTHYLAX) 3350 17 GM PACKET PO PRN (22:48)
[2023-11-28] MEDS ORDERED: IBUPROFEN 400 MG TABLET (FP) PO PRN (22:48)
[2023-11-28] MEDS ORDERED: BENZOCAINE/MENTHOL (CHLORASEPTIC ) LOZENGE MM PRN (22:48)
[2023-11-28] MEDS ORDERED: ACETAMINOPHEN 325 MG TABLET (FP) PO PRN (22:48)
[2023-11-28] MEDS ORDERED: NICOTINE POLACRILEX 2 MG LOZENGE BC PRN (22:48)
[2023-11-28] MEDS ORDERED: BISMUTH SUBSALICYLATE 524 MG/30 ML PO PRN (22:48)
[2023-11-28] MEDS ORDERED: NICOTINE POLACRILEX 2 MG GUM BUC PRN (22:48)
[2023-11-28] MEDS ORDERED: guaiFENesin 600 MG TABLET.ER (FP) PO PRN (22:48)
[2023-11-28] MEDS: diazePAM 5 MG TABLET PO SCH (23:23)
[2023-11-29] MEDS: TAMSULOSIN HCL 0.4 MG CAP PO SCH (07:58)
[2023-11-29] MEDS: METOPROLOL TARTRATE 25 MG TABLET (FP) PO SCH (09:31)
[2023-11-29] MEDS: FAMOTIDINE 20 MG TABLET PO SCH (09:31)
[2023-11-29] MEDS: hydrOXYzine PAMOATE 25 MG CAPSULE (FP) PO PRN (09:31)
[2023-11-29] MEDS: METHOCARBAMOL 500 MG TABLET PO PRN (09:31)
[2023-11-29] MEDS: PRENATAL VITAMINS W/ FOLIC ACID TABLET (FP) PO SCH (09:31)
[2023-11-29 11:49] LABS: HEMOGLOBIN 11.9 GM/dL (11.7-16.9); MCH 32.1 pg (25.7-33.7); MEAN CELL VOLUME 94.5 fl (80-96); MEAN PLT VOLUME 7.9 fl (7.5-11.1); PLATELET COUNT 296 10^3/uL (134-434); RDW 16.5 % (11.9-15.9); WHITE BLOOD COUNT 2.2 K/mm3 (4.0-10.0)
[2023-11-29 12:00] LABS: POTASSIUM 4.1 mmol/L (3.5-5.1)
[2023-11-29 12:06] LABS: BLOOD UREA NITROGEN 18.3 mg/dL (7-18); CALCIUM 8.6 mg/dL (8.5-10.1)
[2023-11-29 12:07] LABS: ALBUMIN 3.4 g/dl (3.4-5.0)
[2023-11-29 12:09] LABS: CREATININE 0.7 mg/dL (0.55-1.3)
[2023-11-29 12:10] LABS: TOT PROT 6.8 g/dl (6.4-8.2)
[2023-11-29 12:11] LABS: BILIRUBIN,TOTAL 1.1 mg/dL (0.2-1)
[2023-11-29] MEDS: diazePAM 5 MG TABLET PO PRN (18:49)
[2023-11-29] MEDS: IBUPROFEN 600 MG TABLET (FP) PO PRN (18:49)
[2023-11-29] MEDS: THIAMINE 100 MG TABLET PO SCH (22:35)
[2023-11-29] MEDS: MELATONIN 5 MG TABLETS PO SCH (22:36)
[2023-11-30] MEDS: diazePAM 5 MG TABLET PO SCH (05:19)
[2023-11-30] MEDS ORDERED: TAMSULOSIN HCL 0.4 MG CAP PO SCH (08:00)
[2023-11-30 08:59] VITALS: BP 159/113; PULSE 73; RESP 18; TEMP 97.7
[2023-12-01] MEDS ORDERED: diazePAM 5 MG TABLET PO SCH (06:00)
[2023-12-02] MEDS ORDERED: diazePAM 5 MG TABLET PO ONE (06:00)
== END 2023-11-30 09:30 | disposition home or self-care (01) | DRG 774 ==
LOC: YASAS 21:44 → Y6N 22:58
PROVIDERS: ADMIT Allergy & Immunology; ATTEND Surgery
PROC: HZ2ZZZZ Detoxification Services for Substance Abuse Treatment (ICD-10-PCS; principal; 2023-11-28)
DX: F10.230 Alcohol dependence with withdrawal, uncomplicated (principal); F14.20 Cocaine dependence, uncomplicated; F17.210 Nicotine dependence, cigarettes, uncomplicated; F19.282 Other psychoactive substance dependence with psychoactive substance-induced sleep disorder; F25.1 Schizoaffective disorder, depressive type; I10 Essential (primary) hypertension; K21.9 Gastro-esophageal reflux disease without esophagitis; N40.0 Benign prostatic hyperplasia without lower urinary tract symptoms; Z85.46 Personal history of malignant neoplasm of prostate; Z99.89 Dependence on other enabling machines and devices; Z59.00 Homelessness unspecified; Z88.0 Allergy status to penicillin
CPT/HCPCS: 36415; 80053; 80305; 80307; 85027; 86780

== ENCOUNTER 2024-01-15 23:06 | Inpatient (IN) | payer OTHER ==
[2024-01-15 23:34] VITALS: BMI 22.4
[2024-01-16] MEDS ORDERED: NALOXONE HCL 0.4 MG/ML VIAL IM PRN (00:27)
[2024-01-16] MEDS ORDERED: ONDANSETRON *ODT* 4 MG TABLET SL PRN (00:27)
[2024-01-16] MEDS ORDERED: ACETAMINOPHEN 325 MG TABLET (FP) PO PRN (00:27)
[2024-01-16] MEDS ORDERED: IBUPROFEN 400 MG TABLET (FP) PO PRN (00:27)
[2024-01-16] MEDS ORDERED: LOPERAMIDE HCL 2 MG CAPSULE PO PRN (00:27)
[2024-01-16] MEDS ORDERED: MAG HYDROX/AL HYDROX/SIMETH 30 ML UNIT-DOSE CUP PO PRN (00:27)
[2024-01-16] MEDS ORDERED: BENZONATATE 200 MG CAPSULE PO PRN (00:27)
[2024-01-16] MEDS ORDERED: NICOTINE POLACRILEX 2 MG GUM BUC PRN (00:27)
[2024-01-16] MEDS ORDERED: guaiFENesin 600 MG TABLET.ER (FP) PO PRN (00:27)
[2024-01-16] MEDS ORDERED: NALOXONE (NARCAN) HCL 4 MG/0.1 ML SPRAY NS PRN (00:27)
[2024-01-16] MEDS ORDERED: MAGNESIUM HYDROX 2400MG/30ML ORAL SUSPENSION 30 ML CUP PO PRN (00:27)
[2024-01-16] MEDS ORDERED: BENZOCAINE/MENTHOL (CHLORASEPTIC ) LOZENGE MM PRN (00:27)
[2024-01-16] MEDS ORDERED: POLYETHYLENE GLYCOL (HEALTHYLAX) 3350 17 GM PACKET PO PRN (00:27)
[2024-01-16] MEDS ORDERED: BISMUTH SUBSALICYLATE 524 MG/30 ML PO PRN (00:27)
[2024-01-16] MEDS ORDERED: chlordiazePOXIDE HCL 25 MG CAPSULE PO PRN (00:31)
[2024-01-16] MEDS: chlordiazePOXIDE HCL 25 MG CAPSULE PO SCH (05:42)
[2024-01-16] MEDS: IBUPROFEN 600 MG TABLET (FP) PO PRN (08:40)
[2024-01-16] MEDS: PRENATAL VITAMINS W/ FOLIC ACID TABLET (FP) PO SCH (10:04)
[2024-01-16] MEDS: NICOTINE 14 MG/24 HOURS TOPICAL PATCH TD SCH (10:07)
[2024-01-16] MEDS: METHOCARBAMOL 500 MG TABLET PO PRN (10:59)
[2024-01-16] MEDS: THIAMINE 100 MG TABLET PO SCH (22:29)
[2024-01-16] MEDS: METOPROLOL TARTRATE 25 MG TABLET (FP) PO SCH (22:29)
[2024-01-16] MEDS: MELATONIN 5 MG TABLETS PO SCH (22:31)
[2024-01-17] MEDS: chlordiazePOXIDE HCL 25 MG CAPSULE PO SCH (05:33)
[2024-01-17] MEDS: TAMSULOSIN HCL 0.4 MG CAP PO SCH (07:34)
[2024-01-17 08:42] VITALS: BP 154/99; PULSE 89; RESP 18; TEMP 97.9
[2024-01-17 12:44] LABS: HEMATOCRIT 36.4 % (35.4-49); HEMOGLOBIN 12.2 GM/dL (11.7-16.9); MCH 32.4 pg (25.7-33.7); MCHC 33.6 g/dl (32.0-35.9); MEAN CELL VOLUME 96.5 fl (80-96); MEAN PLT VOLUME 8.4 fl (7.5-11.1); PLATELET COUNT 331 10^3/uL (134-434); RBC 3.77 M/mm3 (4.00-5.60); RDW 15.4 % (11.9-15.9); WHITE BLOOD COUNT 2.2 K/mm3 (4.0-10.0)
[2024-01-17 13:22] LABS: POTASSIUM 4.1 mmol/L (3.5-5.1)
[2024-01-17 13:27] LABS: ALBUMIN 3.8 g/dl (3.4-5.0); BLOOD UREA NITROGEN 15.5 mg/dL (7-18)
[2024-01-17 13:29] LABS: CALCIUM 9.1 mg/dL (8.5-10.1)
[2024-01-17 13:33] LABS: CREATININE 0.8 mg/dL (0.55-1.3)
[2024-01-17 13:34] LABS: TOT PROT 6.7 g/dl (6.4-8.2)
[2024-01-17 13:39] LABS: BILIRUBIN,TOTAL 0.7 mg/dL (0.2-1)
[2024-01-18] MEDS ORDERED: chlordiazePOXIDE HCL 10 MG CAPSULE PO PRN
[2024-01-18] MEDS ORDERED: chlordiazePOXIDE HCL 10 MG CAPSULE PO SCH (05:00)
[2024-01-19] MEDS ORDERED: chlordiazePOXIDE HCL 10 MG CAPSULE PO SCH (05:00)
[2024-01-20] MEDS ORDERED: chlordiazePOXIDE HCL 10 MG CAPSULE PO ONE (05:00)
== END 2024-01-17 08:52 | disposition left against medical advice (07) | DRG 770 ==
LOC: YASAS 23:06 → Y6N 01-16 01:16
PROVIDERS: ADMIT Allergy & Immunology; ATTEND Surgery
PROC: HZ2ZZZZ Detoxification Services for Substance Abuse Treatment (ICD-10-PCS; principal; 2024-01-16)
DX: F10.230 Alcohol dependence with withdrawal, uncomplicated (principal); F14.20 Cocaine dependence, uncomplicated; F17.210 Nicotine dependence, cigarettes, uncomplicated; F19.282 Other psychoactive substance dependence with psychoactive substance-induced sleep disorder; F25.1 Schizoaffective disorder, depressive type; E78.5 Hyperlipidemia, unspecified; I10 Essential (primary) hypertension; K21.9 Gastro-esophageal reflux disease without esophagitis; E03.9 Hypothyroidism, unspecified; J30.9 Allergic rhinitis, unspecified; M17.0 Bilateral primary osteoarthritis of knee; Z85.46 Personal history of malignant neoplasm of prostate; Z87.01 Personal history of pneumonia (recurrent); Z88.0 Allergy status to penicillin
CPT/HCPCS: 36415; 80053; 80305; 80307; 85027; 86780; 93005; 93010

== ENCOUNTER 2024-02-23 22:15 | Inpatient (IN) | payer OTHER ==
[2024-02-23 23:40] VITALS: BMI 22.2
[2024-02-24] MEDS ORDERED: guaiFENesin 600 MG TABLET.ER (FP) PO PRN (01:51)
[2024-02-24] MEDS ORDERED: BENZONATATE 200 MG CAPSULE PO PRN (01:51)
[2024-02-24] MEDS ORDERED: ONDANSETRON *ODT* 4 MG TABLET SL PRN (01:51)
[2024-02-24] MEDS ORDERED: NALOXONE (NARCAN) HCL 4 MG/0.1 ML SPRAY NS PRN (01:51)
[2024-02-24] MEDS ORDERED: MAGNESIUM HYDROX 2400MG/30ML ORAL SUSPENSION 30 ML CUP PO PRN (01:51)
[2024-02-24] MEDS ORDERED: BENZOCAINE/MENTHOL (CHLORASEPTIC ) LOZENGE MM PRN (01:51)
[2024-02-24] MEDS ORDERED: ACETAMINOPHEN 325 MG TABLET (FP) PO PRN (01:51)
[2024-02-24] MEDS ORDERED: NICOTINE POLACRILEX 2 MG GUM BUC PRN (01:51)
[2024-02-24] MEDS ORDERED: POLYETHYLENE GLYCOL (HEALTHYLAX) 3350 17 GM PACKET PO PRN (01:51)
[2024-02-24] MEDS ORDERED: MAG HYDROX/AL HYDROX/SIMETH 30 ML UNIT-DOSE CUP PO PRN (01:51)
[2024-02-24] MEDS ORDERED: NALOXONE (NYS OPIOID OVERDOSE PROGRAM) 4 MG/0.1 ML SPRAY NS PRN (01:51)
[2024-02-24] MEDS ORDERED: LOPERAMIDE HCL 2 MG CAPSULE PO PRN (01:51)
[2024-02-24] MEDS ORDERED: BISMUTH SUBSALICYLATE 524 MG/30 ML PO PRN (01:51)
[2024-02-24] MEDS ORDERED: IBUPROFEN 400 MG TABLET (FP) PO PRN (01:51)
[2024-02-24] MEDS ORDERED: chlordiazePOXIDE HCL 25 MG CAPSULE PO PRN (02:01)
[2024-02-24] MEDS: chlordiazePOXIDE HCL 25 MG CAPSULE PO SCH (05:50)
[2024-02-24] MEDS: IBUPROFEN 600 MG TABLET (FP) PO PRN (06:28)
[2024-02-24] MEDS: NICOTINE 14 MG/24 HOURS TOPICAL PATCH TD SCH (10:14)
[2024-02-24] MEDS: PRENATAL VITAMINS W/ FOLIC ACID TABLET (FP) PO SCH (10:14)
[2024-02-24] MEDS: hydrOXYzine PAMOATE 25 MG CAPSULE (FP) PO PRN (20:20)
[2024-02-24] MEDS: THIAMINE 100 MG TABLET PO SCH (22:18)
[2024-02-24] MEDS: MELATONIN 5 MG TABLETS PO SCH (22:18)
[2024-02-25] MEDS: chlordiazePOXIDE HCL 25 MG CAPSULE PO SCH (05:34)
[2024-02-25] MEDS: TAMSULOSIN HCL 0.4 MG CAP PO SCH (12:13)
[2024-02-25] MEDS: FAMOTIDINE 20 MG TABLET PO SCH (22:30)
[2024-02-25] MEDS: METOPROLOL TARTRATE 25 MG TABLET (FP) PO SCH (22:30)
[2024-02-25] MEDS: QUEtiapine FUMARATE 100 MG TABLET (FP) PO SCH (22:30)
[2024-02-26] MEDS ORDERED: chlordiazePOXIDE HCL 10 MG CAPSULE PO PRN
[2024-02-26] MEDS: chlordiazePOXIDE HCL 10 MG CAPSULE PO SCH (05:31)
[2024-02-26] MEDS: LACTULOSE 20 GM/30 ML UDC (FOR ORAL USE ONLY) PO SCH (17:23)
[2024-02-27] MEDS: chlordiazePOXIDE HCL 10 MG CAPSULE PO SCH (06:24)
[2024-02-28] MEDS: chlordiazePOXIDE HCL 10 MG CAPSULE PO ONE (06:20)
[2024-02-28 09:01] VITALS: BP 118/80; PULSE 80; RESP 18; TEMP 97.3
== END 2024-02-28 09:50 | disposition home or self-care (01) | DRG 774 ==
LOC: YASAS 22:15 → Y6N 02-24 03:04 → Y3N 02-24 22:27
PROVIDERS: ADMIT Allergy & Immunology; ATTEND Surgery
PROC: HZ2ZZZZ Detoxification Services for Substance Abuse Treatment (ICD-10-PCS; principal; 2024-02-24)
DX: F10.230 Alcohol dependence with withdrawal, uncomplicated (principal); F14.20 Cocaine dependence, uncomplicated; F17.210 Nicotine dependence, cigarettes, uncomplicated; F20.9 Schizophrenia, unspecified; F19.282 Other psychoactive substance dependence with psychoactive substance-induced sleep disorder; F32.A Depression, unspecified; E72.20 Disorder of urea cycle metabolism, unspecified; E78.5 Hyperlipidemia, unspecified; K21.9 Gastro-esophageal reflux disease without esophagitis; L30.9 Dermatitis, unspecified; N40.0 Benign prostatic hyperplasia without lower urinary tract symptoms; C61 Malignant neoplasm of prostate; M17.0 Bilateral primary osteoarthritis of knee; Z88.0 Allergy status to penicillin
CPT/HCPCS: 36415; 80305; 80307; 82140; 93005; 93010

== ENCOUNTER 2024-03-29 14:23 | Inpatient (IN) | payer OTHER ==
[2024-03-29 15:29] VITALS: BMI 22.9
[2024-03-29] MEDS ORDERED: MAGNESIUM HYDROX 2400MG/30ML ORAL SUSPENSION 30 ML CUP PO PRN (17:38)
[2024-03-29] MEDS ORDERED: ONDANSETRON *ODT* 4 MG TABLET SL PRN (17:38)
[2024-03-29] MEDS ORDERED: ACETAMINOPHEN 325 MG TABLET (FP) PO PRN (17:38)
[2024-03-29] MEDS ORDERED: BENZONATATE 200 MG CAPSULE PO PRN (17:38)
[2024-03-29] MEDS ORDERED: DICYCLOMINE HCL 10 MG CAPSULE PO PRN (17:38)
[2024-03-29] MEDS ORDERED: BISMUTH SUBSALICYLATE 524 MG/30 ML PO PRN (17:38)
[2024-03-29] MEDS ORDERED: NALOXONE (NARCAN) HCL 4 MG/0.1 ML SPRAY NS PRN (17:38)
[2024-03-29] MEDS ORDERED: POLYETHYLENE GLYCOL (HEALTHYLAX) 3350 17 GM PACKET PO PRN (17:38)
[2024-03-29] MEDS ORDERED: guaiFENesin 600 MG TABLET.ER (FP) PO PRN (17:38)
[2024-03-29] MEDS ORDERED: BENZOCAINE/MENTHOL (CHLORASEPTIC ) LOZENGE MM PRN (17:38)
[2024-03-29] MEDS ORDERED: IBUPROFEN 400 MG TABLET (FP) PO PRN (17:38)
[2024-03-29] MEDS ORDERED: LOPERAMIDE HCL 2 MG CAPSULE PO PRN (17:38)
[2024-03-29] MEDS ORDERED: MAG HYDROX/AL HYDROX/SIMETH 30 ML UNIT-DOSE CUP PO PRN (17:38)
[2024-03-29] MEDS: METHOCARBAMOL 500 MG TABLET PO PRN (22:45)
[2024-03-29] MEDS: MELATONIN 5 MG TABLETS PO SCH (22:45)
[2024-03-29] MEDS: THIAMINE 100 MG TABLET PO SCH (22:45)
[2024-03-29] MEDS: hydrOXYzine PAMOATE 25 MG CAPSULE (FP) PO PRN (22:46)
[2024-03-30] MEDS: IBUPROFEN 600 MG TABLET (FP) PO PRN (05:22)
[2024-03-30] MEDS: PRENATAL VITAMINS W/ FOLIC ACID TABLET (FP) PO SCH (09:42)
[2024-03-30] MEDS: chlordiazePOXIDE HCL 25 MG CAPSULE PO SCH (10:45)
[2024-03-30 14:22] LABS: HEMATOCRIT 32.6 % (35.4-49); HEMOGLOBIN 10.8 GM/dL (11.7-16.9); MCH 32.8 pg (25.7-33.7); MCHC 33.3 g/dl (32.0-35.9); MEAN CELL VOLUME 98.5 fl (80-96); MEAN PLT VOLUME 7.6 fl (7.5-11.1); PLATELET COUNT 406 10^3/uL (134-434); RBC 3.31 M/mm3 (4.00-5.60); RDW 13.2 % (11.9-15.9); WHITE BLOOD COUNT 3.4 K/mm3 (4.0-10.0)
[2024-03-30 14:34] LABS: CHLORIDE 107 mmol/L (98-107); POTASSIUM 4.3 mmol/L (3.5-5.1); SODIUM 141 mmol/L (136-145)
[2024-03-30 14:37] LABS: CALCIUM 8.8 mg/dL (8.5-10.1)
[2024-03-30 14:38] LABS: ALBUMIN 3.4 g/dl (3.4-5.0); ANION GAP 6 mmol/L (4-13); BLOOD UREA NITROGEN 21.2 mg/dL (7-18); CO2 27 mmol/L (21-32); GLUCOSE,RANDOM 114 mg/dL (74-106)
[2024-03-30 14:41] LABS: SGOT/AST 28 U/L (15-37); SGPT/ALT 27 U/L (13-61)
[2024-03-30 14:42] LABS: BILIRUBIN,TOTAL 0.4 mg/dL (0.2-1); TOT PROT 6.4 g/dl (6.4-8.2)
[2024-03-30 14:43] LABS: ALK PHOS 58 U/L (45-117)
[2024-03-30] MEDS: SODIUM CHLORIDE NASAL SPRAY 44 ML BOTTLE NS PRN (22:08)
[2024-03-30] MEDS: P-EPHED 60MG/TRIPROLIDI 2.5MG TABLET PO PRN (22:09)
[2024-03-30] MEDS: METOPROLOL TARTRATE 25 MG TABLET (FP) PO SCH (22:10)
[2024-03-30] MEDS: ATORVASTATIN CA 10 MG TABLET (FP) PO SCH (22:11)
[2024-03-31] MEDS: TAMSULOSIN HCL 0.4 MG CAP PO SCH (10:17)
[2024-03-31] MEDS: hydrOXYzine PAMOATE 50 MG CAPSULE (FP) PO PRN (18:02)
[2024-03-31] MEDS: QUEtiapine FUMARATE 200 MG TABLET PO SCH (22:02)
[2024-04-01] MEDS: chlordiazePOXIDE HCL 25 MG CAPSULE PO SCH (05:25)
[2024-04-01 06:14] VITALS: PULSE 90
[2024-04-01] MEDS: chlordiazePOXIDE HCL 25 MG CAPSULE PO PRN (07:11)
[2024-04-01 09:02] VITALS: BP 105/70; RESP 18; TEMP 98.4
[2024-04-01] MEDS: NALOXONE (NYS OPIOID OVERDOSE PROGRAM) 4 MG/0.1 ML SPRAY NS SCH (09:24)
[2024-04-02] MEDS ORDERED: chlordiazePOXIDE HCL 10 MG CAPSULE PO PRN
[2024-04-02] MEDS ORDERED: chlordiazePOXIDE HCL 10 MG CAPSULE PO SCH (05:00)
[2024-04-03] MEDS ORDERED: chlordiazePOXIDE HCL 10 MG CAPSULE PO SCH (05:00)
[2024-04-04] MEDS ORDERED: chlordiazePOXIDE HCL 10 MG CAPSULE PO ONE (05:00)
== END 2024-04-01 09:20 | disposition home or self-care (01) | DRG 774 ==
LOC: YASAS 14:23 → Y3N 17:47
PROVIDERS: ADMIT Allergy & Immunology; ATTEND Surgery
PROC: HZ2ZZZZ Detoxification Services for Substance Abuse Treatment (ICD-10-PCS; principal; 2024-03-29)
DX: F10.230 Alcohol dependence with withdrawal, uncomplicated (principal); F14.20 Cocaine dependence, uncomplicated; F17.213 Nicotine dependence, cigarettes, with withdrawal; F25.1 Schizoaffective disorder, depressive type; F19.282 Other psychoactive substance dependence with psychoactive substance-induced sleep disorder; F19.24 Other psychoactive substance dependence with psychoactive substance-induced mood disorder; E03.9 Hypothyroidism, unspecified; E78.5 Hyperlipidemia, unspecified; I10 Essential (primary) hypertension; M17.0 Bilateral primary osteoarthritis of knee; M19.032 Primary osteoarthritis, left wrist; Z88.0 Allergy status to penicillin
CPT/HCPCS: 36415; 80053; 80305; 80307; 84436; 84439; 84443; 84480; 84481; 85027; 86780; 93005; 93010

== ENCOUNTER 2024-04-18 00:53 | Inpatient (IN) | payer OTHER ==
[2024-04-18 01:37] VITALS: BMI 21.5
[2024-04-18] MEDS ORDERED: NICOTINE POLACRILEX 2 MG GUM BUC PRN (02:47)
[2024-04-18] MEDS ORDERED: NALOXONE (NARCAN) HCL 4 MG/0.1 ML SPRAY NS PRN (02:47)
[2024-04-18] MEDS ORDERED: DICYCLOMINE HCL 10 MG CAPSULE PO PRN (02:47)
[2024-04-18] MEDS ORDERED: BENZONATATE 200 MG CAPSULE PO PRN (02:47)
[2024-04-18] MEDS ORDERED: MAGNESIUM HYDROX 2400MG/30ML ORAL SUSPENSION 30 ML CUP PO PRN (02:47)
[2024-04-18] MEDS ORDERED: hydrOXYzine PAMOATE 25 MG CAPSULE (FP) PO PRN (02:47)
[2024-04-18] MEDS ORDERED: BENZOCAINE/MENTHOL (CHLORASEPTIC ) LOZENGE MM PRN (02:47)
[2024-04-18] MEDS ORDERED: guaiFENesin 600 MG TABLET.ER (FP) PO PRN (02:47)
[2024-04-18] MEDS ORDERED: POLYETHYLENE GLYCOL (HEALTHYLAX) 3350 17 GM PACKET PO PRN (02:47)
[2024-04-18] MEDS ORDERED: chlordiazePOXIDE HCL 25 MG CAPSULE PO PRN (02:59)
[2024-04-18] MEDS: chlordiazePOXIDE HCL 25 MG CAPSULE PO SCH (05:59)
[2024-04-18] MEDS: IBUPROFEN 600 MG TABLET (FP) PO PRN (06:00)
[2024-04-18] MEDS: METHOCARBAMOL 500 MG TABLET PO PRN (06:01)
[2024-04-18] MEDS: NICOTINE 14 MG/24 HOURS TOPICAL PATCH TD SCH (09:47)
[2024-04-18] MEDS: QUEtiapine FUMARATE 50 MG TABLET PO ONE (09:50)
[2024-04-18] MEDS: PRENATAL VITAMINS W/ FOLIC ACID TABLET (FP) PO SCH (09:51)
[2024-04-18] MEDS: FAMOTIDINE 20 MG TABLET PO SCH (09:51)
[2024-04-18] MEDS: TAMSULOSIN HCL 0.4 MG CAP PO SCH (09:51)
[2024-04-18] MEDS: METOPROLOL TARTRATE 25 MG TABLET (FP) PO SCH (09:52)
[2024-04-18] MEDS: TRIMETHOBENZAMIDE HCL 200MG/2ML INJ IM ONE ×2 (12:40→18:40)
[2024-04-18] MEDS: MAG HYDROX/AL HYDROX/SIMETH 30 ML UNIT-DOSE CUP PO PRN (16:52)
[2024-04-18] MEDS: hydrOXYzine PAMOATE 50 MG CAPSULE (FP) PO PRN (18:23)
[2024-04-18] MEDS: QUEtiapine FUMARATE 200 MG TABLET PO SCH (21:52)
[2024-04-18] MEDS: ATORVASTATIN CA 10 MG TABLET (FP) PO SCH (21:52)
[2024-04-18] MEDS: MELATONIN 5 MG TABLETS PO SCH (21:53)
[2024-04-18] MEDS: BISMUTH SUBSALICYLATE 524 MG/30 ML PO PRN (21:54)
[2024-04-18] MEDS: THIAMINE 100 MG TABLET PO SCH (21:54)
[2024-04-18] MEDS: LOPERAMIDE HCL 2 MG CAPSULE PO PRN (22:23)
[2024-04-18] MEDS: ONDANSETRON *ODT* 4 MG TABLET SL PRN (23:39)
[2024-04-19 00:21] LABS: HIV INTERPRETATION NEGATIVE (NEGATIVE)
[2024-04-19] MEDS: chlordiazePOXIDE HCL 25 MG CAPSULE PO SCH (05:53)
[2024-04-19 11:29] LABS: POTASSIUM 3.3 mmol/L (3.5-5.1)
[2024-04-19 11:31] LABS: ALBUMIN 3.5 g/dl (3.4-5.0); CALCIUM 8.4 mg/dL (8.5-10.1)
[2024-04-19 11:32] LABS: BLOOD UREA NITROGEN 22.3 mg/dL (7-18)
[2024-04-19 11:35] LABS: CREATININE 1.2 mg/dL (0.55-1.3)
[2024-04-19 11:36] LABS: BILIRUBIN,TOTAL 0.7 mg/dL (0.2-1); TOT PROT 6.6 g/dl (6.4-8.2)
[2024-04-19 11:49] LABS: HEMATOCRIT 37.4 % (35.4-49); HEMOGLOBIN 12.4 GM/dL (11.7-16.9); MCH 32.3 pg (25.7-33.7); MCHC 33.2 g/dl (32.0-35.9); PLATELET COUNT 239 10^3/uL (134-434); RBC 3.85 M/mm3 (4.00-5.60); RDW 13.7 % (11.9-15.9)
[2024-04-19] MEDS: POTASSIUM CHLORIDE ORAL LIQUID 20 MEQ/15 ML PO ONE (16:46)
[2024-04-19] MEDS: DIPHENOXYLATE 2.5/ATROPINE.025 1 COMBO TABLET PO PRN (17:01)
[2024-04-20] MEDS: chlordiazePOXIDE HCL 10 MG CAPSULE PO PRN (01:21)
[2024-04-20] MEDS: chlordiazePOXIDE HCL 10 MG CAPSULE PO SCH (05:55)
[2024-04-20] MEDS: IBUPROFEN 400 MG TABLET (FP) PO PRN (13:00)
[2024-04-21] MEDS: chlordiazePOXIDE HCL 10 MG CAPSULE PO SCH (05:58)
[2024-04-21] MEDS: ACETAMINOPHEN 325 MG TABLET (FP) PO PRN (10:12)
[2024-04-21 20:40] VITALS: RESP 16
[2024-04-22] MEDS ORDERED: P-EPHED 60MG/TRIPROLIDI 2.5MG TABLET PO PRN (03:19)
[2024-04-22] MEDS: chlordiazePOXIDE HCL 10 MG CAPSULE PO ONE (05:41)
[2024-04-22 06:04] VITALS: BP 107/62; PULSE 77; TEMP 97.8
[2024-04-22] MEDS ORDERED: NALOXONE (NYS OPIOID OVERDOSE PROGRAM) 4 MG/0.1 ML SPRAY NS PRN (08:00)
== END 2024-04-22 10:29 | disposition home or self-care (01) | DRG 774 ==
LOC: YASAS 00:53 → Y3N 03:27
PROVIDERS: ADMIT Allergy & Immunology; ATTEND Surgery
PROC: HZ2ZZZZ Detoxification Services for Substance Abuse Treatment (ICD-10-PCS; principal; 2024-04-18)
DX: F10.230 Alcohol dependence with withdrawal, uncomplicated (principal); F14.20 Cocaine dependence, uncomplicated; F20.9 Schizophrenia, unspecified; F32.A Depression, unspecified; D64.9 Anemia, unspecified; G47.00 Insomnia, unspecified; E78.5 Hyperlipidemia, unspecified; I10 Essential (primary) hypertension; K21.9 Gastro-esophageal reflux disease without esophagitis; L30.9 Dermatitis, unspecified; N40.0 Benign prostatic hyperplasia without lower urinary tract symptoms; C61 Malignant neoplasm of prostate; Z88.0 Allergy status to penicillin
CPT/HCPCS: 36415; 80053; 80305; 80307; 84132; 85027; 86780; 86803; 87389; 93005; 93010; Q0162

== ENCOUNTER 2024-04-19 19:15 | Emergency (ER) | payer OTHER ==
[2024-04-19 19:51] VITALS: BP 117/80; PULSE 88; RESP 17; TEMP 98.5; BMI 24.3
[2024-04-19 21:07] LABS: HEMATOCRIT 40.8 % (35.4-49); HEMOGLOBIN 13.5 GM/dL (11.7-16.9); MCH 32.1 pg (25.7-33.7); MEAN CELL VOLUME 97.2 fl (80-96); MEAN PLT VOLUME 7.5 fl (7.5-11.1); PLATELET COUNT 226 10^3/uL (134-434); RDW 14.1 % (11.9-15.9)
[2024-04-19 21:21] LABS: WHITE BLOOD COUNT 1.9 K/mm3 (4.0-10.0)
[2024-04-19 21:28] LABS: POTASSIUM 4.3 mmol/L (3.5-5.1)
[2024-04-19 21:30] LABS: ALBUMIN 3.8 g/dl (3.4-5.0); BLOOD UREA NITROGEN 17.6 mg/dL (7-18); CALCIUM 8.7 mg/dL (8.5-10.1)
[2024-04-19 21:31] LABS: MAGNESIUM 2.2 mg/dL (1.8-2.4)
[2024-04-19] MEDS: SODIUM CHLORIDE 0.9% 500 ML INFUS.BAG IV ONE (21:32)
[2024-04-19 21:33] LABS: CREATININE 1.1 mg/dL (0.55-1.3)
[2024-04-19 21:35] LABS: BILIRUBIN,TOTAL 0.8 mg/dL (0.2-1); TOT PROT 7.3 g/dl (6.4-8.2)
[2024-04-19 21:52] LABS: ANISOCYTOSIS 0; HELMET CELLS 0; HOWELL-JOLLY BODIES 0; MACROCYTOSIS 0; OVALOCYTE 0; ROULEAU 0; SICKELED CELLS 0; TARGET CELLS 0; TEAR DROP CELLS 0; TOXIC GRANULATION 0
== END 2024-04-19 23:30 | disposition home or self-care (01) ==
LOC: JER 19:15
DX: R19.7 Diarrhea, unspecified (principal); R11.2 Nausea with vomiting, unspecified
CPT/HCPCS: 36415; 80053; 83690; 83735; 85025; 99284-25